=== PATIENT | female | born 1965 | race Two or more races ===

== ENCOUNTER 2020-07-10 08:11 | Outpatient (REF) | payer BC, SELFPAY | END 2020-07-10 08:12 | disposition home or self-care (01) | LOC: HO.HMGCLDS 08:11 | PROVIDERS: PCP Family Medicine; Visit Provider Internal Medicine | DX: Z20.828 Contact with and (suspected) exposure to other viral communicable diseases (principal) | CPT/HCPCS: C9803; U0003 ==

== ENCOUNTER → 2020-07-18 08:35 | Outpatient (BNVA) | payer BC, SELFPAY | PROVIDERS: PCP Internal Medicine; Referring Provider Internal Medicine; Visit Provider Advanced Practice Midwife | DX: Z76.89 Persons encountering health services in other specified circumstances (principal) ==

== ENCOUNTER 2020-12-15 09:21 | Outpatient (REF) | payer BC, SELFPAY ==
[2020-12-15 10:29] LABS: Cholesterol 198 mg/dL; HDL Cholesterol 84 mg/dL; LDL Cholesterol Calculated 102 mg/dl; Triglycerides 63 mg/dL
== END 2020-12-15 09:22 | disposition home or self-care (01) ==
LOC: HO.LAB 09:21
PROVIDERS: PCP Family Medicine; Visit Provider Family Medicine
DX: E78.5 Hyperlipidemia, unspecified (principal)
CPT/HCPCS: 36415; 80061

== ENCOUNTER 2021-02-14 13:01 | Outpatient (REF) | payer BC, SELFPAY ==
--- NOTE | ~2021-02-14 | MR_ITS ---
EXAMINATION: MR KNEE WITHOUT CONTRAST, RIGHT CLINICAL INFORMATION: Pain COMPARISON: X-ray of the right knee April 2020 TECHNIQUE: MRI of the knee without contrast was performed using routine sequences on a high-field scanner. FINDINGS: MENISCI: Medial Meniscus: Intact Lateral Meniscus: There is globular-appearing increased signal within the anterior body of the meniscus not clearly extending to the articular surface. LIGAMENTS: Cruciate: Intact Collateral: Intact EXTENSOR MECHANISM: Intact ARTICULAR CARTILAGE/BONE: Patellofemoral Compartment: Normal Medial Compartment: Normal Lateral Compartment: Normal JOINT FLUID AND BURSAE: Trace Fernandez's cyst. MR/MR knee RT wo con IMPRESSION: Findings in the lateral meniscus of uncertain significance. This may simply reflect prominent grade 2 signal. However, given the prominence, findings raise the question of a subtle inconspicuous tear. Trace Fernandez's cyst.
== END 2021-02-14 13:02 | disposition home or self-care (01) ==
LOC: HO.MRI 13:01
PROVIDERS: PCP Family Medicine; Visit Provider Family Medicine
DX: M25.561 Pain in right knee (principal)
CPT/HCPCS: 73721

== ENCOUNTER 2021-03-16 07:11 | Outpatient (REF) | payer BC, SELFPAY ==
[2021-03-16 07:28] LABS: MANUAL DIFF FLAG NO
[2021-03-16 07:30] LABS: Basophils Absolute Auto 0.1 X10*3/uL (0.0-0.2); Basophils Percent Auto 1.9 % (0-2); Eosinophils Absolute Auto 0.1 X10*3/uL (0.0-0.4); Eosinophils Percent Auto 2.5 % (0-4); Hematocrit 40.9 % (37-47); Hemoglobin 13.5 g/dl (12.0-16.0); Imm Gran Abs Auto 0.02 X10*3/uL (0.00-0.03); Imm Gran Pct Auto 0.4 % (0.0-0.4); Lymphocytes Absolute Auto 2.1 X10*3/uL (1.2-4.9); Lymphocytes Percent Auto 39.8 % (20-40); Mean Corpuscular Hemoglobin 29.2 pg (27.0-33.0); Mean Corpuscular Volume 88.5 fL (80-98); Mean Platelet Volume 9.7 fL (9.4-12.3); Monocytes Absolute Auto 0.4 X10*3/uL (0.1-1.2); Monocytes Percent Auto 7.5 % (2-11); Neutrophils Absolute Auto 2.5 X10*3/uL (2.0-8.3); Neutrophils Percent Auto 47.9 % (45-73); Platelet Count 238 X10*3/uL (160-400); Red Blood Count 4.62 X10*6/uL (4.20-5.50); Red Cell Distribution Width 13.4 % (11.0-16.0); White Blood Count 5.2 X10*3/uL (4.8-10.8)
[2021-03-16 08:00] LABS: Anion Gap 13 (12-20); Blood Urea Nitrogen 12 mg/dL (9-16); Calcium 9.4 mg/dL (8.4-10.2); Carbon Dioxide 26 mmol/L (22-29); Chloride 106 mmol/L (96-108); Estimated Glomerular Filt Rate > 60; Glucose Random 93 mg/dL (60-115); Potassium 4.3 mmol/L (3.3-5.1); Sodium 141 mmol/L (135-145)
[2021-03-16 08:21] LABS: TSH reflex Free T4 0.83 uIU/mL (0.32-4.0)
== END 2021-03-16 07:12 | disposition home or self-care (01) ==
LOC: HO.LAB 07:11
PROVIDERS: PCP Family Medicine; Visit Provider Family Medicine
DX: D12.6 Benign neoplasm of colon, unspecified (principal); E78.5 Hyperlipidemia, unspecified; I10 Essential (primary) hypertension; M25.561 Pain in right knee; Z80.0 Family history of malignant neoplasm of digestive organs; Z83.3 Family history of diabetes mellitus
CPT/HCPCS: 36415; 80048; 83735; 84443; 85025

== ENCOUNTER → 2021-03-19 09:43 | Outpatient (BNVA) | payer BC, SELFPAY | PROVIDERS: PCP Family Medicine; Visit Provider Advanced Practice Midwife ==

== ENCOUNTER 2021-03-25 13:50 | Outpatient (REF) | payer BC, SELFPAY ==
--- NOTE | ~2021-03-25 | MM_ITS ---
EXAMINATION: MM SCREENING DIGITAL BREAST TOMOSYNTHESIS, BILATERAL CLINICAL INFORMATION: Screening. Asymptomatic. The lifetime risk of breast cancer based on the Tyrer-Cuzick Model is 5%. COMPARISON: Mammography: 03/19/2020, 03/14/2019, 03/08/2018 TECHNIQUE: Digital breast tomosynthesis is performed in both the craniocaudal and mediolateral oblique views along with computer-aided detection (CAD). Synthesized 2D images are generated from the tomosynthesis. FINDINGS: The breasts are heterogeneously dense, which may obscure small masses (ACR BI-RADS breast composition Category c). There are no significant masses, abnormal calcifications, or other abnormalities. Parenchymal pattern is similar to prior studies. The axilla and skin contours are unremarkable. No significant changes. MM/MM tomosynthesis screening BI IMPRESSION: No mammographic evidence of malignancy. ASSESSMENT: BI-RADS 1: Negative RECOMMENDATION: Routine annual mammography screening. This patient's information was entered into a reminder system with a target due date for their next mammogram.
== END 2021-03-25 13:51 | disposition home or self-care (01) ==
LOC: HO.MAMMO 13:50
PROVIDERS: Visit Provider Family Medicine
DX: Z12.31 Encounter for screening mammogram for malignant neoplasm of breast (principal)
CPT/HCPCS: 77063; 77067

== ENCOUNTER 2021-04-02 14:34 | Outpatient (REF) | payer BC, SELFPAY ==
--- NOTE | ~2021-04-02 | US_ITS ---
EXAMINATION: US PELVIS CLINICAL INFORMATION: Pelvic pressure COMPARISON: Previous pelvic ultrasound most recent January [address] March 2020 TECHNIQUE: Ultrasound of the pelvis is performed using both transabdominal and transvaginal transducers along with Doppler. Transvaginal imaging is performed due to inadequate visualization transabdominally. FINDINGS: The uterus is anteverted and measures 8.6 x 3.1 x 5.2 cm in addition. Uterine echotexture is heterogeneous. There are multiple small uterine lesions, at least 8, suggestive of small fibroids. The largest measures 1 cm. The endometrium appears slightly thickened for a postmenopausal patient measuring 0.8 cm. There is fluid seen in the endocervical canal. The ovaries are normal-appearing. The right ovary measures 2.4 x 1.3 x 1 cm. The left ovary measures 1.7 x 1.2 x 1.3 cm. There is no fluid in the pelvis. US/US pelvic and transvaginal IMPRESSION: Multiple small uterine fibroids. Slightly thickened endometrium for a postmenopausal patient measuring 0.8 cm.
== END 2021-04-02 14:35 | disposition home or self-care (01) ==
LOC: HO.US 14:34
PROVIDERS: Visit Provider Advanced Practice Midwife
DX: N94.9 Unspecified condition associated with female genital organs and menstrual cycle (principal)
CPT/HCPCS: 76830; 76856

== ENCOUNTER 2021-04-17 17:57 | Emergency (ER) | payer BC, SELFPAY ==
[2021-04-17 18:31] VITALS: BP 148/88; PULSE 80; RESP 18; TEMP 36.9; O2SAT 98; BMI 25.0
--- NOTE | 2021-04-17 18:34 | PC.NURSE ---
pt with no facial droop and equal strength all extremities
[2021-04-17 20:00] VITALS: BP 154/57; PULSE 74; RESP 16; TEMP 36.4; O2SAT 97
--- NOTE | 2021-04-17 20:05 | ED.GENADULT ---
HPI - General Adult General Chief complaint: General Medical Stated complaint: high bp Time Seen by Provider: 04/17/21 20:05 Source: patient Mode of arrival: ambulatory Limitations: no limitations History of Present Illness HPI narrative: Patient's history of borderline hypertension not on any medication diagnosed last month came here because for last few days patient having higher blood pressure ranging to 160/94 earlier today patient had the labs workup done last month, everything was normal blood pressure on arrival was 148/88 now 173/99 with no orthostatics patient little stressed out ,no known family history. Patient requesting to start on blood pressure medication Related Data Home Medications Medication Instructions Recorded Confirmed atorvastatin 20 mg tablet 20 mg PO DAILY 07/18/20 ibuprofen 600 mg tablet 600 mg PO Q8H PRN 07/18/20 gabapentin 300 mg capsule 300 mg PO TID 03/19/21 Previous Rx's Medication Instructions Recorded estradiol (Estrace) 1 g VAGINAL 2XW #42.5 g 01/21/21 lisinopril 10 1 tab PO DAILY #30 tab 04/17/21 mg-hydrochlorothiazide 12.5 mg tablet Allergies Allergy/AdvReac Type Severity Reaction Status Date / Time acetaminophen [From TYLENOL] Allergy Severe THROAT Verified 03/19/21 09:55 CLOSES dichloralphenazone Allergy Severe PANIC Verified 03/19/21 09:55 [From MIDRIN] ATTACK From MIDRIN Allergy Severe PANIC Uncoded 04/26/20 16:04 ATTACK Midrin AdvReac Unknown anxiety Uncoded 04/04/20 00:00 Review of Systems Review of Systems: Yes all other systems are reviewed and are negative PMFSH Past Medical History Medical History High cholesterol Surgical History History of back surgery Hx of section Hx of cholecystectomy Family History Family History Family/Other Colon cancer Other Adopted Social History Social History Alcohol intake: current Alcohol intake frequency: holidays/special occasions only Advance Directives: No Advance Directives Information Provided: Yes Sexual orientation: Straight/Heterosexual Physical Exam Vital Signs: Vital Signs: Last Vital Signs Temp 97.6 F 04/17/21 20:00 Pulse 73 04/17/21 21:21 Resp 16 04/17/21 20:00 BP 173/85 H 04/17/21 21:21 Pulse Ox 97 04/17/21 20:00 Body Mass Index 25.0 Appearance: Alert. Oriented X3. No acute distress. Anxious Eyes: PERRLA, No Nystagmus ENT: Pharynx normal. Oral Mucosa moist Neck: Normal inspection. Neck supple. CVS: Normal heart rate and rhythm. Pulses normal. Respiratory: No respiratory distress. Equal air entry bilateral, no wheezing/rales/rhonchi Abdomen: Soft and nontender. Bowel sounds are present, no mass palpable, no CVA tenderness Skin: Skin warm and dry. Normal skin color. Normal skin turgor. Extremities: No lower extremity edema. No calf tenderness Neuro: Oriented X 3. Discharge Plan Discharge Clinical Impression: Hypertension Qualifiers: Hypertension type: primary hypertension Qualified Code(s): I10 - Essential (primary) hypertension Patient Disposition: Home, Self-Care Instructions: Hypertension (ED) Additional Instructions: Take medication for blood pressure and check blood pressure daily should be less than 140/90 Follow up with PCP Prescriptions: New lisinopril-hydrochlorothiazide 10-12.5 mg tablet 1 tab PO DAILY Qty: 30 RF: 0 No Action estradiol [Estrace] 0.01 % (0.1 mg/gram) cream 1 g vaginal 2XW Qty: 42.5 RF: 1 ibuprofen 600 mg tablet 600 mg PO Q8H PRN (Reason: pain) RF: 0 atorvastatin 20 mg tablet 20 mg PO DAILY RF: 0 gabapentin 300 mg capsule 300 mg PO TID RF: 0 Interventions: ED Discharge Assessment Last Done: 04/17/21 21:17 Discharge Date/Time: 04/17/21 21:22
[2021-04-17 20:16] VITALS: BP 179/89; PULSE 78
[2021-04-17 20:17] VITALS: BP 173/73; BP 173/99; PULSE 75; PULSE 77
[2021-04-17 20:43] VITALS: BP 193/87; PULSE 67
[2021-04-17] MEDS: lisinopriL 10 MG TABLET PO (20:43)
[2021-04-17 21:21] VITALS: BP 173/85; PULSE 73
== END 2021-04-17 21:22 | disposition home or self-care (01) ==
PROVIDERS: Emergency Provider Internal Medicine; PCP Family Medicine
DX: I10 Essential (primary) hypertension (principal); Z79.899 Other long term (current) drug therapy
CPT/HCPCS: 99283; 99284

== ENCOUNTER → 2021-04-23 13:22 | Outpatient (BNVA) | payer BC, SELFPAY | PROVIDERS: PCP Family Medicine; Visit Provider Advanced Practice Midwife ==

== ENCOUNTER 2021-05-04 07:14 | Outpatient (REF) | payer BC, SELFPAY ==
[2021-05-04 07:58] LABS: Anion Gap 13 (12-20); Blood Urea Nitrogen 17 mg/dL (9-16); Calcium 9.7 mg/dL (8.4-10.2); Carbon Dioxide 28 mmol/L (22-29); Chloride 99 mmol/L (96-108); Estimated Glomerular Filt Rate > 60; Glucose Random 122 mg/dL (60-115); Potassium 4.9 mmol/L (3.3-5.1); Sodium 135 mmol/L (135-145)
== END 2021-05-04 07:15 | disposition home or self-care (01) ==
LOC: HO.LAB 07:14
PROVIDERS: PCP Family Medicine; Visit Provider Family Medicine
DX: I10 Essential (primary) hypertension (principal)
CPT/HCPCS: 36415; 80048

== ENCOUNTER → 2021-05-16 14:37 | Outpatient (BNVA) | payer BC, SELFPAY | PROVIDERS: Visit Provider Orthopaedic Surgery ==

== ENCOUNTER → 2021-06-10 13:51 | Outpatient (BNVA) | payer BC, SELFPAY | PROVIDERS: PCP Family Medicine; Visit Provider Internal Medicine ==

== ENCOUNTER → 2021-07-23 12:53 | Outpatient (BNVA) | payer BC, SELFPAY | PROVIDERS: PCP Family Medicine; Visit Provider Advanced Practice Midwife ==

== ENCOUNTER 2022-03-26 14:03 | Outpatient (REF) | payer BC, SELFPAY ==
--- NOTE | ~2022-03-26 | MM_ITS ---
EXAMINATION: MM SCREENING DIGITAL BREAST TOMOSYNTHESIS, BILATERAL CLINICAL INFORMATION: Screening. Asymptomatic. The lifetime risk of breast cancer based on the Tyrer-Cuzick Model is 6%. COMPARISON: Mammography: 03/25/2021, 03/19/2020, 03/14/2019 TECHNIQUE: Digital breast tomosynthesis is performed in both the craniocaudal and mediolateral oblique views along with computer-aided detection (CAD). Synthesized 2D images are generated from the tomosynthesis. FINDINGS: The breasts are heterogeneously dense, which may obscure small masses (ACR BI-RADS breast composition Category c). Parenchymal pattern is similar to prior studies. There is no developing density or architectural abnormality. The axilla and skin contours are unremarkable. No significant changes. There are no significant masses, abnormal calcifications, or other abnormalities. MM/MM tomosynthesis screening BI IMPRESSION: No mammographic evidence of malignancy. ASSESSMENT: BI-RADS 1: Negative RECOMMENDATION: Routine annual mammography screening. This patient's information was entered into a reminder system with a target due date for their next mammogram.
== END 2022-03-26 14:04 | disposition home or self-care (01) ==
LOC: HO.MAMMO 14:03
PROVIDERS: PCP Family Medicine; Visit Provider Family Medicine
DX: Z12.31 Encounter for screening mammogram for malignant neoplasm of breast (principal)
CPT/HCPCS: 77063; 77067

== ENCOUNTER 2022-06-15 18:49 | Emergency (ER) | payer BC, SELFPAY ==
--- NOTE | ~2022-06-15 | CT_ITS ---
EXAMINATION: CT ANGIOGRAM NECK AND HEAD CLINICAL INFORMATION: Severe dizziness COMPARISON: MRI 12/07/2021, CT 12/18/2011 TECHNIQUE: Initial noncontrast head CT was performed. Test bolus sequences followed by intravenous administration 70 mL of Ultravist-370. Helical imaging was performed in the axial plane from the thoracic inlet to the skull vertex. Delayed postcontrast imaging of the head was also performed. The data was processed at the eeg technologist's workstation for generation of MIP sequences. Angled MIPs and volume rendered reformatted images were also generated at an offline 3D workstation. Stenoses are assessed in accordance with NASCET criteria unless otherwise indicated. DOSE LOWERING TECHNIQUES: This CT examination was performed using dose optimization techniques as appropriate, variously including the following: - Automated exposure control - Adjustment of mA and/or kV according to patient size (this includes techniques or standardized protocols for targeted exams were dose is matched to indication/reason for exam; i.e. extremities or head) - Use of iterative reconstruction technique DLP: 2126 mGy-cm FINDINGS: Neck CTA: There is a classic 3 vessel branching pattern of the aortic arch. Normal appearance of the visualized aortic arch and proximal branches. No significant stenosis at the branch origins. Both vertebral arteries are widely patent throughout their extracranial cervical course. Normal appearance of the common and internal carotid arteries without focal stenosis. Brain CTA: Normal appearance of the intradural vertebral arteries. Normal appearance of the basilar and superior cerebellar arteries. Normally opacified posterior cerebral arteries bilaterally. Normal appearance of the intradural internal carotid arteries without focal stenosis. Normal appearance of the anterior cerebral and middle cerebral arteries without focal occlusion or stenosis. Normal anterior communicating artery. Normal arborization of the middle cerebral arteries. CT Head: No intracranial mass, hemorrhage, extra-axial collection, or midline shift. The gentile-white matter differentiation is preserved. 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 No pathologic intra-axial enhancement or regional oligemia. No hydrocephalus. The mastoid air cells and paranasal sinuses remain well aerated. CT Neck: The thyroid gland and remaining cervical soft tissues are normal in appearance. There is right-sided facet arthropathy at C2-C4. Upper Chest: No abnormalities in the visualized lung apices or upper mediastinum. CT/CT angio head neck IMPRESSION: 1. No acute intracranial findings. 2. No hemodynamically significant stenosis in the major arteries of the neck. No large vessel occlusion or significant stenosis in the intracranial circulation.
[2022-06-15 19:42] VITALS: BP 138/81; PULSE 98; RESP 16; TEMP 36.6; O2SAT 98; BMI 25.0
--- NOTE | 2022-06-15 19:46 | ECG_ITS ---
Test Reason : DIZZINESS Blood Pressure : / mmHG Vent. Rate : 088 BPM Atrial Rate : 088 BPM P-R Int : 152 ms QRS Dur : 068 ms QT Int : 330 ms P-R-T Axes : 079 035 064 degrees QTc Int : 399 ms Normal sinus rhythm Low voltage QRS Nonspecific T wave abnormality RSR' or QR pattern in V1 suggests right ventricular conduction delay Possible Left atrial enlargement Abnormal ECG No previous ECGs available Referred By: Generic ED Physician Electronically Signed By:RASHAAD ZAVALA MD
[2022-06-15 20:08] LABS: MANUAL DIFF FLAG NO
[2022-06-15 20:11] LABS: Basophils Percent Auto 0.6 % (0-2); Eosinophils Absolute Auto 0.1 X10*3/uL (0.0-0.4); Eosinophils Percent Auto 1.4 % (0-4); Hematocrit 39.8 % (37.0-47.0); Hemoglobin 13.5 g/dl (12.0-16.0); Imm Gran Abs Auto 0.03 X10*3/uL (0.00-0.03); Imm Gran Pct Auto 0.5 % (0.0-0.4); Lymphocytes Absolute Auto 1.6 X10*3/uL (1.2-4.9); Lymphocytes Percent Auto 23.6 % (20-40); Mean Corpuscular HGB Conc 33.9 g/dl (31.0-35.0); Mean Corpuscular Hemoglobin 29.7 pg (27.0-33.0); Mean Corpuscular Volume 87.5 fL (80.0-98.0); Mean Platelet Volume 9.8 fL (9.4-12.3); Monocytes Absolute Auto 0.5 X10*3/uL (0.1-1.2); Neutrophils Absolute Auto 4.4 x10*3/uL (2.0-8.3); Neutrophils Percent Auto 65.9 % (45-73); Platelet Count 269 X10*3/uL (160-400); Red Blood Count 4.55 X10*6/uL (4.20-5.50); Red Cell Distribution Width 13.2 % (11.0-16.0); White Blood Count 6.6 X10*3/uL (4.8-10.8)
[2022-06-15 20:26] LABS: Anion Gap 17 (12-20); Blood Urea Nitrogen 14 mg/dL (9-16); Calcium 9.4 mg/dL (8.4-10.2); Carbon Dioxide 24 mmol/L (22-29); Chloride 104 mmol/L (96-108); Creatinine Clr Calc Pharmacy 77.4; Estimated Glomerular Filt Rate > 60; Glucose Random 112 mg/dL (60-115); Sodium 141 mmol/L (135-145)
--- OUTSIDE RECORDS SUMMARY | 2022-06-15 21:22 | XMS_ITS | Continuity of Care Document ---
:1965 Author Organization [address], [address] [place] [address]- Care Team Providers Name Role Phone Frances Li MD Primary Care Physician [facility]counter [facility] [id number] Date(s): 04/18/21 - 04/25/[address], [address] [place], [place] [address] Attending Physician: Rajat BREWER, Peyton Kaur Referring Physician: Frances Li MD Allergies, Adverse Reactions, Alerts Substance Reaction Severity Status Tylenol Tightness in throat Active Medications atorvastatin 20 mg oral tablet 1 tablet = 20 mg, By Mouth, Daily, # 30 tablet, 0 Refills, Maintenance, 04/18/21 14:08:00 EDT, Tablet, Partial fill upon patient request if the prescription is for a schedule II opioid drug. Start Date: 04/18/21 Status: OrderedConjugated Estrogens Topical = 1 Gm, Vaginally, Daily before dinner, 0 Refills, Maintenance, 04/07/21 12:36:00 EDT, Partial fill upon patient request if the prescription is for a schedule II opioid drug. Start Date: 04/07/21 Status: Orderedgabapentin (OP) By Mouth, 0 Refills, Maintenance, 2 Start Date: 04/07/21 Status: Orderedhydrochlorothiazide-lisinopril 12.5 mg-10 mg oral tablet 1 tablet, By Mouth, Daily, # 30 tablet, 0 Refills, Maintenance, 04/18/21 14:07:00 EDT, Tablet, Partial fill upon patient request if the prescription is for a schedule II opioid drug. Start Date: 04/18/21 Status: OrderedhydrOXYzine hydrochloride 25 mg oral tablet 1 tablet = 25 mg, By Mouth, 4 times a day, PRN for anxiety, # 40 tablet, 0 Refills, Maintenance, 04/18/21 14:08:00 EDT, Tablet, Partial fill upon patient request if the prescription is for a schedule II opioid drug. Start Date: 04/18/21 Status: Ordered Vital Signs Most recent to oldest [Reference Range]: 1 Height 170 cm (04/18/21 2:01 PM) Weight 69.0 kg (04/18/21 2:01 PM) Body Mass Index [18.5-24.99] 23.88 (04/18/21 2:01 PM)
--- OUTSIDE RECORDS SUMMARY | 2022-06-15 21:22 | XMS_ITS | Continuity of Care Document ---
:1965 Author Organization [address], [address] [place] [address]- Care Team Providers Name Role Phone Frances Li MD Primary Care Physician Encounter [facility] [id number] Date(s): 10/29/21 - 11/28/[address], [address] [place] [address]- Attending Physician: Ariel Munroe Admitting Physician: Ariel Munroe Referring Physician: AdmtrAriel Allergies, Adverse Reactions, Alerts Substance Reaction Severity [...]
--- OUTSIDE RECORDS SUMMARY | 2022-06-15 21:22 | XMS_ITS | Continuity of Care Document ---
:1965 Author Organization [facility] [address] Address [address] [place] [address]- Care Team Providers Name Role Phone Frances Li MD Primary Care Physician [phone] Encounter [facility] Date(s): 04/07/21 - 04/14/21 [facility] [address] [place], [place] [address] Encounter Diagnosis Seasonal allergies (Discharge Diagnosis) - 04/07/21 Elevated blood pressure reading (Discharge Diagnosis) - 04/07/21 Attending Physician: Kym DOTY, Miriam Referring Physician: Frances Li MD Allergies, Adverse Reactions, Alerts Substance Reaction Severity Status Tylenol Tightness in throat Active Medications Conjugated Estrogens Topical = 1 Gm, Vaginally, Daily before dinner, 0 Refills, Maintenance, 04/07/21 12:36:00 EDT, Partial fill upon patient request if the prescription is for a schedule II opioid drug. Start Date: 04/07/21 Status: Orderedgabapentin (OP) By Mouth, 0 Refills, Maintenance, 2 Start Date: 04/07/21 Status: Ordered Problem List Diagnosis Diagnosis Type Effective Dates Health Status Clinical In formant Service Seasonal Discharge 04/07/21 allergies Diagnosis Elevated blood Discharge 04/07/21 pressure reading Diagnosis Vital Signs Most recent to oldest [Reference Range]: 1 Oxygen Saturation [94-100 %] 98 % (04/07/21 12:34 PM) Pulse Rate [55-90 bpm] 82 bpm (04/07/21 12:34 PM) Blood Pressure [90-138/55-84 mm Hg] 154/96 mm Hg *H* (04/07/21 12:34 PM) Respiratory Rate [16-30 br/min] 20 br/min (04/07/21 12:34 PM) Temperature [96.8-100.4 DegF] 97.0 DegF (04/07/21 12:34 PM) Mode of Delivery (Oxygen) Room air (04/07/21 12:34 PM) Blood pressure sites Arm, right (04/07/21 12:34 PM) Temperature Route Temporal (04/07/21 12:34 PM)
--- OUTSIDE RECORDS SUMMARY | 2022-06-15 21:22 | XMS_ITS | Continuity of Care Document ---
:1965 Author Organization [address], [address] [place] [address]- Care Team Providers Name Role Phone Frances Li MD Primary Care Physician Encounter [facility] [id number] Date(s): 10/29/21 - 11/05/[address], [address] [place], [place] [address] Attending Physician: Rajat BREWER, Peyton Kaur Allergies, Adverse Reactions, Alerts Substance Reaction Severity [...] oldest [Reference Range]: 1 Height 170 cm (10/29/21 10:36 AM) Weight 69.0 kg (10/29/21 10:36 AM) Body Mass Index [18.5-24.99] 23.88 (10/29/21 10:36 AM)
--- OUTSIDE RECORDS SUMMARY | 2022-06-15 21:22 | XMS_ITS | Continuity of Care Document ---
:1965 Author Organization [facility] [address] Address [address] [place] [address]- Care Team Providers Name Role Phone Frances Li MD Primary Care Physician [facility] [id number] Date(s): 04/07/21 - 05/07/21 [facility] [address] [place], [place] [address] Attending Physician: Ariel Munroe Admitting Physician: Ariel [...]
--- OUTSIDE RECORDS SUMMARY | 2022-06-15 21:22 | XMS_ITS | Continuity of Care Document ---
:1965 Author Organization [address], [address] [place] [address]- Care Team Providers Name Role Phone Frances Li MD Primary Care Physician [place] [facility] [id number] Date(s): 04/18/21 - 05/18/[address], [address] [place] [address]- Attending Physician: Ariel Munroe Admitting Physician: Ariel [...]
[2022-06-15 22:38] LABS: Appearance Urine Clear; Color Urine Yellow; Glucose Urine UA Negative (Negative); Leukocyte Esterase Urine Negative (Negative); Nitrite Urine Negative (Negative); PH 5.5 (5.0-9.0); Specific Gravity - Urine 1.015 (1.005-1.025); Urine Blood Negative (Negative); Urine Ketones Negative (Negative); Urine Protein Negative (Neg-Trace)
[2022-06-15 23:57] VITALS: BP 161/82; PULSE 101; RESP 18; TEMP 36.7; O2SAT 99
[2022-06-16] MEDS: diazePAM 2 MG TABLET 4 MG PO
[2022-06-16] MEDS: diphenhydrAMINE HCL 50 MG/ML VIAL 25 MG IVPUSH (00:07)
[2022-06-16] MEDS: 0.9 % Sodium Chloride 1,000 ML 999 ML IVCONT (00:07)
[2022-06-16] MEDS: iohexoL 350 MG/ML 100 ML INFUS..BTL 70 ML IV (02:22)
--- NOTE | 2022-06-16 03:27 | PC.NURSE ---
Patient ambulated with a steady gait ,patient had no complaints aware
[2022-06-16 03:29] VITALS: BP 152/83; PULSE 97; RESP 18; TEMP 36.7; O2SAT 100
--- NOTE | 2022-06-16 03:34 | ED_ITS ---
HPI - Dizziness General Chief Complaint: Dizziness Stated Complaint: Dizziness/Blurry vision Time Seen by Provider: 06/15/22 23:22 Source: patient Mode of arrival: ambulatory Limitations: no limitations History of Present Illness HPI Narrative: Patient comes to the emergency room complaining of dizziness with head movement and standing up. Patient states that she feels that the whole room is spinning, feels that her gait is off, needs to hold onto the garcia to walk. Patient states that as long as she is sitting down not moving her head she feels completely normal but once she starts moving and getting up, the whole room starts spinning and patient becomes very nauseous. Patient denies chest pain or shortness of breath. Patient states that she had a mild headache, has not taking any medications. Related Data Home Medications Medication Instructions Recorded Confirmed atorvastatin 20 mg tablet 20 mg PO DAILY 07/18/20 ibuprofen 600 mg tablet 600 mg PO Q8H PRN pain 07/18/20 amlodipine 2.5 mg tablet 2.5 mg PO DAILY 02/05/22 clotrimazole 1 % vaginal cream vaginal BEDTIME PRN 02/05/22 hydralazine 25 mg tablet 25 mg PO BID 02/05/22 Previous Rx's Medication Instructions Recorded lisinopril 10 1 tab PO DAILY #30 tabs 04/17/21 mg-hydrochlorothiazide 12.5 mg tablet diazepam 2 mg tablet 2 mg PO BID PRN vertigo #6 tabs 06/16/22 meclizine 50 mg tablet 50 mg PO BID PRN dizziness #20 tabs 06/16/22 Allergies Allergy/AdvReac Type Severity Reaction Status Date / Time acetaminophen [From TYLENOL] Allergy Severe THROAT Verified 02/05/22 12:24 CLOSES dichloralphenazone Allergy Severe PANIC Verified 02/05/22 12:24 [From MIDRIN] ATTACK From MIDRIN Allergy Severe PANIC Uncoded 02/05/22 12:24 ATTACK Midrin AdvReac Unknown anxiety Uncoded 02/05/22 12:24 Review of Systems Review of Systems: Constitutional : No Weight loss, No Fever, No Chills, No Night Sweats, No Fatigue, No Malaise ENT/Mouth : No Hearing loss, No Ear Pain, No Nasal Congestion, No Sinus Pain, No Hoarseness, No sore throat, No Rhinorrhea, No Swallowing Difficulty Eyes: No Eye Pain, No Swelling, No Redness, No Foreign Body, No Discharge, No Vision Changes Cardiovascular : No Chest Pain, No SOB, No Dyspnea on Exertion, No Orthopnea, No Edema, No Palpitations Respiratory : No Cough, No Sputum, No Wheezing, No Smoke Exposure, No Dyspnea Gastrointestinal : No Nausea, No Vomiting, No Diarrhea, No Constipation, No abdominal Pain, No Hematochezia, No Melena Genitourinary : no irregular bleeding, No Dysuria, No Urinary Frequency, No Hematuria, No Urinary Incontinence, No Urgency, No Flank Pain, No Urinary Flow Changes, No Hesitancy Musculoskeletal : No joint pain, No Myalgias, No Joint Swelling Skin : No Skin Lesions, No rash Neuro : No Weakness, No Numbness, No Paresthesias, No Loss of Consciousness, complaining of severe dizziness with head movement and standing up, room spinning Psych : No Anxiety/Panic, No Depression, No SI/HI/AH/VH, No Social Issues, Heme/Lymph: No Bruising, No Bleeding,No Lymphadenopathy Endocrine : No Polyuria, No Polydipsia, No Temperature Intolerance [facility] Past Medical History Medical History Fibroids High cholesterol Right lumbar radiculitis Surgical History History of back surgery Hx of section Hx of cholecystectomy Family History Family History Family/Other Colon cancer Other Adopted Social History Social History (Updated 02/05/22 @ 12:26 by ELPIDIO Garcia) Household Members: Spouse Housing: House Alcohol intake: current Alcohol intake frequency: a few times a month Patient Tobacco Use Status: Former Tobacco user Smoked in Last 30 Days: No Use of substances other than those prescribed or required for medical reasons: No Advance Directives: No Advance Directives Information Provided: Yes Patient : No service: No Current occupational status: employed 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 Oriented X3. No acute distress. Eyes: Pupils equal, round and reactive to light. Mild horizontal nystagmus bilaterally ENT: Pharynx normal. Neck: Normal inspection. Neck supple. No lymph nodes noted. No crepitus CVS: Normal heart rate and rhythm. Pulses normal. Normal S1 and S2 Respiratory: No respiratory distress. Breath sounds normal. No Wheezing. No rales Abdomen: Soft and nontender. No rigidity. No distention. Skin: Skin warm and dry. Normal skin color. Normal skin turgor. Extremities: No lower extremity edema. No Lacerations. No Rash Neuro: Oriented X 3. No motor deficit. No sensory deficit. Moving all extremities. No slurred speech. CN 2 through 12 grossly intact Psych: calm, cooperative, normal affect Course Course Course Narrative: CTA of head and neck were negative. After treatment with meclizine, diazepam, diphenhydramine and IV fluids, patient states that she feels much better. Patient was able to walk without assistance, states that she feels slightly dizzy but overall she states that she can and feels well enough MDM - Dizziness Lab Data Result diagrams: 06/15/22 19:59 06/15/22 19:59 Labs: Lab Results 06/15/22 06/15/22 06/15/22 Range/Units 19:59 19:59 22:30 WBC 6.6 (4.8-10.8) X10*3/uL RBC 4.55 (4.20-5.50) X10*6/uL Hgb 13.5 (12.0-16.0) g/dl Hct 39.8 (37.0-47.0) % MCV 87.5 (80.0-98.0) fL MCH 29.7 (27.0-33.0) pg MCHC 33.9 (31.0-35.0) g/dl RDW 13.2 (11.0-16.0) % Plt Count 269 (160-400) X10*3/uL MPV 9.8 (9.4-12.3) fL Immature Gran % (Auto) 0.5 H (0.0-0.4) % Neut % (Auto) 65.9 (45-73) % Lymph % (Auto) 23.6 (20-40) % Kidder % (Auto) 8.0 (2-11) % Eos % (Auto) 1.4 (0-4) % Baso % (Auto) 0.6 (0-2) % Lymph # (Auto) 1.6 (1.2-4.9) X10*3/uL [place] # (Auto) 0.5 (0.1-1.2) X10*3/uL Eos # (Auto) 0.1 (0.0-0.4) X10*3/uL Baso # (Auto) 0.0 (0.0-0.2) X10*3/uL Abs Immat Gran (auto) 0.03 (0.00-0.03) X10*3/uL Absolute Neuts (auto) 4.4 (2.0-8.3) x10*3/uL Absolute Nucleated RBC 0.000 (0.0-0.012) X10*3/uL Nucleated RBC % (auto) 0.0 (0.0-0.2) /100WBC Sodium 141 (135-145) mmol/L Potassium 4.0 (3.3-5.1) mmol/L Chloride 104 (96-108) mmol/L Carbon Dioxide 24 (22-29) mmol/L Anion Gap 17 (12-20) BUN 14 (9-16) mg/dL Creatinine 0.77 (0.5-1.4) mg/dL Estim Creat Clear Calc 77.4 Estimated GFR > 60 Random Glucose 112 (60-115) mg/dL Calcium 9.4 (8.4-10.2) mg/dL Urine Color Yellow Urine Appearance Clear Urine pH 5.5 (5.0-9.0) Ur Specific [place] 1.015 (1.005-1.025) Urine Protein Negative (Neg-Trace) mg/dL Urine Glucose (UA) Negative (Negative) mg/dL Urine Ketones Negative (Negative) mg/dL Urine Blood Negative (Negative) Urine Nitrite Negative (Negative) Ur Leukocyte Esterase Negative (Negative) Imaging Data CTA of head and neck: Radiologist's impression: FINDINGS: Neck CTA: There is a classic 3 vessel branching pattern of the aortic arch. Normal appearance of the visualized aortic arch and proximal branches. No significant stenosis at the branch origins. Both vertebral arteries are widely patent throughout their extracranial cervical course. Normal appearance of the common and internal carotid arteries without focal stenosis. Brain CTA: Normal appearance of the intradural vertebral arteries. Normal appearance of the basilar and superior cerebellar arteries. Normally opacified posterior cerebral arteries bilaterally. Normal appearance of the intradural internal carotid arteries without focal stenosis. Normal appearance of the anterior cerebral and middle cerebral arteries without focal occlusion or stenosis. Normal anterior communicating artery. Normal arborization of the middle cerebral arteries. CT Head: No intracranial mass, hemorrhage, extra-axial collection, or midline shift. The gentile-white matter differentiation is preserved. 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 No pathologic intra-axial enhancement or regional oligemia. No hydrocephalus. The mastoid air cells and paranasal sinuses remain well aerated. CT Neck: The thyroid gland and remaining cervical soft tissues are normal in appearance. There is right-sided facet arthropathy at C2-C4. Upper Chest: No abnormalities in the visualized lung apices or upper mediastinum. CT/CT angio head neck IMPRESSION: 1.? No acute intracranial findings. 2.? No hemodynamically significant stenosis in the major arteries of the neck. No large vessel occlusion or significant stenosis in the intracranial circulation. ? Discharge Plan Discharge Clinical Impression: Benign paroxysmal positional vertigo Patient Disposition: Home, Self-Care Instructions: Vertigo (ED) Additional Instructions: Please follow-up with your primary care physician tomorrow. If you have any worsening or new symptoms, please return to the emergency room or call 911 Prescriptions: New meclizine 50 mg tablet 50 mg PO BID PRN (Reason: dizziness) Qty: 20 0RF diazepam 2 mg tablet 2 mg PO BID PRN (Reason: vertigo) Qty: 6 0RF No Action lisinopril-hydrochlorothiazide 10-12.5 mg tablet 1 tab PO DAILY Qty: 30 0RF ibuprofen 600 mg tablet 600 mg PO Q8H PRN (Reason: pain) atorvastatin 20 mg tablet 20 mg PO DAILY clotrimazole 1 % cream vaginal BEDTIME PRN amlodipine 2.5 mg tablet 2.5 mg PO DAILY hydralazine 25 mg tablet 25 mg PO BID
[2022-06-16] MEDS: Meclizine HCl 25 MG TABLET 50 MG PO ×2 (04:02)
--- NOTE | 2022-06-16 04:06 | PC.NURSE ---
Pt a&o, no sob or chest pain. no sign of distress. Reviewed discharge with pt, pt verbalized understanding.
== END 2022-06-16 04:08 | disposition home or self-care (01) ==
PROVIDERS: Emergency Provider Emergency Medicine; PCP Family Medicine
DX: H81.13 Benign paroxysmal vertigo, bilateral (principal); H53.8 Other visual disturbances; Z87.891 Personal history of nicotine dependence; Z79.899 Other long term (current) drug therapy
CPT/HCPCS: 36415; 70496; 70498; 80048; 81003; 85025; 93005; 99285; J1200; Q9967

== ENCOUNTER 2022-06-24 05:58 | Outpatient (REF) | payer BC, SELFPAY ==
[2022-06-24 08:31] LABS: Glucose Random 73 mg/dL (60-115); Thyroid Stimulating Hormone 0.46 uIU/mL (0.32-4.0)
[2022-06-24 08:34] LABS: Vitamin B12 863 pg/mL (200-900)
[2022-06-25 07:04] LABS: Syphilis Screen Nonreactive (Nonreactive)
[2022-06-25 09:11] LABS: Lyme Abs Screen <0.90 index
[2022-06-25 16:26] LABS: Ceruloplasmin 29 mg/dL (18-53)
[2022-06-26 18:32] LABS: Anti Nuclear Antibody Screen POSITIVE (NEGATIVE)
[2022-06-30 15:11] LABS: Transglutaminase Ab IgG <1.0 U/mL
== END 2022-06-24 05:59 | disposition home or self-care (01) ==
LOC: HO.LAB 05:58
PROVIDERS: Internal Medicine; PCP Family Medicine; Visit Provider Psychiatry & Neurology Neurology
DX: R20.0 Anesthesia of skin (principal)
CPT/HCPCS: 36415; 82390; 82607; 82947; 84443; 86038; 86039; 86364; 86617; 86618; 86780

== ENCOUNTER 2022-08-20 13:15 | Outpatient (REF) | payer BC, SELFPAY ==
[2022-08-26 16:29] LABS: HPV mRNA E6/E7 rflx Not Detected (Not Detected)
== END 2022-08-20 13:16 | disposition home or self-care (01) ==
LOC: HO.LNP 13:15
PROVIDERS: PCP Family Medicine; Visit Provider Advanced Practice Midwife
DX: Z01.419 Encounter for gynecological examination (general) (routine) without abnormal findings (principal); Z11.51 Encounter for screening for human papillomavirus (HPV)
CPT/HCPCS: 87624; 88142

== ENCOUNTER 2022-12-13 07:09 | Outpatient (REF) | payer BC, SELFPAY ==
[2022-12-13 07:33] LABS: MANUAL DIFF FLAG NO
[2022-12-13 07:47] LABS: Basophils Absolute Auto 0.1 X10*3/uL (0.0-0.2); Basophils Percent Auto 1.3 % (0-2); Eosinophils Absolute Auto 0.1 X10*3/uL (0.0-0.4); Eosinophils Percent Auto 1.9 % (0-4); Hemoglobin 12.9 g/dl (12.0-16.0); Imm Gran Abs Auto 0.01 X10*3/uL (0.00-0.03); Imm Gran Pct Auto 0.2 % (0.0-0.4); Lymphocytes Absolute Auto 1.9 X10*3/uL (1.2-4.9); Lymphocytes Percent Auto 35.4 % (20-40); Mean Corpuscular HGB Conc 33.1 g/dl (31.0-35.0); Mean Corpuscular Hemoglobin 28.7 pg (27.0-33.0); Mean Corpuscular Volume 86.7 fL (80.0-98.0); Mean Platelet Volume 9.9 fL (9.4-12.3); Monocytes Absolute Auto 0.4 X10*3/uL (0.1-1.2); Monocytes Percent Auto 8.2 % (2-11); Neutrophils Absolute Auto 2.8 x10*3/uL (2.0-8.3); Platelet Count 264 X10*3/uL (160-400); Red Cell Distribution Width 13.8 % (11.0-16.0); White Blood Count 5.2 X10*3/uL (4.8-10.8)
[2022-12-13 08:17] LABS: Alanine Aminotransferase 24 U/L (0-31); Albumin Level 4.2 g/dL (3.5-5.0); Alkaline Phosphatase 77 U/L (39-117); Anion Gap 11 (12-20); Aspartate Amino Transferase 27 U/L (5-31); Bilirubin Direct 0.3 mg/dL (0.0-0.5); Bilirubin Total 1.4 mg/dL (0.0-1.0); Blood Urea Nitrogen 16 mg/dL (9-16); Calcium 9.8 mg/dL (8.4-10.2); Carbon Dioxide 27 mmol/L (22-29); Chloride 107 mmol/L (96-108); Cholesterol 191 mg/dL; Estimated Glomerular Filt Rate > 60; Glucose Random 86 mg/dL (60-115); HDL Cholesterol 72 mg/dL; LDL Cholesterol Calculated 105 mg/dl; Potassium 4.4 mmol/L (3.3-5.1); Sodium 141 mmol/L (135-145); Total Protein 6.8 g/dL (6.5-8.0); Triglycerides 73 mg/dL
[2022-12-13 08:27] LABS: Rheumatoid Factor < 13.0 IU/mL (<15.0)
[2022-12-13 08:43] LABS: Vitamin D 25-OH Total 42.9 ng/mL (>30)
[2022-12-15 04:47] LABS: HIV AB/AG Nonreactive (Nonreactive); HIV Num 1 0.08 S/CO (0.00-0.99)
[2022-12-17 15:24] LABS: Anti Nuclear Antibody Screen POSITIVE (NEGATIVE)
== END 2022-12-13 07:10 | disposition home or self-care (01) ==
LOC: HO.LAB 07:09
PROVIDERS: PCP Family Medicine; Visit Provider Family Medicine
DX: Z11.4 Encounter for screening for human immunodeficiency virus [HIV] (principal); R42 Dizziness and giddiness; Z78.0 Asymptomatic menopausal state; Z78.9 Other specified health status; I10 Essential (primary) hypertension; E78.5 Hyperlipidemia, unspecified
CPT/HCPCS: 36415; 80048; 80061; 80076; 82306; 84443; 85025; 86038; 86039; 86431; 86735; 86765; 87389

== ENCOUNTER 2023-04-09 12:53 | Outpatient (REF) | payer BC, SELFPAY ==
--- NOTE | ~2023-04-09 | XR_ITS ---
EXAMINATION: XR HIP, RIGHT CLINICAL INFORMATION: Pain in the right hip COMPARISON: March 2020. TECHNIQUE: Two views of the right hip. Single view of the pelvis. FINDINGS: No evidence for acute bony fracture or dislocation. Acetabular and pubic margins are intact. Slight narrowing of the superior medial hip joint space. No erosive process. Small bilateral acetabular spurring again observed. Sacrum is grossly intact. XR/XR hip RT w PEL1V IMPRESSION: No acute process. Slight narrowing of the superior medial right hip joint space. Small acetabular spurring.
== END 2023-04-09 12:54 | disposition home or self-care (01) ==
LOC: HO.XRAY 12:53
PROVIDERS: Visit Provider Physical Medicine & Rehabilitation
DX: M25.551 Pain in right hip (principal)
CPT/HCPCS: 73502

== ENCOUNTER 2023-04-15 15:05 | Outpatient (REF) | payer BC, SELFPAY | END 2023-04-15 15:06 | disposition home or self-care (01) | LOC: HO.MAMMO 15:05 | PROVIDERS: PCP Family Medicine; Visit Provider Family Medicine | DX: Z12.31 Encounter for screening mammogram for malignant neoplasm of breast (principal) | CPT/HCPCS: 77063; 77067 ==

== ENCOUNTER → 2023-04-15 15:15 | Outpatient (BNV) | payer BC, SELFPAY | PROVIDERS: PCP Family Medicine; Visit Provider Radiology Diagnostic Radiology | DX: Z12.31 Encounter for screening mammogram for malignant neoplasm of breast (principal) | CPT/HCPCS: 77063; 77067 ==

== ENCOUNTER 2023-04-20 15:11 | Outpatient (REF) | payer BC, SELFPAY ==
[2023-04-20 15:32] LABS: MANUAL DIFF FLAG NO
[2023-04-20 15:43] LABS: Basophils Absolute Auto 0.1 X10*3/uL (0.0-0.2); Basophils Percent Auto 1.2 % (0-2); Eosinophils Absolute Auto 0.1 X10*3/uL (0.0-0.4); Eosinophils Percent Auto 1.5 % (0-4); Hematocrit 37.8 % (37.0-47.0); Hemoglobin 12.2 g/dl (12.0-16.0); Imm Gran Abs Auto 0.01 X10*3/uL (0.00-0.03); Imm Gran Pct Auto 0.2 % (0.0-0.4); Lymphocytes Absolute Auto 2.4 X10*3/uL (1.2-4.9); Lymphocytes Percent Auto 38.9 % (20-40); Mean Corpuscular HGB Conc 32.3 g/dl (31.0-35.0); Mean Corpuscular Hemoglobin 28.1 pg (27.0-33.0); Mean Corpuscular Volume 87.1 fL (80.0-98.0); Monocytes Absolute Auto 0.5 X10*3/uL (0.1-1.2); Monocytes Percent Auto 8.1 % (2-11); Neutrophils Percent Auto 50.1 % (45-73); Platelet Count 257 X10*3/uL (160-400); Red Blood Count 4.34 X10*6/uL (4.20-5.50); Red Cell Distribution Width 13.5 % (11.0-16.0); White Blood Count 6.1 X10*3/uL (4.8-10.8)
[2023-04-20 16:27] LABS: C Reactive Protein < 0.10 mg/dL (< or = 0.50)
[2023-04-20 16:33] LABS: Erythrocyte Sedimentation Rate 7 MM/HR (0-20)
[2023-04-20 16:56] LABS: Creatinine Urine 51.57 mg/dL; Total Protein Urine Random < 7 mg/dL (<12)
[2023-04-22 15:19] LABS: Anti DNA DS Antibody <1 IU/mL; Antibody to SS-A Antigen <1.0 NEG AI (<1.0 NEG); Antibody to SS-B Antigen <1.0 NEG AI (<1.0 NEG); SM/Ribonucleoprotein Ab <1.0 NEG AI (<1.0 NEG); Smith Protein <1.0 NEG AI (<1.0 NEG)
== END 2023-04-20 15:12 | disposition home or self-care (01) ==
LOC: HO.LAB 15:11
PROVIDERS: PCP Family Medicine; Visit Provider Internal Medicine Rheumatology
DX: R76.8 Other specified abnormal immunological findings in serum (principal)
CPT/HCPCS: 36415; 82570; 84156; 85025; 85652; 86140; 86225; 86235

== ENCOUNTER 2023-04-29 08:30 | Outpatient (AMB) | payer BC, SELFPAY ==
--- NOTE | 2023-04-29 08:32 | MHC.OFFVIS ---
Intake Vital Signs 04/29/23 08:33 Height 5 ft 7 in Weight 164 lb 3.91 oz BMI 25.7 BP 140/60 H Blood Pressure Location Lt brachial Position Sitting Pulse 76 Pulse Source Pulse Oximeter Temp 97.4 F Temp Source Skin Pulse Oximetry (%) 98 Oxygen Delivery Method Room Air Intake Visit Reasons: +MAREN Intake Note: New patient here for +MAREN. c/o moon hand and finger pains. Would like to find some answers. Water Tender Required: No Accompanied by: Self / Same As Patient Allergies acetaminophen [From TYLENOL] Allergy (Severe, Verified 04/29/23 08:33) THROAT CLOSES dichloralphenazone [From MIDRIN] Allergy (Severe, Verified 04/29/23 08:33) PANIC ATTACK From MIDRIN Allergy (Severe, Uncoded 04/29/23 08:33) PANIC ATTACK Midrin Adverse Reaction (Unknown, Uncoded 04/29/23 08:33) anxiety Medication List - Last Reconciled 04/29/23 by Pancho Whittaker MD amlodipine 5 mg PO QAM atorvastatin 20 mg PO DAILY clotrimazole 1% vaginal BEDTIME PRN estradiol 0.01%(0.1mg/gram) (Estrace) 0.5 appful vaginal 2XW gabapentin 300 mg PO TID ibuprofen 600 mg PO Q8H PRN lisinopril 10 mg PO DAILY mupirocin 2% 1 appl topical BID-TID HPI HPI Comments History of Present Illness Details The patient presents for evaluation of positive MAREN. Apparently the test was done because complaints of paresthesias in the right hand and the right leg. For about a year and half she has been experiencing some cramping in the hand while working. 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 There are also some intermittent paresthesias in morning and at night in the hand. She did have nerve conduction studies and was told she had mild carpal tunnel syndrome. No surgery was recommended. About 3 years ago she developed some sciatica symptoms and low back pain. Eventually she went for surgery for a herniated disc. That did relieve the pain but she was left with more paresthesias and intermittent numbness over the top of the right thigh radiating to medial aspect of the knee. She has had some injections in the back for this. She is currently having some physical therapy. She does not seem to have any other areas of pain or joint swelling. She has been taking some gabapentin for the right leg numbness but it does not seem to be helping. 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 Negative for hearing change, oral ulcer, nose bleeds and oral dryness. Card Details: Negative chest pain, edema and syncope Resp Details: Negative for SOB, cough and wheezing GI Details: Negative indigestion/heartburn, nausea, abdominal pain, bowel changes, diarrhea, constipation and bloody stool. Details: Negative for dysuria, hematuria, nocturia, decreased force/flow and genital discharge Skin/Breast Details: Negative for itching, rash, hives, Raynaud's symptoms, sun sensitivity, and skin cancer Neuro Details: Negative for epilepsy, palsy, stroke, changes in speech, tingling and weakness Psych Details: Negative for anxiety, depression and stress Endo Details: Negative for polyuria and polydypsia Galen/Lymph Details: Negative for excessive bruising or bleeding. Physical Exam Vital Signs: Last Vital Signs Temp 97.4 F 04/29/23 08:33 Pulse 76 04/29/23 08:33 BP 140/60 H 04/29/23 08:33 Pulse Ox 98 04/29/23 08:33 Oxygen Delivery Method Room Air 04/29/23 08:33 BMI result Body Mass Index 25.7 APPEARANCE: Patient in no acute distress EYES no redness, pupils equal and reactive to light, eyelids normal EARS: External ear normal, canal clear and tympanic membrane normal. NOSE/SINUS: Airflow through both nares, no nasal discharge, no bleeding THROAT: Oral mucosa moist, no ulcerations NECK: No thyromegaly or masses, no adenopathy, trachea midline. HEART: Regulrar rhythm, S1-S2 heard, no murmurs, rubs or gallops. LUNG: Clear to percussion and auscultation ABD: Normal bowel sounds, no organomegaly, masses or tenderness. EXTREMITIES: No edema, no calf tenderness, normal peripheral pulses. NEURO: Oriented and alert x3. No focal weakness. Reflexes symmetric. Gait normal. SKIN: No inflammatory or neoplastic lesions. Normal color and turgor JOINT EXAM:.?? Cervical Spine:.? Full range of motion without pain; no tenderness. Thoracic Spine:.? No scoliosis.? No tenderness on palpation. Lumbar Spine:.? Alignment normal.? Full range of motion without pain, no tenderness. Chest Wall:.? No tenderness, swelling, increased warmth or erythema. Hands:.? Normal pain-free range of motion without tenderness, swelling, increased warmth or erythema. Able to make a full fist and has a good reading tutor strength. Wrists:.? Normal pain-free range of motion without tenderness, swelling, increased warmth or erythema. Elbows:. Normal pain-free range of motion without tenderness, swelling, increased warmth or erythema. Shoulders:.?? Full range of motion without pain. No tenderness, weakness, swelling, increased warmth or erythema. Hips:.? Full range of motion without pain. Hip bursa:.? No tenderness. Knees:.?? Normal pain-free range of motion without tenderness, swelling, increased warmth or erythema.? There is no effusion or crepitation Ankles:.? Normal pain-free range of motion without tenderness, swelling, increased warmth or erythema. Feet:.? Normal pain-free range of motion without tenderness, swelling, increased warmth or erythema. Tender points:.? No tenderness to digital palpation at the occiput, trapezius, second rib, lateral epicondyle, knees, greater trochanter and gluteal area bilaterally. ? 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 IgG Antibody Double Strand DNA Ab 04/20/23 15:31 WBC Hgb ESR Creatinine C-Reactive Protein MAREN Titer MAREN Pattern SS-A/Ro Antibody <1.0 NEG SS-B/La Antibody <1.0 NEG Sm (Russ) Antibody <1.0 NEG SM/FINAL [employer]SEMBLY AND P[employer]ING SUPERVISOR IgG Antibody <1.0 NEG Double Strand DNA Ab <1 Assessment & Plan Assessment & Plan (1) Carpal tunnel syndrome of right wrist: Code(s): G56.01 - Carpal tunnel syndrome, right upper limb (2) Disc degeneration, lumbar: Code(s): M51.36 - Other intervertebral disc degeneration, lumbar region (3) MAREN positive: Code(s): R76.8 - Other specified abnormal immunological findings in serum Plan Patient has a positive MAREN. Current symptoms and exam do not really suggest an autoimmune disease. She has had a number of other antibody tests that were negative. Inflammatory markers and CBC were normal. She has some right hand paresthesias that have been documented as being due to carpal tunnel syndrome although it is felt to be mild. I suggested she use her wrist splints only at night. She has some cramping in the hand likely related to muscle fatigue and gentle stretching a few times a day may be helpful. The right leg paresthesias presumably are due to nerve damage from her previous disc problem and surgery. She is encouraged to continue with physical therapy to maintain functioning in that regard. At this point I do not think she needs further rheumatology follow-up. Coding Level of Care Code New Pt Level 3 (28764) Diagnoses Carpal tunnel syndrome of right wrist G56.01 Disc degeneration, lumbar M51.36 MAREN positive R76.8
[2023-04-29 08:33] VITALS: BP 140/60; PULSE 76; TEMP 36.3; O2SAT 98; BMI 25.7
== END 2023-04-29 09:15 | disposition home or self-care (01) ==
PROVIDERS: PCP Family Medicine; Visit Provider Internal Medicine Rheumatology
DX: G56.01 Carpal tunnel syndrome, right upper limb (principal); M51.36 Other intervertebral disc degeneration, lumbar region; R76.8 Other specified abnormal immunological findings in serum
CPT/HCPCS: 99203

== ENCOUNTER → 2023-04-29 08:30 | Outpatient (BNVA) | payer BC, SELFPAY | PROVIDERS: PCP Family Medicine; Visit Provider Internal Medicine Rheumatology ==

== ENCOUNTER 2023-06-08 12:43 | Outpatient (AMB) | payer BC, SELFPAY ==
[2023-06-08 12:44] VITALS: BMI 25.7
--- NOTE | 2023-06-08 12:44 | MHC.OFFVIS ---
Intake Vital Signs 06/08/23 12:44 Height 5 ft 7 in Weight 164 lb BMI 25.7 Intake Visit Reasons: Newprob-Right hip pain Intake Note: Laura is a 57 year old female who presents today for a new problem visit with complaints of right hip pain. Patient reports that she has had ongoing pain since about January of this year. Her pain is felt on the lateral aspect of the hip as well as groin pain. Increased pain with walking and increased acitivty. Allergies acetaminophen [From TYLENOL] Allergy (Severe, Verified 06/08/23 12:47) THROAT CLOSES dichloralphenazone [From MIDRIN] Allergy (Severe, Verified 06/08/23 12:47) PANIC ATTACK From MIDRIN Allergy (Severe, Uncoded 06/08/23 12:47) PANIC ATTACK Midrin Adverse Reaction (Unknown, Uncoded 06/08/23 12:47) anxiety HPI Newprob-Right hip pain HPI Details Laura is a 57 year old woman who presents with complaints of right hip pain. She complains of pain with daily & WB activity, worse with prolonged walking or standing. She says her pain has been present for ~4-5 months now, and is present in both the groin and lateral aspect of her hip. She says she has done several courses of PT in the past, and is not interested in repeating at this time. She has a hx of lumbar spine surgery, and has seen Pain management for right lumbar radiculitis & right knee pain. 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 Sexual orientation: Straight/Heterosexual Gender identity: Female Female Reproductive History Menstrual Age of Menarche: 10 Review of Systems Const All systems reviewed & are unremarkable except as noted in HPI and below Physical Exam Vital Signs: BMI result Body Mass Index 25.7 Const General: no acute distress, alert and awake Orientation/consciousness: patient oriented x3 HEENT Head: Yes normocephalic and Yes atraumatic Eyes EOM: EOMs intact bilaterally Resp Effort & Inspection: normal respiratory effort and able to speak in complete sentences Cardio Jugular venous distension: no JVD Skin General skin exam: turgor normal Rashes: no rashes Neuro General: patient oriented x3 Extrem Other: full ROM right hip No impingement pain with resisted hip flexion Psych Appearance: grossly normal Affect: normal affect Attitude: cooperative Results Reviewed Results Reviewed: No acute process. Slight narrowing of the superior medial right hip joint space. Small acetabular spurring. Assessment & Plan Assessment & Plan (1) Right hip flexor tightness: Code(s): M24.551 - Contracture, right hip Plan: This is a 57 year old woman with right hip flexor tightness. She has mild OA but her symptoms are not attributable to this. She has pain with daily activity, worse with prolonged standing or ambulation. I discussed her diagnosis and treatment options. I recommend stretching & strengthening exercises, and PT. I demonstrated some exercises she can perform at home, she is not interested in formal PT at this time. She can follow up prn. Plan Scribed for Nestor Downey MD by Jesus Trevino, director biomedical engineering, on 06/08/23 at 1:05 PM, EST. Coding Level of Care Code Est Pt Level 3 (08026) Diagnoses Right hip flexor tightness M24.551
== END 2023-06-08 13:33 | disposition home or self-care (01) ==
PROVIDERS: PCP Family Medicine; Visit Provider Orthopaedic Surgery
DX: M24.551 Contracture, right hip (principal)
CPT/HCPCS: 99213

== ENCOUNTER → 2023-06-08 12:43 | Outpatient (BNVA) | payer BC, SELFPAY | PROVIDERS: PCP Family Medicine; Visit Provider Orthopaedic Surgery ==

== ENCOUNTER 2023-09-16 08:55 | Outpatient (AMB) | payer BC, SELFPAY ==
--- NOTE | 2023-09-16 08:57 | A.OFFVIS_ITS ---
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 She is doing well with no concerns. Attempting to eat a healthy diet with calcium and vitamin D and stays active with exercise. Currently sexually active. Denies any vaginal dryness or irritation. Uses Estrace twice a week for vaginal dryness. Denies any risk factors to continued use. Last pap smear; 2022. Last mammogram; 2022. Patient is adopted. [facility] Medical History Right lumbar radiculitis Fibroids High cholesterol Surgical History Hx of section Hx of cholecystectomy History of back surgery Family History Family/Other Colon cancer Mother Dementia Maternal Grandmother Colon cancer Other Adopted Social History Household Members: Spouse Housing: House Alcohol intake: current Alcohol intake frequency: holidays/special occasions only Patient Tobacco Use Status: Former Tobacco user service: No Current occupational status: employed Current occupation: [employer] Sexual orientation: Straight/Heterosexual Gender identity: Female Female Reproductive History Menstrual Age of Menarche: 10 Total pregnancies: 1 Full term: 1 Number of Living Children: 1 Date of last pap smear: 08/20/22 (neg pap and hpv) Date of Mammogram: 04/15/23 (Birad 1) Review of Systems Const All systems reviewed & are unremarkable except as noted in HPI and below Reports as per HPI Eyes Reports no additional complaints ENT Reports no additional complaints Card Reports no additional complaints Resp Reports no additional complaints GI Reports as per HPI and Reports no additional complaints Reports as per HPI Musc Reports no additional complaints Skin/Breast Reports as per HPI Neuro Reports no additional complaints Psych Reports no additional complaints Endo Reports no additional complaints Galen/Lymph Reports no additional complaints Aller/Immun Reports no additional complaints Physical Exam Vital Signs: Last Vital Signs BP 120/70 09/16/23 08:58 BMI result Body Mass Index 25.5 Const General: cooperative, healthy appearing, no acute distress, well developed and alert Orientation/consciousness: patient oriented x3 HEENT Head: Yes normal to inspection Eyes General: appearance normal, both eyes and all related structures Neck Neck: Yes normal visual inspection Thyroid: Thyroid normal Chest Chest palpation & inspection: normal inspection of the chest and other (no puckering, dimpling, peau de orange, retraction, discharge, masses) Breast/axilla inspection: normal inspection of the breasts Breast/axilla palpation: normal palpation of the breasts Resp Effort & Inspection: normal respiratory effort GI Inspection: Yes normal to inspection Palpation (GI): Soft to palpation Rectal Exam - Female: deferred General: Yes bladder normal to palpation External Female Exam: normal external appearance and normal appearance of the urethra Speculum Exam - Vagina: normal appearance of the vagina, normal palpation and normal vaginal discharge Speculum Exam - Cervix: normal appearance of the cervix and normal palpation Bimanual exam- vagina & uterus: normal bimanual exam, normal palpation, uterine size normal, bladder normal to palpation, normal palpation and non-tender Bimanual Exam- Adnexa, other: no masses Skin General skin exam: no rashes or lesions noted Rashes: no rashes Neuro General: patient oriented x3 Cognition (Neuro): normal cognition Extrem General: Yes normal to inspection Psych Attitude: cooperative Thought process: Normal thought process present Assessment & Plan Assessment & Plan (1) Encounter for well woman exam with routine gynecological exam: Code(s): Z01.419 - Encounter for gynecological examination (general) (routine) without abnormal findings (2) Fibroids: Code(s): D21.9 - Benign neoplasm of connective and other soft tissue, unspecified Plan: Counseled re: Leiomyoma: common pelvic neoplasm. Differential diagnosis-may include leiomyosarcoma which is a rare uterine sarcoma 3-7/100,000, difficult to distinguish from fibroids on ultrasound from uterine sarcoma's. Unlikely any single test will have a highly positive predictive value. Hysterectomy is not recommended for sole purpose of excluding malignant neoplasm. Report any PMB. Pelvic pressure, bloating, or pain. Expectant management follow up for stability. (3) Vaginal atrophy: Code(s): N95.2 - Postmenopausal atrophic vaginitis Plan: Reviewed use of medication and risks, benefits and warnings for use. Plan Discussed: Current recommendations for pap smears per ASCCP guidelines. Breast awareness, periodic self breast exams and yearly mammogram. Maintain a healthy lifestyle, well balanced diet including Calcium 1,200 mg and Vitamin D 600 IU daily, and routine exercise. Continue use of Estrace as directed. Contact the office with any postmenopausal bleeding, or any breast lumps for immediate evaluation. control hormone use warnings: go to ER if and loss of vision, blindness, severe headache, chest pain or difficulty breathing, severe abdominal pain, or any pain or swelling in an extremity. Patient verbalizes understanding and agrees to the plan of care. She was given opportunity to ask questions and all questions were answered to the best of my ability. RTO in 1 year for annual nuclear criticality safety engineer exam. This note is constructed using voice recognition software. While every effort has been made to ensure accuracy, plastic parts fabricator errors may have been included. Orders: Orders US pelvic and transvaginal Today D21.9 - Benign neoplasm of connective and other soft tissue, unspecified Medications: Refilled estradiol 0.01%(0.1mg/gram) (Estrace) use nightly for two weeks, then twice a week 0.5 appful vaginal 2XW 42.5 grams 2RF Coding Level of Care Code Est Pt Prev Care 40-64y(00009) Diagnoses Encounter for well woman exam with routine gynecological exam Z01.419 Fibroids D21.9 Vaginal atrophy N95.2
[2023-09-16 08:58] VITALS: BP 120/70; BMI 25.5
== END 2023-09-16 09:39 | disposition home or self-care (01) ==
PROVIDERS: PCP Family Medicine; Visit Provider Advanced Practice Midwife
DX: Z01.419 Encounter for gynecological examination (general) (routine) without abnormal findings (principal); D21.9 Benign neoplasm of connective and other soft tissue, unspecified; N95.2 Postmenopausal atrophic vaginitis
CPT/HCPCS: 99396

== ENCOUNTER → 2023-09-16 08:55 | Outpatient (BNVA) | payer BC, SELFPAY | PROVIDERS: PCP Family Medicine; Visit Provider Advanced Practice Midwife ==

== ENCOUNTER 2023-09-21 10:58 | Outpatient (REF) | payer BC, SELFPAY ==
--- NOTE | ~2023-09-21 | US_ITS ---
EXAMINATION: US PELVIS CLINICAL INFORMATION: Benign neoplasm of connective and other soft tissue, unspecified Postmenopausal COMPARISON: Pelvic ultrasound 04/03/2021 TECHNIQUE: Ultrasound of the pelvis is performed using both transabdominal and transvaginal transducers along with Doppler. Transvaginal imaging is performed due to inadequate visualization transabdominally. FINDINGS: Uterus: The uterus is anteverted and measures 8.6 x 3.0 x 5.4 cm. There are multiple uterine fibroids includin. 0.6 x 0.5 x 0.6 cm posterior submucosal fibroid, previously measured 0.7 x 0.7 x 0.4 cm. 2. 0.7 x 0.7 x 0.7 cm intramural body, previously measured 0.9 x 0.8 x 0.9 cm. 3. 0.8 x 0.7 x 0.9 cm intramural fundal, previously measured 0.5 x 0.4 x 0.6 cm. 4. 0.7 x 0.6 x 0.7 cm intramural fundal previously measured 0.6 x 0.6 x 0.7 cm. 5. 0.9 x 0.8 x 0.9 cm intramural left fibroid previously measured 0.4 x 0.5 x 0.5 cm. The endometrial thickness is 0.4 mm. There is movement of isoechoic tissue seen in the endometrial cavity. Adnexa: Both ovaries are normal in appearance. There is normal color flow to the adnexa. There is no ovarian torsion. There is no pelvic ascites or fluid collection. Right ovary measures 2.9 x 1.3 x 1.3 cm. Volume 2.6 mL. Left ovary measures 2.6 x 1.3 x 1.2 cm. Volume 2.1 mL. US/US pelvic and transvaginal IMPRESSION: 1. Multiple uterine fibroids. 2. Normal ovaries. 3. Movement of isoechoic tissue seen in the endometrial cavity. 4. Normal endometrial thickness for postmenopausal woman.
== END 2023-09-21 10:59 | disposition home or self-care (01) ==
LOC: HO.US 10:58
PROVIDERS: PCP Family Medicine; Visit Provider Advanced Practice Midwife
DX: D21.9 Benign neoplasm of connective and other soft tissue, unspecified (principal)
CPT/HCPCS: 76830; 76856

== ENCOUNTER 2023-10-20 10:25 | Outpatient (AMB) | payer BC, SELFPAY ==
--- NOTE | 2023-10-20 10:26 | A.OFFVIS_ITS ---
Intake Vital Signs 10/20/23 10:30 Height 5 ft 7 in BP 124/76 Intake Visit Reasons: Ultrasound follow up Cut Off Operator Scorer: Cut Off Operator Scorer Present Allergies acetaminophen [From TYLENOL] Allergy (Severe, Verified 10/20/23 10:31) THROAT CLOSES dichloralphenazone [From MIDRIN] Allergy (Severe, Verified 10/20/23 10:31) PANIC ATTACK From MIDRIN Allergy (Severe, Uncoded 06/08/23 12:47) PANIC ATTACK Midrin Adverse Reaction (Unknown, Uncoded 06/08/23 12:47) anxiety Is last menstrual period known: Yes HPI HPI Comments History of Present Illness Details Patient is here today to discuss her ultrasound findings for a follow- up on her fibroids for stability. She does not report any postmenopausal bleeding, discharge, pelvic pain or any other symptoms of bloating or pressure. 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 Sexual orientation: Straight/Heterosexual Gender identity: Female Female Reproductive History Menstrual Age of Menarche: 10 Review of Systems Const All systems reviewed & are unremarkable except as noted in HPI and below Endo Reports no additional complaints Physical Exam Vital Signs: Last Vital Signs BP 124/76 10/20/23 10:30 Const General: cooperative, healthy appearing and no acute distress Psych Appearance: well kempt Attitude: cooperative Thought process: Normal thought process present Results Reviewed Results Reviewed: [address] [address] Ultrasound Report Signed Patient: Laura Rivas MR#: [id number] : 1965 Acct:[id number] Age/Sex: 57 / F ADM Date: 09/21/23 Loc: HO.US Attending Dr: Olivia Montoya CNM Ordering Physician: Olivia Montoya CNM Date of Service: 09/21/23 Procedure(s): US pelvic and transvaginal Accession Number(s): [id number] cc: Frances Li MD; Olivia Montoya CNM~ EXAMINATION: US PELVIS CLINICAL INFORMATION: Benign neoplasm of connective and other soft tissue, unspecified Postmenopausal COMPARISON: Pelvic ultrasound 04/03/2021 TECHNIQUE: Ultrasound of the pelvis is performed using both transabdominal and transvaginal transducers along with Doppler. Transvaginal imaging is performed due to inadequate visualization transabdominally. FINDINGS: Uterus: The uterus is anteverted and measures 8.6 x 3.0 x 5.4 cm. There are multiple uterine fibroids includin. 0.6 x 0.5 x 0.6 cm posterior submucosal fibroid, previously measured 0.7 x 0.7 x 0.4 cm. 2. 0.7 x 0.7 x 0.7 cm intramural body, previously measured 0.9 x 0.8 x 0.9 cm. 3. 0.8 x 0.7 x 0.9 cm intramural fundal, previously measured 0.5 x 0.4 x 0.6 cm. 4. 0.7 x 0.6 x 0.7 cm intramural fundal previously measured 0.6 x 0.6 x 0.7 cm. 5. 0.9 x 0.8 x 0.9 cm intramural left fibroid previously measured 0.4 x 0.5 x 0.5 cm. The endometrial thickness is 0.4 mm. There is movement of isoechoic tissue seen in the endometrial cavity. Adnexa: Both ovaries are normal in appearance. There is normal color flow to the adnexa. There is no ovarian torsion. There is no pelvic ascites or fluid collection. Right ovary measures 2.9 x 1.3 x 1.3 cm. Volume 2.6 mL. Left ovary measures 2.6 x 1.3 x 1.2 cm. Volume 2.1 mL. US/US pelvic and transvaginal IMPRESSION: 1. Multiple uterine fibroids. 2. Normal ovaries. 3. Movement of isoechoic tissue seen in the endometrial cavity. 4. Normal endometrial thickness for postmenopausal woman. Dictated By: Priscilla Cruz MD Signed By: <Electronically signed by Priscilla Cruz MD in OV> 09/22/23 0921 DD/ 1150 TD/TT: Blueprint Reader: Assessment & Plan Assessment & Plan (1) Fibroids: Code(s): D21.9 - Benign neoplasm of connective and other soft tissue, unspecified Plan Discussed: Counseled re: Leiomyoma: common pelvic neoplasm. Differential diagnosis-may include leiomyosarcoma which is a rare uterine sarcoma 3-7/100,000, difficult to distinguish from fibroids on ultrasound from uterine sarcoma's. Unlikely any single test will have a highly positive predictive value. Hysterectomy is not recommended for sole purpose of excluding malignant neoplasm. Discussed the isoechoic fluid noted in the uterus. She has no prior history of a cervical procedure such as a LEEP. Report any PMB. Pelvic pressure, bloating, or pain. Expectant management follow up yearly for stability. All of her questions and concerns were addressed to the best of my ability and shared decision making. She is agreeable to the plan of care. Next appointments for her annual at that visit we will schedule her fibroid follow-up. Coding Level of Care Code Est Pt Level 3 (49246) Diagnoses Fibroids D21.9
[2023-10-20 10:30] VITALS: BP 124/76
== END 2023-10-20 12:56 | disposition home or self-care (01) ==
PROVIDERS: PCP Family Medicine; Visit Provider Advanced Practice Midwife
DX: D21.9 Benign neoplasm of connective and other soft tissue, unspecified (principal)
CPT/HCPCS: 99213

== ENCOUNTER → 2023-10-20 10:25 | Outpatient (BNVA) | payer BC, SELFPAY | PROVIDERS: PCP Family Medicine; Visit Provider Advanced Practice Midwife ==

== ENCOUNTER 2023-12-22 12:51 | Outpatient (REF) | payer BC, SELFPAY ==
--- NOTE | ~2023-12-22 | XR_ITS ---
EXAMINATION: XR NASAL BONES CLINICAL INFORMATION: Pain of the nose after a fall. COMPARISON: None available. TECHNIQUE: 3 views of the nasal bones were obtained. FINDINGS: No displaced fractures are identified. Nasal septum appears midline. Paranasal sinuses are clear. Orbits are unremarkable. XR/XR nasal bones min 3V IMPRESSION: No displaced fractures are identified.
== END 2023-12-22 12:52 | disposition home or self-care (01) ==
LOC: HO.HHCX 12:51
PROVIDERS: Visit Provider Internal Medicine
DX: J34.89 Other specified disorders of nose and nasal sinuses (principal)
CPT/HCPCS: 70160

== ENCOUNTER 2024-02-29 13:22 | Outpatient (AMB) | payer BC, SELFPAY ==
--- NOTE | 2024-02-29 13:23 | A.OFFVIS_ITS ---
Vital Signs 02/29/24 13:25 Height 5 ft 7 in Weight 163 lb BMI 25.5 Intake Visit Reasons: OV-Right hip/thigh area pain Intake Note: Laura is a 58 year old female who presents today for a for a follow up of her right hip flexor. At her last visit she was given home PT exercises, patient reports that she has been compliant with these exercises. She will be seeing her neurosurgeon for a follow up of her back to discuss her treatment options. She has been seen with [facility], she was told that she had mild OA and Bursitis. Hx of injections, she is unsure if they were for bursitis or OA. The injections were not helpful. She feels pain in the groin, the top of the hip and along the lateral aspect of the hip. She has throbbing, burning pain and numbness radiating down the right leg. Pain is felt all the time, worsening with prolonged standing, sitting and crossing legs. Allergies acetaminophen [From TYLENOL] Allergy (Severe, Verified 02/29/24 13:30) THROAT CLOSES dichloralphenazone [From MIDRIN] Allergy (Severe, Verified 02/29/24 13:30) PANIC ATTACK From MIDRIN Allergy (Severe, Uncoded 02/29/24 13:30) PANIC ATTACK Midrin Adverse Reaction (Unknown, Uncoded 02/29/24 13:30) anxiety HPI HPI OV-Right hip/thigh area pain: Details: Laura continues to have hip pain on the right. PT was not helpful. She describes thigh cramping and pain that extends into groin. She has an injection~6 mo ago that wasn't helpful but she doesn't know where this injection was. 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 4/5 right qaud weakness Results Reviewed Results Reviewed: Mild right hip OA Assessment & Plan Assessment & Plan (1) Right lumbar radiculitis: Code(s): M54.16 - Radiculopathy, lumbar region Category: Medical Plan: Laura is seeing Neurosurgery next week. I can't find any evidence of significant hip joint pathology. We discussed this. She will return if needed but no intervention warranted at this time. Coding Level of Care Code Est Pt Level 4 (98489) Diagnoses Right lumbar radiculitis M54.16
[2024-02-29 13:25] VITALS: BMI 25.5
== END 2024-02-29 15:17 | disposition home or self-care (01) ==
PROVIDERS: PCP Family Medicine; Visit Provider Orthopaedic Surgery
DX: M54.16 Radiculopathy, lumbar region (principal); M25.551 Pain in right hip
CPT/HCPCS: 99212

== ENCOUNTER → 2024-02-29 13:22 | Outpatient (BNVA) | payer BC, SELFPAY | PROVIDERS: PCP Family Medicine; Visit Provider Orthopaedic Surgery ==

== ENCOUNTER 2024-03-26 06:57 | Outpatient (REF) | payer BC, SELFPAY ==
[2024-03-26 07:56] LABS: Cholesterol 231 mg/dL (<200); HDL Cholesterol 99 mg/dL (>40); LDL Cholesterol Calculated 116 mg/dL (<100); Triglycerides 83 mg/dL (<150)
[2024-03-26 08:17] LABS: ~HepC Num1 0.13 S/CO (0.00-0.79); ~Hepatitis C Antibody Nonreactive (Nonreactive)
== END 2024-03-26 06:58 | disposition home or self-care (01) ==
LOC: HO.LAB 06:57
PROVIDERS: PCP Family Medicine; Visit Provider Family Medicine
DX: Z00.00 Encounter for general adult medical examination without abnormal findings (principal); Z11.59 Encounter for screening for other viral diseases
CPT/HCPCS: 36415; 80061; 86803

== ENCOUNTER 2024-04-25 13:46 | Outpatient (REF) | payer BC, SELFPAY ==
--- NOTE | ~2024-04-25 | MM_ITS ---
EXAMINATION: MM SCREENING DIGITAL BREAST TOMOSYNTHESIS, BILATERAL CLINICAL INFORMATION: Screening. Asymptomatic. COMPARISON: Mammography: Comparison is made with available priors TECHNIQUE: Digital breast mammography with tomosynthesis is performed in both the craniocaudal and mediolateral oblique views along with computer-aided detection (CAD). FINDINGS: The breasts are extremely dense, which lowers the sensitivity of mammography (ACR BI-RADS breast composition Category d). There are no significant masses, abnormal calcifications, or other abnormalities. MM/MM tomosynthesis screening BI IMPRESSION: No mammographic evidence of malignancy. ASSESSMENT: BI-RADS BI-RADS 1 - Negative RECOMMENDATION: Routine annual mammography screening. 1 year F/U This examination should not preclude the clinical evaluation of a suspicious palpable abnormality. This patient's information was entered into a reminder system with a target due date for their next mammogram. Electronically signed by: Mela Santoyo DO 05/06/2024 10:43 AM EDT
== END 2024-04-25 13:47 | disposition home or self-care (01) ==
LOC: HO.MAMMO 13:46
PROVIDERS: PCP Family Medicine; Visit Provider Family Medicine
DX: Z12.31 Encounter for screening mammogram for malignant neoplasm of breast (principal)
CPT/HCPCS: 77063; 77067

== ENCOUNTER → 2024-04-25 14:00 | Outpatient (BNV) | payer BC, SELFPAY | PROVIDERS: PCP Family Medicine; Visit Provider Internal Medicine | DX: Z12.31 Encounter for screening mammogram for malignant neoplasm of breast (principal) | CPT/HCPCS: 77063; 77067 ==

== ENCOUNTER 2024-07-30 07:04 | Outpatient (REF) | payer BC, SELFPAY ==
[2024-07-30 08:23] LABS: Alanine Aminotransferase 57 U/L (0-31); Albumin Level 4.3 g/dL (3.5-5.0); Alkaline Phosphatase 87 U/L (39-117); Aspartate Amino Transferase 46 U/L (5-31); Bilirubin Direct 0.4 mg/dL (0.0-0.5); Bilirubin Total 1.2 mg/dL (0.0-1.0); Cholesterol 176 mg/dL (<200); HDL Cholesterol 71 mg/dL (>40); LDL Cholesterol Calculated 89 mg/dL (<100); Total Protein 7.5 g/dL (6.5-8.0); Triglycerides 83 mg/dL (<150)
== END 2024-07-30 07:05 | disposition home or self-care (01) ==
LOC: HO.LAB 07:04
PROVIDERS: PCP Family Medicine; Visit Provider Family Medicine
DX: E78.5 Hyperlipidemia, unspecified (principal)
CPT/HCPCS: 36415; 80061; 80076

== ENCOUNTER 2024-09-02 06:02 | Outpatient (REF) | payer BC, SELFPAY ==
--- OUTSIDE RECORDS SUMMARY | 2024-09-02 06:05 | XMS_ITS | Encounter Summary ---
Author Organization [employer] Address [address] [place] [address] Care Team Providers Care Central Office Installer Name Role Phone Frances Li MD Primary Care Provider [phone]- [phone] Encounter Details Date Type Department Care Team ([facility] st Contact Info) Description 09/01/2024 Orders Only [facility] [address], [place] [phone] Frances Li MD [address] [place], [place] [phone] Elevated LFTs (Primary Dx) Social History Tobacco Use Types Packs/Day Years Used Date Smoking Tobacco: Former Cigarettes 0.3 30 Passive Smoke Exposure: Past Smokeless Tobacco: Never Alcohol Answer Date Recorded How often do you have a drink containing alcohol ? 1 06/08/2024 Average Number of Drinks Not on file 024 Frequency of Binge Drinking Not on file 05/12 Depression Answer Date Recorded Patient Health Questionnaire-9 Score 1 03/09/2024 Patient Health Questionnaire-9 Score 1 03/09/2024 Last PHQ-9: Questionnaire Data Not on file 0 03/09/2024 Housing Stability Answer Date Recorded What is your housing situation today? I have kemal hernandez 02/29/[address] you li ve. Do you have problems with any of the following? None of the above 02/29/2024 Food Insecurity Answer Date Recorded Within the past 12 months, y ou worried that your food would run out before you got money to buy more: Never True 02/29/2024 Within the past 12 months,th e food you bought just didn't last and you didn't have enough money to get more: Never True Transportation Answer Date Recorded In the past 12 months, has l ack of transportation kept you from medical appts, meetings, work or from getting things needed for daily living? No 02/29/2024 Utilities Answer Date Recorded In the past 12 months, has t he electric, gas, oil or water company threatened to shut off services in your home? No 02/29/2024 Depression Answer Date Recorded Patient Health Questionnaire-2 Score 0 03/09/2024 Internet Access Answer Date Recorded Internet Access Q1 Yes 04/11/2024 Internet Access Q2 Not on file 04/11/2024 Comments Unknown Sex and Gender Information Value Date Recorded Sex Assigned at Female 06/09/2022 10:31 AM EDT Legal Sex Female 10:31 AM EDT Gender Identity Choose not to disclose 10:31 AM EDT Sexual Orientation Choose not to disclose 2021 10:31 AM EDT documented as of this encounter Plan of Treatment Scheduled Orders Name Type Priority Associated Diagnoses Orde r Schedule Hepatic Function Panel Lab Routine Elevated LFTs Expected: 09/01/2024 (Approximate), Expires: 09/01/2025 documented as of this encounter Visit Diagnoses Diagnosis Elevated LFTs- Primary Other abnormal blood chemistry documented in this encounter Additional Health Concerns Assessment Noted Time PHQ-9 Depression Total Score: 1 03/09/20 24 3:12 PM EDT documented as of this encounter Care Teams Central Office Installer Relationship Specialty Start Date End Date Frances Li MD [address] [place] [id number] PCP - General Family Medicine 03/07/19 documented as of this encounter
--- OUTSIDE RECORDS SUMMARY | 2024-09-02 06:05 | XMS_ITS | Encounter Summary ---
Author Organization [employer] Address [address] [place] [address] [address] [place] [address] Care Team Providers Care Automatic Brine Mixer Operator Name Role Phone Frances Li MD Primary Care Provider [phone]- [phone] Encounter Details Date Type Department Care Team (Late st Contact Info) Description 01/13/2023 Orders Only [facility] [address] [place], [place] [phone] Frances Li MD [address] [place], [place] [phone] MAREN positive (Primary Dx) Social History Tobacco Use Types Packs/Day Years Used Date Smoking Tobacco: Former Cigarettes 0.3 30 Smokeless Tobacco: Never Depression Answer Date Recorded Patient Health Questionnaire-2 Score 0 12/08/2022 Comments Unknown Sex and Gender Information Value Date Recorded Sex Assigned at Female 06/09/2022 10:31 AM EDT Legal Sex Female 10:31 AM EDT Gender Identity Choose not to disclose 10:31 AM EDT Sexual Orientation Choose not to disclose 2021 10:31 AM EDT documented as of this encounter Plan of Treatment Not on file documented as of this encounter Visit Diagnoses Diagnosis MAREN positive- Primary documented in this encounter Care Teams Automatic Brine Mixer Operator Relationship Specialty Start Date End Date Frances Li MD [address] [place], [place] [phone] PCP - General Family Medicine 03/07/19 documented as of this encounter
--- OUTSIDE RECORDS SUMMARY | 2024-09-02 06:05 | XMS_ITS | Encounter Summary ---
Author Organization [employer] Address [address] [facility] 7t [place] [address] Care Team Providers Care Restaurant Cashier Name Role Phone Frances Li MD Primary Care Provider +1- [phone] Reason for Visit * Reason Onset Date Comments Nurse Triage 09/01/2024 Encounter Details Date Type Department Care Team ([facility] st Contact Info) Description 09/01/[address] [facility] MEDICINE [address] [place], [place] [phone] Frances Li MD [address] [place] [address] Nurse Triage Social History Tobacco Use Types Packs/Day Years [...] AM EDT documented as of this encounter Miscellaneous Notes * Telephone Encounter - Francheska Marroquin RN - 09/01/2024 4:31 PM EST Call placed to pt and advised of below. Pt agrees to go to [facility] main lab tomorrow to complete labs. Pt offered [facility] appt. Pt declines states will wait for a call back with results if they are in by theafternoon. Will set reminder for this manual writer to follow up in the morning with PCP. * Telephone Encounter - Frances Li MD - 09/01/2024 4:27 PM EST Thank you. Please tell Laura to stop her atorvastatin and check her labs tomorrow morning. I sent order. I am in walk in clinic all day tomorrow. The labs may be back by the afternoon if you can pleaseoffer her an apt with me in the latera afternoon. Thank you. * Telephone Encounter - Francheska Marroquin RN - 09/01/2024 3:58 PM EST Images from the original note were not included. Call returned to Laura Rivas to triage below. Reports first noticed yellowing of hands since July. Per pt noticed that face also yellow in color. No yellowing of the eyes. Pt denies any abdominal pain, vomiting or nausea. Patient states was not aware that was supposed to reduce atorvastatin dose from 40mg back to 20mg. Pt has been taking 40mg daily. Pt advised of PCP note from 07/30/24 ----- Message from Frances Li MD sent at 07/30/2024 8:30 AM EST ----- Please let Laura know that repeat cholesterol was great but the liver was just slightly elevated. This is not dangerous but given the cholesterol was only slightly high on atorvastatin 20mg. I would like to return to atorvastatin 20mg to be safe. Again, nothing dangerous at all but the liver was totally fine on 20mg so I would prefer to go back to that. I sent new rx. She can recheck her chol and liver labs in 6 weeks fasting (not urgent) . I sent the lab slip. Please tell her happy holidays. I am off this week but will be back the week after if she has any questions. Thank you. Pt states must have not understood instructions at that time. Pt advised that would forward information to PCP to review hopefully today before end of day. May need to repeat labs sooner than September and PCP determine if pt to hold atorvastatin until labs done. Please advise of plan of care. Tomasz Mendez routed conversation to [facility]11 minutes ago (3:45 PM) Laura Rivas P [facility] Clinical [facility] (supporting Frances Li MD)1 hour ago (2:07 PM) Good afternoon. I have been told by several people and have noticed it myself. My hands have a yellow orange tone. I thought it was my hand lotion but, not the case. I have been told my skin tone of my face is also different. Just a concern. Thank you. Laura documented in this encounter Plan of Treatment Not on file documented as of this encounter Visit Diagnoses Not on filedocumented in this encounter Additional Health Concerns Assessment Noted Time PHQ-9 Depression Total Score: 1 03/09/20 24 3:12 PM EDT documented as of this encounter Care Teams Restaurant Cashier Relationship Specialty Start Date End Date Frances Li MD [address] [place] [address] PCP - General Family Medicine 03/07/19 documented as of this encounter
--- OUTSIDE RECORDS SUMMARY | 2024-09-02 06:05 | XMS_ITS | Patient Health Record ---
Author Organization [facility] Address [address] [place] [address] Care Team Providers Care Electrical Construction Project Manager Name Role Phone Frances Li MD Primary Care Provider Astrid vailable Black, Shena Unavailable [phone] Allergies Allergen (clinical drug ingredient) Drug/Non Drug Allergy documented on EMR Reaction Allergy Type Onset Date Status acetaminophen Tylenol hard time breathing Drug Allergy Active Reason For Referral No Information Medications Medication SIG (Take, Route, Frequency, Duration) Notes Start Date End Date Status Biofreeze 4 % 1 application as needed Externally Three times a day 11/24/2022 Not-Taking amLODIPine Besylate 5 MG Oral for 90 Active Ibuprofen 400 MG 1 tablet with food or milk as needed Orally Three times a day 11/24/2022 Active Gabapentin 300 MG Oral for 30 Active Paxlovid (300/100) 20 x 150 MG & 10 x 100MG Oral for 5 Not-Ta rosendo Physical Therapy . . . 2-3x/week for 3-4 weeks 01/08/2023 Active Lisinopril 10 MG TAKE 1 TABLET BY MOUTH EVERY DAY Oral for 90 I10,Unavailab le Active Atorvastatin Calcium 20 MG Oral for 90 Active Estradiol 0.1 MG/GM as directed Vaginal Active Social History Tobacco Use: Social History Observation Description Date Details (start date - stop date) Former Smoker NA - NA Tobacco Use/Smoking Question Answer Notes Are you a: former smoker Additional Findings: Tobacco Non-User Current no n-smoker Alcohol Screen Question Answer Notes Did you have a drink containing alcohol in the p ast year? No Points 0 Interpretation Negative Tobacco use other than smoking: Question Answer Notes Are you an other tobacco user? No Problems Problem Type SNOMED Code ICD Code Onset Dates Problem Status W/U Status Risk Notes Problem Acquired hammer toe of right foot (8482376231153 105) Hammer toe of right foot (M20.41) Active confirmed Plan Of Treatment No Information Insurance Providers Payer Name Payer Address Payer Phone Subscriber Number Group Number Insured Name Patient Relationship to Insured Coverage Start Date Coverage End Date [facility] All Others [facility] [id number] [place] [address] [id number] Ellis Rivas Spouse - patient is the spouse of the insured Medical (General) History Medical History History ICD Code Anxiety Back,Hip,and Knee pain covid-19 Gall bladder problems Headaches High blood pressure Numbness Chicken pox Surgical History Surgery Date(Month/Year) section 02/14/1984 cholecystectomy 2009 back surgery 05/2020
--- OUTSIDE RECORDS SUMMARY | 2024-09-02 06:05 | XMS_ITS | Encounter Summary ---
Author Organization [employer] Address [address] [place] [address] [address] [place] [address] Care Team Providers Care Tool Hardener Name Role Phone Frances Li MD Primary Care Provider +1- [phone] Encounter Details Date Type Department Care Team ([facility] st Contact Info) Description 09/04/2022 Abstract [facility] MEDICINE [address] [place], [place] [phone] Frances Li MD [address] [place], [place] [phone] Social History Tobacco Use Types Packs/Day Years Used Date Smoking Tobacco: Never Assessed Comments Unknown Sex and Gender Information Value Date Recorded Sex Assigned at Female 06/09/2022 10:31 AM EDT Legal Sex Female 10:31 AM EDT Gender Identity Choose not to disclose 10:31 AM EDT Sexual Orientation Choose not to disclose 2021 10:31 AM EDT documented as of this encounter Miscellaneous Notes * Assessment & Plan Note - Frances Li MD - 09/04/2022 2:47 PM EST Associated Problem(s): Tubular adenoma of colon -hx tubular adenoma 10/02/2014 and 01/20/[address] Fields documented in this encounter Plan of Treatment Not on file documented as of this encounter Procedures Procedure Name Priority Date/Time Associated Diagnosis Comments MAMMOGRAPHY Routine 03/26/2022 COLONOSCOPY Routine 01/20/2020 documented in this encounter Results * Mammography (03/26/2022) HM Mammogram normal Anatomical Region Laterality Modality Other Historical Provider HEALTH MAINTENANCE Final Result * Colonoscopy (01/20/2020) Colonoscopy hx tubular adenoma with Dr. Fields Historical Provider HEALTH MAINTENANCE Final Result documented in this encounter Visit Diagnoses Not on filedocumented in this encounter Care Teams Tool Hardener Relationship Specialty Start Date End Date Frances Li MD [address] [place] [address] PCP - General Family Medicine 03/07/19 documented as of this encounter
--- OUTSIDE RECORDS SUMMARY | 2024-09-02 06:05 | XMS_ITS | Encounter Summary ---
Author Organization [employer] Address [address] [place] [address] 7 [place] [address] Care Team Providers Care Open Hearth Furnace Operator Helper Name Role Phone Frances Li MD Primary Care Provider +1- [phone] Reason for Referral * Consultation (Routine) - Closed Specialty Diagnoses / Procedures Referred By Contac t Referred To Contact Physical Therapy Diagnoses Benign paroxysmal positional vertigo, bilateral Frances Li MD [address] [place] [address] Phone: tel: fax: [facility] [address] [place] [address] Phone: tel: fax: Referral ID Status Reason Start Date Expiration Date V isits Requested Visits Authorized [id number] Closed Specialty Services Required 08/04/2024 08/04/2025 1 1 Encounter Details Date Type Department Care Team (Late st Contact Info) Description 07/30/[address] [facility] MEDICINE [address] [place], [place] [phone] Frances Li MD [address] [place], [place] [phone] Dyslipidemia (Primary Dx); Benign paroxysmal positional vertigo, bilateral Social History Tobacco Use Types Packs/Day Years [...] Type Priority Associated Diagnoses Orde r Schedule Lipid Panel, Standard Lab Routine Dyslipidemia Expected: 07/30/2024 (Approximate), Expires: 07/30/2025 Hepatic Function Panel Lab Routine Dyslipidemia Expected: 07/30/2024 (Approximate), Expires: 07/30/2025 Scheduled Referrals Name Type Priority Associated Diagnoses Orde r Schedule Referral to Physical Therapy Outpatient Referral Routine Benign paroxysmal positional vertigo, bilateral Expected: 08/04/2024 (Approximate), Expires: 08/04/2025 documented as of this encounter Visit Diagnoses Diagnosis Dyslipidemia- Primary Other and unspecified hyperlipidemia Benign paroxysmal positional vertigo, bilateral documented in this encounter Additional Health Concerns Assessment Noted Time PHQ-9 Depression Total Score: 1 03/09/20 24 3:12 PM EDT documented as of this encounter Care Teams Open Hearth Furnace Operator Helper Relationship Specialty Start Date End Date Jen, MD Frances [address] [place] [address] PCP - General Family Medicine 03/07/19 documented as of this encounter
--- OUTSIDE RECORDS SUMMARY | 2024-09-02 06:05 | XMS_ITS | Encounter Summary ---
Author Organization [employer] [facility] Address [address] [place] [address] [address]t [place] [address] Care Team Providers Care Well Service Floorperson Name Role Phone Frances Li MD Primary Care Provider +1- [phone] Encounter Details Date Type Department Care Team (Late st Contact Info) Description 09/01/2022 Orders Only [facility] MEDICINE [address] [place], [place] [phone] Tiffanie Garcia LPN Social History Tobacco Use Types Packs/Day Years [...] on filedocumented in this encounter Care Teams Well Service Floorperson Relationship Specialty Start Date End Date Frances Li MD [address] [place] [address] PCP - General Family Medicine 03/07/19 documented as of this encounter
--- OUTSIDE RECORDS SUMMARY | 2024-09-02 06:05 | XMS_ITS | Encounter Summary ---
Author Organization [employer] Address [address] [facility] 7t [place] [address] Care Team Providers Care Conciliator Name Role Phone Frances Li MD Primary Care Provider +1- [phone] Reason for Visit * Reason Comments Med Refill Encounter Details Date Type Department Care Team ([facility] Contact Info) Description 12/30/2023 Refill [facility] [address] [place] [address] Payal Berry MD [address] [place] [address] Nasal congestion; Pain of nose Social History Tobacco Use Types Packs/Day Years Used Date Smoking Tobacco: Former Cigarettes 0.3 30 Passive Smoke Exposure: Past Smokeless Tobacco: Never Housing Stability Answer Date Recorded What is your housing situation today? I have kemal hernandez 06/04/[address] you li ve. Do you have problems with any of the following? None of the above 06/04/2023 Food Insecurity Answer Date Recorded Within the past 12 months, y ou worried that your food would run out before you got money to buy more: Never True 06/04/2023 Within the past 12 months,th e food you bought just didn't last and you didn't have enough money to get more: Never True Transportation Answer Date Recorded In the past 12 months, has l ack of transportation kept you from medical appts, meetings, work or from getting things needed for daily living? No 06/04/2023 Utilities Answer Date Recorded In the past 12 months, has t he electric, gas, oil or water company threatened to shut off services in your home? No 06/04/2023 Depression Answer Date Recorded Patient Health Questionnaire-2 [...] as of this encounter Visit Diagnoses Diagnosis Nasal congestion Other diseases of nasal cavity and sinuses Pain of nose Other diseases of nasal cavity and sinuses documented in this encounter Care Teams Conciliator Relationship Specialty Start Date End Date Frances Li MD [address] [place] [address] PCP - General Family Medicine 03/07/19 documented as of this encounter
[2024-09-02 07:19] LABS: Alanine Aminotransferase 34 U/L (0-31); Albumin Level 4.4 g/dL (3.5-5.0); Alkaline Phosphatase 95 U/L (39-117); Aspartate Amino Transferase 34 U/L (5-31); Bilirubin Direct 0.4 mg/dL (0.0-0.5); Bilirubin Total 1.3 mg/dL (0.0-1.0); Cholesterol 198 mg/dL (<200); HDL Cholesterol 78 mg/dL (>40); LDL Cholesterol Calculated 106 mg/dL (<100); Total Protein 7.5 g/dL (6.5-8.0); Triglycerides 74 mg/dL (<150)
== END 2024-09-02 06:03 | disposition home or self-care (01) ==
LOC: HO.LAB 06:02
PROVIDERS: PCP Family Medicine; Visit Provider Family Medicine
DX: E78.5 Hyperlipidemia, unspecified (principal); R79.89 Other specified abnormal findings of blood chemistry
CPT/HCPCS: 36415; 80061; 80076

== ENCOUNTER 2024-09-12 13:00 | Outpatient (RCR) | payer BC, SELFPAY ==
[2024-08-18 14:05] VITALS: BP 124/69; PULSE 65
== END 2024-12-13 10:25 | disposition home or self-care (01) ==
LOC: HO.PT 13:00
PROVIDERS: PCP Family Medicine; Visit Provider Family Medicine
DX: H81.13 Benign paroxysmal vertigo, bilateral (principal)
CPT/HCPCS: 95992; 97112; 97161

== ENCOUNTER 2024-09-22 12:49 | Outpatient (AMB) | payer BC, SELFPAY ==
--- OUTSIDE RECORDS SUMMARY | 2024-09-22 12:55 | XMS_ITS | Encounter Summary ---
Author Organization [employer] Address [address] [place] [address] [address] [place] [address] Care Team Providers Care Painter Spring Name Role Phone Frances Li MD Primary Care Provider +1- [phone] Encounter Details Date Type Department Care Team ([facility] st Contact Info) Description 09/04/2022 Abstract [facility] MEDICINE [address] [place], [place] [phone] Frances Li MD [address] [place], [place] [phone] Social History Tobacco Use Types Packs/Day Years [...] on filedocumented in this encounter Care Teams Painter Spring Relationship Specialty Start Date End Date Frances Li MD [address] [place] [address] PCP - General Family Medicine 03/07/19 documented as of this encounter
--- OUTSIDE RECORDS SUMMARY | 2024-09-22 12:55 | XMS_ITS | Patient Health Record ---
Author Organization [facility] Address [address] [place] [address] Care Team Providers Care Petal Cutter Name Role Phone Frances Li MD Primary Care Provider Astrid vailable Black, Shena Unavailable [phone] Allergies Allergen (clinical drug ingredient) Drug/Non Drug [...] Problem Acquired hammer toe of right foot ([id number] 105) Hammer toe of right foot (M20.41) Active confirmed Plan Of Treatment No Information Insurance Providers Payer Name Payer Address Payer Phone Subscriber Number Group Number Insured Name Patient Relationship to Insured Coverage Start Date Coverage End Date [facility] All Others [facility] [id number] [place] [address] [phone] [id number] Ellis Rivas Spouse - patient is the spouse of the insured Medical (General) History Medical History History ICD Code Anxiety Back,Hip,and Knee pain covid-19 Gall bladder problems Headaches High blood pressure Numbness Chicken pox Surgical History Surgery Date(Month/Year) section 02/14/1984 cholecystectomy 2009 back surgery 05/2020
--- OUTSIDE RECORDS SUMMARY | 2024-09-22 12:55 | XMS_ITS | Encounter Summary ---
Author Organization [employer] Address [address] [facility] 7t [place] [address] Care Team Providers Care Vegetable Worker Name Role Phone Frances Li MD Primary Care Provider +1- [phone] Encounter Details Date Type Department Care Team ([facility] st Contact Info) Description 09/02/2024 Orders Only [facility] MEDICINE [address] [place], [place] [phone] Frances Li MD [address] [place], [place] [phone] Dyslipidemia Social History Tobacco Use Types Packs/Day Years [...] as of this encounter Visit Diagnoses Diagnosis Dyslipidemia Other and unspecified hyperlipidemia documented in this encounter Additional Health Concerns Assessment Noted Time PHQ-9 Depression Total Score: 1 03/09/20 24 3:12 PM EDT documented as of this encounter Care Teams Vegetable Worker Relationship Specialty Start Date End Date Frances Li MD [address] [place] [address] PCP - General Family Medicine 03/07/19 documented as of this encounter
--- OUTSIDE RECORDS SUMMARY | 2024-09-22 12:55 | XMS_ITS | Clinical Summary ---
Author Organization [id number] Address [address] [place] [address] [address] [place] [address] Care Team Providers Care Last Ironer Name Role Phone Frances Li MD Primary Care Provider [phone] Allergies Active Allergy Reactions Criticality Noted Date Comments Acetaminophen 11/21/2016 Difficulty breathing Medications valACYclovir (Valtrex) 1 g tablet 022 Active estradiol (Estrace) 0.1 MG/GM vaginal cream INSERT 1/2 APPLICATORFUL VAGINALLY 2 TIMES A WEEK EVERY NIGHT FOR 2 WEEKS 023 Active LORazepam (Ativan) 0.5 MG tablet take 1 tab po daily prn anxiety as needed 4 tablet 023 Active lisinopril 10 MG tabletIndicatio ns:Primary hypertension TAKE 1 TABLET BY MOUTH EVERY DAY 90 tablet 3 024 Active amLODIPine (Norvasc) 5 MG tabletIndicatio ns:Primary hypertension TAKE 1 TABLET BY MOUTH EVERY DAY 90 tablet 3 024 Active Magnesium Glycinate 100 MG capsuleIndicati ons:Leg cramps Take 200 mg by mouth at bedtime. 60 capsule 11 024 Active fluticasone (Flonase Allergy Relief) 50 MCG/ACT nasal spray Administer 1 spray into each nostril Once per day. Shake gently. Before first use, prime pump. After use, clean tip and replace cap. 16 g 12 024 2024 Active Eucrisa 2 % ointment APPLY THIN LAYER TO HANDS NEEDED FOR SYMPTOMS 024 Active atorvastatin (Lipitor) 20 MG tabletIndicatio ns:Dyslipidemia Take 1 tablet (20 mg) by mouth Once per day. 30 tablet 11 025 2025 Active ALPRAZolam (Xanax) 0.5 MG tablet TAKE 1 TABLET BY MOUTH 1 HOUR BEFORE INJECTION 024 2024 Discontinued(M ed list cleanup (will not trigger notification to Pharmacy)) ALPRAZolam (Xanax) 1 MG tablet TAKE 1 TABLET BY MOUTH 1 HOUR BEFORE INJECTION 023 2024 Discontinued(M ed list cleanup (will not trigger notification to Pharmacy)) amoxicillin-cla vulanate (Augmentin) 875-125 MG tablet Take 1 tablet by mouth 2 times daily. 14 tablet 024 2024 Discontinued(M ed list cleanup (will not trigger notification to Pharmacy)) clobetasol (Temovate) 0.05 % cream APPLY TO ECZEMA TWICE DAILY NEEDED FOR UP TO 2 WEEKS/MONTH 2024 Discontinued(M ed list cleanup (will not trigger notification to Pharmacy)) atorvastatin (Lipitor) 20 MG tabletIndicatio ns:Dyslipidemia Take 1 tablet (20 mg) by mouth Once per day. 30 tablet 11 024 2024 Discontinued(R eorder (will not trigger notification to Pharmacy)) Active Problems Problem Noted Date Diagnosed Date Cardiac risk counseling 06/09/2024 Overview (06/09/2024): Calculated 06/09/24 The ASCVD Risk score (Sharon KOVACS, et al., 2019) failed to calculate for the following reasons: Unable to determine if patient is Non- Lab Results Component Value Date LDLCHOLCAL 116 (H) 03/26/2024 LDLCHOLCAL 105 12/13/2022 -Atherosclerotic Cardiovascular Disease (ASCVD) Risk Calculator is intended for a person age 40-79 without ASCVD and with LDL-cholesterol < 190/mg/dl to assesses the chances of developing heart disease over the next 10 years. -ACC/AHA risk categories based on a person's estimated 10-year risk of CVD: ?Low - <5 percent ?Borderline risk - 5 to 7.4 percent ?Intermediate risk- 7.5 to 19.9 percent ?High risk- >=20 percent -Tobacco cessation: not applicable -Statin therapy:N/A -Importance of moderate physical activity and nutrition interventions discussed. Encounter for screening mamm ogram for malignant neoplasm of breast 06/08/2024 Overview (06/08/2024): Completed Mammo on 04/25/24 BI-RADS BI-RADS 1 - Negative, recommended routine annual mammography screening. Assessment & Plan (06/08/2024 10:43 AM EDT): Completed Mammo on 04/25/24 BI-RADS BI-RADS 1 - Negative, recommended routine annual mammography screening. Pap smear for cervical cancer screening 06/08/20 Overview (06/08/2024): LMP: Post menopause Previous PAP test: 2017, WNL Most recent PAP 08/20/22 NILM Next PAP due in 2027 Fibroids 09/23/2023 Overview (09/23/2023): -followed by veneer jointer operator, Dr. Thompson Jo -US 09/21/23 Multiple uterine fibroids. Normal ovaries. Movement of isoechoic tissue seen in the endometrial cavity. Normal endometrial thickness for postmenopausal woman. - Leiomyoma: common pelvic neoplasm. Differential diagnosis-may include leiomyosarcoma which is a rare uterine sarcoma 3-7/100,000, difficult to distinguish from fibroids on ultrasound from uterine sarcoma's. Unlikely any single test will have a highly positive predictive value. Hysterectomy is not recommended for sole purpose of excluding malignant neoplasm. Report any PMB. Pelvic pressure, bloating, or pain. Expectant management follow up for stability. Other specified health status 05/06/2023 Overview (06/08/2024): -next comprehensive annual evaluation due after 06/08/25 -eye care facilitated by brenda crook -dental home is [facility] -health care proxy filed 03/09/24 Assessment & Plan (06/08/2024 10:55 AM EDT): -next comprehensive annual evaluation due after 06/08/25 -eye care facilitated by brenda crook -dental home is [facility] -health care proxy filed 03/09/24 Assessment & Plan (05/06/2023 11:11 AM EDT): -next physical exam due after 05/06/2024 -eye care facilitated by brenda sellers -dental home is [facility] Anxiety 12/08/2022 Overview (12/08/2022): She expresses anxiety concerns. No SI/HI. She is open to acupuncture. She is hesitant to be referred to therapy. She has prescription Zoloft at home that she can start if she chooses, though she is hesitant to add another daily medication. She is advised to do whatever is relaxing to her like playing a phone game or listening to a meditation. Will prescribe hydralazine for her to take PRN. She will follow up with me PRN. Assessment & Plan (12/08/2022 8:58 AM EDT): She expresses anxiety concerns. No SI/HI. She is open to acupuncture. She is hesitant to be referred to therapy. She has prescription Zoloft at home that she can start if she chooses, though she is hesitant to add another daily medication. She is advised to do whatever is relaxing to her like playing a phone game or listening to a meditation. Will prescribe hydralazine for her to take PRN. She will follow up with me PRN. MAREN positive 12/08/2022 Overview (05/06/2023): MAREN 1:320 with negative lyme RPR, TSH, B12, and ceruloplasmin recommending follow up 4months. -Referred to rheumatology 01/13/2023. -Appointment was for 04/29/2023, will request note. Assessment & Plan (05/06/2023 11:14 AM EDT): MAREN 1:320 with negative lyme RPR, TSH, B12, and ceruloplasmin recommending follow up 4months. -Referred to rheumatology 01/13/2023. -Appointment was for 04/29/2023, will request note. Dyslipidemia 12/08/2022 Overview (07/30/2024): Lab Results Component Value Date CHOL 231 (H) 03/26/2024 TRIG 83 03/26/2024 HDL 99 03/26/2024 LDLCHOLCAL 116 (H) 03/26/2024 -continue lifestyle modification -increase Atorvastatin 40 mg 06/08/24 but repeat labs showed bump in LFTs so decreased back down to atorvastatin 20mg on 07/30/24 -ordered LFTs and HFP 07/30/24 Assessment & Plan (06/08/2024 11:01 AM EDT): Lab Results Component Value Date CHOL 231 (H) 03/26/2024 TRIG 83 03/26/2024 HDL 99 03/26/2024 LDLCHOLCAL 116 (H) 03/26/2024 -continue lifestyle modification -increase Atorvastatin 40 mg 06/08/24 -ordered LFTs and HFP 06/08/24 Assessment & Plan (03/09/2024 12:35 PM EDT): Lab Results Component Value Date CHOL 191 12/13/2022 TRIG 73 12/13/2022 HDL 72 12/13/2022 LDLCHOLCAL 105 12/13/2022 -continue lifestyle modification Vertigo 12/08/2022 Overview (05/06/2023): Differential include Meniere disease, autoimmune, or migraine. Re-check MAREN. -Pt with extreme vertigo since 06/14/2022 with associated right sided eye pressure. No fevers, no vision changes. -Seen in ER 06/16/2022, CT and CTA of the head and neck were unremarkable. -Symptoms exacerbated with head turning. -She has contacted her neurologist Dr Patrick 06/19/2022 and he started prednisone. -Seen Dr. Patrick 09/2022 next visit 02/2023. Will call for most recent neurology note. -Pt seen neurologist 10/10/2022, Dx with migraine with auroa no new abnormalities on MRI scan. -Appointment with ENT 01/15/2023. Assessment & Plan (12/08/2022 10:30 AM EDT): Differential include Meniere disease, autoimmune, or migraine. Re-check MAREN. -Pt with extreme vertigo since 06/14/2022 with associated right sided eye pressure. No fevers, no vision changes. -Seen in ER 06/16/2022, CT and CTA of the head and neck were unremarkable. -Symptoms exacerbated with head turning. -She has contacted her neurologist Dr Patrick 06/19/2022 and he started prednisone. -Seen Dr. Patrick 09/2022 next visit 02/2023. Will call for most recent neurology note. -Appointment with ENT 01/15/2023. Essential hypertension 02/04/2022 Overview (06/08/2024): -blood pressure is at goal -continue lifestyle modifications -continue current medication Assessment & Plan (06/08/2024 10:42 AM EDT): -blood pressure is at goal -continue lifestyle modifications -continue current medication Assessment & Plan (03/09/2024 12:36 PM EDT): -blood pressure is at goal -continue lifestyle modifications -continue current medications Assessment & Plan (12/08/2022 8:57 AM EDT): -Blood pressure is at goal -Continue lifestyle modifications -Continue current medications Pain in right knee 02/04/2022 Lumbosacral radiculopathy 02/04/2022 Overview (06/08/2024): -hx lumbar surgery -MRI 2023 right thigh negative -MRI lumbar spine Jul shows slight L4-L5 spondylolisthesis but otherwise very minimal changes -Seen by neurosurgery Dr. Peyton Earl MD, FAANS, FCNS 03/03/24, note reviewed. L spine x rays reviewed. No indication for surgery. -Seen by [facility] 02/29/24 recommending follow up with neurosurgery. No evidence of hip joint pathology. -She has compleated 3 years of physical therapy -On 03/09/24 we discussed possibility of piriformis syndrome. Strengthening discussed. She is going to see chricopractic and acupuncture. We also discussed hypnotherapy. -Has been seeing chiropractor in [place], which she has significant relief from. Has appt. again next week. Assessment & Plan (06/08/2024 11:03 AM EDT): -hx lumbar surgery -MRI 2023 right thigh negative -MRI lumbar spine Jul shows slight L4-L5 spondylolisthesis but otherwise very minimal changes -Seen by neurosurgery Dr. Peyton Earl MD, FAANS, FCNS 03/03/24, note reviewed. L spine x rays reviewed. No indication for surgery. -Seen by [facility] 02/29/24 recommending follow up with neurosurgery. No evidence of hip joint pathology. -She has compleated 3 years of physical therapy -On 03/09/24 we discussed possibility of piriformis syndrome. Strengthening discussed. She is going to see chricopractic and acupuncture. We also discussed hypnotherapy. -Has been seeing chiropractor in [place], which she has significant relief from. Has appt. again next week. Assessment & Plan (03/09/2024 12:37 PM EDT): -hx lumbar surgery -MRI 2023 right thigh negative -MRI lumbar spine Jul shows slight L4-L5 spondylolisthesis but otherwise very minimal changes -Seen by neurosurgery Dr. Peyton Earl MD, FAANS, FCNS 03/03/24, note reviewed. L spine x rays reviewed. No indication for surgery. -Seen by [facility] 02/29/24 recommending follow up with neurosurgery. No evidence of hip joint pathology. -She has compleated 3 years of physical therapy -On 03/09/24 we discussed possibility of piriformis syndrome. Strengthening discussed. She is going to see chricopractic and acupuncture. We also discussed hypnotherapy. Assessment & Plan (05/06/2023 11:12 AM EDT): Pt currently in PT. Tubular adenoma of colon 09/10/2017 Overview (06/08/2024): -hx tubular adenoma 10/02/2014 and 01/20/[address] Fields Due in 2024 Assessment & Plan (06/08/2024 10:44 AM EDT): -hx tubular adenoma 10/02/2014 and 01/20/[address] Fields Due in 2024 Assessment & Plan (09/04/2022 2:48 PM EST): -hx tubular adenoma 10/02/2014 and 01/20/[address] Fields History of cholecystectomy 09/10/2017 Resolved Problems Problem Noted Date Diagnosed Date Resolved Date Spasm 12/08/2022 12/08/2022 Overview (12/08/2022): At a prior visit, PT with several months of bilateral leg and foot cramping with spasm of her fingers and toes. Labs unremarkable. Will hold HCTZ, continue lisinopril 10mg daily and add amlodipine 2.5mg daily if BP > 140/90 on 2 occasions. She requests referral to neurologist Dr. Anibal Patrick, will place referral. I will check in in 1 week by phone. She agrees with the plan. Today on 12/12/2021, Patient has followed up with neurology and has had an MRI. 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 She will follow up with neurology. Assessment & Plan (12/08/2022 8:58 AM EDT): At a prior visit, PT with several months of bilateral leg and foot cramping with spasm of her fingers and toes. Labs unremarkable. Will hold HCTZ, continue lisinopril 10mg daily and add amlodipine 2.5mg daily if BP > 140/90 on 2 occasions. She requests referral to neurologist Dr. Anibal Patrick, will place referral. I will check in in 1 week by phone. She agrees with the plan. Today on 12/12/2021, Patient has followed up with neurology and has had an MRI. 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 She will follow up with neurology. Encounters Date Type Department Care Team Description 09/02/2024 Orders Only [facility] [address] [place] [address] Frances Li MD Dyslipidemia 09/01/2024 Orders Only [facility] [address] [place] [address] Frances Li MD Elevated LFTs (Primary Dx) 09/01/2024 Telephone [facility] [address] [place] [address] Frances Li MD Nurse Triage 07/30/2024 Telephone [facility] [address] [place] [address] Rere Ramos, RN Results 07/30/2024 Orders Only [facility] [address] [place], [place] [id number] Frances Li MD Dyslipidemia (Primary Dx); Benign paroxysmal positional vertigo, bilateral from Last 3 Months Immunizations Name Administration Dates Next Due Hep B, adult 11/06/2023,06/05/2023,05/06/2023 Influenza Injectable Quadriv alant Preservative Free IIV4 MDCK 06/29/2023 Influenza Quadrivalent Adjuvanted 06/03/2021 Influenza injectable quadriv alent preservative free 05/16/2022,06/13/2020 Influenza, High Dose Seasona l, Preservative Free 05/25/2017 Influenza, seasonal, injecta ble, preservative free 06/08/2024 Tdap 09/10/2017 Family History Medical History Relation Name Comments Meniere's disease Sister Relation Name Status Comments Sister Social History Tobacco Use Types Packs/Day Years Used Date Smoking Tobacco: Former Cigarettes 0.3 30 Passive Smoke Exposure: Past Smokeless Tobacco: Never Tobacco Cessation:Counseling Given: Not Answered Alcohol Answer Date Recorded How often do [...] not to disclose 2021 10:31 AM EDT Last Filed Vital Signs Vital Sign Reading Time Taken Comments Blood Pressure 128/72 06/08/2024 10:34 AM EDT Pulse 82 06/08/2024 10:34 AM EDT Temperature 36.1 ??C (96.9 ??F) 06/08/2024 10:34 AM E DT Respiratory Rate 20 06/08/2024 10:34 AM EDT Oxygen Saturation 97% 06/08/2024 10:34 AM EDT Inhaled Oxygen Concentration - - Weight 73.9 kg (163 lb) 06/08/2024 10:34 AM EDT Height 170.2 cm (5' 7 ) 06/08/2024 10:34 AM EDT Body Mass Index 25.53 06/08/2024 10:34 AM EDT Plan of Treatment Health Maintenance Due Date Last Done Comments CT Colonography 1965 FIT DNA/Cologuard 1965 FIT 1965 FOBT 1965 Sigmoidoscopy 1965 Pneumococcal Vaccine: 50+ Years (1 of 1 - PCV) 10/27/2013 Zoster Vaccines (1 of 2) 10/27/2013 Colonoscopy 01/19/2025 01/20/2020 Colorectal Cancer Screening 01/19/2025 SDOH Screening 02/28/2025 02/29/2024 Depression Screening 03/09/2025 03/09/2024, 03/09/20 Alcohol/Substance Use Screening 06/08/2025 06/08/2024 COVID-19 Vaccine ( season) 2025 03/06/2022, 06/26/2021, 09/26/2020, Additional history exists Postponed from 04/10/2024 (Patient Refused) Tobacco Screening 06/08/2025 06/08/2024 Pap Smear 08/20/2025 08/20/2022 Mammogram 04/25/2026 04/25/2024, 09/0 01/2023, 03/26/2022, Additional history exists Cervical Cancer Screening 08/20/2027 HPV/Cotest 08/20/2027 08/20/2022 DTaP/Tdap/Td Vaccines (2 - Td or Tdap) 09/10/2027 09/10/2017 Lipid Panel 09/02/2029 09/02/2024, 12/2 08/2023, 03/26/2024, Additional history exists RSV Patients and Patients Aged 60 years or older (1 - 1-dose 75+ series) 10/27/2038 HIV Screening Completed 12/13/2022, 10/30/2021 Hepatitis B Vaccines Completed 11/06/2023, 06/05/2023, 05/06/2023 Hepatitis C Screening Completed 03/26/2024 Influenza Vaccine Completed 06/08/2024, , 05/16/2022, Additional history exists HIB Vaccines Aged Out No longer eligi ble based on patient's age to complete this topic HPV Vaccines Aged Out No longer eligi ble based on patient's age to complete this topic Hepatitis A Vaccines Aged Out No long er eligible based on patient's age to complete this topic IPV Vaccines Aged Out No longer eligi ble based on patient's age to complete this topic Meningococcal Vaccine Aged Out No raul janie eligible based on patient's age to complete this topic RSV under 20 months Aged Out No longe r eligible based on patient's age to complete this topic Rotavirus Vaccines Aged Out No longer eligible based on patient's age to complete this topic Procedures Procedure Name Priority Date/Time Associated Diagnosis Comments HEPATIC FUNCTION PANEL Routine 6:11 AM EST Elevated LFTs LIPID PANEL, STANDARD Routine 09/02/2024 6:11 AM EST Dyslipidemia HEPATIC FUNCTION PANEL Routine 7:10 AM EST Dyslipidemia LIPID PANEL, STANDARD Routine 07/30/2024 7:10 AM EST Dyslipidemia BI MAMMOGRAM SCREENING TOMOSYNTHESIS BILATERAL Routine 04/25/2024 1:56 PM EDT HEPATITIS C AB W/REFL TO HCV RNA, QN, PCR Routine 03/26/2024 7:12 AM EDT Encounter for hepatitis C screening test for low risk patient HIV ANTIBODY/ANTIGEN ([place] [facility]) Routine 12/13/2022 7:31 AM EDT HPV MRNA E6/E7 REFLEX TO HPV 16, 18/45 Routine 08/20/2022 1:52 PM EST PAP SMEAR Routine 08/20/2022 1:52 PM EST HM COLONOSCOPY Routine 01/20/2020 from Last 3 Months or Most Recently Relevant to Health Maintenance Results * (ABNORMAL) Hepatic Function Panel (09/02/2024 6:11 AM EST) Only the most recent of2 resultswithin the time period is included. Bilirubin, Total 1.3(H) 0.0 - 1.0 mg/dL [facility] Comment:Mild Icterus. Bilirubin, Direct 0.4 0.0 - 0.5 mg/dL [facility] Comment:Mild Icterus. Aspartate Amino Transferase 34(H) 5 - 31 U/L [facility] Alanine Aminotransferase 34(H) 0 - 31 U/L [facility] Total Protein 7.5 6.5 - 8.0 g/dL [facility] Albumin Level 4.4 3.5 - 5.0 g/dL [facility] Alkaline Phosphatase 95 39 - 117 U/L [facility] Blood Venous blood specimen / Unknown 09/02/2024 6:11 AM EST 09/02/2024 6:11 AM EST us Frances Li MD LAB BLOOD ORDERABLES Final Result [facility] [address] [place] [address] [phone] * (ABNORMAL) Lipid Panel, Standard (09/02/2024 6:11 AM EST) Only the most recent of2 resultswithin the time period is included. Triglycerides 74 <150 mg/dL [facility] Comment:Mild Icterus.Interpr et result with caution.Desirable Triglyceride: less than 150 mg/dLBorderline High Triglyceride 150-199 mg/dLHigh Triglyceride: 200-499 mg/dLVery High Triglyceride: greater than or equal to 5OO mg/dL Cholesterol 198 <200 mg/dL [facility] Comment:Mild Icterus.Interpr et result with caution.Desirable Cholesterol: less than 200 mg/dLBorderline High Cholesterol: 200-239 mg/dLHigh Cholesterol: greater than 239 mg/dL LDL Cholesterol Calculated 106(H) <100 mg/dL [facility] Comment:Desirable LDL: less than 100 mg/dLNear Optimal/Above Optimal LDL: 110- 129 mg/dLBorderline High LDL: 130-159 mg/dLHigh LDL: 160-189 mg/dLVery High LDL: greater than or equal to 190 mg/dL HDL Cholesterol 78 >40 mg/dL [facility] Comment:Desirable HDL: great er than 40 mg/dL Note: This HDL assay may give artificially low results in patients with liver disease. Blood Venous blood specimen / Unknown 09/02/2024 6:11 AM EST 09/02/2024 6:11 AM EST us Frances Li MD LAB BLOOD ORDERABLES Final Result [facility] [address] [place] [address] [phone] * BI Mammogram Screening Tomosynthesis Bilateral (04/25/2024 1:56 PM EDT) Anatomical Region Laterality Modality Breast Bilateral Mammography 04/25/2024 1:56 PM EDT Narrative 05/06/2024 10:45 AM EDT ? [facility] ? [address] ?[place] [address] ? Mammography Report ? Signed ? Patient: Henchey,Laura L ?MR#: [id number] ?? 3 ? : 1965 ?Acct:[id number] ? Age/Sex: 58 / F ?ADM Date: 04/25/24 ? Loc: HO.MAMMO ? Attending Dr: Frances Li MD ? Ordering Physician: Jen,Frances MD ?Results: 1N ?? egative ? Date of Service: 04/25/24 ?Follow Up: 1 Year From Orig ?? inal Mammogram ? Procedure(s): MM tomosynthesis screening BI ?? Accession Number(s): [id number] ? cc: Frances Li MD ? EXAMINATION: ?? MM SCREENING DIGITAL BREAST TOMOSYNTHESIS, BILATERAL ? CLINICAL INFORMATION: ? Screening. Asymptomatic. ? COMPARISON: ?? Mammography: Comparison is made with available priors ? TECHNIQUE: ?? Digital breast mammography with tomosynthesis is performed in both the ?? craniocaudal and mediolateral oblique views along with computer-aided ?? detection (CAD). ? FINDINGS: ?? The breasts are extremely dense, which lowers the sensitivity of ?? mammography (ACR BI-RADS breast composition Category d). ? There are no significant masses, abnormal calcifications, or other ?? abnormalities. ? MM/MM tomosynthesis screening BI ?? IMPRESSION: ?? No mammographic evidence of malignancy. ? ASSESSMENT: ? BI-RADS BI-RADS 1 - Negative ? RECOMMENDATION: ?? Routine annual mammography screening. ? 1 year F/U ? This examination should not preclude the clinical evaluation of a ?? suspicious palpable abnormality. ? This patient's information was entered into a reminder system with a ?? target due date for their next mammogram. ? Electronically signed by: ??Mela Santoyo DO ??05/06/2024 10:43 AM EDT ? Dictated By: ?Mela Santoyo DO ? Signed By: ?<Electronically signed by Mela Santoyo, DO in OV> ? 05/06/24 1043 ? DD/ 1356 ? TD/TT: 04/25/24 1406 ? Internal Controls Analyst: ? Procedure Note Lucia Romero - 05/06/2024 [facility] [address] [place] [address] Dr. Nolen, FARZANA [address] Mammography Report Signed Patient: Laura Rivas LMR#: [id number] 3 : 1965Acct:[id number] Age/Sex: 58 / FADM Date: 04/25/24 Loc: HO.MAMMO Attending Dr: Frances Li MD Ordering Physician: Frances Li MDResults: 1N egative Date of Service: 04/25/24Follow Up: 1 Year From Orig inal Mammogram Procedure(s): MM tomosynthesis screening BI Accession Number(s): [id number] cc: Frances Li MD EXAMINATION: MM SCREENING DIGITAL BREAST TOMOSYNTHESIS, BILATERAL CLINICAL INFORMATION: Screening. Asymptomatic. COMPARISON: Mammography: Comparison is made with available priors TECHNIQUE: Digital breast mammography with tomosynthesis is performed in both the craniocaudal and mediolateral oblique views along with computer-aided detection (CAD). FINDINGS: The breasts are extremely dense, which lowers the sensitivity of mammography (ACR BI-RADS breast composition Category d). There are no significant masses, abnormal calcifications, or other abnormalities. MM/MM tomosynthesis screening BI IMPRESSION: No mammographic evidence of malignancy. ASSESSMENT: BI-RADS BI-RADS 1 - Negative RECOMMENDATION: Routine annual mammography screening. 1 year F/U This examination should not preclude the clinical evaluation of a suspicious palpable abnormality. This patient's information was entered into a reminder system with a target due date for their next mammogram. Electronically signed by: Mela Santoyo DO 05/06/2024 10:43 AM EDT Dictated By: Mela Santoyo DO Signed By: <Electronically signed by Mela Santoyo DO in OV> 05/06/24 1043 DD/ 1356 TD/TT: 04/25/24 1406 Internal Controls Analyst: us Frances Li MD IMG BI PROCEDURES Final Re sult * Hepatitis C Antibody with Reflex to HCV, RNA, Quantitative, Real-Time PCR (03/26/2024 7:12 AM EDT) Hepatitis C Antibody Nonreactive Nonreactive [facility] Comment:Antibodies to HCV no t detected; does not exclude early acuteHCV infection. Blood Venous blood specimen / Unknown 03/26/2024 7:12 AM EDT 03/26/2024 7:12 AM EDT Frances Li MD LAB BLOOD ORDERABLES Final Result Performing Organization Address City/[facility] Co de Phone Number [facility] [address] [place] [phone] * HIV Ab/Ag (FARZANA SPAULDING) (12/13/2022 7:31 AM EDT) HIV AB/AG Nonreactive Nonreactive [facility] Comment:HIV-1 p24 Ag and/or HIV-1/HIV-2 Ab not detected.A test result that is nonreactive does not exclude thepossibility of exposure to or infection with HIV-1 and/orHIV-2. Nonreactive results in this assay for individualswith prior exposure to HIV-1 and/or HIV-2 may be due toantigen and antibody levels that are below the limit ofdetection of this assay.[employer] HIV Ag/Ab Combo assay result andsupplemental assay results should be interpreted inconjunction with the patient's clinical presentation,history and other laboratory results. If the results areinconsistent with clinical evidence, additional testing issuggested to confirm the result. 12/13/2022 7:31 AM EDT 12/13/2022 7:31 AM EDT [facility] External Provider LAB BLO OD ORDERABLES Final Result Performing Organization Address [facility] Co de Phone Number [facility] [address] [place] [phone] * HPV mRNA E6/E7 w/Reflex to HPV Genotypes 16, 18/45 (08/20/2022 1:52 PM EST) HPV nRNA E6/E7 Not Detected Not Detected [facility] Comment:Methodology: Transcr iption-Mediated AmplificationThis assay detects E6/E7 viral messenger RNA (mRNA) from 14high-risk HPV types (16,18,31,33,35,39,45,51,52,56,58,59,66,68).Cervical sources are required for HPV testing.If a vaginal source from a patient who has had atotal hysterectomy with removal of cervix wassubmitted, please contact the testing laboratoryfor alternative testing options.For additional information, please refer tohttp://education.[email or web address]/LOZ084y2(This link if provided for information/educational purposes only.)THIS TEST WAS PERFORMED AT:[employer] [address] ([address])[place] [address]RCQTTNELSON TREVINO MD HPV mRNA E6/E7 [facility] HPV 16 RNA TNP [facility] HPV 18/45 RNA [facility] 08/20/2022 1:52 PM EST 08/20/2022 3:00 PM EST [facility] External Provider LAB CYT OLOGY ORDERABLES Final Result Performing Organization Address City/State/[facility] de Phone Number [facility] [address] [place] [phone] * Pap Smear (08/20/2022 1:52 PM EST) 08/20/2022 1:52 PM EST 08/20/2022 3:00 PM EST Narrative [facility] - 08/31/2022 11:51 AM EST ----- ------- Name: Laura Rivas ?Age/Sex: 56/F ? : 1965 Unit#: [id number] ?? Attend Dr: Montoya,Olivia CNM ?Re08/20/22 ?Status: DEP REF ? Location: HO.LNP ?Disch: ? ----- ------- SPEC : [id number] ?RECD: 08/20/22-1499 ? STATUS: ??SOUT ? REQ NUM: [id number] ? RAFAEL: 08/20/22 ? SUBM DR: Olivia Montoya CNM ? ENTERED: ??08/20/22 ?SP TYPE: Pap Smr ?OTHR DR: Frances Li MD ? ORDERED: ??Pap Smear ? Interpretation ?? Satisfactory for evaluation. ?? Negative for intraepithelial lesion or malignancy. ? HPV mRNA E6/E7: ? NOT DETECTED ? This assay detects E6/E7 viral messenger RNA (mRNA) from 14 high-risk HPV types (16, 18, ?? 31, 33, 35, 39, 45, 51, 52, 56, 58, 59, 66, 68) ? HPV testing performed by [employer], [place], [place]. ??See reference laboratory ?? portion of the EMR for entire report. ?Clinical Information LMP: Post menopause Previous PAP test: 2017, WNL ? Material Received ?? ThinPrep-Cervical Copies To: ?? Frances Li MD ?? [address] ?? [place] [address] ? Olivia Montoya CNM ?? [address] [facility] ?? [place] [address] ?? [phone] ----- ------- Signed (signature on file) Lilia Lorenzo Nelida 08/31/22 1151 ? ----- ------- ? END OF REPORT ? [facility] External Provider LAB CYT OLOGY ORDERABLES Final Result [facility] [address] [place] [address] [phone] * Hm Colonoscopy (01/20/2020) Colonoscopy hx tubular adenoma with Dr. Fields us Historical Provider HEALTH MAINTENANCE Final Result from Last 3 Months or Most Recently Relevant to Health Maintenance Insurance BS PPO Advance Directives Documents on File Type Date Recorded Patient Evaluator Transfer Students Expl anation Advance Directives and Living Will 03/10/2024 3:23 PM Health Care Proxy Care Teams Last Ironer Relationship Specialty Start Date End Date Hillman, MD Frances [address] [place] [phone] PCP - General Family Medicine 03/07/19
--- OUTSIDE RECORDS SUMMARY | 2024-09-22 12:55 | XMS_ITS | Encounter Summary ---
Author Organization [employer] [facility] Address [address] [place] [address] 7[address] [place] [address] Care Team Providers Care Animal Humane Agent Supervisor Name Role Phone Frances Li MD Primary Care Provider [phone]- [phone] Encounter Details Date Type Department Care Team (Late st Contact Info) Description 09/01/2022 Orders Only [facility] [address] [place], [place] [phone] Tiffanie Garcia LPN Social History Tobacco Use [...] on filedocumented in this encounter Care Teams Animal Humane Agent Supervisor Relationship Specialty Start Date End Date Frances Li MD [address] [place] [address] PCP - General Family Medicine 03/07/19 documented as of this encounter
--- OUTSIDE RECORDS SUMMARY | 2024-09-22 12:55 | XMS_ITS | Encounter Summary ---
Author Organization [employer] Address [address] [place] [address] [address] [place] [address] Care Team Providers Care Operator Ground Based Air Defence Name Role Phone Frances Li MD Primary Care Provider [phone]- [phone] Encounter Details Date Type Department Care Team (Late st Contact Info) Description 01/13/2023 Orders Only [facility] [address] [place], [place] [phone] Frances Li MD [address] [place], [place] [phone] MAREN positive (Primary Dx) Social History Tobacco [...] Primary documented in this encounter Care Teams Operator Ground Based Air Defence Relationship Specialty Start Date End Date Frances Li MD [address] [place], [place] [phone] PCP - General Family Medicine 03/07/19 documented as of this encounter
--- OUTSIDE RECORDS SUMMARY | 2024-09-22 12:55 | XMS_ITS | Encounter Summary ---
Author Organization [employer] Address [address] [facility] [address]t [place] [address] Care Team Providers Care Contact Lens Flashing Puncher Name Role Phone Frances Li MD Primary Care Provider [phone]- [phone] Reason for Visit * Reason Onset Date Comments Nurse Triage 09/01/2024 Encounter Details Date Type Department Care Team ([facility] st Contact Info) Description 09/01/[address] [facility] [address] [place], [place] [phone] Frances Li MD [address] [place] [address] Nurse Triage Social History Tobacco Use Types [...] encounter Miscellaneous Notes * Telephone Encounter - Félix Valenzuela RN - 09/02/2024 2:55 PM EST TC placed to patient to inform of providers message below. Patient agrees to start the 20mg dose tonight and report if she sees a difference in her skin color. * Telephone Encounter - Félix Valenzuela RN - 09/02/2024 2:04 PM EST Per PCP please let Laura know that her liver did not show a reason that she would be yellow. Although it was slightly elevated and the bili was slightly elevated, this should not cause her skin to turn yellow. The labs are very reassuring and she can hold off on atorvastatin for a month to see if the yellow changes and if not, can restart the medication. Also please ask if she has been having carrots or sweet potatoes as this can cause skin to yellow. Thank you Patient informed of above and reports that she has been taking atorvastatin 40 mg since June. Did not go back to the 20 mg dose. Patient is wondering if she should not take any atorvastin at all or go to the smaller 20 mg dose she was on for years. Patient has not eaten carrots or sweet potatoes. Message sent to PCP for review and advise. * Telephone Encounter - Francheska Marroquin RN - 09/02/2024 9:45 AM EST Chart Reviewed, labs are in Epic. Will send to PCP to review and further advise. See below pt ok with expecting a call back with results and plan of care. * Telephone Encounter - Francheska Marroquin RN - 09/01/2024 4:31 PM EST Call placed to pt and advised of below. Pt agrees to go to [facility] main lab tomorrow to complete labs. Pt offered [facility] appt. Pt declines states will wait for a call back with results if [facility]. Will set reminder for this proposal manager writer to follow up in the morning [...] were not included. Call returned to Laura Lorenzo Rob to triage below. Reports first noticed yellowing [...] 07/30/2024 8:30 AM EST ----- Please let Alura know that repeat cholesterol was great but [...] of care. Tomasz Mendez routed conversation to [place] Triage Nurse11 minutes ago (3:45 PM) Laura Coppola [place] [facility] Clinical Support (supporting Frances Li MD)1 [...] documented as of this encounter Care Teams Contact Lens Flashing Puncher Relationship Specialty Start Date End Date Frances Li MD [address] [place] [phone] PCP - General Family Medicine 03/07/19 documented as of this encounter
--- OUTSIDE RECORDS SUMMARY | 2024-09-22 12:55 | XMS_ITS | Encounter Summary ---
Author Organization [employer] Address [address] [facility] [address] 7[address] [place] [address] Care Team Providers Care Rigging Worker Name Role Phone Frances Li MD Primary Care Provider +1- [phone] Encounter Details Date Type Department Care Team ([facility] st Contact Info) Description 09/01/2024 Orders Only [facility] [address] [place], [place] [phone] Frances Li MD [address] [place], [place] [phone] Elevated LFTs (Primary Dx) Social History Tobacco [...] Associated Diagnosis Comments HEPATIC FUNCTION PANEL Routine 09/02/2024 6:11 AM EST Elevated LFTs documented in this encounter Results * (ABNORMAL) Hepatic Function Panel (09/02/2024 6:11 AM EST) Bilirubin, Total 1.3(H) 0.0 - 1.0 mg/dL [facility] Comment:Mild Icterus. Bilirubin, Direct 0.4 0.0 - 0.5 mg/dL [facility] Comment:Mild Icterus. Aspartate Amino Transferase 34(H) 5 - 31 U/L [facility] Alanine Aminotransferase 34(H) 0 - 31 U/L [facility] Total Protein 7.5 6.5 - 8.0 g/dL [facility] Albumin Level 4.4 3.5 - 5.0 g/dL [facility] Alkaline Phosphatase 95 39 - 117 U/L [facility] Blood Venous blood specimen / Unknown 09/02/2024 6:11 AM EST 09/02/2024 6:11 AM EST Frances Li MD LAB BLOOD ORDERABLES Final Result [facility] [address] [place] [phone] documented in this encounter Visit Diagnoses Diagnosis Elevated LFTs- Primary Other abnormal blood chemistry documented in this encounter Additional Health Concerns Assessment Noted Time PHQ-9 Depression Total Score: 1 03/09/20 24 3:12 PM EDT documented as of this encounter Care Teams Rigging Worker Relationship Specialty Start Date End Date Frances Li MD [address] [place] [phone] PCP - General Family Medicine 03/07/19 documented as of this encounter
--- OUTSIDE RECORDS SUMMARY | 2024-09-22 12:55 | XMS_ITS | Encounter Summary ---
Author Organization [employer] Address [address] [facility] 7[address] [place] [address] Care Team Providers Care Aircraft Structure Mechanic Name Role Phone Frances Li MD Primary Care Provider +1- [phone] Reason for Visit * Reason Comments Med Refill Encounter Details Date Type Department Care Team ([facility] Contact Info) Description 12/30/2023 Refill [facility] [address] [place] [address] Payal Berry MD [address] [place] [address] Nasal congestion; Pain of nose Social History [...] sinuses documented in this encounter Care Teams Aircraft Structure Mechanic Relationship Specialty Start Date End Date Frances Li MD [address] [place] [phone] PCP - General Family Medicine 03/07/19 documented as of this encounter
--- NOTE | 2024-09-22 13:00 | A.OFFVIS_ITS ---
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 She is doing well with no cyanide pot hardener concerns. Currently sexually active. Denies any vaginal dryness or irritation. STI testing offered; she declines. Attempting to eat a healthy diet with calcium and vitamin D and stays active with exercise. Last pap smear; 2022. Last mammogram; 2023. Colonoscopy is UTD. Denies any family history of breast, ovarian or colon cancer. [facility] Medical History Right lumbar radiculitis Fibroids High cholesterol Surgical History Hx of section Hx of cholecystectomy History of back surgery Family History Family/Other Colon cancer Mother Dementia Maternal Grandmother Colon cancer Other Adopted Social History Household Members: Spouse Housing: House Alcohol intake: current Alcohol intake frequency: holidays/special occasions only Patient Tobacco Use Status: Former Tobacco user service: No Current occupational status: employed Current occupation: [employer] Sexual orientation: Straight/Heterosexual Gender identity: Female Female Reproductive History Menstrual Age of Menarche: 10 Total pregnancies: 1 Full term: 1 Date of last pap smear: 08/20/22 (negative pap, negative hpv) Date of Mammogram: 04/25/24 (birad 1) Review of Systems Const All systems reviewed & are unremarkable except as noted in HPI and below Reports as per HPI Eyes Reports no additional complaints ENT Reports no additional complaints Card Reports no additional complaints Resp Reports no additional complaints GI Reports as per [facility] and Reports no additional complaints Reports as per HPI Musc Reports no additional complaints Skin/Breast Reports as per HPI Neuro Reports no additional complaints Psych Reports no additional complaints Endo Reports no additional complaints Galen/Lymph Reports no additional complaints Aller/Immun Reports no additional complaints Physical Exam Const General: cooperative, healthy appearing, no acute distress, well developed and alert Orientation/consciousness: patient oriented x3 HEENT Head: Yes normal to inspection Eyes General: appearance normal, both eyes and all related structures Neck Neck: Yes normal visual inspection Thyroid: Thyroid normal Chest Chest palpation & inspection: normal inspection of the chest and other (no puckering, dimpling, peau de orange, retraction, discharge, masses) Breast/axilla inspection: normal inspection of the breasts Breast/axilla palpation: normal palpation of the breasts Resp Effort & Inspection: normal respiratory effort GI Inspection: Yes normal to inspection Palpation (GI): Soft to palpation Rectal Exam - Female: deferred General: Yes bladder normal to palpation External Female Exam: normal external appearance and normal appearance of the urethra Speculum Exam - Vagina: normal appearance of the vagina, normal palpation, normal vaginal discharge and vagina atrophic Speculum Exam - Cervix: normal appearance of the cervix and normal palpation Bimanual exam- vagina & uterus: normal bimanual exam, normal palpation, uterine size normal, bladder normal to palpation, normal palpation and non-tender Bimanual Exam- Adnexa, other: no masses Skin General skin exam: no rashes or lesions noted Rashes: no rashes Neuro General: patient oriented x3 Cognition (Neuro): normal cognition Extrem General: Yes normal to inspection Psych Attitude: cooperative Thought process: Normal thought process present Assessment & Plan Assessment & Plan (1) Encounter for well woman exam with routine gynecological exam: Code(s): Z01.419 - Encounter for gynecological examination (general) (routine) without abnormal findings Category: Medical Plan Discussed: Current recommendations for pap smears per ASCCP guidelines. Breast awareness, periodic self breast exams and yearly mammogram. Maintain a healthy lifestyle, well balanced diet including Calcium 1,200 mg and Vitamin D 600 IU daily, and routine exercise. Contact the office with any postmenopausal bleeding. Patient verbalizes understanding and agrees to the plan of care. She was given opportunity to ask questions and all questions were answered to the best of my ability. RTO in 1 year for annual cyanide pot hardener exam. This note is constructed using voice recognition software. While every effort has been made to ensure accuracy, assembler engine errors may have been included. Coding Level of Care Code Est Pt Prev Care 40-64y(44839) Diagnoses Encounter for well woman exam with routine gynecological exam Z01.419
[2024-09-22 13:05] VITALS: BP 124/70; BMI 25.5
== END 2024-09-22 13:25 | disposition home or self-care (01) ==
PROVIDERS: PCP Family Medicine; Visit Provider Advanced Practice Midwife
DX: Z01.419 Encounter for gynecological examination (general) (routine) without abnormal findings (principal)
CPT/HCPCS: 99396; 99459

== ENCOUNTER 2024-10-08 06:59 | Outpatient (REF) | payer BC, SELFPAY ==
--- OUTSIDE RECORDS SUMMARY | 2024-10-08 07:02 | XMS_ITS | Clinical Summary ---
Author Organization [employer] Address [address] [place] [address] 7t [place] [address] Care Team Providers Care Wire Coating Operator Metal Name Role Phone Frances Li MD Primary Care Provider +1- [phone] Olivia Montoya Unavailable Allergies Active Allergy Reactions Criticality Noted Date Comments Acetaminophen 11/21/2016 Difficulty breathing Medications valACYclovir (Valtrex) 1 g tablet 07/08/20 22 Active estradiol (Estrace) 0.1 MG/GM vaginal cream INSERT 1/2 APPLICATORFUL VAGINALLY 2 TIMES A WEEK EVERY NIGHT FOR 2 WEEKS 10/12/19 23 Active LORazepam (Ativan) 0.5 MG tablet take 1 tab po daily prn anxiety as needed 4 tablet 12/09/19 23 Active lisinopril 10 MG tabletIndication s:Primary hypertension TAKE 1 TABLET BY MOUTH EVERY DAY 90 tablet 3 10/19/19 24 Active amLODIPine (Norvasc) 5 MG tabletIndication s:Primary hypertension TAKE 1 TABLET BY MOUTH EVERY DAY 90 tablet 3 10/19/19 24 Active Magnesium Glycinate 100 MG capsuleIndicatio ns:Leg cramps Take 200 mg by mouth at bedtime. 60 capsule 11 01/08/20 24 Active fluticasone (Flonase Allergy Relief) 50 MCG/ACT nasal spray Administer 1 spray into each nostril Once per day. Shake gently. Before first use, prime pump. After use, clean tip and replace cap. 16 g 12 04/06/20 24 025 Active Eucrisa 2 % ointment APPLY THIN LAYER TO HANDS NEEDED FOR SYMPTOMS 05/25/20 24 Active atorvastatin (Lipitor) 20 MG tabletIndication s:Dyslipidemia Take 1 tablet (20 mg) by mouth Once per day. 30 tablet 11 09/02/19 25 026 Active Active Problems Problem Noted Date Diagnosed Date [...] 2027 Fibroids 09/23/2023 Overview (09/23/2023): -followed by sign artist, Dr. Thompson Jo -[place] 09/21/23 Multiple uterine [...] due after 06/08/25 -eye care facilitated by [facility] proxy filed 03/09/24 Assessment & Plan (06/08/2024 10:55 AM EDT): -next comprehensive annual evaluation due after 06/08/25 -eye care facilitated by [facility] proxy filed 03/09/24 Assessment & Plan (05/06/2023 11:11 AM EDT): -next physical exam due after 05/06/2024 -eye care facilitated by [facility] is [facility] Anxiety 12/08/2022 Overview (12/08/2022): She expresses anxiety [...] reviewed. No indication for surgery. -Seen by [facility] 02/29/24 recommending follow up with neurosurgery. No evidence of hip joint pathology. -She has compleated 3 years of physical therapy -On 03/09/24 we discussed possibility of piriformis syndrome. Strengthening discussed. She is going to see chricopractic and acupuncture. We also discussed hypnotherapy. -Has been seeing chiropractor in [place], which she has significant relief from. Has appt. again next week. Assessment & Plan (06/08/2024 11:03 AM EDT): -hx lumbar surgery -MRI 2023 right thigh negative -MRI lumbar spine Jul shows slight L4-L5 spondylolisthesis but otherwise very minimal changes -Seen by neurosurgery Dr. Peyton Earl MD, FAANS, FCNS 03/03/24, note reviewed. L spine x rays reviewed. No indication for surgery. -Seen by [facility] 02/29/24 recommending follow up with neurosurgery. No evidence of hip joint pathology. -She has compleated 3 years of physical therapy -On 03/09/24 we discussed possibility of piriformis syndrome. Strengthening discussed. She is going to see chricopractic and acupuncture. We also discussed hypnotherapy. -Has been seeing chiropractor in [place], which she has significant relief from. Has appt. again next week. Assessment & Plan (03/09/2024 12:37 PM EDT): -hx lumbar surgery -MRI 2023 right thigh negative -MRI lumbar spine Jul shows slight L4-L5 spondylolisthesis but otherwise very minimal changes -Seen by neurosurgery Dr. Peyton Earl MD, FAANS, FCNS 03/03/24, note reviewed. L spine x rays reviewed. No indication for surgery. -Seen by [facility] 02/29/24 recommending follow up with neurosurgery. 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 She will follow up with neurology. 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 She will follow up with neurology. Encounters Date Type Department Care Team Description 10/05/2024 Telephone [facility] [address] [place] [address] Frances Li MD 09/02/2024 Orders Only [facility] [address] [place] [address] Frances Li MD Dyslipidemia 09/01/2024 Orders Only [facility] [address] [place] [address] Frances Li MD Elevated LFTs (Primary Dx) 09/01/2024 Telephone [facility] [address] [place] [address] Frances Li MD Nurse Triage 07/30/2024 Telephone [facility] [address] [place] [address] Rere Ramos, RN Results 07/30/2024 Orders Only [facility] [address] [place] [address] Frances Li MD Dyslipidemia (Primary Dx); Benign [...] Pap Smear 08/20/2025 08/20/2022 Mammogram 04/25/2026 04/25/2024, 09/01/2023, 03/26/2022, Additional history exists Cervical Cancer Screening 08/20/2027 HPV/Cotest 08/20/2027 08/20/2022 DTaP/Tdap/Td Vaccines (2 - Td or Tdap) 09/10/2027 09/10/2017 Lipid Panel 09/02/2029 09/02/2024, 1208/2023, 03/26/2024, Additional history exists RSV Patients and [...] Associated Diagnosis Comments HEPATIC FUNCTION PANEL Routine 5 6:11 AM EST Elevated LFTs LIPID PANEL, STANDARD Routine 09/02/2024 6:11 AM EST Dyslipidemia HEPATIC FUNCTION PANEL Routine 4 7:10 AM EST Dyslipidemia LIPID PANEL, STANDARD Routine 07/30/2024 7:10 AM EST Dyslipidemia BI MAMMOGRAM SCREENING TOMOSYNTHESIS BILATERAL Routine 04/25/2024 1:56 PM EDT HEPATITIS C AB W/REFL TO HCV RNA, QN, PCR Routine 03/26/2024 7:12 AM EDT Encounter for hepatitis C screening test for low risk patient HIV ANTIBODY/ANTIGEN (UT DP) Routine 12/13/2022 7:31 AM EDT HPV MRNA [...] Bilirubin, Total 1.3(H) 0.0 - 1.0 mg/dL [facility] Comment:Mild Icterus. Bilirubin, Direct 0.4 0.0 - 0.5 mg/dL [facility] Comment:Mild Icterus. Aspartate Amino Transferase 34(H) 5 - 31 U/L [facility] Alanine Aminotransferase 34(H) 0 - 31 U/L [facility] Total Protein 7.5 6.5 - 8.0 g/dL [facility] Albumin Level 4.4 3.5 - 5.0 g/dL [facility] Alkaline Phosphatase 95 39 - 117 U/L [facility] Blood Venous blood specimen / Unknown 09/02/2024 6:11 AM EST 09/02/2024 6:11 AM EST us Frances Li MD LAB BLOOD ORDERABLES Final Result [facility] [address] [place] [address] [place] [address] [phone] * (ABNORMAL) Lipid Panel, Standard (09/02/2024 6:11 AM EST) Only the most recent of2 resultswithin the time period is included. Triglycerides 74 <150 mg/dL [facility] Comment:Mild Icterus.Interpr et result with caution.Desirable Triglyceride: less than 150 mg/dLBorderline High Triglyceride 150-199 mg/dLHigh Triglyceride: 200-499 mg/dLVery High Triglyceride: greater than or equal to 5OO mg/dL Cholesterol 198 <200 mg/dL [facility] Comment:Mild Icterus.Interpr et result with caution.Desirable Cholesterol: less than 200 mg/dLBorderline High Cholesterol: 200-239 mg/dLHigh Cholesterol: greater than 239 mg/dL LDL Cholesterol Calculated 106(H) <100 mg/dL [facility] Comment:Desirable LDL: less than 100 mg/dLNear Optimal/Above Optimal LDL: 110- 129 mg/dLBorderline High LDL: 130-159 mg/dLHigh LDL: 160-189 mg/dLVery High LDL: greater than or equal to 190 mg/dL HDL Cholesterol 78 >40 mg/dL [facility] Comment:Desirable HDL: great er than 40 mg/dL Note: This HDL assay may give artificially low results in patients with liver disease. Blood Venous blood specimen / Unknown 09/02/2024 6:11 AM EST 09/02/2024 6:11 AM EST Frances Li MD LAB BLOOD ORDERABLES Final Result [facility] [address] [place] [address] [phone] * BI Mammogram Screening Tomosynthesis Bilateral (04/25/2024 1:56 PM EDT) Anatomical Region Laterality Modality Breast Bilateral Mammography 04/25/2024 1:56 PM EDT Narrative 05/06/2024 10:45 AM EDT ? [place] [facility] ? [address] ?[place] [address] ? Mammography Report ? Signed ? Patient: Henchey,Laura L ?MR#: [id number] ?? 3 ? : 1965 ?Acct:[id number] ? Age/Sex: 58 / F ?ADM Date: 04/25/24 ? Loc: HO.MAMMO ? Attending Dr: Frances Li MD ? Ordering Physician: Frances Li MD ?Results: 1N ?? egative ? Date of Service: 04/25/24 ?Follow Up: 1 Year From Orig ?? inal Mammogram ? Procedure(s): MM tomosynthesis screening BI ?? Accession Number(s): [id number] ? cc: Frances Li MD ? EXAMINATION: [...] DD/ 1356 ? TD/TT: 04/25/24 1406 ? Assessment Nurse Practitioner: ? Procedure Note Nick, Image - 05/06/2024 [facility] [address] [place] [address] Mammography Report Signed Patient: Laura Rivas LMR#: [id number] 3 : 1965Acct:[id number] Age/Sex: 58 / FADM Date: 04/25/24 Loc: HO.MAMMO Attending Dr: Frances Li MD Ordering Physician: Frances Li MDResults: 1N egative Date of Service: 04/25/24Follow Up: 1 Year From Orig inal Mammogram Procedure(s): MM tomosynthesis screening BI Accession Number(s): [id number] cc: Frances Li MD EXAMINATION: MM SCREENING [...] Mela Santoyo DO 05/06/2024 10:43 AM EDT RP Dictated By: Mela Santoyo DO Signed By: <Electronically signed by Mela Santoyo DO in OV> 05/06/24 1043 DD/ 1356 TD/TT: 04/25/24 1406 Assessment Nurse Practitioner: Frances Li MD IMG BI PROCEDURES Final Re sult * Hepatitis C Antibody with Reflex to HCV, RNA, Quantitative, Real-Time PCR (03/26/2024 7:12 AM EDT) Hepatitis C Antibody Nonreactive Nonreactive [facility] Comment:Antibodies to HCV no t detected; does not exclude early acuteHCV infection. Blood Venous blood specimen / Unknown 03/26/2024 7:12 AM EDT 03/26/2024 7:12 AM EDT Frances Li MD LAB BLOOD ORDERABLES Final Result [facility] [address] [place] [phone] * HIV Ab/Ag ([facility]) (12/13/2022 7:31 AM EDT) HIV AB/AG Nonreactive Nonreactive [facility] Comment:HIV-1 p24 Ag and/or HIV-1/HIV-2 Ab not detected.A test result that is nonreactive does not exclude thepossibility of exposure to or infection with HIV-1 and/orHIV-2. Nonreactive results in this assay for individualswith prior exposure to HIV-1 and/or HIV-2 may be due toantigen and antibody levels that are below the limit ofdetection of this assay.The [facility] HIV Ag/Ab Combo assay result andsupplemental assay results should be interpreted inconjunction with the patient's clinical presentation,history and other laboratory results. If the results areinconsistent with clinical evidence, additional testing issuggested to confirm the result. 12/13/2022 7:31 AM EDT 12/13/2022 7:31 AM EDT [facility] External Provider LAB BLO OD ORDERABLES Final Result Performing Organization Address [facility] Co de Phone Number [facility] [address] [place] [address] [phone] * HPV mRNA E6/E7 w/Reflex to HPV Genotypes 16, 18/45 (08/20/2022 1:52 PM EST) HPV nRNA E6/E7 Not Detected Not Detected [facility] Comment:Methodology: Transcr iption-Mediated AmplificationThis assay detects E6/E7 viral messenger RNA (mRNA) from 14high-risk HPV types (16,18,31,33,35,39,45,51,52,56,58,59,66,68).Cervical sources are required for HPV testing.If a vaginal source from a patient who has had atotal hysterectomy with removal of cervix wassubmitted, please contact the testing laboratoryfor alternative testing options.For additional information, please refer [email or web address]/faq/YWV306z6(This link if provided for information/educational purposes only.)THIS TEST WAS PERFORMED AT:[employer] [place] [address] ([address] [phone] TREVINO MD HPV mRNA E6/E7 [facility] HPV 16 RNA [facility] HPV 18/45 RNA [facility] 08/20/2022 1:52 PM EST 08/20/2022 3:00 PM EST [facility] External Provider LAB CYT OLOGY ORDERABLES Final Result Performing Organization Address [facility]/State/ZIP Co de Phone Number [facility] [address] [place] [address] [phone] * Pap Smear (08/20/2022 1:52 PM EST) 08/20/2022 1:52 PM EST 08/20/2022 3:00 PM EST Narrative [facility] - 08/31/2022 11:51 AM EST ----- ------- Name: Laura Rivas ?Age/Sex: 56/F ? : 1965 Unit#: [id number] ?? Attend Dr: Olivia Montoya CNM ?Re08/20/22 ?Status: DEP REF ? Location: HO.LNP ?Disch: ? ----- ------- SPEC : [id number] ?RECD: 08/20/22-1500 ? STATUS: ??SOUT ? REQ NUM: [id number] ? RAFAEL: 08/20/222 ? SUBM DR: Olivia Montoya CNM ? [...] 66, 68) ? HPV testing performed by [employer], [place], [place]. ??See reference laboratory ?? portion of the EMR for entire report. ?Clinical Information LMP: Post menopause Previous PAP test: 2017, WNL ? Material Received ?? ThinPrep-Cervical Copies To: ?? Frances Li MD ?? [address] ?? [place] [address] ? Olivia Montoya CNM ?? [address] ?? [place] [address] ?? [phone] ----- ------- Signed (signature on file) Lilia Krause 08/31/22 1151 ? ----- ------- ? END OF REPORT ? [facility] External Provider LAB HALINA BRIAN Final Result Performing Organization Address City/State/[facility] Co de Phone Number [facility] [address] [place] [address] [phone] * Colonoscopy (01/20/2020) Colonoscopy hx tubular adenoma with Dr. Fields Historical Provider HEALTH MAINTENANCE Final Result from Last 3 Months or Most Recently Relevant to Health Maintenance Insurance [facility] PPO Advance Directives Documents on File Type Date Recorded Patient Tax Record Clerk Expl anation Advance Directives and Living Will 03/10/2024 3:23 PM Health Care Proxy Care Teams Wire Coating Operator Metal Relationship Specialty Start Date End Date Frances Li MD [address] [place] [address] PCP - General Family Medicine 03/07/19 Olivia Montoya [address] [place] [address] 09/22/24
--- OUTSIDE RECORDS SUMMARY | 2024-10-08 07:02 | XMS_ITS | Encounter Summary ---
Author Organization [employer] [facility] Address [address] [place] [address] 7t [place] [address] Care Team Providers Care Operations Research Engineer Name Role Phone Frances Li MD Primary Care Provider +1- [phone] Olivia Montoya Unavailable Encounter Details Date Type Department Care Team ([facility] st Contact Info) Description 09/01/2022 Orders Only [facility] [address] [place], [place] [phone] Tiffanie Garcia LPN Social History Tobacco Use [...] on filedocumented in this encounter Care Teams Operations Research Engineer Relationship Specialty Start Date End Date Frances Li MD [address] [place], [place] [phone] PCP - General Family Medicine 03/07/19 Olivia Montoya [address] [address] 09/22/24 documented as of this encounter
--- OUTSIDE RECORDS SUMMARY | 2024-10-08 07:02 | XMS_ITS | Encounter Summary ---
Author Organization [employer] Address [address] [facility] 7t [place] [address] Care Team Providers Care Tour Coordinator Name Role Phone Frances Li MD Primary Care Provider +1- [phone] Olivia Montoya Unavailable Encounter Details Date Type Department Care Team ([facility] st Contact Info) Description 09/02/2024 Orders Only [facility] [address] [place], [place] [phone] Frances Li MD [address] [place] [address] Dyslipidemia Social History Tobacco Use Types Packs/Day [...] documented as of this encounter Care Teams Tour Coordinator Relationship Specialty Start Date End Date Frances Li MD [address] [place] [address] PCP - General Family Medicine 03/07/19 Olivia Montoya [address] [place] [address] 09/22/24 documented as of this encounter
--- OUTSIDE RECORDS SUMMARY | 2024-10-08 07:02 | XMS_ITS | Patient Health Record ---
Author Organization [facility] Address [address] [place] [address] Care Team Providers Care Machine Binder Stripper Name Role Phone Frances Li MD Primary Care Provider Astrid vailable Black, Shena Unavailable [phone] Allergies Allergen (clinical drug ingredient) Drug/Non Drug [...] Problem Acquired hammer toe of right foot (4088053430408 [id number]) Hammer toe of right foot (M20.41) Active confirmed Plan Of Treatment No Information Insurance Providers Payer Name Payer Address Payer Phone Subscriber Number Group Number Insured Name Patient Relationship to Insured Coverage Start Date Coverage End Date [facility] All Others [facility] [id number] [place] [address] [id number] Ellis Rivas Spouse - patient is the spouse of the insured Medical (General) History Medical History History ICD Code Anxiety Back,Hip,and Knee pain covid-19 Gall bladder problems Headaches High blood pressure Numbness Chicken pox Surgical History Surgery Date(Month/Year) section 02/14/1984 cholecystectomy 2009 back surgery 05/2020
--- OUTSIDE RECORDS SUMMARY | 2024-10-08 07:02 | XMS_ITS | Encounter Summary ---
Author Organization [employer] Address [address] [facility] 7t [place] [address] Care Team Providers Care Tacker Elastic Band Name Role Phone Frances Li MD Primary Care Provider +1- [phone] Olivia Montoya Unavailable Encounter Details Date Type Department Care Team ([facility] st Contact Info) Description 10/05/[address] [facility] [address] [place], [place] [phone] Frances Li MD [address] [place] [address] Social History Tobacco Use Types Packs/Day Years [...] r Schedule Hepatic Function Panel Lab Routine Jaundice Expected: 10/05/2024 (Approximate), Expires: 10/05/2025 Vitamin A Lab Routine Jaundice Expected: 10/05/2024 (Approximate), Expires: 10/05/2025 TSH W/Reflex to FT4 Lab Routine Jaundice Expected: 10/05/2024 (Approximate), Expires: 10/05/2025 documented as of this encounter Visit Diagnoses Diagnosis Jaundice- Primary Jaundice, unspecified, not of documented in this encounter Additional Health Concerns Assessment Noted Time PHQ-9 Depression Total Score: 1 03/09/20 24 3:12 PM EDT documented as of this encounter Care Teams Tacker Elastic Band Relationship Specialty Start Date End Date Frances Li MD [address] [place] [address] PCP - General Family Medicine 03/07/19 Olivia Montoya [address] [address] 09/22/24 documented as of this encounter
--- OUTSIDE RECORDS SUMMARY | 2024-10-08 07:02 | XMS_ITS | Encounter Summary ---
Author Organization [employer] Address [address] [facility] 7t [place] [address] Care Team Providers Care Donkey Doctor Name Role Phone Frances Li MD Primary Care Provider +1- [phone] Olivia Montoya Unavailable Reason for Visit * Reason Comments Med Refill Encounter Details Date Type Department Care Team ([facility] st Contact Info) Description 12/30/[address] [facility] [address] [place] [address] Payal Berry MD [address] [place] [address] Nasal congestion; Pain of nose Social History [...] sinuses documented in this encounter Care Teams Donkey Doctor Relationship Specialty Start Date End Date Frances Li MD [address] [place] [address] PCP - General Family Medicine 03/07/19 Olivia Montoya [address] [place] [address] 09/22/24 documented as of this encounter
--- OUTSIDE RECORDS SUMMARY | 2024-10-08 07:02 | XMS_ITS | Encounter Summary ---
Author Organization [employer] Address [address] [place] [address] 7 [place] [address] Care Team Providers Care Orthopaedic Doctor Name Role Phone Frances Li MD Primary Care Provider +1- [phone] Olivia Montoya Unavailable Encounter Details Date Type Department Care Team (Late st Contact Info) Description 09/04/2022 Abstract [facility] MED[facility]INE [address] [place] [address] Frances Li MD [address] [place] [address] Social History Tobacco Use Types Packs/Day Years [...] Procedure Name Priority Date/Time Associated Diagnosis Comments HM MAMMOGRAPHY Routine 03/26/2022 COLONOSCOPY Routine 01/20/2020 documented in this encounter Results * Mammography (03/26/2022) HM Mammogram normal Anatomical Region Laterality Modality Other us Historical Provider HEALTH MAINTENANCE Final Result * Colonoscopy (01/20/2020) Colonoscopy hx tubular adenoma with Dr. Fields Historical Provider HEALTH MAINTENANCE Final Result documented in this encounter Visit Diagnoses Not on filedocumented in this encounter Care Teams Orthopaedic Doctor Relationship Specialty Start Date End Date Frances Li MD [address] [place] [address] PCP - General Family Medicine 03/07/19 Olivia Montoya [address] [place] [address] 09/22/24 documented as of this encounter
--- OUTSIDE RECORDS SUMMARY | 2024-10-08 07:02 | XMS_ITS | Encounter Summary ---
Author Organization [employer] [facility] Address [address] [place] [address] 7t [place] [address] Care Team Providers Care Manager Acquisition Name Role Phone Frances Li MD Primary Care Provider +1- [phone] Olivia Montoya Unavailable Encounter Details Date Type Department Care Team (Late st Contact Info) Description 01/13/2023 Orders Only [facility] MEDICINE [address] [place], [place] [phone] Frances Li MD [address] [place], [place] [phone] MAREN positive (Primary Dx) Social History Tobacco [...] Primary documented in this encounter Care Teams Manager Acquisition Relationship Specialty Start Date End Date Frances Li MD [address] [place], [place] [phone] PCP - General Family Medicine 03/07/19 Olivia Montoya [address] [address] 09/22/24 documented as of this encounter
[2024-10-08 08:12] LABS: Alanine Aminotransferase 53 U/L (0-31); Albumin Level 4.3 g/dL (3.5-5.0); Alkaline Phosphatase 85 U/L (39-117); Aspartate Amino Transferase 52 U/L (5-31); Bilirubin Direct 0.3 mg/dL (0.0-0.5); Total Protein 7.7 g/dL (6.5-8.0)
[2024-10-08 08:34] LABS: TSH reflex Free T4 1.05 uIU/mL (0.32-4.0)
[2024-10-12 10:53] LABS: Vitamin A 41 mcg/dL (38-98)
== END 2024-10-08 07:00 | disposition home or self-care (01) ==
LOC: HO.LAB 06:59
PROVIDERS: PCP Family Medicine; Visit Provider Family Medicine
DX: R17 Unspecified jaundice (principal); Z13.29 Encounter for screening for other suspected endocrine disorder
CPT/HCPCS: 36415; 80076; 84443; 84590

== ENCOUNTER 2024-10-20 14:36 | Outpatient (AMB) | payer BC, SELFPAY ==
--- NOTE | 2024-10-20 14:37 | MHC.OFFVIS ---
Intake Visit Reasons: Left breast lump Intake Note: pt c/o pimple/ingrown hair under left breast Supervisor Home Energy Consultant: Supervisor Home Energy Consultant Present (Margy) Allergies acetaminophen [From TYLENOL] Allergy (Severe, Verified 10/20/24 14:37) THROAT CLOSES dichloralphenazone [From MIDRIN] Allergy (Severe, Verified 10/20/24 14:37) PANIC ATTACK From MIDRIN Allergy (Severe, Uncoded 02/29/24 13:30) PANIC ATTACK Midrin Adverse Reaction (Unknown, Uncoded 02/29/24 13:30) anxiety HPI Comments Details: Patient is is here today with concerns that she found a right breast lump. Hx. of a pimple like bump (never drained) in the same area in August, resolved with a warm compress. 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/ [employer] Sexual orientation: Straight/Heterosexual Gender identity: Female Female Reproductive History Menstrual Age of Menarche: 10 Review of Systems Const All systems reviewed & are unremarkable except as noted in HPI and below Reports no additional complaints Skin/Breast Reports system reviewed and no additional complaints, except as documented and Reports as per HPI Physical Exam Const General: cooperative, healthy appearing and no acute distress Chest Other: Right breast lump around 7 o'clock position, superficial to skin, firm, non tender Breast/axilla inspection: normal inspection of the breasts and normal inspection of the axillae Breast/axilla palpation: normal palpation of the breasts Skin General skin exam: no rashes or lesions noted Assessment & Plan Assessment & Plan (1) Lesion of breast: Code(s): N64.9 - Disorder of breast, unspecified Plan Advised her to have be evaluated further by breast surgeon for potential biopsy. The patient expressed understanding and agreement with the plan of care. All of her questions and concerns were addressed to the best of my ability. Referral placed to breast surgery department. This note is constructed using voice recognition software. While every effort has been made to ensure accuracy, japanese interpreter errors may have been included. Orders: Referrals Breast Surgery Referral N64.9 - Disorder of breast, unspecified Coding Level of Care Code Est Pt Level 3 (08859) Diagnoses Lesion of breast N64.9
--- OUTSIDE RECORDS SUMMARY | 2024-10-20 18:25 | XMS_ITS | Encounter Summary ---
Author Organization [employer] Address [address] [place] [address] 7 [place] [address] Care Team Providers Care Cost Recovery Technician Name Role Phone Frances Li MD Primary Care Provider + [phone] Olivia Montoya Unavailable Nestor Downey MD Unavailable Peyton Earl MD Unavailable Encounter Details Date Type Department Care Team (Late st Contact Info) Description 09/01/2022 Orders Only [facility] [address] [place], [place] [phone] Tiffanie Garcia LPN Social History Tobacco Use [...] on filedocumented in this encounter Care Teams Cost Recovery Technician Relationship Specialty Start Date End Date Frances Li MD [address] [place], [place] [phone] PCP - General Family Medicine 03/07/19 Olivia Montoya [address] [place] [address] [phone] 09/22/24 Nestor Downey MD [address] [place] [address] Orthopaedic Surgery 10/11/24 Peyton Earl MD [address] [place] [address] Drive, [address] [place] [address] Neurosurgery 10/11/24 documented as of this encounter
--- OUTSIDE RECORDS SUMMARY | 2024-10-20 18:25 | XMS_ITS | Continuity of Care Document ---
Author Organization ID - [facility], [facility] Address [address] [place] [address] Care Team Providers Care Software Program Manager Name Role Phone KIMBERLY, LEISA Primary Care Provider Assessment Encounter Date Assessment Date Assessment LastModified by Organization Details LastModified Time 10/06/2024 10/06/2024 58-year-old female presents today for evaluation of vertigo. She has symptoms consistent with BPPV and had recent improvement after she went to physical therapy. Updated audiometric testing shows essentially normal hearing. We reviewed aural hygiene. Follow-up as needed. [email or web address] Not available 10/14/2024 12:55:14 Plan of Treatment Reminders Order Date Submit Date Provider Last Modified By Organization Details Last Modified Time Details Appointments None record ed. Lab None record ed. Referral None record ed. Procedures None record ed. Surgeries None record ed. Imaging None record ed. Medication Orders None record ed. Patient TargetsNo targets recorded. Patient InstructionsNo instructions recorded. Reason for Referral None Reported. Results Created Date Observation Date Name Description Value Unit Range Abnormal Flag Note LastModifiedBy Organization Detail LastModifiedTime 10/15/19 25 audio gram No observ ation record ed. BARCODE Not Available 2024 16:54:47 Result Notes None recorded. Problems Name Problem SNOMED Code Status Onset Date Resolution Date Notes Provider Name and Address Organization Details Recorded Time Benign paroxysma l positiona l vertigo 287214371 Active 2022 Benign paroxysmal vertigo, right ear; Note: Date Diagnosed: 07/24/2023 10:59 AM (H81.11) Not Available [facility] 4 02:57:49 Refractor y migraine 978681644 Active 2022 Other migraine, intractabl e, without status migrainosu s; Note: Date Diagnosed: 01/15/2023 10:18 AM (G43.819) Not Available [facility] 4 02:57:51 Dizziness and giddiness 699549457 Active 2022 Dizziness and giddiness; Note: Date Diagnosed: 01/15/2023 9:44 AM (R42) Not Available [facility] 4 02:57:48 Sensorine ural hearing loss of bilateral ears 071361756 Active 2024 AVERY SAINI [address] [place] [address],[address], [phone] , [facility] 09:19:46 Problem Notes None recorded. Procedures Surgical History Date Name Laterality Status Provider Name and Address Organization Details Recorded Time 10/06/19 Air & Speech Audio with Tymps (37712, 80974 & 25459) completed AVERY SAINI [address] [place] [address],[address], [phone], [facility] 10/06/2024 09:19:04 Cholecystectomy completed ASHA PATEL MD [address] [place] [address], [phone], [facility] 10/06/2024 09:34:22 section completed ASHA PATEL MD [address] [place] [address], [phone], [facility] 10/06/2024 09:34:28 Imaging Results None recorded. Procedure Notes None recorded. Medical Equipment None Reported. Allergies Allergen ID Allergen Name Allergen Category Reaction Reaction Severity Criticality Documentation Date Start Date Code Code System Note Provider Name and Address Organization Details Recorded Time 533507 Tylenol medicatio n other Not available Not available 12/22/2023 3 RxNorm React ion: Unkno wn; Not Available [facility] 4 01:22:15 Medications Name Sig Start Date Stop Date Status Note LastModified by Organization Details LastModified Time atorvasta tin 40 mg tablet 10/06 completed Not Available Not Available Not Available atorvasta tin 20 mg tablet TAKE 1 TABLET BY MOUTH EVERY DAY active Not Available Not Available No t Available alprazola m 1 mg tablet 07/23 completed Medicati on ID: [id number] B rand Name: alprazol am Send Method: E-Prescr ibed Sub s Allowed: subs OK Medic ationGen ericName : alprazol am Not Available Not Available Not Available valacyclo vir 1 gram tablet active Medicati on ID: [id number] B rand Name: valacycl ovir Sen d Method: E-Prescr ibed Sub s Allowed: subs OK Medic ationGen ericName : valacycl ovir Not Available Not Available Not Available prednison e 20 mg tablet 07/23 completed Medicati on ID: [id number] B rand Name: predniso ne Send Method: E-Prescr ibed Sub s Allowed: subs OK Medic ationGen ericName : predniso ne Not Available Not Available Not Available clobetaso l 0.05 % topical cream APPLY TO ECZEMA TWICE DAILY NEEDED FOR UP TO 2 WEEKS/MO NTH active Not Available Not Available No t Available hydralazi ne 25 mg tablet 07/23 completed Medicati on ID: [id number] B rand Name: hydralaz ine Send Method: E-Prescr ibed Sub s Allowed: subs OK Medic ationGen ericName : hydralaz ine Not Available Not Available Not Available amlodipin e 2.5 mg tablet 07/23 completed Medicati on ID: [id number] B rand Name: amlodipi ne Send Method: E-Prescr ibed Sub s Allowed: subs OK Medic ationGen ericName : amlodipi ne Not Available Not Available Not Available amlodipin e 5 mg tablet TAKE 1 TABLET BY MOUTH EVERY DAY active Not Available Not Available No t Available amoxicill in 500 mg tablet 07/23 completed Medicati on ID: [id number] B rand Name: amoxicil ravin Send Method: E-Prescr ibed Sub s Allowed: subs OK Medic ationGen ericName : amoxicil ravin Not Available Not Available Not Available alprazola m 0.5 mg tablet TAKE 1 TABLET BY MOUTH 1 HOUR BEFORE INJECTIO N 10/06 completed Not Available Not Available Not Available lorazepam 0.5 mg tablet 07/23 completed Medicati on ID: [id number] B rand Name: lorazepa m Send Method: E-Prescr ibed Sub s Allowed: subs OK Medic ationGen ericName : lorazepa m Not Available Not Available Not Available meclizine 25 mg tablet 10/06 completed Medicati on ID: [id number] B rand Name: meclizin e Send Method: E-Prescr ibed Sub s Allowed: subs OK Speci al Instruct ion: TAKE 2 TABLETS BY MOUTH TWICE DAILY NEEDED FOR DIZZINES S Medica tionGene ricName: meclizin e Not Available Not Available Not Available diazepam 2 mg tablet 07/23 completed Medicati on ID: [id number] B rand Name: diazepam Send Method: E-Prescr ibed Sub s Allowed: subs OK Medic ationGen ericName : diazepam Not Available Not Available Not Available lisinopri l 10 mg tablet TAKE 1 TABLET BY MOUTH EVERY DAY active Not Available Not Available No t Available gabapenti n 300 mg capsule 10/06 completed Medicati on ID: [id number] B rand Name: gabapent in Send Method: E-Prescr ibed Sub s Allowed: subs OK Medic ationGen ericName : gabapent in Not Available Not Available Not Available mupirocin 2 % topical ointment 10/06 completed Medicati on ID: [id number] B rand Name: mupiroci n Send Method: E-Prescr ibed Sub s Allowed: subs OK Medic ationGen ericName : mupiroci n Not Available Not Available Not Available ibuprofen 600 mg tablet active Medicati on ID: [id number] B rand Name: ibuprofe n Send Method: E-Prescr ibed Sub s Allowed: subs OK Medic ationGen ericName : ibuprofe n Not Available Not Available Not Available estradiol 0.01% (0.1 mg/gram) vaginal cream active Medicati on ID: [id number] B rand Name: estradio l Send Method: E-Prescr ibed Sub s Allowed: subs OK Medic ationGen ericName : estradio l Not Available Not Available Not Available naproxen 500 mg tablet 10/06 completed Not Available Not Available Not Available amoxicill in 875 mg-potass ium clavulana te 125 mg tablet TAKE 1 TABLET BY MOUTH TWICE DAILY 10/06 completed Not Available Not Available Not Available amoxicill in 500 mg-potass ium clavulana te 125 mg tablet 07/23 completed Medicati on ID: [id number] B rand Name: amoxicil ravin-pot clavulan ate Send Method: E-Prescr ibed Sub s Allowed: subs OK Medic ationGen ericName : amoxicil ravin-pot clavulan ate Not Available Not Available Not Available Eucrisa 2 % topical ointment APPLY THIN LAYER TO HANDS NEEDED FOR SYMPTOMS active Not Available Not Available No t Available BinaxNOW COVID-19 Ag Self Test kit 10/06 completed Medicati on ID: [id number] B rand Name: BinaxNOW COVID-19 Ag Self Test Sen d Method: E-Prescr ibed Sub s Allowed: subs OK Medic ationGen ericName : BinaxNOW COVID-19 Ag Self Test Not Available Not Available Not Available Paxlovid 300 mg (150 mg x 2)-100 mg tablets in a dose pack 10/06 completed Medicati on ID: [id number] B rand Name: Paxlovid Send Method: E-Prescr ibed Sub s Allowed: subs OK Medic ationGen ericName : Paxlovid Not Available Not Available Not Available magnesium 100 mg (as glycinate ) capsule TAKE 2 CAPSULES BY MOUTH AT BEDTIME 10/06 completed Not Available Not Available Not Available Vitals Date Recorded Body height Body mass index (BMI) Body weight Provider Name and Address Organization Details Last Updated DateTime 10/06/2024 170.18 cm 24.9 kg/m2 38788.19 g Annalisa Langley [place] - [facility] 10/06/2024 09:25:55 Social History None recorded. Functional Status None recorded. Mental Status None recorded. Family History Nothing Reported. Medical History Condition Response Migraines Y Hyperlipidemia Y Hypertension Y Gynecological HistoryNo gynecological history recorded. Obstetrics History GPAL:G 0 P 0 0 0 0 Past Encounters Encounter ID Performer Location Encounter Start Date Encounter Closed Date Diagnosis/Indication Diagnosis SNOMED-CT Code Diagnosis ICD10 Code Diagnosis Note [id number] ASHA PATEL MD [facility] on [address] [facility] [place], [place] [address] 10/06/2024 09:07:23 10/06/2024 12:09:13 Sensorineural hearing loss of bilateral ears 061427708 H90.3 Audiologic al evaluation results: {{Normal sloping* M ild Modera te Moderat shaun-severe Severe Pr ofound Nor mal auditory thresholds }} to {{mild* mo derate mod erately-se grisel sever e profound with}} {{sensorin eural hearing loss with* cond uctive hearing loss with mixed hearing loss with}} {{excellen t* good fa ir poor no t measurable }} word recognitio n, bilaterall y. Tympanomet ry: Right Ear:{{Type A* Type As Type Ad Type C Type C, shallow & rounded Ty pe B Type B with large volume Cou ld not maintain a hermetic seal}} Left Ear:{{Type A* Type As Type Ad Type C Type C, shallow & rounded Ty pe B Type B with large volume Cou ld not maintain a hermetic seal}} Benign par oxysmal positional vertigo 192487752 H81.10 Health Concerns Section Related Observation LastModified by Organization Detai ls LastModified Time None Recorded Concern Status LastModified by Organization Details LastModified Time None Recorded Payers Encounter Date Sequence Insurance Name Policy Number Policy Pang Covered Member ID Pang Member ID Guarantor Name 10/06/2024 1 [facility]-ID: [facility] (PPO) [id number] Ellis Rivas [id number] Laura Rivas Notes Date Note Type Note Provider Name and Address Organization Details Recorded Time 10/06/2024 text/html Vertigo starting in June/ July. Went to PT, cleared it up. No episodes in 3 weeks. Right ear itchy, started in summer, but constant. Uses Q tip around the edge. Also feels some pressure and crackling when gets vertigo. PV(05/2023): 57 yo F with migraine history presents today for dizziness. Saw Dr. Irene over the summer after acute vertigo lasting days. No tinnitus or hearing changes. Has had one major episode and a few more minor since then, feels she is symptomatic when she moves her head. Gets vision checked regularly. Normal ear exam today. Berkley Hallpike was positive to the right, and I did perform the faizan maneuver which she tolerated well. I did give her a referral for physical therapy. In retrospect she could have had episode of vestibular neuritis over the summer, which can predispose to BPPV. ASHA PATEL MD [address] [place] [address], [phone], [facility] - [facility] 10/14/2024 12:55:27 OBGyn Episode No OBEpisode recorded.
--- OUTSIDE RECORDS SUMMARY | 2024-10-20 18:25 | XMS_ITS | Encounter Summary ---
Author Organization [employer] Address [address] [place] [address] [address] [place] [address] Care Team Providers Care Warp Worker Name Role Phone Frances Li MD Primary Care Provider [phone]- [phone] Olivia Montoya Unavailable Nestor Downey MD Unavailable Peyton Earl MD Unavailable Encounter Details Date Type Department Care Team (Late st Contact Info) Description 01/13/2023 Orders Only [facility] [address] [place], [place] [phone] Frances Li MD [address] [place], [place] [phone] MAREN positive (Primary Dx) Social History Tobacco [...] Primary documented in this encounter Care Teams Warp Worker Relationship Specialty Start Date End Date Frances Li MD [address] [place] [address] [phone] PCP - General Family Medicine 03/07/19 Olivia Montoya [address] [facility] [address] [place] [address] 09/22/24 Nestor Downey MD [address] [place] [address] [address] [place] [address] Orthopaedic Surgery 10/11/24 Peyton Earl MD [address] [place] [address], [address] [place] [address] Neurosurgery 10/11/24 documented as of this encounter
--- OUTSIDE RECORDS SUMMARY | 2024-10-20 18:25 | XMS_ITS | Encounter Summary ---
Author Organization [employer] Address [address] [facility] 7t [place] [address] Care Team Providers Care Hand Candle Molder Name Role Phone Frances Li MD Primary Care Provider [phone]- [phone] Olivia Montoya Unavailable Nestor Downey MD Unavailable Peyton Earl MD Unavailable Reason for Visit * Reason Comments Med Refill Encounter Details Date Type Department Care Team (Late st Contact Info) Description 12/30/2023 Refill [facility] [address] [place] [address] Payal Berry MD [address] [place], [place] [phone] Nasal congestion; Pain of nose Social History [...] sinuses documented in this encounter Care Teams Hand Candle Molder Relationship Specialty Start Date End Date Frances Li MD [address] [place] [address] PCP - General Family Medicine 03/07/19 Olivia Montoya [address] [facility] [address] [place] [address] 09/22/24 Nestor Downey MD [address] [place] [address] [address] [place] [address] Orthopaedic Surgery 10/11/24 Peyton Earl MD [address] [place] [address], [address] [place] [address] Neurosurgery 10/11/24 documented as of this encounter
--- OUTSIDE RECORDS SUMMARY | 2024-10-20 18:25 | XMS_ITS | Encounter Summary ---
Author Organization [employer] Address [address] [facility] 7t [place] [address] Care Team Providers Care Community Development Specialist Name Role Phone Frances Li MD Primary Care Provider [phone]- [phone] Olivia Montoya Unavailable Encounter Details Date Type Department Care Team ([facility] st Contact Info) Description 10/05/2024 Telephone [facility] [address] [place], [place] [phone] Frances Li MD [address] [place] [address] Social History Tobacco Use Types Packs/Day Years [...] Procedure Name Priority Date/Time Associated Diagnosis Comments TSH W/REFLEX TO FT4 Routine 10/08/2024 7 :07 AM EST Jaundice VITAMIN A Routine 10/08/2024 7:07 AM EST Jaundice HEPATIC FUNCTION PANEL Routine 10/08/2024 7:07 AM EST Jaundice documented in this encounter Results * TSH W/Reflex to FT4 (10/08/2024 7:07 AM EST) TSH reflex Free T4 1.05 0.32 - 4.0 uIU/mL [facility] Blood Venous blood specimen / Unknown 10/08/2024 7:07 AM EST 10/08/2024 7:07 AM EST us Frances Li MD LAB BLOOD ORDERABLES Final Result [facility] [address] [place] [address] [phone] * Vitamin A (10/08/2024 7:07 AM EST) Vitamin A (Retinol) 41 38 - 98 mcg/dL [facility] Comment:Vitamin supplementat ion within 24 hours prior toblood draw may affect the accuracy of the results.This test was developed and its analytical performancecharacteristics have been determined by [employer] [place], [place]. It hasnot been cleared or approved by the U.S. Food and DrugAdministration. This assay has been validated pursuantto the CLIA regulations and is used for clinicalpurposes.THIS TEST WAS PERFORMED AT:[facility] [place] [address]RSAHBXGNILAY CLAY MD,PHD Blood Venous blood specimen / Unknown 10/08/2024 7:07 AM EST 10/08/2024 7:07 AM EST Frances Li MD LAB BLOOD ORDERABLES Final Result [facility] [address] [place] [phone] * (ABNORMAL) Hepatic Function Panel (10/08/2024 7:07 AM EST) Bilirubin, Total 1.0 0.0 - 1.0 mg/dL [facility] Comment:Slight Icterus. Bilirubin, Direct 0.3 0.0 - 0.5 mg/dL [facility] Comment:Slight Icterus. Aspartate Amino Transferase 52(H) 5 - 31 U/L [facility] Alanine Aminotransferase 53(H) 0 - 31 U/L [facility] Total Protein 7.7 6.5 - 8.0 g/dL [facility] Albumin Level 4.3 3.5 - 5.0 g/dL [facility] Alkaline Phosphatase 85 39 - 117 U/L [facility] Blood Venous blood specimen / Unknown 10/08/2024 7:07 AM EST 10/08/2024 7:07 AM EST us Frances Li MD LAB BLOOD ORDERABLES Final Result [facility] [address] [place] [phone] [phone] documented in this encounter Visit Diagnoses Diagnosis Jaundice- Primary Jaundice, unspecified, not of documented in this encounter Additional Health Concerns Assessment Noted Time PHQ-9 Depression Total Score: 1 03/09/20 24 3:12 PM EDT documented as of this encounter Care Teams Community Development Specialist Relationship Specialty Start Date End Date Frances Li MD [address] [place] [address] PCP - General Family Medicine 03/07/19 Olivia Montoya [address] [place] [phone] 09/22/24 documented as of this encounter
--- OUTSIDE RECORDS SUMMARY | 2024-10-20 18:25 | XMS_ITS | Clinical Summary ---
Author Organization [employer] Address [address] [place] [address] 7t [place] [address] Care Team Providers Care Deaf And Hard Of Hearing Teacher Name Role Phone Frances Li MD Primary Care Provider +1- [phone] Olivia Montoya Unavailable Nestor Downey MD Unavailable Peyton Earl MD Unavailable Allergies Active Allergy Reactions Criticality Noted Date Comments Acetaminophen 11/21/2016 Difficulty breathing Medications valACYclovir (Valtrex) 1 g tablet 022 Active estradiol (Estrace) 0.1 MG/GM vaginal cream INSERT 1/2 APPLICATORFUL VAGINALLY 2 TIMES A WEEK EVERY NIGHT FOR 2 WEEKS 023 Active LORazepam (Ativan) 0.5 MG tablet take 1 tab po daily prn anxiety as needed 4 tablet 023 Active amLODIPine (Norvasc) 5 MG tabletIndicatio ns:Primary [...] day. 30 tablet 11 025 2025 Active lisinopril 10 MG tabletIndicatio ns:Primary hypertension TAKE 1 TABLET BY MOUTH EVERY DAY 90 tablet 3 025 Active lisinopril 10 MG tabletIndicatio ns:Primary hypertension TAKE 1 TABLET BY MOUTH EVERY DAY 90 tablet 3 024 2024 Discontinued Active Problems Problem Noted Date Diagnosed Date [...] 2027 Fibroids 09/23/2023 Overview (09/23/2023): -followed by animal husbandman, Dr. Thompson Jo -[place] 09/21/23 Multiple uterine [...] due after 06/08/25 -eye care facilitated by [facility] -[facility] -[facility] proxy filed 03/09/24 Assessment & Plan (06/08/2024 10:55 AM EDT): -next comprehensive annual evaluation due after 06/08/25 -eye care facilitated by [facility] -[facility] -[facility] care proxy filed 03/09/24 Assessment & Plan (05/06/2023 11:11 AM EDT): -next physical exam due after 05/06/2024 -eye care facilitated by [facility] is [facility] Anxiety 12/08/2022 Overview (12/08/2022): She expresses anxiety [...] reviewed. No indication for surgery. -Seen by [facility] 02/29/24 recommending follow up with neurosurgery. No evidence of hip joint pathology. -She has compleated 3 years of physical therapy -On 03/09/24 we discussed possibility of piriformis syndrome. Strengthening discussed. She is going to see chricopractic and acupuncture. We also discussed hypnotherapy. -Has been seeing chiropractor in [place], which she has significant relief from. Has appt. again next week. Assessment & Plan (06/08/2024 11:03 AM EDT): -hx lumbar surgery -MRI 2023 right thigh negative -MRI lumbar spine Jul shows slight L4-L5 spondylolisthesis but otherwise very minimal changes -Seen by neurosurgery Dr. Peyton Earl MD, FAANS, FCNS 03/03/24, note reviewed. L spine x rays reviewed. No indication for surgery. -Seen by [facility] 02/29/24 recommending follow up with neurosurgery. No evidence of hip joint pathology. -She has compleated 3 years of physical therapy -On 03/09/24 we discussed possibility of piriformis syndrome. Strengthening discussed. She is going to see chricopractic and acupuncture. We also discussed hypnotherapy. -Has been seeing chiropractor in [place], which she has significant relief from. Has appt. again next week. Assessment & Plan (03/09/2024 12:37 PM EDT): -hx lumbar surgery -MRI 2023 right thigh negative -MRI lumbar spine Jul shows slight L4-L5 spondylolisthesis but otherwise very minimal changes -Seen by neurosurgery Dr. Peyton Earl MD, FAANS, FCNS 03/03/24, note reviewed. L spine x rays reviewed. No indication for surgery. -Seen by [facility] 02/29/24 recommending follow up with neurosurgery. 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 She will follow up with neurology. 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 She will follow up with neurology. Encounters Date Type Department Care Team Description 10/14/2024 Refill [facility] [address] [place] [address] Frances Li MD Primary hypertension 10/13/2024 Orders Only [facility] [address] [place] [address] Frances Li MD Dyslipidemia (Primary Dx) 10/11/2024 Orders Only [facility] [address] [place] [address] Frances Li MD 10/10/2024 Telephone [facility] [address] [place] [address] Frances Li MD Results 10/05/2024 Telephone [facility] [address] [place] [address] Frances Li MD 09/02/2024 Orders Only [address] [address] Frances Li MD Dyslipidemia 09/01/2024 Orders Only [facility] [address] [place] [address] Frances Li MD Elevated LFTs (Primary Dx) 09/01/[address] [address] Frances Li MD Nurse Triage 07/30/[address] [address] Rere Ramos, RN Results 07/30/2024 Orders Only [address] [address] Frances Li MD Dyslipidemia (Primary Dx); Benign [...] preservative free 06/08/2024 Tdap 09/10/2017 Family History * Patient is adopted Medical History Relation Name Comments Meniere's disease [...] Tdap) 09/10/2027 09/10/2017 Lipid Panel 09/02/2029 09/02/2024, 12/08/2023, 03/26/2024, Additional history exists RSV Patients and [...] AM EST Jaundice HEPATIC FUNCTION PANEL Routine 5 7:07 AM EST Jaundice HEPATIC FUNCTION PANEL Routine 5 6:11 AM [...] Recently Relevant to Health Maintenance Results * TSH W/Reflex to FT4 (10/08/2024 7:07 AM EST) TSH reflex Free T4 1.05 0.32 - 4.0 uIU/mL [facility] Blood Venous blood specimen / Unknown 10/08/2024 7:07 AM EST 10/08/2024 7:07 AM EST Frances Li MD LAB BLOOD ORDERABLES Final Result Performing Organization Address [facility]/ZIP Co de Phone Number [facility] [address] [place] [phone] * Vitamin A (10/08/2024 7:07 AM EST) Vitamin A (Retinol) 41 38 - 98 mcg/dL [facility] Comment:Vitamin supplementat ion within 24 hours prior toblood draw may affect the accuracy of the results.This test was developed and its analytical performancecharacteristics have been determined by [employer] [place], [place]. It hasnot been cleared or approved by the U.S. Food and DrugAdministration. This assay has been validated pursuantto the CLIA regulations and is used for clinicalpurposes.THIS TEST WAS PERFORMED AT:[employer]/[facility] [place] [address]YOUXETENILAY CLAY MD,PHD Blood Venous blood specimen / Unknown 10/08/2024 7:07 AM EST 10/08/2024 7:07 AM EST Frances Li MD LAB BLOOD ORDERABLES Final Result Performing Organization Address City/[facility]/ZIP Co de Phone Number [facility] [address] [place] [phone] * (ABNORMAL) Hepatic Function Panel (10/08/2024 7:07 AM EST) Only the most recent of3 resultswithin the time period is included. Bilirubin, Total 1.0 0.0 - 1.0 mg/dL [facility] Comment:Slight Icterus. Bilirubin, Direct 0.3 0.0 - 0.5 mg/dL [facility] Comment:Slight Icterus. Aspartate Amino Transferase 52(H) 5 - 31 U/L [facility] Alanine Aminotransferase 53(H) 0 - 31 U/L [facility] Total Protein 7.7 6.5 - 8.0 g/dL [facility] Albumin Level 4.3 3.5 - 5.0 g/dL [facility] Alkaline Phosphatase 85 39 - 117 U/L [facility] Blood Venous blood specimen / Unknown 10/08/2024 7:07 AM EST 10/08/2024 7:07 AM EST us Frances Li MD LAB BLOOD ORDERABLES Final Result [facility] [address] [place] [phone] * (ABNORMAL) Lipid Panel, Standard (09/02/2024 6:11 AM EST) Only the most recent of2 resultswithin the time period is included. Triglycerides 74 <150 mg/dL [facility] Comment:Mild Icterus.Interpr et result with caution.Desirable Triglyceride: less than 150 mg/dLBorderline High Triglyceride 150-199 mg/dLHigh Triglyceride: 200-499 mg/dLVery High Triglyceride: greater than or equal to 5OO mg/dL Cholesterol 198 <200 mg/dL [facility] Comment:Mild Icterus.Interpr et result with caution.Desirable Cholesterol: less than 200 mg/dLBorderline High Cholesterol: 200-239 mg/dLHigh Cholesterol: greater than 239 mg/dL LDL Cholesterol Calculated 106(H) <100 mg/dL [facility] Comment:Desirable LDL: less than 100 mg/dLNear Optimal/Above Optimal LDL: 110- 129 mg/dLBorderline High LDL: 130-159 mg/dLHigh LDL: 160-189 mg/dLVery High LDL: greater than or equal to 190 mg/dL HDL Cholesterol 78 >40 mg/dL [facility] Comment:Desirable HDL: great er than 40 mg/dL Note: This HDL assay may give artificially low results in patients with liver disease. Blood Venous blood specimen / Unknown 09/02/2024 6:11 AM EST 09/02/2024 6:11 AM EST us Frances Li MD LAB BLOOD ORDERABLES Final Result [facility] [address] [place] [address] [phone] * BI Mammogram Screening Tomosynthesis Bilateral (04/25/2024 1:56 PM EDT) Anatomical Region Laterality Modality Breast Bilateral Mammography 04/25/2024 1:56 PM EDT Narrative 05/06/2024 10:45 AM EDT ? [facility] [place] ? [address] ?[place] [address] ? Mammography Report ? Signed ? Patient: Rob,Laura L ?MR#: [id number] ?? 3 ? : 1965 ?Acct:[id number] ? Age/Sex: 58 / F ?ADM Date: 04/25/ ? Loc: HO.MAMMO ? Attending Dr: Frances Li MD ? Ordering Physician: Frances Li MD ?Results: 1N ?? egative ? Date of Service: 04/25/24 ?Follow Up: 1 Year From Orig ?? inal Mammogram ? Procedure(s): MM tomosynthesis screening BI ?? Accession Number(s): [id number] ? cc: Frances Li MD ? EXAMINATION: [...] ??Mela Santoyo DO ??05/06/2024 10:43 AM EDT ?? RP ? Dictated By: ?Mela Santoyo DO ? Signed By: ?<Electronically signed by Mela Santoyo, DO in OV> ? 05/06/24 1043 ? DD/ 1356 ? TD/TT: 04/25/24 1406 ? Freight Shipping Agent: ? Procedure Note Nick, Lucia - 05/06/2024 Dom [facility] [address] [place] [address] Mammography Report Signed Patient: Laura Rivas LMR#: [id number] 3 : 1965Acct:[id number] Age/Sex: 58 / FADM Date: 04/25/24 Loc: HO.MAMMO Attending Dr: Frances Li MD Ordering Physician: Frances Li MDResults: 1N egative Date of Service: 04/25/24Follow Up: 1 Year From Orig inal Mammogram Procedure(s): MM tomosynthesis screening BI Accession Number(s): [id number] cc: Frances Li MD EXAMINATION: MM SCREENING [...] 05/06/24 1043 DD/ 1356 TD/TT: 04/25/24 1406 Freight Shipping Agent: us Frances Li MD IMG BI PROCEDURES Final Re sult * Hepatitis C Antibody with Reflex to HCV, RNA, Quantitative, Real-Time PCR (03/26/2024 7:12 AM EDT) Hepatitis C Antibody Nonreactive Nonreactive [facility] Comment:Antibodies to HCV no t detected; does not exclude early acuteHCV infection. Blood Venous blood specimen / Unknown 03/26/2024 7:12 AM EDT 03/26/2024 7:12 AM EDT Frances Li MD LAB BLOOD ORDERABLES Final Result Performing Organization Address [facility]/ZIP Co de Phone Number [facility] [address] [place] [phone] * HIV Ab/Ag ([facility]) (12/13/2022 7:31 AM EDT) HIV AB/AG Nonreactive Nonreactive [facility] Comment:HIV-1 p24 Ag and/or HIV-1/HIV-2 Ab not detected.A test result that is nonreactive does not exclude thepossibility of exposure to or infection with HIV-1 and/orHIV-2. Nonreactive results in this assay for individualswith prior exposure to HIV-1 and/or HIV-2 may be due toantigen and antibody levels that are below the limit ofdetection of this assay.The [employer] HIV Ag/Ab Combo assay result andsupplemental assay results should be interpreted inconjunction with the patient's clinical presentation,history and other laboratory results. If the results areinconsistent with clinical evidence, additional testing issuggested to confirm the result. 12/13/2022 7:31 AM EDT 12/13/2022 7:31 AM EDT [facility] External Provider LAB BLO OD ORDERABLES Final Result Performing Organization Address [facility]/ZIP Co de Phone Number [facility] [address] [place] [phone] * HPV mRNA E6/E7 w/Reflex to HPV Genotypes 16, 18/45 (08/20/2022 1:52 PM EST) HPV nRNA E6/E7 Not Detected Not Detected [facility] Comment:Methodology: Transcr iption-Mediated AmplificationThis assay detects E6/E7 viral messenger RNA (mRNA) from 14high-risk HPV types (16,18,31,33,35,39,45,51,52,56,58,59,66,68).Cervical sources are required for HPV testing.If a vaginal source from a patient who has had atotal hysterectomy with removal of cervix wassubmitted, please contact the testing laboratoryfor alternative testing options.For additional information, please refer tohttp://education.[employer]fin/faq/WSC302q2(This link if provided for information/educational purposes only.)THIS TEST WAS PERFORMED AT:[facility] [place] [address] (1)[place] [address]LLCKDNELSON TREVINO MD HPV mRNA E6/E7 [facility] HPV 16 RNA [facility] HPV 18/45 RNA [facility] 08/20/2022 1:52 PM EST 08/20/2022 3:00 PM EST [facility] External Provider LAB CYT OLOGY ORDERABLES Final Result Performing Organization Address City/State/[facility] Co de Phone Number [facility] [address] [place] [phone] * Pap Smear (08/20/2022 1:52 PM EST) 08/20/2022 1:52 PM EST 08/20/2022 3:00 PM EST Narrative [facility] - 08/31/2022 11:51 AM EST ----- ------- Name: Laura Rivas ?Age/Sex: 56/F ? : 1965 Unit#: [id number] ?? Attend Dr: Olivia Montoya CNM ?Re08/20/22 ?Status: DEP REF ? Location: HO.LNP ?Disch: ? ----- ------- SPEC : [id number] ?RECD: 08/20/22-1500 ? STATUS: ??SOUT ? REQ NUM: [id number] ? RAFAEL: 08/20/22-4592 ? SUBM DR: Olivia Montoya CNM ? [...] 66, 68) ? HPV testing performed by [facility], [place], [place]. ??See reference laboratory ?? portion of the EMR for entire report. ?Clinical Information LMP: Post menopause Previous PAP test: 2017, WNL ? Material Received ?? ThinPrep-Cervical Copies To: ?? Frances Li MD ?? [address] ?? [place] [address] ? Olivia Montoya CNM ?? [address] [facility] ?? [place] [address] ?? [phone] ----- ------- Signed (signature on file) Lilia Lorenzo Nelida 08/31/22 1151 ? ----- ------- ? END OF REPORT ? [facility] External Provider LAB CYT OLOGY ORDERABLES Final Result [facility] [address] [place] [phone] [phone] * Colonoscopy (01/20/2020) Colonoscopy hx tubular adenoma with Dr. Fields us Historical Provider HEALTH MAINTENANCE Final Result from Last 3 Months or Most Recently Relevant to Health Maintenance Insurance [facility] PPO Advance Directives Documents on File Type Date Recorded Patient Leak Patcher Expl anation Advance Directives and Living Will 03/10/2024 3:23 PM Health Care Proxy Care Teams Deaf And Hard Of Hearing Teacher Relationship Specialty Start Date End Date [place], MD Frances [address] [place] [address] PCP - General Family Medicine 03/07/19 Olivia Montoya [address] [facility] [address] [place] [address] 09/22/24 Nestor Downey MD [address] [place] [address] [address] [place] [address] Orthopaedic Surgery 10/11/24 Peyton Earl MD [address] [place] [address], [address] [place] [address] Neurosurgery 10/11/24
--- OUTSIDE RECORDS SUMMARY | 2024-10-20 18:25 | XMS_ITS | Encounter Summary ---
Author Organization [employer] Address [address] [facility] 7t [place] [address] Care Team Providers Care Betting Agency Manager Name Role Phone Frances Li MD Primary Care Provider +1- [phone] Olivia Montoya Unavailable Nestor Downey MD Unavailable Peyton Earl MD Unavailable Reason for Visit * Reason Comments Med Refill Encounter Details Date Type Department Care Team (Late st Contact Info) Description 10/14/2024 Refill [facility] [address] [place], [place] [phone] Frances Li MD [address] [place], [place] [phone] Primary hypertension Social History Tobacco Use Types Packs/Day Years [...] the past 12 months, has t he [employer], gas, oil or water [employer] threatened to shut off services in your [...] as of this encounter Visit Diagnoses Diagnosis Primary hypertension Unspecified essential hypertension documented in this encounter Additional Health Concerns Assessment Noted Time PHQ-9 Depression Total Score: 1 03/09/20 24 3:12 PM EDT documented as of this encounter Care Teams Betting Agency Manager Relationship Specialty Start Date End Date Frances Li MD [address] [place] [address] PCP - General Family Medicine 03/07/19 Olivia Montoya [address] [facility] [address] [place] [address] 09/22/24 Nestor Downey MD [address] [facility] [address] [place] [address] Orthopaedic Surgery 10/11/24 Peyton Earl MD [address] [place] [address] Drive, [address] [place] [address] Neurosurgery 10/11/24 documented as of this encounter
--- OUTSIDE RECORDS SUMMARY | 2024-10-20 18:25 | XMS_ITS | Encounter Summary ---
Author Organization [employer] Address [address] [facility] 7t [place] [address] Care Team Providers Care Resident Advisor Name Role Phone Frances Li MD Primary Care Provider +1- [phone] Olivia Montoya Unavailable Nestor Downey MD Unavailable Peyton Earl MD Unavailable Encounter Details Date Type Department Care Team (Late st Contact Info) Description 10/11/[address] [facility] [address] [place], [place] [phone] Frances Li MD [address] [place], [place] [phone] Social History Tobacco Use Types Packs/Day Years [...] documented as of this encounter Care Teams Resident Advisor Relationship Specialty Start Date End Date Frances Li MD [address] [place] [address] PCP - General Family Medicine 03/07/19 Olivia Montoya [address] [facility] [address] [place] [address] 09/22/24 Nestor Downey MD [address] [place] [address] [address] [place] [address] Orthopaedic Surgery 10/11/24 Peyton Earl MD [address] [place] [address], [address] [place] [address] Neurosurgery 10/11/24 documented as of this encounter
--- OUTSIDE RECORDS SUMMARY | 2024-10-20 18:25 | XMS_ITS | Encounter Summary ---
Author Organization [employer] Address [address] [facility] 7t [place] [address] Care Team Providers Care Window Cleaner Name Role Phone Frances Li MD Primary Care Provider +1- [phone] Olivia Montoya Unavailable Nestor Downey MD Unavailable Peyton Earl MD Unavailable Encounter Details Date Type Department Care Team (Late st Contact Info) Description 10/13/2024 Orders Only [facility] [address] [place], [place] [phone] Frances Li MD [address] [place], [place] [phone] Dyslipidemia (Primary Dx) Social History Tobacco Use Types [...] Lipid Panel, Standard Lab Routine Dyslipidemia Expected: 10/13/2024 (Approximate), Expires: 10/13/2025 Hepatic Function Panel Lab Routine Dyslipidemia Expected: 10/13/2024 (Approximate), Expires: 10/13/2025 documented as of this encounter Visit Diagnoses Diagnosis Dyslipidemia- Primary Other and unspecified hyperlipidemia documented in this encounter Additional Health Concerns Assessment Noted Time PHQ-9 Depression Total Score: 1 03/09/20 24 3:12 PM EDT documented as of this encounter Care Teams Window Cleaner Relationship Specialty Start Date End Date Frances Li MD [address] [place] [address] PCP - General Family Medicine 03/07/19 Olivia Montoya [address] [place] [address] 09/22/24 Nestor Downey MD [address] [place] [address] Drive [address] [place] [address] Orthopaedic Surgery 10/11/24 Peyton Earl MD [address] [place] [address] Drive, [address] [place] [address] Neurosurgery 10/11/24 documented as of this encounter
--- OUTSIDE RECORDS SUMMARY | 2024-10-20 18:25 | XMS_ITS | Encounter Summary ---
Author Organization [employer] Address [address] [facility] 7t [place] [address] Care Team Providers Care Carbon Cleaner Name Role Phone Frances Li MD Primary Care Provider +1- [phone] Olivia Montoya Unavailable Nestor Downey MD Unavailable Peyton Earl MD Unavailable Encounter Details Date Type Department Care Team (Late st Contact Info) Description 09/02/2024 Orders Only [facility] [address] [place], [place] [phone] Frances Li MD [address] [place], [place] [phone] Dyslipidemia Social History Tobacco Use Types Packs/Day [...] documented as of this encounter Care Teams Carbon Cleaner Relationship Specialty Start Date End Date Frances Li MD [address] [place] [address] PCP - General Family Medicine 03/07/19 Olivia Montoya [address] [facility] [address] [place] [address] 09/22/24 Nestor Downey MD [address] [place] [address] [address] [place] [address] Orthopaedic Surgery 10/11/24 Peyton Earl MD [address] [place] [address], [address] [place] [address] Neurosurgery 10/11/24 documented as of this encounter
--- OUTSIDE RECORDS SUMMARY | 2024-10-20 18:25 | XMS_ITS | Patient Health Record ---
Author Organization [facility] Address [address] [place] [address] Care Team Providers Care Tool Maintenance Technician Name Role Phone Frances Li MD Primary Care Provider Astrid vailable Black, [place]a Unavailable [phone] Allergies Allergen (clinical drug ingredient) Drug/Non Drug [...] Problem Acquired hammer toe of right foot ([id number]) Hammer toe of right foot (M20.41) Active confirmed Plan Of Treatment No Information Insurance Providers Payer Name Payer Address Payer Phone Subscriber Number Group Number Insured Name Patient Relationship to Insured Coverage Start Date Coverage End Date [facility] All Others [facility] [id number] [place] [address] [id number] Ellis Rivas Spouse - patient is the spouse of the insured Medical (General) History Medical History History ICD Code Anxiety Back,Hip,and Knee pain covid-19 Gall bladder problems Headaches High blood pressure Numbness Chicken pox Surgical History Surgery Date(Month/Year) section 02/14/1984 cholecystectomy 2009 back surgery 05/2020
--- OUTSIDE RECORDS SUMMARY | 2024-10-20 18:25 | XMS_ITS | Data Portability ---
Author Organization [place] - [facility], Allergy Address [address] [place] [id number] Care Team Providers Care Technical Solutions Consultant Name Role Phone KIMBERLYLEISA LOPEZ Primary Care Provider Assessment Encounter Date Assessment [...] Time Benign paroxysma l positiona l vertigo 958062500 Active 2022 Benign paroxysmal vertigo, right ear; Note: Date Diagnosed: 07/24/2023 10:59 AM (H81.11) Not Available [facility] 4 02:57:49 Refractor y migraine 496660481 Active 2022 Other migraine, intractabl e, without status migrainosu s; Note: Date Diagnosed: 01/15/2023 10:18 AM (G43.819) Not Available [facility] 4 02:57:51 Dizziness and giddiness 842633769 Active 2022 Dizziness and giddiness; Note: Date Diagnosed: 01/15/2023 9:44 AM (R42) Not Available [facility] 4 02:57:48 Sensorine ural hearing loss of bilateral ears 341772135 Active 2024 LA MON, AVERY [address] [facility],[address], [address] , [facility] - [facility] 09:19:46 Problem Notes None recorded. Procedures Surgical History Date Name Laterality Status Provider Name and Address Organization Details Recorded Time 10/06/19 25 Air & Speech Audio with Tymps (15188, 91052 & 82065) completed LA MON, AVERY [address] [facility],[address], [address], [facility] - [facility] 10/06/2024 09:19:04 Cholecystectomy completed ASHA PATEL MD [address] [place] [address], [phone], [facility] 10/06/2024 09:34:22 section completed ASHA PATEL MD [address] [place] [address],[address], [address], [facility] 10/06/2024 09:34:28 Imaging Results Imaging Date Name Status LastModified by Organiz ation Details LastModified Time 10/14/2024 audiogram completed BARCODE Information no t available 10/14/2024 16:54:47 Procedure Notes None recorded. Medical Equipment None Reported. Allergies Allergen ID Allergen Name Allergen Category Reaction Reaction Severity Criticality Documentation Date Start Date Code Code System Note Provider Name and Address Organization Details Recorded Time [id number] Tylenol medicatio n other Not available Not available 12/22/2023 3 RxNorm React ion: Unkno wn; Not Available [facility] 4 01:22:15 Medications Name Sig Start Date Stop Date Status Note LastModified by Organization Details LastModified Time atorvasta tin 40 mg tablet 10/06 completed Not Available Not Available Not Available atorvasta tin 20 mg tablet TAKE 1 TABLET BY MOUTH EVERY DAY active Not Available Not Available No t Available alprazola m 1 mg tablet 07/23 completed Medicati on ID: [id number] B rand Name: alprazol am Send Method: E-Prescr ibed Sub s Allowed: subs OK Medic ationGen ericName : alprazol am Not Available Not Available Not Available valacyclo vir 1 gram tablet active Medicati on ID: [id number] B rand Name: valacycl ovir Sen d Method: E-Prescr ibed Sub s Allowed: subs OK Medic ationGen ericName : valacycl ovir Not Available Not Available Not Available prednison e 20 mg tablet 07/23 completed Medicati on ID: [id number] B rand Name: predniso ne Send Method: E-Prescr ibed Sub s Allowed: subs OK Medic ationGen ericName : predniso ne Not Available Not Available Not Available clobetaso l 0.05 % topical cream APPLY TO ECZEMA TWICE DAILY NEEDED FOR UP TO 2 WEEKS/MO NTH active Not Available Not Available No t Available hydralazi ne 25 mg tablet 07/23 completed Medicati on ID: [id number] B rand Name: hydralaz ine Send Method: E-Prescr ibed Sub s Allowed: subs OK Medic ationGen ericName : hydralaz ine Not Available Not Available Not Available amlodipin e 2.5 mg tablet 07/23 completed Medicati on ID: [id number] B rand Name: amlodipi ne Send Method: E-Prescr ibed Sub s Allowed: subs OK Medic ationGen ericName : amlodipi ne Not Available Not Available Not Available amlodipin e 5 mg tablet TAKE 1 TABLET BY MOUTH EVERY DAY active Not Available Not Available No t Available amoxicill in 500 mg tablet 07/23 completed Medicati on ID: [id number] B rand Name: amoxicil ravin Send Method: E-Prescr ibed Sub s Allowed: subs OK Medic ationGen ericName : amoxicil ravin Not Available Not Available Not Available alprazola m 0.5 mg tablet TAKE 1 TABLET BY MOUTH 1 HOUR BEFORE INJECTIO N 10/06 completed Not Available Not Available Not Available lorazepam 0.5 mg tablet 07/23 completed Medicati on ID: [id number] B rand Name: lorazepa m Send Method: E-Prescr ibed Sub s Allowed: subs OK Medic ationGen ericName : lorazepa m Not Available Not Available Not Available meclizine 25 mg tablet 10/06 completed Medicati on ID: [id number] B rand Name: meclizin e Send Method: E-Prescr ibed Sub s Allowed: subs OK Speci al Instruct ion: TAKE 2 TABLETS BY MOUTH TWICE DAILY NEEDED FOR DIZZINES S Medica tionGene ricName: meclizin e Not Available Not Available Not Available diazepam 2 mg tablet 07/23 completed Medicati on ID: [id number] B rand Name: diazepam Send Method: E-Prescr ibed Sub s Allowed: subs OK Medic ationGen ericName : diazepam Not Available Not Available Not Available lisinopri l 10 mg tablet TAKE 1 TABLET BY MOUTH EVERY DAY active Not Available Not Available No t Available gabapenti n 300 mg capsule 10/06 completed Medicati on ID: [id number] B rand Name: gabapent in Send Method: E-Prescr ibed Sub s Allowed: subs OK Medic ationGen ericName : gabapent in Not Available Not Available Not Available mupirocin 2 % topical ointment 10/06 completed Medicati on ID: [id number] B rand Name: mupiroci n Send Method: E-Prescr ibed Sub s Allowed: subs OK Medic ationGen ericName : mupiroci n Not Available Not Available Not Available ibuprofen 600 mg tablet active Medicati on ID: [id number] B rand Name: ibuprofe n Send Method: E-Prescr ibed Sub s Allowed: subs OK Medic ationGen ericName : ibuprofe n Not Available Not Available Not Available estradiol 0.01% (0.1 mg/gram) vaginal cream active Medicati on ID: [id number] B rand Name: estradio l Send Method: [...] mg tablet 07/23 completed Medicati on ID: [id number] B rand Name: amoxicil ravin-pot clavulan ate Send Method: E-Prescr ibed Sub s Allowed: subs OK Medic ationGen ericName : amoxicil ravin-pot clavulan ate Not Available Not Available Not Available Eucrisa 2 % topical ointment APPLY THIN LAYER TO HANDS NEEDED FOR SYMPTOMS active Not Available Not Available No t Available BinaxNOW COVID-19 Ag Self Test kit 10/06 completed Medicati on ID: [id number] B rand Name: BinaxNOW COVID-19 Ag Self Test Sen d Method: E-Prescr ibed Sub s Allowed: subs OK Medic ationGen ericName : BinaxNOW COVID-19 Ag Self Test Not Available Not Available Not Available Paxlovid 300 mg (150 mg x 2)-100 mg tablets in a dose pack 10/06 completed Medicati on ID: [id number] B rand Name: Paxlovid Send Method: E-Prescr [...] Updated DateTime 10/06/2024 170.18 cm 24.9 kg/m2 86959.19 g Annalisa Langley [place] - [facility] 10/06/2024 09:25:55 Social History None recorded. Functional Status None recorded. Mental Status None recorded. Family History Nothing Reported. Medical History Condition Response Hyperlipidemia Y Migraines Y Hypertension Y Gynecological HistoryNo gynecological history recorded. Obstetrics History GPAL:G 0 P 0 0 0 0 Past Encounters Encounter ID Performer Location Encounter Start Date Encounter Closed Date Diagnosis/Indication Diagnosis SNOMED-CT Code Diagnosis ICD10 Code Diagnosis Note [id number] ASHA PATEL MD [facility] on [address] [place] [address] 10/06/2024 09:07:23 10/06/2024 12:09:13 Sensorineural hearing loss of bilateral ears 106801103 H90.3 Audiologic al evaluation results: {{Normal sloping* [...] hermetic seal}} Benign par oxysmal positional vertigo 444496052 H81.10 Health Concerns Section Related Observation LastModified by Organization Detai ls LastModified Time None Recorded Concern Status LastModified by Organization Details LastModified Time None Recorded Advance Directives Directive None Recorded Payers Encounter Date Sequence Insurance Name Policy Number Policy Pang Covered Member ID Pang Member ID Guarantor Name 10/06/2024 1 [facility] ([facility]) [id number] Ellis Rivas [id number] Laura Rivas Notes Date Note Type [...] vision checked regularly. Normal ear exam today. Marco Hallpike was positive to the right, and I did perform the faizan maneuver which she tolerated well. I did give her a referral for physical therapy. In retrospect she could have had episode of vestibular neuritis over the summer, which can predispose to BPPV. ASHA PATEL MD [address] [place] [address], [place], [address], [facility] - [facility] 10/14/2024 12:55:27 OBGyn Episode No OBEpisode recorded.
--- OUTSIDE RECORDS SUMMARY | 2024-10-20 18:25 | XMS_ITS | Encounter Summary ---
Author Organization [employer] Address [address] [facility] [address] [place] [address] Care Team Providers Care Tier Truck Driver Name Role Phone Leisa Harris MD Primary Care Provider [phone]- [phone] Olivia Montoya Unavailable Nestor Downey MD Unavailable Peyton Earl MD Unavailable Reason for Visit * Reason Onset Date Comments Results 10/10/2024 Encounter Details Date Type Department Care Team (Late st Contact Info) Description 10/10/2024 Telephone [facility] MEDICINE [address] [place], [place] [phone] Leisa Harris MD [address] [place], [place] [phone] Results Social History Tobacco Use Types Packs/Day Years [...] as of this encounter Miscellaneous Notes * Addendum Note - Leisa Harris MD - 10/17/2024 12:55 PM EDTAddended by: LEISA HARRIS on: 10/17/2024 12:55 PM Modules accepted: Orders * Addendum Note - Sylvia Russ RN - 10/13/2024 1:05 PM ESTAddended by: SYLVIA RUSS on: 10/13/2024 01:05 PM Modules accepted: Orders * Telephone Encounter - Sylvia Russ RN - 10/13/2024 12:59 PM EST Per PCP request, pended liver and hepatic function panel labs for pt to compete in 6 weeks. * Telephone Encounter - Sylvia Russ RN - 10/10/2024 9:01 AM EST Telephone call to pt to advise of below message per PCP: that liver enzymes still slightly elevatedbut bilirubin normal, thus is would not cause yellowing of skin. Advised that vitamin A results still pending. Plan for now is per PCP to hold atorvastatin, repeat labs in 6 weeks (mid November). Reviewed each cholesterol result with pt. Advised pt will call once vitamin A results in. Pt verbalized understanding, in agreement with plan. * Telephone Encounter - Sylvia Russ RN - 10/10/2024 9:00 AM EST ----- Message from Leisa Harris MD sent at 10/09/2024 6:42 PM EST ----- Please let Laura know liver still slightly elevated. It would not cause yellow of skin due to bilirubin normal. Please advise hold atrovastatin and we can recheck in 6 weeks. We are still waiting on vitamin A results. Thank you. documented in this encounter Plan of Treatment Scheduled Orders Name Type Priority Associated Diagnoses Orde r Schedule Lipid Panel, Standard Lab Routine Jaundice Expected: 10/17/2024 (Approximate), Expires: 10/13/2025 Hepatic Function Panel Lab Routine Jaundice Expected: 10/17/2024 (Approximate), Expires: 10/13/2025 documented as of this encounter Visit Diagnoses Diagnosis Jaundice Jaundice, unspecified, not of documented in this encounter Additional Health Concerns Assessment Noted Time PHQ-9 Depression Total Score: 1 03/09/20 24 3:12 PM EDT documented as of this encounter Care Teams Tier Truck Driver Relationship Specialty Start Date End Date Leisa Harris MD [address] [place] [address] PCP - General Family Medicine 03/07/19 Olivia Montoya [address] [place] [address] [place] [address] 09/22/24 Nestor Downey MD [address] [place] [address] [address] [place] [address] Orthopaedic Surgery 10/11/24 Peyton Earl MD [address] [place] [address], [address] [place] [address] Neurosurgery 10/11/24 documented as of this encounter
--- OUTSIDE RECORDS SUMMARY | 2024-10-20 18:25 | XMS_ITS | Encounter Summary ---
Author Organization [employer] Address [address] [place] [address] 7t [place] [address] Care Team Providers Care Ecologist Technician Name Role Phone Frances Li MD Primary Care Provider [phone]- [phone] Olivia Montoya Unavailable Nestor Downey MD Unavailable Peyton Earl MD Unavailable Encounter Details Date Type Department Care Team (Late st Contact Info) Description 09/04/2022 Abstract [facility] MEDICINE [address] [place], [place] [phone] Frances Li MD [address] [place], [place] [phone] Social History Tobacco Use Types Packs/Day Years [...] in this encounter Results * Mammography (03/26/2022) Mammogram normal Anatomical Region Laterality Modality Other us Historical Provider HEALTH MAINTENANCE Final Result * Colonoscopy (01/20/2020) Colonoscopy hx tubular adenoma with Dr. Fields us Historical Provider HEALTH MAINTENANCE Final Result documented in this encounter Visit Diagnoses Not on filedocumented in this encounter Care Teams Ecologist Technician Relationship Specialty Start Date End Date Jen, MD Frances [address] [place] [address] PCP - General Family Medicine 03/07/19 Olivia Montoya [address] [facility] [address] [place] [address] 09/22/24 Nestor Downey MD [address] [place] [address] [address] [place] [address] Orthopaedic Surgery 10/11/24 Peyton Earl MD [address] [place] [address], [address] [place] [address] Neurosurgery 10/11/24 documented as of this encounter
== END 2024-10-20 15:01 | disposition home or self-care (01) ==
LOC: HO.HWS 14:36
PROVIDERS: PCP Family Medicine; Visit Provider Advanced Practice Midwife
DX: N64.9 Disorder of breast, unspecified (principal)
CPT/HCPCS: 99213

== ENCOUNTER 2024-11-03 13:02 | Outpatient (AMB) | payer BC, SELFPAY ==
--- NOTE | 2024-11-03 13:04 | MHC.OFFVIS ---
Vital Signs 11/03/24 13:17 Height 5 ft 7 in Weight 163 lb BMI 25.5 BP 135/72 Blood Pressure Location Lt brachial Position Sitting Pulse 84 Intake Visit Reasons: Disorder of breast, unspecified Intake Note: Patient is seen in office for evaluation of a right breast lump. Pt c/o: has a lump on the right breast, onset 08/2024, increase/decrease, sometimes red, applied heating pads with relief, denies discharge, sometimes pain and itchy, one child age of 20 yrs old, no to breast feeding, unknown fm hx (adopted) mm:04/25/24 Recording Studio Set Up Worker Required: No Radiotelephone Operator: Radiotelephone Operator Present Accompanied by: Self / Same As Patient Allergies acetaminophen [From TYLENOL] Allergy (Severe, Verified 11/03/24 13:10) THROAT CLOSES dichloralphenazone [From MIDRIN] Allergy (Severe, Verified 11/03/24 13:10) PANIC ATTACK From MIDRIN Allergy (Severe, Uncoded 11/03/24 13:10) PANIC ATTACK Midrin Adverse Reaction (Unknown, Uncoded 11/03/24 13:10) anxiety HPI Comments Details: 59-year-old female presenting with a concern about a recurring lesion on her right breast. Initially discovered in August, the lesion appeared to resolve before recurring in October. The patient reports that the lesion is inflamed but does not drain, and despite reduction with compress intervention, it has not disappeared altogether. Initial breast examinations had not identified the lesion, but subsequent dermatological evaluation suggested a cystic nature. The patient is diligent in monitoring for any breast abnormalities due to concern about her health. Her other pertinent health issue includes chronic sciatic nerve pain linked to past back surgery, which she manages with overnight caregiver. Her most recent mammogram dated 04/25/2024 revealed no mammographic evidence of malignancy (BI-RADS 1). 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 Sexual orientation: Straight/Heterosexual Gender identity: Female Female Reproductive History Menstrual Age of Menarche: 10 Age of menopause: 48 Total pregnancies: 1 Review of Systems Const All systems reviewed & are unremarkable except as noted in HPI and below Physical Exam Vital Signs: Last Vital Signs Pulse 84 11/03/24 13:17 BP 135/72 11/03/24 13:17 BMI result Body Mass Index 25.5 Const General: cooperative and no acute distress Nutritional Appearance: well nourished Orientation/consciousness: patient oriented x3 Limitations: no limitations HEENT Head: Yes normocephalic and Yes atraumatic Ears: hearing grossly normal bilaterally Chest Other: Left breast: No skin change, no nipple retraction, no nipple discharge, no palpable mass, no enlarged lymph nodes. Right breast: 2 superficial skin lesions noted in the lower inner quadrant with no underlying mass suggestive of a mild folliculitis, no nipple retraction, no nipple discharge, no palpable mass, no enlarged lymph nodes Chest/axillae images: 1. Site of folliculitis measuring less than 2 mm in diameter Resp Effort & Inspection: normal respiratory effort, no audible wheezes, no cough and no respiratory distress Cardio Jugular venous distension: no JVD GI Inspection: Yes normal to inspection Skin Other: Warm, dry, no rash Neuro General: patient oriented x3 Extrem General: Yes no clubbing, cyanosis or edema Assessment & Plan Assessment & Plan (1) Cyst of skin of right breast: Code(s): N60.81 - Other benign mammary dysplasias of right breast Category: Medical Plan 59-year-old female patient presenting with a right breast skin lesion initially noted in August returning earlier this month. Her most recent mammogram of 04/25/2024 revealed no mammographic evidence of malignancy in either breast (BI-RADS 1). Examination today reveals dense breast tissue but no suspicious findings in either breast. Two superficial skin findings were identified in the lower inner quadrant suggestive of folliculitis. I recommended applying bacitracin to the area as needed. No surgical intervention is recommended at this time. Should these lesions persist or worsen they could be excised but I suggested observation at this time. The patient expressed understanding and agrees with the plan. Coding Level of Care Code New Pt Level 4 (98033) Diagnoses Cyst of skin of right breast N60.81
[2024-11-03 13:17] VITALS: BP 135/72; PULSE 84; BMI 25.5
--- OUTSIDE RECORDS SUMMARY | 2024-11-03 16:04 | XMS_ITS | Continuity of Care Document ---
Author Organization [place] - [facility], [facility] Address [address] [place] [address] Care Team Providers Care Senior C Software Developer Name Role Phone KIMBERLY, LEISA Primary Care [...] Time Benign paroxysma l positiona l vertigo [id number] Active 2022 Benign paroxysmal vertigo, right ear; Note: Date Diagnosed: 07/24/2023 10:59 AM (H81.11) Not Available [facility] 4 02:57:49 Refractor y migraine 832106365 Active 2022 Other migraine, intractabl e, without status migrainosu s; Note: Date Diagnosed: 01/15/2023 10:18 AM (G43.819) Not Available [facility] 4 02:57:51 Dizziness and giddiness 578972178 Active 2022 Dizziness and giddiness; Note: Date Diagnosed: 01/15/2023 9:44 AM (R42) Not Available [facility] 4 02:57:48 Sensorine ural hearing loss of bilateral ears 264222033 Active 2024 AVERY SAINI [address] [place] [address],[address], [address] , [facility] 09:19:46 Problem Notes None recorded. Procedures Surgical History Date Name Laterality Status Provider Name and Address Organization Details Recorded Time 10/06/19 Air & Speech Audio with Tymps (80803, 04862 & 21927) completed AVERY SAINI [address] [place] [address],[address], [address], [facility] [place] 10/06/2024 09:19:04 Cholecystectomy completed ASHA PATEL MD [address] [place] [address], [address], [facility] [place] 10/06/2024 09:34:22 section completed ASHA PATEL MD [address] [place] [address], [address], [facility] [place] [place] 10/06/2024 09:34:28 Imaging Results None recorded. Procedure Notes None recorded. Medical Equipment None Reported. Allergies Allergen ID Allergen Name Allergen Category Reaction Reaction Severity Criticality Documentation Date Start Date Code Code System Note Provider Name and Address Organization Details Recorded Time 968202 Tylenol medicatio n other Not available Not available 12/22/2023 3 RxNorm React ion: Unkno wn; Not Available [facility] 4 01:22:15 Medications Name Sig Start Date Stop Date Status Note LastModified by Organization Details LastModified Time atorvasta tin 40 mg tablet 10/06 completed Not Available Not Available Not Available atorvasta tin 20 mg tablet TAKE 1 TABLET BY MOUTH EVERY DAY active Not Available Not Available No t Available alprazola m 1 mg tablet 07/23 completed Medicati on ID: [id number] B rand Name: alprazol am Send Method: E-Prescr ibed Sub s Allowed: subs OK Medic ationGen ericName : alprazol am Not Available Not Available Not Available valacyclo vir 1 gram tablet active Medicati on ID: [id number] B rand Name: valacycl ovir Sen d Method: E-Prescr ibed Sub s Allowed: subs OK Medic ationGen ericName : valacycl ovir Not Available Not Available Not Available prednison e 20 mg tablet 07/23 completed Medicati on ID: [id number] B rand Name: predniso ne Send Method: E-Prescr ibed Sub s Allowed: subs OK Medic ationGen ericName : predniso ne Not Available Not Available Not Available clobetaso l 0.05 % topical cream APPLY TO ECZEMA TWICE DAILY NEEDED FOR UP TO 2 WEEKS/MO NTH active Not Available Not Available No t Available hydralazi ne 25 mg tablet 07/23 completed Medicati on ID: [id number] B rand Name: hydralaz ine Send Method: E-Prescr ibed Sub s Allowed: subs OK Medic ationGen ericName : hydralaz ine Not Available Not Available Not Available amlodipin e 2.5 mg tablet 07/23 completed Medicati on ID: [id number] B rand Name: amlodipi ne Send Method: E-Prescr ibed Sub s Allowed: subs OK Medic ationGen ericName : amlodipi ne Not Available Not Available Not Available amlodipin e 5 mg tablet TAKE 1 TABLET BY MOUTH EVERY DAY active Not Available Not Available No t Available amoxicill in 500 mg tablet 07/23 completed Medicati on ID: [id number] B rand Name: amoxicil ravin Send Method: E-Prescr ibed Sub s Allowed: subs OK Medic ationGen ericName : amoxicil ravin Not Available Not Available Not Available alprazola m 0.5 mg tablet TAKE 1 TABLET BY MOUTH 1 HOUR BEFORE INJECTIO N 10/06 completed Not Available Not Available Not Available lorazepam 0.5 mg tablet 07/23 completed Medicati on ID: [id number] B rand Name: lorazepa m Send Method: E-Prescr ibed Sub s Allowed: subs OK Medic ationGen ericName : lorazepa m Not Available Not Available Not Available meclizine 25 mg tablet 10/06 completed Medicati on ID: [id number] B rand Name: meclizin e Send Method: E-Prescr ibed Sub s Allowed: subs OK Speci al Instruct ion: TAKE 2 TABLETS BY MOUTH TWICE DAILY NEEDED FOR DIZZINES S Medica tionGene ricName: meclizin e Not Available Not Available Not Available diazepam 2 mg tablet 07/23 completed Medicati on ID: [id number] B rand Name: diazepam Send Method: E-Prescr ibed Sub s Allowed: subs OK Medic ationGen ericName : diazepam Not Available Not Available Not Available lisinopri l 10 mg tablet TAKE 1 TABLET BY MOUTH EVERY DAY active Not Available Not Available No t Available gabapenti n 300 mg capsule 10/06 completed Medicati on ID: [id number] B rand Name: gabapent in Send Method: E-Prescr ibed Sub s Allowed: subs OK Medic ationGen ericName : gabapent in Not Available Not Available Not Available mupirocin 2 % topical ointment 10/06 completed Medicati on ID: [id number] B rand Name: mupiroci n Send Method: E-Prescr ibed Sub s Allowed: subs OK Medic ationGen ericName : mupiroci n Not Available Not Available Not Available ibuprofen 600 mg tablet active Medicati on ID: [id number] B rand Name: ibuprofe n Send Method: E-Prescr ibed Sub s Allowed: subs OK Medic ationGen ericName : ibuprofe n Not Available Not Available Not Available estradiol 0.01% (0.1 mg/gram) vaginal cream active Medicati on ID: [id number] B rand Name: estradio l Send Method: [...] mg tablet 07/23 completed Medicati on ID: [id number] B rand Name: amoxicil ravin-pot clavulan ate Send Method: E-Prescr ibed Sub s Allowed: subs OK Medic ationGen ericName : amoxicil ravin-pot clavulan ate Not Available Not Available Not Available Eucrisa 2 % topical ointment APPLY THIN LAYER TO HANDS NEEDED FOR SYMPTOMS active Not Available Not Available No t Available BinaxNOW COVID-19 Ag Self Test kit 10/06 completed Medicati on ID: [id number] B rand Name: BinaxNOW COVID-19 Ag Self Test Sen d Method: E-Prescr ibed Sub s Allowed: subs OK Medic ationGen ericName : BinaxNOW COVID-19 Ag Self Test Not Available Not Available Not Available Paxlovid 300 mg (150 mg x 2)-100 mg tablets in a dose pack 10/06 completed Medicati on ID: [id number] B rand Name: Paxlovid Send Method: E-Prescr [...] Updated DateTime 10/06/2024 170.18 cm 24.9 kg/m2 44358.19 g Annalisa Langley [place] - [facility] 10/06/2024 09:25:55 Social History None recorded. [...] SNOMED-CT Code Diagnosis ICD10 Code Diagnosis Note [id number] ASHA PATEL MD [facility] on [address] [facility] [place], [place] [address] 10/06/2024 09:07:23 10/06/2024 12:09:13 Sensorineural hearing loss of bilateral ears 387441921 H90.3 Audiologic al evaluation results: {{Normal sloping* [...] hermetic seal}} Benign par oxysmal positional vertigo [id number] H81.10 Health Concerns Section Related Observation LastModified by Organization Detai ls LastModified Time None Recorded Concern Status LastModified by Organization Details LastModified Time None Recorded Payers Encounter Date Sequence Insurance Name Policy Number Policy Pang Covered Member ID Pang Member ID Guarantor Name 10/06/2024 1 [employer] [employer] [place] [id number] Ellis Rivas [id number] Laura Rivas Notes Date Note Type [...] vision checked regularly. Normal ear exam today. [place] Hallpike was positive to the right, and I did perform the faizan maneuver which she tolerated well. I did give her a referral for physical therapy. In retrospect she could have had episode of vestibular neuritis over the summer, which can predispose to BPPV. ASHA PATEL MD [address] [place] [address], [address], [facility] - [facility] 10/14/2024 12:55:27 OBGyn Episode No OBEpisode recorded.
--- OUTSIDE RECORDS SUMMARY | 2024-11-03 16:05 | XMS_ITS | Patient Health Record ---
Author Organization [facility] Address [address] [place] [address] Care Team Providers Care Transportation Engineering Technician Name Role Phone Frances Li MD Primary Care Provider Astrid vailable Black, Shena Unavailable [phone] Allergies Allergen (clinical drug ingredient) Drug/Non Drug [...] Problem Acquired hammer toe of right foot ([id number] 105) Hammer toe of right foot (M20.41) Active confirmed Plan Of Treatment No Information Insurance Providers Payer Name Payer Address Payer Phone Subscriber Number Group Number Insured Name Patient Relationship to Insured Coverage Start Date Coverage End Date [facility] All Others [facility] [id number] [place] [address] [id number] Ellis Rivas Spouse - patient is the spouse of the insured Medical (General) History Medical History History ICD Code Anxiety Back,Hip,and Knee pain covid-19 Gall bladder problems Headaches High blood pressure Numbness Chicken pox Surgical History Surgery Date(Month/Year) section 02/14/1984 cholecystectomy 2009 back surgery 05/2020
--- OUTSIDE RECORDS SUMMARY | 2024-11-03 16:05 | XMS_ITS | Encounter Summary ---
Author Organization [employer] Address [address] [place] [address] 7 [place] [address] Care Team Providers Care Ecology Teacher Name Role Phone Frances Li MD Primary Care Provider + [phone] Olivia Montoya Unavailable Nestor Downey MD Unavailable Peyton Earl MD Unavailable Encounter Details Date Type Department Care Team (Late st Contact Info) Description 09/01/2022 Orders Only [facility] MED[facility] [address] [place], [place] [phone] Tiffanie Garcia LPN Social History Tobacco Use [...] on filedocumented in this encounter Care Teams Ecology Teacher Relationship Specialty Start Date End Date Frances Li MD [address] [place], [place] [phone] PCP - General Family Medicine 03/07/19 Olivia Montoya [address] [place] [phone] 09/22/24 Nestor Downey MD [address] [place] [address] Orthopaedic Surgery 10/11/24 Peyton Earl MD [address] [place] [address] Drive, [address] [place] [address] Neurosurgery 10/11/24 documented as of this encounter
--- OUTSIDE RECORDS SUMMARY | 2024-11-03 16:05 | XMS_ITS | Data Portability ---
Author Organization [place] - [facility], Allergy Address [address] [place] [address] Care Team Providers Care Child Adolescent Psychiatrist Name Role Phone KIMBERLYLEISA LOPEZ Primary Care [...] Time Benign paroxysma l positiona l vertigo 849031786 Active 2022 Benign paroxysmal vertigo, right ear; Note: Date Diagnosed: 07/24/2023 10:59 AM (H81.11) Not Available [facility] 4 02:57:49 Refractor y migraine 691838526 Active 2022 Other migraine, intractabl e, without status migrainosu s; Note: Date Diagnosed: 01/15/2023 10:18 AM (G43.819) Not Available [facility] 4 02:57:51 Dizziness and giddiness 499701997 Active 2022 Dizziness and giddiness; Note: Date Diagnosed: 01/15/2023 9:44 AM (R42) Not Available [facility] 4 02:57:48 Sensorine ural hearing loss of bilateral ears 754614805 Active 2024 LA MON, AVERY [address] [facility],[address], [address] , [facility] - [facility] 09:19:46 Problem Notes None recorded. Procedures Surgical History Date Name Laterality Status Provider Name and Address Organization Details Recorded Time 10/06/19 25 Air & Speech Audio with Tymps (89426, 59592 & 46851) completed LA MON, AVERY 100 [facility],[address], [address], [facility] - [facility] [place] 10/06/2024 09:19:04 Cholecystectomy completed ASHA PATEL MD [address] [place] [address], [address], [facility] 10/06/2024 09:34:22 section completed ASHA PATEL MD [address] [place] [address],[address], [address], [facility] 10/06/2024 09:34:28 Imaging Results Imaging Date Name Status LastModified by Organiz ation Details LastModified Time 10/14/2024 audiogram completed [facility] Information no t available 10/14/2024 16:54:47 Procedure Notes None recorded. Medical Equipment None Reported. Allergies Allergen ID Allergen Name Allergen Category Reaction Reaction Severity Criticality Documentation Date Start Date Code Code System Note Provider Name and Address Organization Details Recorded Time 729653 Tylenol medicatio n other Not available Not available 12/22/2023 3 RxNorm React ion: Unkno wn; Not Available [facility] 4 01:22:15 Medications Name Sig Start Date Stop Date Status Note LastModified by Organization Details LastModified Time atorvasta tin 40 mg tablet 10/06 completed Not Available Not Available Not Available atorvasta tin 20 mg tablet TAKE 1 TABLET BY MOUTH EVERY DAY active Not Available Not Available No t Available alprazola m 1 mg tablet 07/23 completed Medicati on ID: [id number] B rand Name: alprazol am Send Method: E-Prescr ibed Sub s Allowed: subs OK Medic ationGen ericName : alprazol am Not Available Not Available Not Available valacyclo vir 1 gram tablet active Medicati on ID: [id number] B rand Name: valacycl ovir Sen d Method: E-Prescr ibed Sub s Allowed: subs OK Medic ationGen ericName : valacycl ovir Not Available Not Available Not Available prednison e 20 mg tablet 07/23 completed Medicati on ID: [id number] B rand Name: predniso ne Send Method: E-Prescr ibed Sub s Allowed: subs OK Medic ationGen ericName : predniso ne Not Available Not Available Not Available clobetaso l 0.05 % topical cream APPLY TO ECZEMA TWICE DAILY NEEDED FOR UP TO 2 WEEKS/MO NTH active Not Available Not Available No t Available hydralazi ne 25 mg tablet 07/23 completed Medicati on ID: [id number] B rand Name: hydralaz ine Send Method: E-Prescr ibed Sub s Allowed: subs OK Medic ationGen ericName : hydralaz ine Not Available Not Available Not Available amlodipin e 2.5 mg tablet 07/23 completed Medicati on ID: [id number] B rand Name: amlodipi ne Send Method: E-Prescr ibed Sub s Allowed: subs OK Medic ationGen ericName : amlodipi ne Not Available Not Available Not Available amlodipin e 5 mg tablet TAKE 1 TABLET BY MOUTH EVERY DAY active Not Available Not Available No t Available amoxicill in 500 mg tablet 07/23 completed Medicati on ID: [id number] B rand Name: amoxicil ravin Send Method: E-Prescr ibed Sub s Allowed: subs OK Medic ationGen ericName : amoxicil ravin Not Available Not Available Not Available alprazola m 0.5 mg tablet TAKE 1 TABLET BY MOUTH 1 HOUR BEFORE INJECTIO N 10/06 completed Not Available Not Available Not Available lorazepam 0.5 mg tablet 07/23 completed Medicati on ID: [id number] B rand Name: lorazepa m Send Method: E-Prescr ibed Sub s Allowed: subs OK Medic ationGen ericName : lorazepa m Not Available Not Available Not Available meclizine 25 mg tablet 10/06 completed Medicati on ID: [id number] B rand Name: meclizin e Send Method: E-Prescr ibed Sub s Allowed: subs OK Speci al Instruct ion: TAKE 2 TABLETS BY MOUTH TWICE DAILY NEEDED FOR DIZZINES S Medica tionGene ricName: meclizin e Not Available Not Available Not Available diazepam 2 mg tablet 07/23 completed Medicati on ID: [id number] B rand Name: diazepam Send Method: E-Prescr ibed Sub s Allowed: subs OK Medic ationGen ericName : diazepam Not Available Not Available Not Available lisinopri l 10 mg tablet TAKE 1 TABLET BY MOUTH EVERY DAY active Not Available Not Available No t Available gabapenti n 300 mg capsule 10/06 completed Medicati on ID: [id number] B rand Name: gabapent in Send Method: E-Prescr ibed Sub s Allowed: subs OK Medic ationGen ericName : gabapent in Not Available Not Available Not Available mupirocin 2 % topical ointment 10/06 completed Medicati on ID: [id number] B rand Name: mupiroci n Send Method: E-Prescr ibed Sub s Allowed: subs OK Medic ationGen ericName : mupiroci n Not Available Not Available Not Available ibuprofen 600 mg tablet active Medicati on ID: [id number] B rand Name: ibuprofe n Send Method: E-Prescr ibed Sub s Allowed: subs OK Medic ationGen ericName : ibuprofe n Not Available Not Available Not Available estradiol 0.01% (0.1 mg/gram) vaginal cream active Medicati on ID: [id number] B rand Name: estradio l Send Method: [...] mg tablet 07/23 completed Medicati on ID: [id number] B rand Name: amoxicil ravin-pot clavulan ate Send Method: E-Prescr ibed Sub s Allowed: subs OK Medic ationGen ericName : amoxicil ravin-pot clavulan ate Not Available Not Available Not Available Eucrisa 2 % topical ointment APPLY THIN LAYER TO HANDS NEEDED FOR SYMPTOMS active Not Available Not Available No t Available BinaxNOW COVID-19 Ag Self Test kit 10/06 completed Medicati on ID: [id number] B rand Name: BinaxNOW COVID-19 Ag Self Test Sen d Method: E-Prescr ibed Sub s Allowed: subs OK Medic ationGen ericName : BinaxNOW COVID-19 Ag Self Test Not Available Not Available Not Available Paxlovid 300 mg (150 mg x 2)-100 mg tablets in a dose pack 10/06 completed Medicati on ID: [id number] B rand Name: Paxlovid Send Method: E-Prescr [...] Updated DateTime 10/06/2024 170.18 cm 24.9 kg/m2 95988.19 g Annalisa Langley [place] - [facility] 10/06/2024 09:25:55 Social History None recorded. Functional Status None recorded. Mental Status None recorded. Family History Nothing Reported. Medical History Condition Response Hyperlipidemia Y Migraines Y Hypertension Y Gynecological HistoryNo gynecological history recorded. Obstetrics History GPAL:G 0 P 0 0 0 0 Past Encounters Encounter ID Performer Location Encounter Start Date Encounter Closed Date Diagnosis/Indication Diagnosis SNOMED-CT Code Diagnosis ICD10 Code Diagnosis Note [id number] ASHA PATEL MD [facility] on [address] [place] [address] 10/06/2024 09:07:23 10/06/2024 12:09:13 Sensorineural hearing loss of bilateral ears 123828556 H90.3 Audiologic al evaluation results: {{Normal sloping* [...] hermetic seal}} Benign par oxysmal positional vertigo 249662242 H81.10 Health Concerns Section Related Observation LastModified by Organization Detai ls LastModified Time None Recorded Concern Status LastModified by Organization Details LastModified Time None Recorded Advance Directives Directive None Recorded Payers Encounter Date Sequence Insurance Name Policy Number Policy Pang Covered Member ID Pang Member ID Guarantor Name 10/06/2024 1 [facility] [id number] Ellis Rivas [id number] Laura Rivas Notes Date Note Type [...] can predispose to BPPV. ASHA PATEL MD [address] [place] [address], [place], [address], [facility] - [facility] 10/14/2024 12:55:27 OBGyn Episode No OBEpisode recorded.
--- OUTSIDE RECORDS SUMMARY | 2024-11-03 16:05 | XMS_ITS | Encounter Summary ---
Author Organization [employer] Address [address] [facility] 7t [place] [address] Care Team Providers Care Telephone Station Installer Name Role Phone Frances Li MD Primary Care Provider +1- [phone] Olivia Montoya Unavailable Nestor Downey MD Unavailable Peyton Earl MD Unavailable Encounter Details Date Type Department Care Team (Late st Contact Info) Description 10/11/2024 Orders Only [facility] [address] [place], [place] [phone] Frances Li MD [address] [place], [place] [phone] Social History Tobacco Use Types Packs/Day Years [...] documented as of this encounter Care Teams Telephone Station Installer Relationship Specialty Start Date End Date Frances Li MD [address] [place] [address] PCP - General Family Medicine 03/07/19 Olivia Montoya [address] [facility] [address] [place] [address] 09/22/24 Nestor Downey MD [address] [place] [address] [address] [place] [address] Orthopaedic Surgery 10/11/24 Peyton Earl MD [address] [place] [address], [address] [place] [address] Neurosurgery 10/11/24 documented as of this encounter
--- OUTSIDE RECORDS SUMMARY | 2024-11-03 16:05 | XMS_ITS | Encounter Summary ---
Author Organization [employer] Address [address] [facility] 7t [place] [address] Care Team Providers Care Clearance Coordinator Name Role Phone Leisa Harris MD Primary Care Provider +1- [phone] Olivia Montoya Unavailable Nestor Downey MD Unavailable Peyton Earl MD Unavailable Reason for Visit * Reason Onset Date Comments Results 10/10/2024 Encounter Details Date Type Department Care Team (Late st Contact Info) Description 10/10/[address] [facility] MEDICINE [address] [place], [place] [phone] Leisa Harris MD [address] [place], [place] [phone] Results Social History Tobacco Use Types Packs/Day [...] accepted: Orders * Addendum Note - Sylvia Garnica RN - 10/13/2024 1:05 PM ESTAddended by: SYLVIA LA on: 10/13/2024 01:05 PM Modules accepted: Orders * Telephone Encounter - Sylvia Garnica RN - 10/13/2024 12:59 PM EST Per PCP request, pended liver and hepatic function panel labs for pt to compete in 6 weeks. * Telephone Encounter - Sylvia Garnica RN - 10/10/2024 9:01 AM EST Telephone [...] with plan. * Telephone Encounter - Sylvia Garnica RN - 10/10/2024 9:00 AM EST ----- [...] documented as of this encounter Care Teams Clearance Coordinator Relationship Specialty Start Date End Date Leisa Harris MD [address] [place] [address] PCP - General Family Medicine 03/07/19 Olivia Montoya [address] [facility] [address] [place] [address] 09/22/24 Nestor Downey MD [address] [place] [address] [address] [place] [address] Orthopaedic Surgery 10/11/24 Peyton Earl MD [address] [place] [address], [address] [place] [address] Neurosurgery 10/11/24 documented as of this encounter
--- OUTSIDE RECORDS SUMMARY | 2024-11-03 16:05 | XMS_ITS | Encounter Summary ---
Author Organization [employer] Address [address] [facility] 7t [place] [address] Care Team Providers Care Director Biostatistics Name Role Phone Frances Li MD Primary Care Provider [phone]- [phone] Olivia Montoya Unavailable Nestor Downey MD Unavailable Peyton Earl MD Unavailable Reason for Visit * Reason Comments Med Refill Encounter Details Date Type Department Care Team (Late st Contact Info) Description 12/30/[address] [facility] [address] [place] [address] Payal Berry MD [address] [place], [place] [phone] Nasal congestion; Pain of nose Social History [...] sinuses documented in this encounter Care Teams Director Biostatistics Relationship Specialty Start Date End Date Frances Li MD [address] [place] [address] PCP - General Family Medicine 03/07/19 Olivia Montyoa [address] [facility] [address] [place] [address] 09/22/24 Nestor Downey MD [address] [place] [address] [address] [place] [address] Orthopaedic Surgery 10/11/24 Peyton Earl MD [address] [place] [address], [address] [place] [address] Neurosurgery 10/11/24 documented as of this encounter
--- OUTSIDE RECORDS SUMMARY | 2024-11-03 16:05 | XMS_ITS | Encounter Summary ---
Author Organization [employer] Address [address] [facility] 7t [place] [address] Care Team Providers Care Marine Erector Name Role Phone Frances Li MD Primary Care Provider +1- [phone] Olivia Montoya Unavailable Nestor Downey MD Unavailable Peyton Earl MD Unavailable Reason for Visit * Reason Comments Med Refill Encounter Details Date Type Department Care Team (Late st Contact Info) Description 10/14/2024 Refill [facility] 230 [place], [place] [phone] Frances Li MD 230 [place], [place] [phone] Primary hypertension Social History Tobacco Use Types [...] the past 12 months, has t he [place] [employer], gas, oil or water Insticator threatened to shut off services in your [...] documented as of this encounter Care Teams Marine Erector Relationship Specialty Start Date End Date Frances Li MD 230 [place] [address] PCP - General Family Medicine 03/07/19 Olivia Montoya [address] [facility] [address] [place] [address] 09/22/24 Nestor Downey MD [address] [facility] [address] [place] [address] Orthopaedic Surgery 10/11/24 Peyton Earl MD [address] [place] [address] Drive, [address] [place] [address] Neurosurgery 10/11/24 documented as of this encounter
--- OUTSIDE RECORDS SUMMARY | 2024-11-03 16:05 | XMS_ITS | Encounter Summary ---
Author Organization [employer] Address [address] [place] [address] 7t [place] [address] Care Team Providers Care Relay Mechanic Name Role Phone Frances Li MD Primary Care Provider +1- [phone] Olivia Montoya Unavailable Nestor Downey MD Unavailable Peyton Earl MD Unavailable Encounter Details Date Type Department Care Team (Late st Contact Info) Description 01/13/2023 Orders Only [facility]INE 230 [place], [place] [phone] Frances Li MD 230 [place], [place] [phone] MAREN positive (Primary Dx) Social History Tobacco [...] Primary documented in this encounter Care Teams Relay Mechanic Relationship Specialty Start Date End Date Frances Li MD [address] [place] [address] [phone] PCP - General Family Medicine 03/07/19 Olivia Montoya [address] [facility] [address] [place] [address] 09/22/24 Nestor Downey MD [address] [place] [address] [address] [place] [address] Orthopaedic Surgery 10/11/24 Peyton Earl MD [address] [place] [address], [address] [place] [address] Neurosurgery 10/11/24 documented as of this encounter
--- OUTSIDE RECORDS SUMMARY | 2024-11-03 16:05 | XMS_ITS | Encounter Summary ---
Author Organization [employer] Address [address] [facility] 7t [place] [address] Care Team Providers Care Warp Tension Tester Name Role Phone Frances Li MD Primary Care Provider +1- [phone] Olivia Montoya Unavailable Nestor Downey MD Unavailable Peyton Earl MD Unavailable Encounter Details Date Type Department Care Team (Late st Contact Info) Description 09/02/2024 Orders Only [facility] 230 [place], [place] [phone] Frances Li MD 230 [place], [place] [phone] Dyslipidemia Social History Tobacco Use Types Packs/Day [...] documented as of this encounter Care Teams Warp Tension Tester Relationship Specialty Start Date End Date Frances Li MD 230 [place] [address] PCP - General Family Medicine 03/07/19 Olivia Montoya [address] [facility] [address] [place] [address] 09/22/24 Nestor Downey MD [address] [place] [address] [address] [place] [address] Orthopaedic Surgery 10/11/24 Peyton Earl MD [address] [place] [address], [address] [place] [address] Neurosurgery 10/11/24 documented as of this encounter
--- OUTSIDE RECORDS SUMMARY | 2024-11-03 16:05 | XMS_ITS | Encounter Summary ---
Author Organization [employer] Address 75 [facility] 7t [place] [address] Care Team Providers Care Brass Sorter Name Role Phone Frances Li MD Primary Care Provider +1- [phone] Olivia Montoya Unavailable Nestor Downey MD Unavailable Peyton Earl MD Unavailable Encounter Details Date Type Department Care Team (Late st Contact Info) Description 10/13/2024 Orders Only [facility] 230 [place], [place] [phone] Frances Li MD 230 [place], [place] [phone] Dyslipidemia (Primary Dx) Social History Tobacco Use [...] documented as of this encounter Care Teams Brass Sorter Relationship Specialty Start Date End Date Frances Li MD 230 [place] [address] PCP - General Family Medicine 03/07/19 Olivia Montoya [address] [place] [address] 09/22/24 Nestor Downey MD [address] [place] [address] Drive [address] [place] [address] Orthopaedic Surgery 10/11/24 Peyton Earl MD [address] [place] [address] Drive, [address] [place] [address] Neurosurgery 10/11/24 documented as of this encounter
--- OUTSIDE RECORDS SUMMARY | 2024-11-03 16:05 | XMS_ITS | Encounter Summary ---
Author Organization [employer] Address [address] [place] [address] 7t [place] [address] Care Team Providers Care Jet Man Name Role Phone Frances Li MD Primary Care Provider +1- [phone] Olivia Montoya Unavailable Nestor Downey MD Unavailable Peyton Earl MD Unavailable Encounter Details Date Type Department Care Team (Late st Contact Info) Description 09/04/2022 Abstract [facility] MEDICINE 230 [place], [place] [phone] Frances Li MD 230 [place], [place] [phone] Social History Tobacco Use Types Packs/Day Years [...] on filedocumented in this encounter Care Teams Jet Man Relationship Specialty Start Date End Date Jen, MD Frances 230 [place] [address] PCP - General Family Medicine 03/07/19 Olivia Montoya [address] [facility] [address] [place] [address] 09/22/24 Nestor Downey MD [address] [place] [address] [address] [place] [address] Orthopaedic Surgery 10/11/24 Peyton Earl MD [address] [place] [address], [address] [place] [address] Neurosurgery 10/11/24 documented as of this encounter
--- OUTSIDE RECORDS SUMMARY | 2024-11-03 16:05 | XMS_ITS | Encounter Summary ---
Author Organization [employer] Address 75 [facility] 7t [place] [address] Care Team Providers Care Animal Husbandry Worker Name Role Phone Frances Li MD Primary Care Provider +1- [phone] Olivia Montoya Unavailable Encounter Details Date Type Department Care Team ([facility] st Contact Info) Description 10/05/2024 Telephone [facility] MED[facility] 230 [place], [place] [phone] Frances Li MD 230 [place] [address] Social History Tobacco Use Types Packs/Day Years [...] Free T4 1.05 0.32 - 4.0 uIU/mL [facility] Blood Venous blood specimen / Unknown 10/08/2024 7:07 AM EST 10/08/2024 7:07 AM EST us Frances Li MD LAB BLOOD ORDERABLES Final Result [facility] [address] [place] [address] [phone] * Vitamin A (10/08/2024 7:07 AM EST) Vitamin A (Retinol) 41 38 - 98 mcg/dL [facility] Comment:Vitamin supplementat ion within 24 hours prior toblood draw may affect the accuracy of the results.This test was developed and its analytical performancecharacteristics have been determined by [employer] [place], [place]. It hasnot been cleared or approved by the U.S. Food and DrugAdministration. This assay has been validated pursuantto the CLIA regulations and is used for clinicalpurposes.THIS TEST WAS PERFORMED AT:[employer] [place] [address]AHEFHPHNILAY CLAY MD,PHD Blood Venous blood specimen / Unknown 10/08/2024 7:07 AM EST 10/08/2024 7:07 AM EST Frances Li MD LAB BLOOD ORDERABLES Final Result [facility] [address] [place] [phone] * (ABNORMAL) Hepatic Function Panel (10/08/2024 7:07 AM EST) Bilirubin, Total 1.0 0.0 - 1.0 mg/dL [facility] Comment:Slight Icterus. Bilirubin, Direct 0.3 0.0 - 0.5 mg/dL [facility] Comment:Slight Icterus. Aspartate Amino Transferase 52(H) 5 - 31 U/L [facility] Alanine Aminotransferase 53(H) 0 - 31 U/L [facility] Total Protein 7.7 6.5 - 8.0 g/dL [facility] Albumin Level 4.3 3.5 - 5.0 g/dL [facility] Alkaline Phosphatase 85 39 - 117 U/L [facility] Blood Venous blood specimen / Unknown 10/08/2024 7:07 AM EST 10/08/2024 7:07 AM EST us Frances Li MD LAB BLOOD ORDERABLES Final Result [facility] [address] [place] [phone] [phone] documented in this encounter Visit Diagnoses Diagnosis Jaundice- Primary Jaundice, unspecified, not of documented in this encounter Additional Health Concerns Assessment Noted Time PHQ-9 Depression Total Score: 1 03/09/20 24 3:12 PM EDT documented as of this encounter Care Teams Animal Husbandry Worker Relationship Specialty Start Date End Date Frances Li MD [address] [place] [address] PCP - General Family Medicine 03/07/19 Olivia Montoya [address] [place] [address] 09/22/24 documented as of this encounter
--- OUTSIDE RECORDS SUMMARY | 2024-11-03 16:05 | XMS_ITS | Clinical Summary ---
Author Organization [employer] Address [address] [place] [address] 7t [place] [address] Care Team Providers Care Iron Assorter Name Role Phone Frances Li MD Primary Care Provider +1- [phone] Olivia Montoya Unavailable Nestor Downey MD Unavailable [...] 2027 Fibroids 09/23/2023 Overview (09/23/2023): -followed by oil well directional surveyor, Dr. Thompson Jo -[place] 09/21/23 Multiple uterine [...] due after 06/08/25 -eye care [facility] -[facility] -[facility] proxy filed 03/09/24 Assessment & Plan (06/08/2024 10:55 AM EDT): -next comprehensive annual evaluation due after 06/08/25 -eye care facilitated by [facility] -[facility] [place] [facility] -[facility] care proxy filed 03/09/24 Assessment & Plan (05/06/2023 11:11 AM EDT): -next physical exam due after 05/06/2024 -eye care facilitated by [facility] is [facility] Anxiety 12/08/2022 Overview (12/08/2022): She expresses anxiety [...] reviewed. No indication for surgery. -Seen by [facility] 02/29/24 recommending follow up with neurosurgery. No evidence of hip joint pathology. -She has compleated 3 years of physical therapy -On 03/09/24 we discussed possibility of piriformis syndrome. Strengthening discussed. She is going to see chricopractic and acupuncture. We also discussed hypnotherapy. -Has been seeing chiropractor in [place], which she has significant relief from. Has appt. again next week. Assessment & Plan (06/08/2024 11:03 AM EDT): -hx lumbar surgery -MRI 2023 right thigh negative -MRI lumbar spine Jul shows slight L4-L5 spondylolisthesis but otherwise very minimal changes -Seen by neurosurgery Dr. Peyton Earl MD, FAANS, FCNS 03/03/24, note reviewed. L spine x rays reviewed. No indication for surgery. -Seen by [facility] 02/29/24 recommending follow up with neurosurgery. No evidence of hip joint pathology. -She has compleated 3 years of physical therapy -On 03/09/24 we discussed possibility of piriformis syndrome. Strengthening discussed. She is going to see chricopractic and acupuncture. We also discussed hypnotherapy. -Has been seeing chiropractor in [place], which she has significant relief from. Has appt. again next week. Assessment & Plan (03/09/2024 12:37 PM EDT): -hx lumbar surgery -MRI 2023 right thigh negative -MRI lumbar spine Jul shows slight L4-L5 spondylolisthesis but otherwise very minimal changes -Seen by neurosurgery Dr. Peyton Earl MD, FAANS, FCNS 03/03/24, note reviewed. L spine x rays reviewed. No indication for surgery. -Seen by [facility] 02/29/24 recommending follow up with neurosurgery. 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 She will follow up with neurology. 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 She will follow up with neurology. Encounters Date Type Department Care Team Description 10/14/2024 Refill [facility] [address] [place] [address] Frances Li MD Primary hypertension 10/13/2024 Orders Only [facility] [address] [place] [address] Frances Li MD Dyslipidemia (Primary Dx) 10/11/2024 Orders Only [facility] [address] [place] [address] Frances Li MD 10/10/2024 Telephone [facility] [address] [place] [address] Frances Li MD Results 10/05/2024 Telephone [facility] [address] [place] [address] Frances Li MD 09/02/2024 Orders Only [facility] [address] [place] [address] Frances Li MD Dyslipidemia 09/01/2024 Orders Only [facility] [address] [place], [place] [phone] Frances Li MD Elevated LFTs (Primary Dx) 09/01/2024 Telephone [facility] [address] [place] [address] Frances Li MD Nurse Triage from Last 3 Months Immunizations Name Administration [...] the past 12 months, has t he [employer], gas, oil or water company threatened to [...] AM EST Jaundice HEPATIC FUNCTION PANEL Routine 7:07 AM EST Jaundice HEPATIC FUNCTION PANEL Routine 6:11 AM EST Elevated LFTs LIPID PANEL, STANDARD Routine 09/02/2024 6:11 AM EST Dyslipidemia BI MAMMOGRAM SCREENING TOMOSYNTHESIS [...] Free T4 1.05 0.32 - 4.0 uIU/mL [facility] Blood Venous blood specimen / Unknown 10/08/2024 7:07 AM EST 10/08/2024 7:07 AM EST Frances Li MD LAB BLOOD ORDERABLES Final Result Performing Organization Address [facility]/ZIP Co de Phone Number [facility] [address] [place] [address] [phone] * Vitamin A (10/08/2024 7:07 AM EST) [facility] Vitamin A (Retinol) 41 38 - 98 mcg/dL [facility] Comment:Vitamin supplementat ion within 24 hours prior toblood draw may affect the accuracy of the results.This test was developed and its analytical performancecharacteristics have been determined by [employer] [place], [place]. It hasnot been cleared or approved by the U.S. Food and DrugAdministration. This assay has been validated pursuantto the CLIA regulations and is used for clinicalpurposes.THIS TEST WAS PERFORMED AT:[employer]/[facility] [place] [address]WFCNCNENILAY CLAY MD,PHD Blood Venous blood specimen / Unknown 10/08/2024 7:07 AM EST 10/08/2024 7:07 AM EST Frances Li MD LAB BLOOD ORDERABLES Final Result Performing Organization Address [facility] Co de Phone Number [facility] [address] [place] [phone] * (ABNORMAL) Hepatic Function Panel (10/08/2024 7:07 AM EST) Only the most recent of2 resultswithin the time period is included. [facility] Bilirubin, Total 1.0 0.0 - 1.0 mg/dL [facility] Comment:Slight Icterus. Bilirubin, Direct 0.3 0.0 - 0.5 mg/dL [facility] Comment:Slight Icterus. Aspartate Amino Transferase 52(H) 5 - 31 U/L [facility] Alanine Aminotransferase 53(H) 0 - 31 U/L [facility] Total Protein 7.7 6.5 - 8.0 g/dL [facility] Albumin Level 4.3 3.5 - 5.0 g/dL [facility] Alkaline Phosphatase 85 39 - 117 U/L [facility] Blood Venous blood specimen / Unknown 10/08/2024 7:07 AM EST 10/08/2024 7:07 AM EST Frances Li MD LAB BLOOD ORDERABLES Final Result Performing Organization Address City/[facility]/ZIP Co de Phone Number [facility] [address] [place] [phone] * (ABNORMAL) Lipid Panel, Standard (09/02/2024 6:11 AM EST) Triglycerides 74 <150 mg/dL [facility] Comment:Mild Icterus.Interpr et result with caution.Desirable Triglyceride: less than 150 mg/dLBorderline High Triglyceride 150-199 mg/dLHigh Triglyceride: 200-499 mg/dLVery High Triglyceride: greater than or equal to 5OO mg/dL Cholesterol 198 <200 mg/dL [facility] Comment:Mild Icterus.Interpr et result with caution.Desirable Cholesterol: less than 200 mg/dLBorderline High Cholesterol: 200-239 mg/dLHigh Cholesterol: greater than 239 mg/dL LDL Cholesterol Calculated 106(H) <100 mg/dL [facility] Comment:Desirable LDL: less than 100 mg/dLNear Optimal/Above Optimal LDL: 110- 129 mg/dLBorderline High LDL: 130-159 mg/dLHigh LDL: 160-189 mg/dLVery High LDL: greater than or equal to 190 mg/dL HDL Cholesterol 78 >40 mg/dL [facility] Comment:Desirable HDL: great er than 40 mg/dL Note: This HDL assay may give artificially low results in patients with liver disease. Blood Venous blood specimen / Unknown 09/02/2024 6:11 AM EST 09/02/2024 6:11 AM EST Frances Li MD LAB BLOOD ORDERABLES Final Result [facility] [address] [place] [address], [place] [phone] * BI Mammogram Screening Tomosynthesis Bilateral (04/25/2024 1:56 PM EDT) Anatomical Region Laterality Modality Breast Bilateral Mammography 04/25/2024 1:56 PM EDT Narrative 05/06/2024 10:45 AM EDT ? [facility] [place] ? [address] ?[place] [address] ? Mammography Report ? Signed ? Patient: Rob,Laura L ?MR#: [id number] ?? 3 ? : 1965 ?Acct:[id number] ? Age/Sex: 58 / F ?ADM Date: 04/25/24 ? Loc: HO.MAMMO ? Attending Dr: Frances Li MD ? Ordering Physician: Frances Li MD ?Results: 1N ?? egative ? Date of Service: 04/25/24 ?Follow Up: 1 Year From Orig ?? inal Mammogram ? Procedure(s): MM tomosynthesis screening BI ?? Accession Number(s): [id number] ? cc: Frances Li MD ? EXAMINATION: [...] DD/ 1356 ? TD/TT: 04/25/24 1406 ? Furnace Roaster: ? Procedure Note Lucia Romero - 05/06/2024 [facility] [address] [place] [address] Mammography Report Signed Patient: Laura Rivas R#: [id number] 3 : 1965Acct:[id number] Age/Sex: 58 / FADM Date: 04/25/24 Loc: HO.MAMMO Attending Dr: Frances Li MD Ordering Physician: Frances Li MDResults: 1N egative Date of Service: 04/25/24Follow Up: 1 Year From Orig inal Mammogram Procedure(s): MM tomosynthesis screening BI Accession Number(s): [id number] cc: Frances Li MD EXAMINATION: MM SCREENING [...] 05/06/24 1043 DD/ 1356 TD/TT: 04/25/24 1406 Furnace Roaster: Frances Li MD IMG BI PROCEDURES Final Re sult * Hepatitis C Antibody with Reflex to HCV, RNA, Quantitative, Real-Time PCR (03/26/2024 7:12 AM EDT) Pathologist [facility] Hepatitis C Antibody Nonreactive Nonreactive [facility] Comment:Antibodies to HCV no t detected; does not exclude early acuteHCV infection. Blood Venous blood specimen / Unknown 03/26/2024 7:12 AM EDT 03/26/2024 7:12 AM EDT Frances Li MD LAB BLOOD ORDERABLES Final Result [facility] [address] [place] [phone] * HIV Ab/Ag ([facility]) (12/13/2022 7:31 AM EDT) Pathologist [facility] HIV AB/AG Nonreactive Nonreactive [facility] Comment:HIV-1 p24 Ag and/or HIV-1/HIV-2 Ab not detected.A test result that is nonreactive does not exclude thepossibility of exposure to or infection with HIV-1 and/orHIV-2. Nonreactive results in this assay for individualswith prior exposure to HIV-1 and/or HIV-2 may be due toantigen and antibody levels that are below the limit ofdetection of this assay.The [employer] HIV Ag/Ab Combo assay result andsupplemental assay results should be interpreted inconjunction with the patient's clinical presentation,history and other laboratory results. If the results areinconsistent with clinical evidence, additional testing issuggested to confirm the result. 12/13/2022 7:31 AM EDT 12/13/2022 7:31 AM EDT us [facility] External Provider LAB BLO OD ORDERABLES Final Result [facility] [address] [place] [phone] * HPV mRNA E6/E7 w/Reflex to HPV Genotypes 16, 18/45 (08/20/2022 1:52 PM EST) HPV nRNA E6/E7 Not Detected Not Detected [facility] Comment:Methodology: Transcr iption-Mediated AmplificationThis assay detects E6/E7 viral messenger RNA (mRNA) from 14high-risk HPV types (16,18,31,33,35,39,45,51,52,56,58,59,66,68).Cervical sources are required for HPV testing.If a vaginal source from a patient who has had atotal hysterectomy with removal of cervix wassubmitted, please contact the testing laboratoryfor alternative testing options.For additional information, please refer tohttp://education.[employer]/faq/NZE214v9(This link if provided for information/educational purposes only.)THIS TEST WAS PERFORMED AT:[employer] [place] [address] ([facility])[place] [address]ZTFYMNELSON TREVINO MD HPV mRNA E6/E7 TNP [facility] HPV 16 RNA TNP [facility] HPV 18/45 RNA TNP [facility] 08/20/2022 1:52 PM EST 08/20/2022 3:00 PM EST us [facility] External Provider LAB CYT OLOGY ORDERABLES Final Result [facility] [address] [place] [phone] * Pap Smear (08/20/2022 1:52 PM EST) 08/20/2022 1:52 PM EST 08/20/2022 3:00 PM EST Narrative [facility] - 08/31/2022 11:51 AM EST ----- ------- Name: Laura Rivas ?Age/Sex: 56/F ? : 1965 Unit#: [id number] ?? Attend Dr: Olivia Montoya CNM ?Re08/20/22 ?Status: DEP REF ? Location: HO.LNP ?Disch: ? ----- ------- SPEC : [id number] ?RECD: 08/20/22-1500 ? STATUS: ??SOUT ? REQ NUM: [id number] ? RAFAEL: 08/20/22 ? SUBM DR: Olivia [...] 66, 68) ? HPV testing performed by [email or web address], [place], [place]. ??See reference laboratory ?? portion of the EMR for entire report. ?Clinical Information LMP: Post menopause Previous PAP test: 2017, WNL ? Material Received ?? ThinPrep-Cervical Copies To: ?? Frances Li MD ?? [address] ?? [place] [address] ? Olivia Montoya ?? [address] ?? [place] [address] ?? [phone] ----- ------- Signed (signature on file) Lilia Lorenzo Nelida 08/31/22 1151 ? ----- ------- ? END OF REPORT ? [facility] External Provider LAB [facility] DE ORDERABLES Final Result [facility] [address] [place] [address] [phone] * Hm Colonoscopy (01/20/2020) Colonoscopy hx tubular adenoma with Dr. Fields Historical Provider MD HEALTH MAINTENANCE Final Result from Last 3 Months or Most Recently Relevant to Health Maintenance Insurance [facility] PPO Advance Directives Documents on File Type Date Recorded Patient Cementer Expl anation Advance Directives and Living Will 03/10/2024 3:23 PM Health Care Proxy Care Teams Iron Assorter Relationship Specialty Start Date End Date [place], MD Frances [address] [place] [address] PCP - General Family Medicine 03/07/19 Olivia Montoya [address] [facility] [address] [place] [address] 09/22/24 Nestor Downey MD [address] [place] [address] [address] [place] [address] Orthopaedic Surgery 10/11/24 Peyton Earl MD [address] [place] [address], [address] [place] [address] Neurosurgery 10/11/24
== END 2024-11-03 13:28 | disposition home or self-care (01) ==
LOC: HO.HGS 13:03
PROVIDERS: PCP Family Medicine; Visit Provider Surgery
DX: N60.81 Other benign mammary dysplasias of right breast (principal)
CPT/HCPCS: 99204

== ENCOUNTER → 2024-11-03 13:02 | Outpatient (BNVA) | payer BC, SELFPAY | PROVIDERS: PCP Family Medicine; Visit Provider Surgery ==

== ENCOUNTER 2024-12-10 07:00 | Outpatient (REF) | payer BC, SELFPAY ==
--- OUTSIDE RECORDS SUMMARY | 2024-12-10 07:02 | XMS_ITS | Encounter Summary ---
Author Organization [employer] Address [address] [facility] 7t [place] [address] Care Team Providers Care Newspaper Editor Managing Name Role Phone Frances Li MD Primary Care Provider [phone] Olivia Montoya Unavailable Nestor Downey MD Unavailable Peyton Earl MD Unavailable Anibal Ferrell MD Unavailable [phone] Reason for Visit * Reason Comments Med Refill Encounter Details Date Type Department Care Team (Late st Contact Info) Description 11/15/2024 Refill [facility] MEDICINE 230 [place], [place] [phone] Frances Li MD 230 [place], [place] [phone] Primary hypertension Social History Tobacco Use Types [...] documented as of this encounter Care Teams Newspaper Editor Managing Relationship Specialty Start Date End Date Frances Li MD 230 [place] [address] PCP - General Family Medicine 03/07/19 Olivia Montoya [address] [facility] [address] [place] [address] 09/22/24 Nestor Downey MD [address] [place] [address] Orthopaedic Surgery 10/11/24 Peyton Earl MD [address] [place] [address] Drive, [address] [place] [address] Neurosurgery 10/11/24 Anibal Ferrell MD [address] [place] [address] 3rd [place] [address] General Surgery 11/04/24 documented as of this encounter
--- OUTSIDE RECORDS SUMMARY | 2024-12-10 07:02 | XMS_ITS | Encounter Summary ---
Author Organization [employer] Address [address] [place] [address] 7t [place] [address] Care Team Providers Care Planning Management It Specialist Name Role Phone Frances Li MD Primary Care Provider [phone] Olivia Montoya Unavailable Nestor Downey MD Unavailable Peyton Earl MD Unavailable Anibal Ferrell MD Unavailable [phone] Encounter Details Date Type Department Care Team (Late st Contact Info) Description 09/04/2022 Abstract [facility] MEDICINE 230 [place], [place] [phone] Frances Li MD 230 [place], [place] [phone] Social History Tobacco Use Types Packs/Day Years [...] on filedocumented in this encounter Care Teams Planning Management It Specialist Relationship Specialty Start Date End Date Frances Li MD 230 [place] [address] PCP - General Family Medicine 03/07/19 Olivia Montoya [address] [facility] [address] [place] [address] 09/22/24 Nestor Downey MD [address] [facility] [address] [place] [address] Orthopaedic Surgery 10/11/24 Peyton Earl MD [address] [facility] [address], [address] [place] [address] Neurosurgery 10/11/24 Anibal Ferrell MD 11 [facility] 3rd [place] [address] General Surgery 11/04/24 documented as of this encounter
--- OUTSIDE RECORDS SUMMARY | 2024-12-10 07:02 | XMS_ITS | Patient Health Record ---
Author Organization [facility] Address [address] [place] [address] Care Team Providers Care Loan Adviser Name Role Phone Frances Li MD Primary Care Provider Astrid vailable Black, Shena Unavailable [phone] Allergies Allergen (clinical drug ingredient) Drug/Non Drug [...] Problem Acquired hammer toe of right foot ([id number]) Hammer toe of right foot (M20.41) Active confirmed Plan Of Treatment No Information Insurance Providers Payer Name Payer Address Payer Phone Subscriber Number Group Number Insured Name Patient Relationship to Insured Coverage Start Date Coverage End Date [facility] All Others [facility] [id number] [place] [address] [id number] Ellis Rivas Spouse - patient is the spouse of the insured Medical (General) History Medical History History ICD Code Anxiety Back,Hip,and Knee pain covid-19 Gall bladder problems Headaches High blood pressure Numbness Chicken pox Surgical History Surgery Date(Month/Year) section 02/14/1984 cholecystectomy 2009 back surgery 05/2020
--- OUTSIDE RECORDS SUMMARY | 2024-12-10 07:02 | XMS_ITS | Encounter Summary ---
Author Organization [employer] Address [address] [place] [address] 7t [place] [address] Care Team Providers Care Wax Ball Knock Out Worker Name Role Phone Frances Li MD Primary Care Provider + [phone] Olivia Montoya Unavailable Nestor Downey MD Unavailable Peyton Earl MD Unavailable Anibal Ferrell MD Unavailable [phone] Encounter Details Date Type Department Care Team (Late st Contact Info) Description 09/01/2022 Orders Only [facility] MEDICINE 230 [place], [place] [phone] Tiffanie Garcia LPN Social History Tobacco Use [...] on filedocumented in this encounter Care Teams Wax Ball Knock Out Worker Relationship Specialty Start Date End Date Frances Li MD 230 [place], [place] [phone] PCP - General Family Medicine 03/07/19 Olivia Montoya [address] [place] [address] 09/22/24 Nestor Downey MD [address] [facility] [address] [place] [address] Orthopaedic Surgery 10/11/24 Peyton Earl MD [address] [facility], [address] [place] [address] Neurosurgery 10/11/24 Anibal Ferrell MD [address] 3rd [place] [address] General Surgery 11/04/24 documented as of this encounter
--- OUTSIDE RECORDS SUMMARY | 2024-12-10 07:02 | XMS_ITS | Encounter Summary ---
Author Organization [employer] Address [address] [place] [address] 7t [place] [address] Care Team Providers Care Butcher Supervisor Name Role Phone Frances Li MD Primary Care Provider Olivia Montoya Unavailable Nestor Downey MD Unavailable Peyton Earl MD Unavailable Anibal Ferrell MD Unavailable [phone] Encounter Details Date Type Department Care Team (Late st Contact Info) Description 01/13/[address] [facility] MEDICINE 230 [place], [place] [phone] Frances Li MD 230 [place], [place] [phone] MAREN positive (Primary Dx) Social History Tobacco [...] Primary documented in this encounter Care Teams Butcher Supervisor Relationship Specialty Start Date End Date Frances Li MD 230 [place] [address] PCP - General Family Medicine 03/07/19 Olivia Montoya [address] [facility] [address] [place] [address] 09/22/24 Nestor Downey MD [address] [place] [address] Orthopaedic Surgery 10/11/24 Peyton Earl MD [address], [address] [place] [address] Neurosurgery 10/11/24 Anibal Ferrell MD [address] 3rd [place] [address] General Surgery 11/04/24 documented as of this encounter
--- OUTSIDE RECORDS SUMMARY | 2024-12-10 07:02 | XMS_ITS | Encounter Summary ---
Author Organization [employer] Address [address] [facility] 7t [place] [address] Care Team Providers Care Amusement Or Recreation Card Checker Name Role Phone Frances Li MD Primary Care Provider [phone] Olivia Montoya Unavailable Nestor Downey MD Unavailable Peyton Earl MD Unavailable Anibal Ferrell MD Unavailable [phone] Encounter Details Date Type Department Care Team (Late st Contact Info) Description 09/02/2024 Orders Only [facility] MEDICINE 230 [place], [place] [phone] Frances Li MD 230 [place], [place] [phone] Dyslipidemia Social History Tobacco Use Types Packs/Day [...] documented as of this encounter Care Teams Amusement Or Recreation Card Checker Relationship Specialty Start Date End Date Frances Li MD 230 [place] [address] PCP - General Family Medicine 03/07/19 Olivia Montoya 575 [facility] [address] [place] [address] 09/22/24 Nestor Downey MD [address] [address] [place] [address] Orthopaedic Surgery 10/11/24 Peyton Earl MD [address] [place] [address] Drive, [address] [place] [address] Neurosurgery 10/11/24 Anibal Ferrell MD [address] [place] [address] 3rd [place] [address] General Surgery 11/04/24 documented as of this encounter
--- OUTSIDE RECORDS SUMMARY | 2024-12-10 07:02 | XMS_ITS | Data Portability ---
Author Organization [place] - [facility] Address [address] [place] [address] Care Team Providers Care Supervisor Policy Change Clerks Name Role Phone LEISA HARRIS Primary Care Provider Assessment Encounter Date Assessment [...] Time Benign paroxysma l positiona l vertigo 174140244 Active 2022 Benign paroxysmal vertigo, right ear; Note: Date Diagnosed: 07/24/2023 10:59 AM (H81.11) Not Available [employer] 02:57:49 Refractor y migraine 836096106 Active 2022 Other migraine, intractabl e, without status migrainosu s; Note: Date Diagnosed: 01/15/2023 10:18 AM (G43.819) Not Available [facility] 4 02:57:51 Dizziness and giddiness 644120907 Active 2022 Dizziness and giddiness; Note: Date Diagnosed: 01/15/2023 9:44 AM (R42) Not Available [facility] 4 02:57:48 Sensorine ural hearing loss of bilateral ears 662363954 Active 2024 LA MON, AUD 100 [facility],[address], [address] , [facility] - [facility] 09:19:46 Problem Notes None recorded. Procedures Surgical History Date Name Laterality Status Provider Name and Address Organization Details Recorded Time 10/06/19 25 Air & Speech Audio with Tymps - 64274, 90897 & 12808 completed LA MON, AVERY 100 [facility],[address], [address], [facility] - [facility] 10/06/2024 09:19:04 Cholecystectomy completed ASHA PATEL MD [address] [place] [address], [address], [facility] 10/06/2024 09:34:22 section completed ASHA PATEL MD [address] [place] [address],[address], [address], [facility] - [facility] 10/06/2024 09:34:28 Imaging Results Imaging Date Name Status LastModified by Organiz ation Details LastModified Time 10/14/2024 audiogram completed [facility] Information no t available 10/14/2024 16:54:47 Procedure Notes None recorded. Medical Equipment None Reported. Allergies Allergen ID Allergen Name Allergen Category Reaction Reaction Severity Criticality Documentation Date Start Date Code Code System Note Provider Name and Address Organization Details Recorded Time 367384 Tylenol medicatio n other Not available Not available 12/22/2023 3 RxNorm React ion: Unkno wn; Not Available [facility] 4 01:22:15 Medications Name Sig Start Date Stop Date Status Note LastModified by Organization Details LastModified Time atorvasta tin 40 mg tablet 10/06 completed Not Available Not Available Not Available atorvasta tin 20 mg tablet TAKE 1 TABLET BY MOUTH EVERY DAY active Not Available Not Available No t Available alprazola m 1 mg tablet 07/23 completed Medicati on ID: [id number] B rand Name: alprazol am Send Method: E-Prescr ibed Sub s Allowed: subs OK Medic ationGen ericName : alprazol am Not Available Not Available Not Available valacyclo vir 1 gram tablet active Medicati on ID: [id number] B rand Name: valacycl ovir Sen d Method: E-Prescr ibed Sub s Allowed: subs OK Medic ationGen ericName : valacycl ovir Not Available Not Available Not Available prednison e 20 mg tablet 07/23 completed Medicati on ID: [id number] B rand Name: predniso ne Send Method: E-Prescr ibed Sub s Allowed: subs OK Medic ationGen ericName : predniso ne Not Available Not Available Not Available clobetaso l 0.05 % topical cream APPLY TO ECZEMA TWICE DAILY NEEDED FOR UP TO 2 WEEKS/MO NT active Not Available Not Available No t Available hydralazi ne 25 mg tablet 07/23 completed Medicati on ID: [id number] B rand Name: hydralaz ine Send Method: E-Prescr ibed Sub s Allowed: subs OK Medic ationGen ericName : hydralaz ine Not Available Not Available Not Available amlodipin e 2.5 mg tablet 07/23 completed Medicati on ID: [id number] B rand Name: amlodipi ne Send Method: E-Prescr ibed Sub s Allowed: subs OK Medic ationGen ericName : amlodipi ne Not Available Not Available Not Available amlodipin e 5 mg tablet TAKE 1 TABLET BY MOUTH EVERY DAY active Not Available Not Available No t Available amoxicill in 500 mg tablet 07/23 completed Medicati on ID: [id number] B rand Name: amoxicil ravin Send Method: E-Prescr ibed Sub s Allowed: subs OK Medic ationGen ericName : amoxicil ravin Not Available Not Available Not Available alprazola m 0.5 mg tablet TAKE 1 TABLET BY MOUTH 1 HOUR BEFORE INJECTIO N 10/06 completed Not Available Not Available Not Available lorazepam 0.5 mg tablet 07/23 completed Medicati on ID: [id number] B rand Name: lorazepa m Send Method: E-Prescr ibed Sub s Allowed: subs OK Medic ationGen ericName : lorazepa m Not Available Not Available Not Available meclizine 25 mg tablet 10/06 completed Medicati on ID: [id number] B rand Name: meclizin e Send Method: E-Prescr ibed Sub s Allowed: subs OK Speci al Instruct ion: TAKE 2 TABLETS BY MOUTH TWICE DAILY NEEDED FOR DIZZINES S Medica tionGene ricName: meclizin e Not Available Not Available Not Available diazepam 2 mg tablet 07/23 completed Medicati on ID: [id number] B rand Name: diazepam Send Method: E-Prescr ibed Sub s Allowed: subs OK Medic ationGen ericName : diazepam Not Available Not Available Not Available lisinopri l 10 mg tablet TAKE 1 TABLET BY MOUTH EVERY DAY active Not Available Not Available No t Available gabapenti n 300 mg capsule 10/06 completed Medicati on ID: [id number] B rand Name: gabapent in Send Method: E-Prescr ibed Sub s Allowed: subs OK Medic ationGen ericName : gabapent in Not Available Not Available Not Available mupirocin 2 % topical ointment 10/06 completed Medicati on ID: [id number] B rand Name: mupiroci n Send Method: E-Prescr ibed Sub s Allowed: subs OK Medic ationGen ericName : mupiroci n Not Available Not Available Not Available ibuprofen 600 mg tablet active Medicati on ID: [id number] B rand Name: ibuprofe n Send Method: E-Prescr ibed Sub s Allowed: subs OK Medic ationGen ericName : ibuprofe n Not Available Not Available Not Available estradiol 0.01% (0.1 mg/gram) vaginal cream active Medicati on ID: [id number] B rand Name: estradio l Send Method: [...] mg tablet 07/23 completed Medicati on ID: [id number] B rand Name: amoxicil ravin-pot clavulan ate Send Method: E-Prescr ibed Sub s Allowed: subs OK Medic ationGen ericName : amoxicil ravin-pot clavulan ate Not Available Not Available Not Available Eucrisa 2 % topical ointment APPLY THIN LAYER TO HANDS NEEDED FOR SYMPTOMS active Not Available Not Available No t Available BinaxNOW COVID-19 Ag Self Test kit 10/06 completed Medicati on ID: [id number] B rand Name: BinaxNOFitBark COVID-19 Ag Self Test Sen d Method: E-Prescr ibed Sub s Allowed: subs OK Medic ationGen ericName : BinaxNOW COVID-19 Ag Self Test Not Available Not Available Not Available Paxlovid 300 mg (150 mg x 2)-100 mg tablets in a dose pack 10/06 completed Medicati on ID: [id number] B rand Name: Paxlovid Send Method: E-Prescr [...] Updated DateTime 10/06/2024 170.18 cm 24.9 kg/m2 83380.19 g Annalisa Langley [place] - [facility] 10/06/2024 09:25:55 Social History None recorded. [...] SNOMED-CT Code Diagnosis ICD10 Code Diagnosis Note [id number] ASHA PATEL MD [facility] on [address] [facility] [place] [address] 10/06/2024 09:07:23 10/06/2024 12:09:13 Sensorineural hearing loss of bilateral ears [id number] H90.3 Audiologic al evaluation results: {{Normal sloping* [...] hermetic seal}} Benign par oxysmal positional vertigo 536853137 H81.10 Health Concerns Section Related Observation LastModified by Organization Detai ls LastModified Time None Recorded Concern Status LastModified by Organization Details LastModified Time None Recorded Advance Directives Directive None Recorded Payers Encounter Date Sequence Insurance Name Policy Number Policy Pang Covered Member ID Pang Member ID Guarantor Name 10/06/2024 1 [facility] ([place]) [id number] Ellis Rivas [id number] Laura Rivas Notes Date Note Type [...] vision checked regularly. Normal ear exam today. Macon Hallpike was positive to the right, and I did perform the faizan maneuver which she tolerated well. I did give her a referral for physical therapy. In retrospect she could have had episode of vestibular neuritis over the summer, which can predispose to BPPV. ASHA PATEL MD [address] [place] [address], [address], [facility] - [facility] 10/14/2024 12:55:27 OBGyn Episode No OBEpisode recorded.
--- OUTSIDE RECORDS SUMMARY | 2024-12-10 07:02 | XMS_ITS | Encounter Summary ---
Author Organization [employer] Address [address] [facility] 7t [place] [address] Care Team Providers Care Chair Caner Name Role Phone Frances Li MD Primary Care Provider [phone] Olivia Montoya Unavailable Nestor Downey MD Unavailable Peyton Earl MD Unavailable Anibal Ferrell MD Unavailable [phone] Reason for Visit * Reason Comments Med Refill Encounter Details Date Type Department Care Team (Late st Contact Info) Description 12/30/2023 Refill [facility] [address] [place] [address] Payal Berry MD [address] [place], [place] [phone] Nasal congestion; Pain of nose Social History Tobacco Use Types Packs/Day Years Used Date Smoking Tobacco: Former Cigarettes 0.3 30 Passive Smoke Exposure: Past Smokeless Tobacco: Never Housing Stability Answer Date Recorded What is your housing situation today? I have kemalezekiel hernandez 06/04/[address] you [...] sinuses documented in this encounter Care Teams Chair Caner Relationship Specialty Start Date End Date Frances Li MD [address] [place] [address] PCP - General Family Medicine 03/07/19 Olivia Montoya [address] [facility] [address] [place] [address] 09/22/24 Nestor Downey MD 10 [facility] [address] [place] [address] Orthopaedic Surgery 10/11/24 Peyton Earl MD 2 [facility], [address] [place] [address] Neurosurgery 10/11/24 Anibal Ferrell MD 11 [facility] 3rd [place] [address] General Surgery 11/04/24 documented as of this encounter
[2024-12-10 08:08] LABS: Estimated Average Glucose 111 mg/dL; Hemoglobin A1C 129.1508 umol/L; Hemoglobin A1c % 5.5 % (<6.0); Total Hemoglobin (HGBA1C) 3539.4351 umol/L
[2024-12-10 08:45] LABS: Alanine Aminotransferase 32 U/L (0-31); Albumin Level 4.3 g/dL (3.5-5.0); Alkaline Phosphatase 89 U/L (39-117); Aspartate Amino Transferase 42 U/L (5-31); Bilirubin Direct 0.3 mg/dL (0.0-0.5); Cholesterol 206 mg/dL (<200); HDL Cholesterol 85 mg/dL (>40); LDL Cholesterol Calculated 104 mg/dL (<100); Total Protein 7.2 g/dL (6.5-8.0); Triglycerides 86 mg/dL (<150)
== END 2024-12-10 07:01 | disposition home or self-care (01) ==
LOC: HO.LAB 07:00
PROVIDERS: PCP Family Medicine; Visit Provider Family Medicine
DX: G62.9 Polyneuropathy, unspecified (principal); E78.5 Hyperlipidemia, unspecified; R17 Unspecified jaundice; Z13.1 Encounter for screening for diabetes mellitus
CPT/HCPCS: 36415; 80061; 80076; 83036

== ENCOUNTER 2025-04-29 10:33 | Outpatient (AMB) | payer BC, SELFPAY ==
--- OUTSIDE RECORDS SUMMARY | 2025-04-21 09:20 | XMS_ITS ---
Author Organization [facility] Address [address] [place] [address] Care Team Providers Care Sewer Pipe Layer Helper Name Role Phone Frances Li MD Primary Care Provider Astrid Elvin Lindquist [phone] Allergies Allergen (clinical drug ingredient) Drug/Non Drug Allergy documented on EMR Reaction Allergy Type Onset Date Status acetaminophen Tylenol Unknown Drug Allergy Act jaden REASON FOR VISIT Patient presents today for a screening colon Medications Medication SIG (Take, Route, Frequency, Duration) Notes Start Date End Date Status Dicyclomine HCl 10 MG 1-2 capsules Orall y QID prn abdominal discomfort for 30 day(s) Not-Taking MiraLax - 1 packet mixed with 8 ounces of fluid Orally prn Not-Taking Omeprazole 20 MG 1 capsule 30 minutes before morning meal Orally Once a day for 30 day(s) Not-Taking amLODIPine Besylate 5 MG TAKE 1 TABLET B Y MOUTH EVERY DAY Oral for 90 Days Active Gabapentin 300 MG 1 capsule Orally Twi ce a day Not-Taking Vitamin D 2000 UNIT 1 tablet Orally Once a day for 30 day(s) Active Estradiol 0.1 MG/GM Vaginal for 90 Days Active Multivitamins - as directed Orally once a day Active Lisinopril 10 MG TAKE 1 TABLET BY XAVIER TH EVERY DAY Oral for 90 Days Active Atorvastatin Calcium 40 MG Oral for 90 Days Active Social History Tobacco Use: Social History Observation Description Date Details (start date - stop date) Never Smoker NA - NA Alcohol Screen Question Answer Notes Did you have a drink contain ing alcohol in the past year? Yes Points 2 Interpretation Negative How often did you have 6 or more drinks on one occasion in the past year? Never (0 point) How many drinks did you have on a typical day when you were drinking in the past year? 1 or 2 drinks (0 point) How often did you have a dri nk containing alcohol in the past year? 2 to 4 times a month (2 points) Tobacco Control (Standard) Question Answer Notes Tobacco use: Nonsmoker AUDIT-C (Standard) Question Answer Notes Did you have a drink contain ing alcohol in the past year? Yes How often did you have a dri nk containing alcohol in the past year? Monthly or less (1 point) How many drinks did you have on a typical day when you were drinking in the past year? 1 or 2 drinks (0 point) How often did you have six o r more drinks on one occasion in the past year? Never (0 point) Points 1 Interpretation Negative Section Notes: Nonsmoker x 3; no sig alcoho l Problems Problem Type SNOMED Code ICD Code Onset Dates Problem Status W/U Status Risk Notes Problem Family History of Cancer of Colon (Situation) (798044025) Family history of colon cancer (Z80.0) Active confirmed Vital Signs Temperature 97.1 degrees Fahrenheit 04/21/20 25 Blood pressure systolic 001 mm Hg 04/21/20 25 Blood pressure diastolic 01 mm Hg 025 Height 66.5 in 04/21/2025 Weight 160 lbs 04/21/2025 BMI 25.44 kg/m2 04/21/2025 Procedures Procedure Date Ordered Date Performed Result Body Sit e COLONOSCOPY 04/21/2025 N/A Encounters Encounter Location Date Provider Diagnosis [facility] [address] [place] [address] 04/21/2025 Elvin Fields Hx of adenomatous colonic polyps Z86.010 ; Encounter for screening for malignant neoplasm of colon Z12.11 ; Irritable bowel syndrome with constipation K58.1 and Family history of colon cancer Z80.0 Assessments Encounter Date Diagnosis (ICD Code) Assessment Notes Treatment Notes Treatment Clinical Notes Section Notes 04/21/2025 Hx of adenomatous colonic polyps (ICD-10 - Z86.010) Overall, Laura appears quite well. She is not having any new or worrisome GI complaints. Her previous irritable bowel symptoms seem to be stable and much improved without any specific treatment. I did advise her to continue a healthy diet with plenty of fruits, vegetables and water. We did discuss that she could always resume any fiber supplement such as Metamucil if need be to keep her bowel movements regular. It does not sound like she needs any further prescriptions for antispasmodics at this time. I did recommend a follow-up colonoscopy for further screening given her last colonoscopy being over 5 years ago, her personal history of tubular adenomas of the colon, and her family history of colorectal cancer. We did review the rationale for this in regard to colon cancer prevention. Full consent has been attained for this, including risks of bleeding and perforation. The procedure will be done with monitored anesthesia care. Laura was comfortable with this plan. Thank you again for allowing me to participate in Kimberly's care. I shall continue to keep you advised of her progress. 04/21/2025 Encounter for screening for malignant neoplasm of colon (ICD-10 - Z12.11) Overall, Laura appears quite well. She is not having any new or worrisome GI complaints. Her previous irritable bowel symptoms seem to be stable and much improved without any specific treatment. I did advise her to continue a healthy diet with plenty of fruits, vegetables and water. We did discuss that she could always resume any fiber supplement such as Metamucil if need be to keep her bowel movements regular. It does not sound like she needs any further prescriptions for antispasmodics at this time. I did recommend a follow-up colonoscopy for further screening given her last colonoscopy being over 5 years ago, her personal history of tubular adenomas of the colon, and her family history of colorectal cancer. We did review the rationale for this in regard to colon cancer prevention. Full consent has been attained for this, including risks of bleeding and perforation. The procedure will be done with monitored anesthesia care. Laura was comfortable with this plan. Thank you again for allowing me to participate in Kimberly's care. I shall continue to keep you advised of her progress. 04/21/2025 Irritable bowel syndrome with constipation (ICD-10 - K58.1) Overall, Laura appears quite well. She is not having any new or worrisome GI complaints. Her previous irritable bowel symptoms seem to be stable and much improved without any specific treatment. I did advise her to continue a healthy diet with plenty of fruits, vegetables and water. We did discuss that she could always resume any fiber supplement such as Metamucil if need be to keep her bowel movements regular. It does not sound like she needs any further prescriptions for antispasmodics at this time. I did recommend a follow-up colonoscopy for further screening given her last colonoscopy being over 5 years ago, her personal history of tubular adenomas of the colon, and her family history of colorectal cancer. We did review the rationale for this in regard to colon cancer prevention. Full consent has been attained for this, including risks of bleeding and perforation. The procedure will be done with monitored anesthesia care. Laura was comfortable with this plan. Thank you again for allowing me to participate in Kimberly's care. I shall continue to keep you advised of her progress. 04/21/2025 Family history of colon cancer (ICD-10 - Z80.0) Overall, Laura appears quite well. She is not having any new or worrisome GI complaints. Her previous irritable bowel symptoms seem to be stable and much improved without any specific treatment. I did advise her to continue a healthy diet with plenty of fruits, vegetables and water. We did discuss that she could always resume any fiber supplement such as Metamucil if need be to keep her bowel movements regular. It does not sound like she needs any further prescriptions for antispasmodics at this time. I did recommend a follow-up colonoscopy for further screening given her last colonoscopy being over 5 years ago, her personal history of tubular adenomas of the colon, and her family history of colorectal cancer. We did review the rationale for this in regard to colon cancer prevention. Full consent has been attained for this, including risks of bleeding and perforation. The procedure will be done with monitored anesthesia care. Laura was comfortable with this plan. Thank you again for allowing me to participate in Kimberly's care. I shall continue to keep you advised of her progress. Plan Of Treatment Pending Test Test Name Order Date COLONOSCOPY 04/21/2025 Next Appt Details Provider Name:Elvin Stevenson Donnie , 07/21/2025 08:30:00 AM, [address] [place] [address], [phone], Progress Notes * JASPREET JACKSON:1965 ( 59 yo F)Acc No.[id number]:04/21/2025 Progress Notes Patient: LAURA DONAHUE Provider: Jewell Fields MD :1965 A ge:59 Y S ex:Female Date:04/21/2025 Address:[address] [place] [address] Pcp:Frances Li MD Subjective: * Chief Complaints: * 1 . Patient presents today for a screening colon. * HPI: i ncontinence: I saw Laura in the office today for evaluation of her personal history of tubular adenomas of the colon, family history of colon cancer, need for colorectal cancer screening, and her underlying history of irritable bowel syndrome. I last saw Laura in January 2020, at which time she underwent a follow-up screening colonoscopy with removal of 2 small tubular adenomas. She presently feels well. She reports that her previous issues with irritable bowel syndrome and constipation have improved without any particular treatment. She had previously been on some fiber supplements and an antispasmodic but is no longer needing those by her description. She reports that her bowel movements have been regular and without any signs of bleeding. She describes a good appetite and denies any significant heartburn or dysphagia. She denies any abdominal pains, jaundice, nor unintentional weight loss. She is adopted but did recently find out some family history. She describes a half-brother with colon cancer and a maternal aunt with colon cancer as well. * Medical History: D enies [place],DM,CVA,Lung disease,renal disease, Negative upper GI series in 2011 other than some minimal reflux, Screening Colonoscopy in 09/2014- -1 small tubular adenoma, diverticulosis, internal hemorrhoids, IBS with predominantly constipation, Neg. celiac antibodies in 09/2017, Neg CT of abdomen/pelvis in 06/2017 and U/S of abdomen in 08/2016; normal U/S of the abdomen in 07/2018 and in 05/2019, EGD in 12/2018- small HH, bx neg for celiac disease and Hpylori, no esophagitis, Screening colonoscopy 01/2020 with 2 small tubular adenomas. * Surgical History: C -section , Cholecystectomy-Dr. Almanzar , Umbilical hernia repair- Dr. Almanzar 12/16/2017, Back surgery- lower back for a disc 2019. * Hospitalization/Major Diagno stic Procedure: D enies Past Hospitalization. * Family History: F ather: unknown. M other: . M aternal aunt: alive. A 1/2 brother and an aunt with colon cancer Mother from diabetes. * Social History: T obacco Use: T obacco Control (Standard) T obacco use: N onsmoker. D rugs/Alcohol: A lcohol Screen D id you have a drink containing alcohol in the past year? Y es, H ow often did you have 6 or more drinks on one occasion in the past year? N ever (0 point), H ow many drinks did you have on a typical day when you were drinking in the past year? 1 or 2 drinks (0 point), H ow often did you have a drink containing alcohol in the past year? 2 to 4 times a month (2 points), P oints 2 , I nterpretation N egative. M iscellaneous: M arital status: . 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 D rug/Alcohol: A ALFONZO-C (Standard) D id you have a drink containing alcohol in the past year? Y es,?How often did you have a drink containing alcohol in the past year? M onthly or less (1 point), H ow many drinks did you have on a typical day when you were drinking in the past year? 1 or 2 drinks (0 point), H ow often did you have six or more drinks on one occasion in the past year? N ever (0 point), P oints 1 , I nterpretation N egative. N onsmoker x 3; no sig alcohol. * Medications: T aking Multivitamins - Capsule as directed Orally once a day , Taking Vitamin D 2000 UNIT Tablet 1 tablet Orally Once a day , Taking Estradiol 0.1 MG/GM Cream Vaginal , Taking Lisinopril 10 MG Tablet TAKE 1 TABLET BY MOUTH EVERY DAY Oral , Taking Atorvastatin Calcium 40 MG Tablet Oral , Taking amLODIPine Besylate 5 MG Tablet TAKE 1 TABLET BY MOUTH EVERY DAY Oral , Not-Taking/PRN Gabapentin 300 MG Capsule 1 capsule Orally Twice a day , Not-Taking/PRN MiraLax - Packet 1 packet mixed with 8 ounces of fluid Orally prn , Not-Taking/PRN Omeprazole 20 MG Capsule Delayed Release 1 capsule 30 minutes before morning meal Orally Once a day , Not-Taking/PRN Dicyclomine HCl 10 MG Capsule 1-2 capsules Orally QID prn abdominal discomfort , Medication List reviewed and reconciled with the patient * Allergies: T ylenol. Objective: * Vitals: W t:160lbs, Ht: 66.5 in, BMI:25.44Index, BP:001/01mm Hg, Temp:97.1, Wt-k.58. Assessment: * Assessment: 1. H x of adenomatous colonic polyps - Z86.010 (Primary) 2 . E ncounter for screening for malignant neoplasm of colon - Z12.11 3 . I rritable bowel syndrome with constipation - K58.1 4 . F amily history of colon cancer - Z80.0 ? Overall, Laura appears quite w ell. She is not having any new or worrisome GI complaints. Her previous irritable bowel symptoms seem to be stable and much improved without any specific treatment. I did advise her to continue a healthy diet with plenty of fruits, vegetables and water. We did discuss that she could always resume any fiber supplement such as Metamucil if need be to keep her bowel movements regular. It does not sound like she needs any further prescriptions for antispasmodics at this time. I did recommend a follow-up colonoscopy for further screening given her last colonoscopy being over 5 years ago, her personal history of tubular adenomas of the colon, and her family history of colorectal cancer. We did review the rationale for this in regard to colon cancer prevention. Full consent has been attained for this, including risks of bleeding and perforation. The procedure will be done with monitored anesthesia care. Laura was comfortable with this plan. Thank you again for allowing me to participate in Kimberly's care. I shall continue to keep you advised of her progress. Plan: * Treatment: 2.?Encounter for screening for malignant neoplasm of colon?Procedure: COLONOSCOPY* with MACsched for 07/21/25 a t 8:30 ammiralax 3.?Family history of colon cancer?Procedure: COLONOSCOPY* with MACsched for 07/21/25 a t 8:30 ammiralax * Procedure Codes: 4 5378 DIAGNOSTIC COLONOSCOPY * Preventive Medicine: Counseling: C are goal follow-up plan: Bj escalante Normal BMI Follow-up G iving encouragement to exercise. Urinary Incontinence: U rinary Incontinence A ssessment: A bsent, P arcadio of care documented: N o, reason not specified. Screenings: F all Risk Screening F all Risk Assessment: N o falls in the past year, S creening: N o falls in the past year, P arcadio of Care: N ot documented, no reason specified. * * The named appointment provid er may or may not be the originator of this progress note, and it is not deemed complete until electronically signed by the appointment provider. Sign off status: Pending * Provider: Jewell Fields MD Date: 0 04/21/2025 Generated for Bartolome conrad/Valerie/Arjunitting on: 0 04/29/2025 10:35 AM EDT History and Physical Notes * HPI (History of Present Illness) Category Sub-Category Detail Notes Category Not es incontinence I saw Laura in the office today for evaluation of her personal history of tubular adenomas of the colon, family history of colon cancer, need for colorectal cancer screening, and her underlying history of irritable bowel syndrome. I last saw Laura in January 2020, at which time she underwent a follow-up screening colonoscopy with removal of 2 small tubular adenomas. She presently feels well. She reports that her previous issues with irritable bowel syndrome and constipation have improved without any particular treatment. She had previously been on some fiber supplements and an antispasmodic but is no longer needing those by her description. She reports that her bowel movements have been regular and without any signs of bleeding. She describes a good appetite and denies any significant heartburn or dysphagia. She denies any abdominal pains, jaundice, nor unintentional weight loss. She is adopted but did recently find out some family history. She describes a half-brother with colon cancer and a maternal aunt with colon cancer as well.
--- OUTSIDE RECORDS SUMMARY | 2025-04-29 10:35 | XMS_ITS | Patient Health Record ---
[facility] Organization [facility] Address [address] [place] [address] Care Team Providers Care English Horn Player Name Role Phone Frances Li MD Primary Care Provider Astrid vailable Black, Shena Unavailable [phone] Allergies Allergen (clinical drug ingredient) Drug/Non Drug Allergy documented on EMR Reaction Allergy Type Onset Date Status acetaminophen Tylenol hard time breathing Drug Allergy Active Reason For Referral No Information Medications Medication SIG (Take, Route, Frequency, Duration) Notes Start Date End Date Status Biofreeze 4 % 1 application as needed Externally Three times a day 11/24/2022 Not-Taking amLODIPine Besylate 5 MG Oral; Duration: 90 Active Ibuprofen 400 MG 1 tablet with food or milk as needed Orally Three times a day 11/24/2022 Active Gabapentin 300 MG Oral; Duration: 30 Active Paxlovid (300/100) 20 x 150 MG & 10 x 100MG Oral; Duration: 5 N ot-Taking Physical Therapy . . . 2-3x/week; Duration: 3-4 weeks 01/08/2023 Active Lisinopril 10 MG TAKE 1 TABLET BY MOUTH EVERY DAY Oral; Duration: 90 I10,Unavailab le Active Atorvastatin Calcium 20 MG Oral; Duration: 90 Active Estradiol 0.1 MG/GM as directed [...] Problem Acquired hammer toe of right foot (7596346240531 105) Hammer toe of right foot (M20.41) Active confirmed Plan Of Treatment No Information Insurance Providers Payer Name Payer Address Payer Phone Subscriber Number Group Number Insured Name Patient Relationship to Insured Coverage Start Date Coverage End Date [facility] [address] [place] [address] [id number] Ellis Rivas Spouse - patient is the spouse of the insured Medical (General) History Medical History History ICD Code Anxiety Back,Hip,and Knee pain covid-19 Gall bladder problems Headaches High blood pressure Numbness Chicken pox Surgical History Surgery Date(Month/Year) section 02/14/1984 cholecystectomy 2009 back surgery 05/2020
--- OUTSIDE RECORDS SUMMARY | 2025-04-29 10:35 | XMS_ITS | Patient Health Record ---
Author Organization [facility] Address [address] [place] [address] Care Team Providers Care Set Up Inspector Name Role Phone Frances Li MD Primary Care Provider Astrid Elvin Lindquist Unavailable [phone] Allergies Allergen (clinical drug ingredient) Drug/Non Drug Allergy documented on EMR Reaction Allergy Type Onset Date Status acetaminophen Tylenol Unknown Drug Allergy Act jaden Reason For Referral No Information Medications Medication SIG (Take, Route, Frequency, Duration) Notes Start Date End Date Status Vitamin D 2000 UNIT 1 tablet Orally Once a day for 30 day(s) Active Estradiol 0.1 MG/GM Vaginal for 90 Days Active Multivitamins - as directed Orally once a day Active Dicyclomine HCl 10 MG 1-2 capsules Orall [...] Gabapentin 300 MG 1 capsule Orally Twi a day Not-Taking Lisinopril 10 MG TAKE 1 TABLET BY XAVIER TH EVERY DAY Oral for 90 Days Active Atorvastatin Calcium 40 MG Oral for 90 Days Active Immunizations Vaccine Route Administration Date Status Comme nts Influenza Unknown 06/16/2018 Administered Influenza Unknown 05/10/2019 Administered Social History Tobacco Use: Social History Observation Description Date Details (start date - stop date) Never Smoker NA - NA Tobacco Control (Standard) Question Answer Notes Tobacco [...] Nonsmoker x 3; no sig alcoho l Smoker; no sig alcohol Smoker; no sig alcohol Smoker; no sig alcohol Smoker; no sig alcohol Problems Problem Type SNOMED Code ICD Code Onset Dates Problem Status W/U Status Risk Notes Problem 170862638 Encounter for screening for malignant neoplasm of colon (Z12.11) Active confirmed Problem Family History of Cancer of Colon (Situation) (110082236) Family history of colon cancer (Z80.0) Active confirmed Problem 82547200 Constipation, unspecified constipation type (K59.00) Active confirmed Problem 288740452 Hx of adenomatou s colonic polyps (Z86.010) Active confirmed Problem 68201197 Upper abdominal pain (R10.10) Active confirmed Problem 050646037 Irritable bowel syndrome with constipation (K58.1) Active confirmed Vital Signs Temperature 97.1 degrees Fahrenheit 04/21/2025 Blood pressure diastolic 01 mm Hg 04/21/2025 Height 66.5 in 04/21/2025 Blood pressure systolic 001 mm Hg 04/21/2025 Weight 160 lbs 04/21/2025 BMI 25.44 kg/m2 04/21/2025 Procedures Procedure Date Ordered Date Performed Result Body Sit e COLONOSCOPY 04/21/2025 N/A Encounters Encounter Location Date Provider Diagnosis [facility] [address] [place] [address] 04/21/2025 Elvin Fields Hx of adenomatous colonic polyps Z86.010 ; Encounter for screening for malignant neoplasm of colon Z12.11 ; Irritable bowel syndrome with constipation K58.1 and Family history of colon cancer Z80.0 Assessments Encounter Date Diagnosis (ICD Code) Assessment Notes Treatment Notes Treatment Clinical Notes Section Notes 04/21/2025 Encounter for screening for malignant neoplasm [...] keep you advised of her progress. 04/21/2025 Hx of adenomatous colonic polyps (ICD-10 [...] again for allowing me to participate in Kimbrely's care. I shall continue to keep you advised of her progress. Plan Of Treatment Pending Test Test Name Order Date COLONOSCOPY 04/21/2025 Future Test Test Name Order Date COLONOSCOPY 07/12/2014 UPPER GI ENDOSCOPY 11/16/2018 COLONOSCOPY 07/05/2019 Next Appt Details Provider Name:Elvin Fields , 07/21/2025 08:30:00 AM, [address] [place] [address] , [place], [place], [phone], Insurance Providers Payer Name Payer Address Payer Phone Subscriber Number Group Number Insured Name Patient Relationship to Insured Coverage Start Date Coverage End Date [facility] [address] [place], [place] [id number] LAURA JACKSON Self - patient is the insured Medical (General) History Medical History History ICD Code Denies [place],DM,CVA,Lung disease,renal dise ase Negative upper GI series in 2011 other t mcgrath some minimal reflux Screening Colonoscopy in 09/11 015- -1 small tubular adenoma, diverticulosis, internal hemorrhoids IBS with predominantly constipation Neg. celiac antibodies in 09/[address] of abdomen/pelvis in 06/2017 and U/S of abdomen in 08/2016; normal U/S of the abdomen in 07/2018 and in 05/2019 EGD in 12/2018- small HH, bx neg for celiac disease and Hpylori, no esophagitis Screening colonoscopy 01/2020 with 2 smal l tubular adenomas Surgical History Surgery Date(Month/Year) Back surgery- lower back for a disc 2019 Umbilical hernia repair- Dr. Almanzar 12/16 Cholecystectomy-Dr. Almanzar
--- OUTSIDE RECORDS SUMMARY | 2025-04-29 10:35 | XMS_ITS ---
Author Name Ileana Jeffers Address Unknown Organization [facility] Care Team Providers Care Comic Artist Name Role Phone Unavailable Primary Care Physician Unavailab le History Of Present Illness This is a 59 year old female who is following up for hand dermatitis on the hands. 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 she states the only thing that has changed was the dosage of her atorvastatin from 20 to40mg, then back down to 20. Her hands have looked ???orange?? for 2 months. Asymptomatic. Discussed lab work which she has obtained / is going to be obtaining TSH and liver enzymes. She denies eating foods with significant amount of lycopene such as carrots and tomatoes. Denies using self kal.The patient presents for focused visit and further evaluation and management.The patient followed thetreatment plan as directed.Interval History: She reports the palms has improved, but she has continued issues in the fingers area, especially moon thumbs. Painful only when they crack. She reports they are very calloused. Allergies, Adverse Reactions, Alerts Substance RxNorm Reaction(s) Severity Status Start Da te Tylenol unspecified active Medications Medication Generic Name RxNorm Strength Strength Unit Route Dose Dose Form Frequency Date Started Date Ended Status Indication Sig clobetasol clobetas ol 208552 0.05 % Topica l cream BID 05/20/20 24 active Appl y twic e theron y to ecze ma up to 2 week s/mo nth as need ed. Eucrisa crisabor ole 8017193 2 % Topica l ointm ent prn 05/20/20 24 active Appl y thin laye r to hand s as need ed prn symp toms mupirocin mupiroci n 409992 2 % Topica l ointm ent prn 08/21/19 23 active Appl y to thin laye r BID to nose . amlodipine besylate (bulk) amlodipi ne besylate (bulk) 5mg miscel laneou s 1 Tablet Daily suspend ed alprazolam 450718 0.5 mg Oral 1 table t qd suspend ed amlodipine 000981 5 mg Oral 1 table t qd active blood pressure amoxicillin -pot clavulanate 048502 875-125 mg Oral 1 table t qd suspend ed atorvastati n atorvast atin 20 mg Oral 1 table t qd active cholesterol atorvastati n 193778 20 mg Oral table t suspend ed estrogens-m ethyltestos terone estrogen s-methyl testoste skyler 0.625-1.2 5 mg Oral 1 table t qd active HRT gabapentin gabapent in 300 mg Oral 1 capsu le qd suspend ed pain gabapentin 721168 300 mg Oral capsu le suspend ed lisinopril lisinopr il 214291 10 mg Oral 1 table t qd active blood pressure lisinopril 419541 10 mg Oral table t suspend ed magnesium glycinate 100 mg magnesium Oral 1 capsu le qd suspend ed wellness naproxen 956650 500 mg Oral 1 table t prn suspend ed pain Valtrex valacycl ovir 909009 1 gram Oral 1 table t prn 10/12/19 20 active At firs t sign of ting ling take two tabl ets by mout h and take anot her two tabl ets 12 hour s late r. Valtrex valacycl ovir 987140 1 gram Oral table t Q12 HOURS 07/08/20 22 suspend ed Take two pill s (2 GM) at firs t sign of outb reak , then take two pill s 12 hour s late r. estradiol 156722 0.01 % (0.1 mg/gram) Vagina l cream qd active dryness Azithromyci n NULL 07/24/20 16 active Famciclovir NULL 07/24/20 16 active Mupirocin NULL 07/24/20 16 suspend ed PrednisoLON E NULL 07/24/20 16 active ProAir HFA NULL 07/24/20 16 suspend ed ValACYclovi r HCl NULL 11/24/19 14 suspend ed Valtrex NULL 01/29/20 11 suspend ed Problems Problem Code Type Status Date of Diagnosis Date of Resolution Eczema (disorder) 33002854(SN OMED) Diagnosis active 04/24/2025 Hypercarotinemia (disorder) 55674741(SN OMED) Diagnosis active 10/26/2024 Eczema (disorder) 20562378(SN OMED) Diagnosis active 10/03/2024 Eczema (disorder) 36701383(SN OMED) Diagnosis active 07/01/2024 Eczema (disorder) 74556023(SN OMED) Diagnosis active 05/20/2024 Melanocytic nevus of right upper limb (disorder) 916225515(S NOMED) Diagnosis active 07/08/2022 Herpesviral vesicular dermatitis (disorder) 661555553(S NOMED) Diagnosis active 07/08/2022 Neoplasm of uncertain behavior of skin (disorder) 41539222(SN OMED) Diagnosis active 03/19/2021 Disorder of pigmentation (disorder) 178789462(S NOMED) Diagnosis active 03/19/2021 Melanocytic nevus (disorder) 185226263(S NOMED) Diagnosis active 03/19/2021 Epidermoid cyst of skin (disorder) 985987296(S NOMED) Diagnosis active 03/19/2021 Herpesviral vesicular dermatitis (disorder) 237505147(S NOMED) Diagnosis active 03/19/2021 Melanocytic nevi of scalp and neck D22.4(ICD-1 0) Diagnosis active 09/14/2020 Herpesviral vesicular dermatitis B00.1(ICD-1 0) Diagnosis active 10/13/2019 Increased blood pressure (finding) 60044384(SN OMED) Problem active History of clinical finding in subject (situation) 967941949(S NOMED) Problem active Results No data Encounters Service provided at [facility], [address] [place] [address], [facility], [place], [place] [id number]. Office phonenumber is [phone]. Office fax number is [phone]. Encounter Diagnosis Location Date / Time Type Hand Dermatitis (L30.8) [facility] 04/24/2025 17:20: 00 [facility] [address] Reason For Referral No data Procedures Procedure Date Shave biopsy (procedure) 03/19/2021 12:0 0 am [facility] Documentation of past medical history (p rocedure) Review Of Systems Provider reviewed on Apr 24, 2025.A focused review of systems was performed including Hematologic /Lymphatic, Integumentary, and Psychiatric and was notable for problems with healing and anxiety.No Problems With Scarring (hypertrophic Or Keloid) And No Problems With Bleeding. Assessment 1.Hand Dermatitis, Status: ImprovedCounselingPrescription Medication Management: hand; hand; Plan -:Patient presents today after using Clobetasol. She reports improvement on her palm; however, continues to have itching on her fingers. Pt admits being inconsistent with clobetasol use. Discussed switching to stronger topical steroid Vs. being using consistent with clobetasol use. Pt would like to continue with current regimen. Continue: Clobetasol 0.05% topical cream bid 2 weeks on, 1 week off repeat prn Future conisderations:Photo therapySystematic medications FU in 3 months for reassessment.;. Plan of Care Future visit for 07/17/2025 - Follow up in 3 months for: Focused Visit - 10 minutes. Other Instructions: FU hand dermatitis. Other Instructions: FU hand dermatitis. Code Detail Instructions 622324 clobetasol 0.05 % topical cream Apply twice daily to eczema up to 2 weeks/month as needed. 5779362 Eucrisa 2 % topical ointment Emely ly thin layer to hands as needed prn symptoms 838198 clobetasol 0.05 % topical cream Apply twice daily to eczema up to 2 weeks/month as needed. 167657 mupirocin 2 % topical ointment A pply to thin layer BID to nose. 051709 Valtrex 1 gram tablet Take two p ills (2 GM) at first sign of outbreak, then take two pills 12 hours later. 046242 Valtrex 1 gram tablet At first s ign of tingling take two tablets by mouth and take another two tablets 12 hours later. Instructions * I counseled the patient regarding the following:Skin care: Patient should wash using lukewarm waterwith a mild cleanser and moisturize immediately after. Emollients should be applied at least 2-3 times daily. Avoid scented detergents or fabric softeners. Keep fingernails short. Avoid excessive hand washing.Expectations: The patient is aware that hand dermatitis is chronic in nature and can improve with moisturizers and topical steroids and worsen with stress, scented soaps, detergents, scratching, dry skin, changes in weather and skin infections.Contact office if: Hand dermatitis worsens or fails to improve despite several weeks of treatment; patient develops skin infections (such as: yellow honey colored crusts or cold sores).I recommended the following: CleansersMoisturizersThe following medication counseling was provided:I discussed with the patient that prolonged use of topical steroids can result in the increased appearance of superficial blood vessels (telangiectasias), lightening (hypopigmentation) and thinning of the skin (atrophy). Patient understands to avoid using high potency steroids in skin folds, the groin or the face. The patient verbalized understanding of the pro per use and possible adverse effects of topical steroids. All of the patient's questions and concerns were addressed. Social History Code Activity Start Date End Date 4961219 (SNOMED) Former smoker Sex female Sexual orientation Unspecified Gender identity Unspecified Vital Signs No data
--- NOTE | 2025-04-29 11:11 | MHC.OFFWIV ---
Intake Vital Signs 04/29/25 11:12 Height 5 ft 7 in Weight 161 lb BMI 25.2 BP 124/70 Blood Pressure Location Rt brachial Position Sitting Respiration 16 Pulse 72 Pulse Source Pulse Oximeter Temp 97.9 F Temp Source Oral Intake Visit Reasons: EP-cough Intake Note: Pt is here today c/o cough x3wks Patient Tobacco Use Status: Former Tobacco user Allergies acetaminophen (From TYLENOL) Allergy (Severe, Verified 04/29/25 11:13) THROAT CLOSES dichloralphenazone (From MIDRIN) Allergy (Severe, Verified 04/29/25 11:13) PANIC ATTACK From MIDRIN Allergy (Severe, Uncoded 04/29/25 11:13) PANIC ATTACK Midrin Adverse Reaction (Unknown, Uncoded 04/29/25 11:13) anxiety HPI EP-cough HPI Details Patient is a 59-year-old female comes to the walk-in clinic complaining of cough for 3 weeks. She denies underlying respiratory issues or comorbidities, recent known sick contacts or travel. Reports that she initially had headache, sore throat and malaise at symptom onset the lasted for a few days, and she missed work for 2 days. Since then, she has had a persistent dry cough that is spontaneous and short lived however, as she does not get short of breath and fits. No fever or chills, malaise or myalgias, nausea vomiting or diarrhea, headache or dizziness, shortness of breath or chest pressure or pain, or other significant associated symptoms. 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 Sexual orientation: Straight/Heterosexual Gender identity: Female Female Reproductive History Menstrual Age of Menarche: 10 Review of Systems Const All systems reviewed & are unremarkable except as noted in HPI and below Physical Exam Vital Signs: Last Vital Signs Temp 97.9 F 04/29/25 11:12 Pulse 72 04/29/25 11:12 Resp 16 04/29/25 11:12 BP 124/70 04/29/25 11:12 BMI result Body Mass Index 25.2 Const General: cooperative, healthy appearing, comfortable, no acute distress, alert, awake, Physically active and well groomed; No anxious, diaphoretic, ill appearing, intoxicated appearing, poor hygiene or tired appearing Nutritional Appearance: average body habitus Orientation/consciousness: oriented to person Limitations: no limitations HEENT Head: Yes normal to inspection, Yes normocephalic and Yes atraumatic Ears: hearing grossly normal bilaterally, external ears normal, EAC's normal and TM abnormal (Bilateral) dull and with fluid behind the TM; not perforated and not retracted General nose exam: Normal external nose present, Normal nares present, No nasal polyps present, Normal nasal mucous membranes and turbinates present, Normal septum present and No nasal discharge present Face and sinus: Yes normal facial exam, Yes sinuses nontender and Yes face symmetric Mouth: Normal oral and palatal mucosa present, lip normal and tongue normal Throat: Yes posterior oropharynx normal, Yes uvula midline, Yes abnormal tonsil (mildly erythematous bilaterally), No peritonsillar mass, Yes postnasal drainage, No uvular edema and No cobblestoning Eyes General: appearance normal, both eyes and all related structures Neck Neck: Yes normal visual inspection, Yes trachea midline, Yes supple and No anterior neck swelling Chest Chest palpation & inspection: normal palpation of entire chest wall Resp Effort & Inspection: normal respiratory effort, able to speak in complete sentences, no audible wheezes, no grunting, not labored, no nasal flaring, no retractions and symmetric chest movement Auscultation: clear to auscultation bilaterally, no crackles, no rales, no rhonchi, no wheezes, lung sounds not diminished and No rub present Cardio Palpation: normal PMI Rate: regular rate Rhythm: regular rhythm Heart sounds: S1 normal heart sound present and S2 normal heart sound present Skin Other: Good color, warm and dry Neuro General: oriented to person Psych Appearance: grossly normal Mental Status: mental status grossly normal Speech and movement: Normal speech and movement present Affect: normal affect Attitude: cooperative Thought process: Normal thought process present Insight: Good insight present (Psych) Judgement: Good judgement present (Psych) Assessment & Plan Assessment & Plan (1) Serous otitis media: Code(s): H65.90 - Unspecified nonsuppurative otitis media, unspecified ear Qualifiers: Chronicity: acute Laterality: bilateral Recurrence: non-recurrent Qualified Code(s): H65.03 - Acute serous otitis media, bilateral Plan Patient is a 59-year-old female with no underlying respiratory issues or comorbidities, comes to the walk-in clinic with persistent cough for 3 weeks, after apparent upper respiratory infection. On exam, she has serous otitis, right worse than the left. Pending flu COVID and RSV results. There is No wheezing or chest congestion suggestive of a lower respiratory infection. We will prescribe short course prednisone to help with the drainage from the ears and decrease the coughing, and she can trial benzonatate capsules. She should also start with Flonase, which should help with the Eustachian tube drainage. When the prednisone is completed, she can transition over to ibuprofen at that point. She knows to follow up if symptoms persist or worsen, and she will be looking out for progressive ear infection symptoms, as she was advised that serous otitis can progress to that, for which she would likely need an antibiotic. She knows to go to the emergency department with worrisome symptoms Orders: Orders SARS-CoV2/FLU/RSV Today J06.9 - Acute upper respiratory infection, unspecified Medications: New benzonatate 200 mg PO BID-TID PRN 30 caps 0RF cough prednisone 40 mg (2 x 20 mg) PO DAILY 10 tabs 0RF 5 days Coding Level of Care Code Est Pt Level 4 (23706) Diagnoses Non-recurrent acute serous otitis media of both ears H65.03 Chronicity: acute Laterality: bilateral Recurrence: non-recurrent
[2025-04-29 11:12] VITALS: BP 124/70; PULSE 72; RESP 16; TEMP 36.6; BMI 25.2
== END 2025-04-29 12:32 | disposition home or self-care (01) ==
PROVIDERS: PCP Family Medicine; Visit Provider Physician Assistant Medical
DX: H65.03 Acute serous otitis media, bilateral (principal)

== ENCOUNTER 2025-04-29 10:33 | Outpatient (REF) | payer BC, SELFPAY ==
--- OUTSIDE RECORDS SUMMARY | 2025-04-29 15:11 | XMS_ITS | Encounter Summary ---
Author Organization [employer] Address [address] [facility] 7t [place] [address] Care Team Providers Care Document Scanner Name Role Phone Frances Li MD Primary Care Provider [phone] Olivia Montoya Unavailable Nestor Downey MD Unavailable Peyton Earl MD Unavailable Anibal Ferrell MD Unavailable [phone] Encounter Details Date Type Department Care Team (Late st Contact Info) Description 09/01/[address] [facility] [address] [place] [address] Tiffanie Garcia LPN Social History Tobacco Use [...] as of this encounter Plan of Treatment Upcoming Encounters Date Type Department Care Team (Late st Contact Info) Description 06/21/2025 10:30 AM EST Office Visit [facility] [address] [place], [place] [phone] Frances Li MD [address] [place] [address] documented as of this encounter Visit Diagnoses Not on filedocumented in this encounter Care Teams Document Scanner Relationship Specialty Start Date End Date Bibb, MD Frances [address] [place] [address] PCP - General Family Medicine 03/07/19 Olivia Montoya [address] [facility] [address] [place] [address] 09/22/24 Nestor Downey MD [address] [place] [address] Orthopaedic Surgery 10/11/24 Peyton Earl MD [address] [place] [address], [address] [place] [address] Neurosurgery 10/11/24 Anibal Ferrell MD [address] [facility] 3rd [place] [address] General Surgery 11/04/24 documented as of this encounter
--- OUTSIDE RECORDS SUMMARY | 2025-04-29 15:11 | XMS_ITS | Encounter Summary ---
Author Organization [employer] Address [address] 7t [place] [address] Care Team Providers Care Instructional Support Services Director Name Role Phone Frances Li MD Primary Care Provider Olivia Montoya Unavailable Nestor Downey MD Unavailable Peyton Earl MD Unavailable Anibal Ferrell MD Unavailable [phone] Reason for Visit * Reason Comments Med Refill Encounter Details Date Type Department Care Team (Late st Contact Info) Description 12/30/2023 Refill [facility] [address] [place] [address] Payal Berry MD [address] [place], [place] [phone] Nasal congestion; Pain of nose Social History [...] Description 06/21/2025 10:30 AM EST Office Visit [facility] [address] [place] [address] Frances Li MD [address] [place] [address] documented as of this encounter Visit Diagnoses Diagnosis Nasal congestion Other diseases of nasal cavity and sinuses Pain of nose Other diseases of nasal cavity and sinuses documented in this encounter Care Teams Instructional Support Services Director Relationship Specialty Start Date End Date Frances Li MD [address] [place] [address] PCP - General Family Medicine 03/07/19 Olivia Montoya [address] [facility] [address] [place] [address] 09/22/24 Nestor Downey MD [address] [place] [address] Orthopaedic Surgery 10/11/24 Peyton Earl MD [address] [place] [address], [address] [place] [address] Neurosurgery 10/11/24 Anibal Ferrell MD [address] [place] [address] Drive 3rd [place] [address] General Surgery 11/04/24 documented as of this encounter
--- OUTSIDE RECORDS SUMMARY | 2025-04-29 15:11 | XMS_ITS | Encounter Summary ---
Author Organization [employer] Address [address] [facility] 7t [place] [address] Care Team Providers Care Transit Vehicle Inspector Name Role Phone Frances Li MD Primary Care Provider [phone] Olivia Montoya Unavailable Nestor Downey MD Unavailable Peyton Earl MD Unavailable Anibal Ferrell MD Unavailable [phone] Encounter Details Date Type Department Care Team (Late st Contact Info) Description 09/04/2022 Abstract [facility] [address] [place], [place] [phone] Frances Li MD [address] [place], [place] [phone] Social History Tobacco Use Types Packs/Day Years [...] documented in this encounter Plan of Treatment Upcoming Encounters Date Type Department Care Team (Late st Contact Info) Description 06/21/2025 10:30 AM EST Office Visit [facility] [address] [place] [address] Frances Li MD [address] [place] [address] documented as of this encounter Procedures Procedure [...] on filedocumented in this encounter Care Teams Transit Vehicle Inspector Relationship Specialty Start Date End Date Frances Li MD [address] [place] [address] PCP - General Family Medicine 03/07/19 Olivia Montoya [address] [place] [address] [address] [place] [address] 09/22/24 Nestor Downey MD [address] [facility] [address] [place] [address] Orthopaedic Surgery 10/11/24 Peyton Earl MD [address] [facility], [address] [place] [address] Neurosurgery 10/11/24 Anibal Ferrell MD [address] [place] [address] 3rd [place] [address] General Surgery 11/04/24 documented as of this encounter
--- OUTSIDE RECORDS SUMMARY | 2025-04-29 15:11 | XMS_ITS | Encounter Summary ---
Author Organization [employer] Address [address] [facility] [address] 7t [place] [address] Care Team Providers Care Ruffling Machine Operator Name Role Phone Frances Li MD Primary Care Provider [phone] Olivia Montoya Unavailable Nestor Downey MD Unavailable Peyton Earl MD Unavailable Anibal Ferrell MD Unavailable [phone] Encounter Details Date Type Department Care Team (Late st Contact Info) Description 09/02/2024 Orders Only [facility] [address] [place], [place] [phone] Frances Li MD [address] [place], [place] [phone] Dyslipidemia Social History Tobacco Use Types Packs/Day [...] Description 06/21/2025 10:30 AM EST Office Visit [facility] [address] [place] [id number] Frances Li MD [address] [place] [address] documented as of this encounter Visit Diagnoses Diagnosis Dyslipidemia Other and unspecified hyperlipidemia documented in this encounter Additional Health Concerns Assessment Noted Time PHQ-9 Depression Total Score: 1 03/09/20 24 3:12 PM EDT documented as of this encounter Care Teams Ruffling Machine Operator Relationship Specialty Start Date End Date Frances Li MD [address] [place] [address] PCP - General Family Medicine 03/07/19 Olivia Montoya [address] [place] [address] [address] [place] [address] 09/22/24 Nestor Downey MD [address] [place] [address] Orthopaedic Surgery 10/11/24 Peyton Earl MD 2 [facility], [address] [place] [address] Neurosurgery 10/11/24 nAibal Ferrell MD [address]rd [place] [address] General Surgery 11/04/24 documented as of this encounter
--- OUTSIDE RECORDS SUMMARY | 2025-04-29 15:11 | XMS_ITS | Encounter Summary ---
Author Organization [employer] Address [address] [facility] 7t [place] [address] Care Team Providers Care Planer Operator / Grader Name Role Phone Frances Li MD Primary Care Provider Olivia Montoya Unavailable Nestor Downey MD Unavailable Peyton Earl MD Unavailable Anibal Ferrell MD Unavailable [phone] Encounter Details Date Type Department Care Team (Late Contact Info) Description 01/13/2023 Orders Only [facility] [address] [place] [address] [phone] Frances Li MD [address] [place] [address] [phone] MAREN positive (Primary Dx) Social History Tobacco [...] Encounters Date Type Department Care Team (Late Contact Info) Description 06/21/2025 10:30 AM EST Office Visit [facility] [address] [place], [place] [phone] Frances Li MD [address] [place] [address] documented as of this encounter Visit Diagnoses Diagnosis MAREN positive- Primary documented in this encounter Care Teams Planer Operator / Grader Relationship Specialty Start Date End Date Frances Li MD [address] [place] [address] PCP - General Family Medicine 03/07/19 Olivia Montoya [address] [facility] [address] [place] [address] 09/22/24 Nestor Downey MD [address] [facility] [address] [place] [address] Orthopaedic Surgery 10/11/24 Peyton Earl MD [address] [place] [address], [address] [place] [address] Neurosurgery 10/11/24 Anibal Ferrell MD [address] [facility] 3rd [place] [address] General Surgery 11/04/24 documented as of this encounter
--- OUTSIDE RECORDS SUMMARY | 2025-04-29 15:11 | XMS_ITS | Encounter Summary ---
Author Organization [employer] Address [address] [facility] [address] [place] [address] Care Team Providers Care Blacksmith Assistant Name Role Phone Frances Li MD Primary Care Provider [phone] Olivia Montoya Unavailable Nestor Downey MD Unavailable Peyton Earl MD Unavailable Anibal Ferrell MD Unavailable [phone] Reason for Visit * Reason Comments Med Refill Encounter Details Date Type Department Care Team (Late st Contact Info) Description 11/15/2024 Refill [facility] MEDICINE [address] [place], [place] [phone] Frances Li MD [address] [place], [place] [phone] Primary hypertension Social History Tobacco Use Types [...] Description 06/21/2025 10:30 AM EST Office Visit [facility] MEDICINE [address] [place] [phone] Frances Li MD [address] [place] [phone] documented as of this encounter Visit Diagnoses Diagnosis Primary hypertension Unspecified essential hypertension documented in this encounter Additional Health Concerns Assessment Noted Time PHQ-9 Depression Total Score: 1 03/09/20 24 3:12 PM EDT documented as of this encounter Care Teams Blacksmith Assistant Relationship Specialty Start Date End Date Frances Li MD [address] [place] [address] PCP - General Family Medicine 03/07/19 Olivia Montoya [address] [facility] [address] [place] [address] 09/22/24 Nestor Downey MD [address] [facility] [address] [place] [address] Orthopaedic Surgery 10/11/24 Peyton Earl MD [address] [facility], [address] [place] [address] Neurosurgery 10/11/24 Anibal Ferrell MD 11 [facility] 3rd [place] [address] General Surgery 11/04/24 documented as of this encounter
--- OUTSIDE RECORDS SUMMARY | 2025-04-29 15:11 | XMS_ITS | Clinical Summary ---
Author Organization [employer] Address [address] [facility] [address] [place] [address] Care Team Providers Care Silo Tender Name Role Phone Frances Li MD Primary Care Provider [phone] Olivia Montoya Unavailable Nestor Downey MD Unavailable Peyton Earl MD Unavailable Anibal Ferrell MD Unavailable [phone] Allergies Active Allergy Reactions Criticality Noted Date Comments Acetaminophen 11/21/2016 Difficulty breathing Medications valACYclovir (Valtrex) 1 g tablet 07/08/20 22 Active estradiol (Estrace) 0.1 MG/GM vaginal cream INSERT 1/2 APPLICATORFUL VAGINALLY 2 TIMES A WEEK EVERY NIGHT FOR 2 WEEKS 10/12/19 23 Active LORazepam (Ativan) 0.5 MG tablet take 1 tab po daily prn anxiety as needed 4 tablet 12/09/19 23 Active Magnesium Glycinate 100 MG capsuleIndicatio ns:Leg cramps Take 200 mg by mouth at bedtime. 60 capsule 11 01/08/20 24 Active fluticasone (Flonase Allergy Relief) 50 MCG/ACT nasal spray Administer 1 spray into each nostril Once per day. Shake gently. Before first use, prime pump. After use, clean tip and replace cap. 16 g 12 04/06/20 24 Active Eucrisa 2 % ointment APPLY THIN LAYER TO HANDS NEEDED FOR SYMPTOMS 05/25/20 24 Active atorvastatin (Lipitor) 20 MG tabletIndication s:Dyslipidemia Take 1 tablet (20 mg) by mouth Once per day. 30 tablet 11 09/02/19 25 09/02/ 026 Active lisinopril 10 MG tabletIndication s:Primary hypertension TAKE 1 TABLET BY MOUTH EVERY DAY 90 tablet 3 10/15/19 25 Active amLODIPine (Norvasc) 5 MG tabletIndication s:Primary hypertension TAKE 1 TABLET BY MOUTH EVERY DAY 90 tablet 3 11/17/19 25 Active Active Problems Problem Noted Date Diagnosed Date Breast lump 11/04/2024 Overview (11/04/2024): Seen by Dr. Anibal Stratton Cardiac risk counseling 06/09/2024 Overview (06/09/2024): Calculated [...] 2027 Fibroids 09/23/2023 Overview (09/23/2023): -followed by railroad car repairman, Dr. Thompson Jo -[place] 09/21/23 Multiple uterine [...] due after 06/08/25 -eye care facilitated by [facility] -[facility] care proxy filed 03/09/24 Assessment & Plan (06/08/2024 10:55 AM EDT): -next comprehensive annual evaluation due after 06/08/25 -eye care facilitated by [facility] -d[facility] home [facility] care proxy filed 03/09/24 Assessment & Plan (05/06/2023 11:11 AM EDT): -next physical exam due after 05/06/2024 -eye care facilitated by [facility] -dental home [facility] Anxiety 12/08/2022 Overview (12/08/2022): She [...] right knee 02/04/2022 Lumbosacral radiculopathy 02/04/2022 Overview (04/13/2025): -hx lumbar surgery -MRI 2023 right thigh negative -MRI lumbar spine Jul shows slight L4-L5 spondylolisthesis but otherwise very minimal changes -Seen by neurosurgery Dr. Peyton Earl MD, FAANS, FCNS 03/03/24, note reviewed. L spine x rays reviewed. No indication for surgery. -Seen by [facility] 02/29/24 recommending follow up with neurosurgery. No evidence of hip joint pathology. -She has compleated 3 years of physical therapy -On 03/09/24 we discussed possibility of piriformis syndrome. Strengthening discussed. She is going to see chricopractic and acupuncture. We also discussed hypnotherapy. -Has been seeing chiropractor in [place], which she has significant relief from. -seen by Dr Earl 02/21/25, given symptoms of bussing in legs, MRI ordered -seen by Dr. Peyton Earl 04/12/25 , MRI shows spondylotisthesis with stenosis in the lateral recess at 4-5 so possible TLIF is an option. Nothing to obligate surgical intervention. Flexion extension films and then if she wants to pursue surgery she will be referred out. Assessment & Plan (06/08/2024 11:03 AM EDT): -hx lumbar surgery -MRI 2023 right thigh negative -MRI lumbar spine Jul shows slight L4-L5 spondylolisthesis but otherwise very minimal changes -Seen by neurosurgery Dr. Peyton Earl MD, FAANS, FCNS 03/03/24, note reviewed. L spine x rays reviewed. No indication for surgery. -Seen by [facility] 02/29/24 recommending follow up with neurosurgery. No evidence of hip joint pathology. -She has compleated 3 years of physical therapy -On 03/09/24 we discussed possibility of piriformis syndrome. Strengthening discussed. She is going to see chricopractic and acupuncture. We also discussed hypnotherapy. -Has been seeing chiropractor in [place], which she has significant relief from. Has appt. again next week. Assessment & Plan (03/09/2024 12:37 PM EDT): -hx lumbar surgery -MRI 2023 right thigh negative -MRI lumbar spine Jul shows slight L4-L5 spondylolisthesis but otherwise very minimal changes -Seen by neurosurgery Dr. Peyton Earl MD, FAANS, FCNS 03/03/24, note reviewed. L spine x rays reviewed. No indication for surgery. -Seen by [facility] 02/29/24 recommending follow up with neurosurgery. [...] tubular adenoma 10/02/2014 and 01/20/[address] 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 She will follow up with neurology. 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 She will follow up with neurology. Encounters Date Type Department Care Team Description 04/13/2025 Telephone [facility] MEDICINE [address] [place] [address] Frances Li MD June Recalls 04/13/2025 Travel 03/14/2025 Telephone [facility] MEDICINE [address] [place] [address] Frances Li MD May Recalls from Last 3 Months Immunizations Immunization Administration Dates Next Due Hep B, adult [...] 82 06/08/2024 10:34 AM EDT Temperature 36.1 C (96.9 F) 06/08/2024 10:34 AM EDT Respiratory Rate 20 06/08/2024 10:34 AM EDT Oxygen Saturation 97% 06/08/2024 10:34 AM EDT Inhaled Oxygen Concentration - - Weight 73.9 kg (163 lb) 06/08/2024 10:34 AM EDT Height 170.2 cm (5' 7 ) 06/08/2024 10:34 AM EDT Body Mass Index 25.53 06/08/2024 10:34 AM EDT Plan of Treatment Upcoming Encounters Date Type Department Care Team (Late st Contact Info) Description 06/21/2025 10:30 AM EST Office Visit [facility] MEDICINE [address] [place] [phone] Frances Li MD [address] [place] [address] Health Maintenance Due Date Last Done Comments CT Colonography 1965 FIT DNA/Cologuard 1965 FIT 1965 FOBT 1965 Sigmoidoscopy 1965 Disability Screening 1965 Pneumococcal Vaccine: 50+ Years (1 of 1 - PCV) 10/27/2013 Zoster Vaccines (1 of 2) 10/27/2013 Colonoscopy 01/19/2025 01/20/2020 Colorectal Cancer Screening 01/19/2025 SDOH Screening 02/28/2025 02/29/2024 Depression Screening 03/09/2025 03/09/2024, 03/09/20 24 COVID-19 Vaccine ( season) 2025 03/06/2022, 06/26/2021, 09/26/2020, Additional history exists Influenza Vaccine (#1) 2025 , 06/29/2023, 05/16/2022, Additional history exists Alcohol/Substance Use Screening 06/08/2025 06/08/2024 Tobacco Screening 06/08/2025 06/08/2024 Pap Smear 08/20/2025 08/20/2022 Mammogram 04/25/2026 04/25/2024, 01/2023, 03/26/2022, Additional history exists Cervical Cancer Screening 08/20/2027 HPV/Cotest 08/20/2027 08/20/2022 DTaP/Tdap/Td Vaccines (2 - Td or Tdap) 09/10/2027 09/10/2017 Lipid Panel 12/10/2029 12/10/2024, 08/11, 07/30/2024, Additional history exists RSV Patients and Patients Aged 60 years or older (1 - 1-dose 75+ series) 10/27/2038 HIV Screening Completed 12/13/2022, 10/30/2021 Hepatitis B Vaccines Completed 11/06/2023, 06/05/2023, 05/06/2023 Hepatitis C Screening Completed 03/26/2024 HIB Vaccines Aged Out No longer eligi [...] patient's age to complete this topic Meningococcal B Vaccine Aged Out No l onger eligible based on patient's age to complete [...] Procedure Name Priority Date/Time Associated Diagnosis Comments LIPID PANEL, STANDARD Routine 12/10/2024 7:10 AM EDT Dyslipidemia BI MAMMOGRAM SCREENING TOMOSYNTHESIS BILATERAL Routine [...] Relevant to Health Maintenance Results * (ABNORMAL) Lipid Panel, Standard (12/10/2024 7:10 AM EDT) Triglycerides 86 <150 mg/dL [facility] Comment:Desirable Triglyceri de: less than 150 mg/dLBorderline High Triglyceride 150-199 mg/dLHigh Triglyceride: 200-499 mg/dLVery High Triglyceride: greater than or equal to 5OO mg/dL Cholesterol 206(H) <200 mg/dL [facility] Comment:Desirable Cholestero l: less than 200 mg/dLBorderline High Cholesterol: 200-239 mg/dLHigh Cholesterol: greater than 239 mg/dL LDL Cholesterol Calculated 104(H) <100 mg/dL [facility] Comment:Desirable LDL: less than 100 mg/dLNear Optimal/Above Optimal LDL: 110- 129 mg/dLBorderline High LDL: 130-159 mg/dLHigh LDL: 160-189 mg/dLVery High LDL: greater than or equal to 190 mg/dL HDL Cholesterol 85 >40 mg/dL [facility] Comment:Desirable HDL: great er than 40 mg/dL Note: This HDL assay may give artificially low results in patients with liver disease. Blood Venous blood specimen / Unknown 12/10/2024 7:10 AM EDT 12/10/2024 7:10 AM EDT Frances Li MD LAB BLOOD ORDERABLES Final Result [facility] [address] [place] [address] [phone] * BI Mammogram Screening Tomosynthesis Bilateral (04/25/2024 1:56 PM EDT) Anatomical Region Laterality Modality Breast Bilateral Mammography 04/25/2024 1:56 PM EDT Narrative 05/06/2024 10:45 AM EDT [address] [place] [address] Mammography Report Signed Patient: Laura Rivas MR#: [id number] 3 : 1965 Acct:[id number] Age/Sex: 58 / F ADM Date: 04/25/24 Loc: HO.MAMMO Attending Dr: Frances Li MD Ordering Physician: Frances Li MD Results: 1N egative Date of Service: 04/25/24 Follow Up: 1 Year From Orig ina Mammogram Procedure(s): MM tomosynthesis screening BI Accession Number(s): [id number] cc: Frances Li MD EXAMINATION: MM SCREENING [...] 05/06/24 1043 DD/ 1356 TD/TT: 04/25/24 1406 Senior Copywriter: Procedure Note Donotuseinterpreter, Image - 05/06/2024 [facility] [address] [place] [address] Mammography Report Signed Patient: Laura Rivas LMR#: [id number] 3 : 1965Acct:[id number] Age/Sex: 58 / FADM Date: 04/25/24 Loc: HO.MAMMO Attending Dr: Frances Li MD Ordering Physician: Frances Li MDResults: 1N egative Date of Service: 04/25/24Follow Up: 1 Year From Orig inal Mammogram Procedure(s): MM tomosynthesis screening BI Accession Number(s): [id number] cc: Frances Li MD EXAMINATION: MM SCREENING [...] 05/06/24 1043 DD/ 1356 TD/TT: 04/25/24 1406 Senior Copywriter: Frances Li MD IMG BI PROCEDURES Final Re sult * Hepatitis C Antibody with Reflex to HCV, RNA, Quantitative, Real-Time PCR (03/26/2024 7:12 AM EDT) Hepatitis C Antibody Nonreactive Nonreactive [facility] Comment:Antibodies to HCV no t detected; does not exclude early acuteHCV infection. Blood Venous blood specimen / Unknown 03/26/2024 7:12 AM EDT 03/26/2024 7:12 AM EDT Frances Li MD LAB BLOOD ORDERABLES Final Result [facility] [address] [place] [phone] * HIV Ab/Ag ([facility]) (12/13/2022 7:31 AM EDT) HIV AB/AG [...] the limit ofdetection of this assay.[employer] Host/Hostess HIV Ag/Ab Combo assay result andsupplemental assay results should be interpreted inconjunction with the patient's clinical presentation,history and other laboratory results. If the results areinconsistent with clinical evidence, additional testing issuggested to confirm the result. 12/13/2022 7:31 AM EDT 12/13/2022 7:31 AM EDT [facility] External Provider LAB BLO OD ORDERABLES Final Result Performing Organization Address [facility] Co de Phone Number [facility] [address] [place] [address] [phone] * HPV mRNA E6/E7 w/Reflex to HPV Genotypes 16, 18/45 (08/20/2022 1:52 PM EST) HPV nRNA E6/E7 Not Detected Not Detected [facility] Comment:Methodology: Transcr iption-Mediated AmplificationThis assay detects E6/E7 viral messenger RNA (mRNA) from 14high-risk HPV types (16,18,31,33,35,39,45,51,52,56,58,59,66,68).Cervical sources are required for HPV testing.If a vaginal source from a patient who has had atotal hysterectomy with removal of cervix wassubmitted, please contact the testing laboratoryfor alternative testing options.For additional information, please refer [email or web address]/faq/DDE095i5(This link if provided for information/educational purposes only.)THIS TEST WAS PERFORMED AT:[facility] [place] [address] ([address] [phone] TREVINO MD HPV mRNA E6/E7 [facility] HPV 16 RNA [facility] HPV 18/45 RNA [facility] 08/20/2022 1:52 PM EST 08/20/2022 3:00 PM EST [facility] External Provider LAB CYT OLOGY ORDERABLES Final Result Performing Organization Address City/[facility]/ZIP Co de Phone Number [facility] [address] [place] [phone] * Pap Smear (08/20/2022 1:52 PM EST) 08/20/2022 1:52 PM EST 08/20/2022 3:00 PM EST [facility] - 08/31/2022 11:51 AM EST ----- ------- Name: Laura Rivas Age/Sex: 56/F : 1965 Unit#: [id number] Attend Dr: Olivia Montoya CNM Re08/20/22 Status: DEP REF Location: [facility] Disch: ----- ------- SPEC : [id number] RECD: 08/20/22 STATUS: LUCIANA PARVIN NUM: [id number] RAFAEL: 08/20/22-[address] [facility] [address]: Olivia Montoya CNM ENTERED: 08/20/22 SP TYPE: Pap Smr OTHR DR: Frances Li MD ORDERED: Pap Smear Interpretation Satisfactory for evaluation. Negative for intraepithelial lesion or malignancy. HPV mRNA E6/E7: NOT DETECTED This assay detects E6/E7 viral messenger RNA (mRNA) from 14 high-risk HPV types (16, 18, 31, 33, 35, 39, 45, 51, 52, 56, 58, 59, 66, 68) HPV testing performed by [employer], [place], [place]. See reference laboratory portion of the EMR for entire report. Clinical Information LMP: Post menopause Previous PAP test: 2017, WN Material Received ThinPrep-Cervical Copies To: Frances Li MD [address] [place] [address] [facility] [address] [place] [address] ----- ------- Signed (signature on file) Lilia Lorenzo Nelida 08/31/22 1151 ----- ------- END OF REPORT [facility] External Provider ANTONIA BRIAN Final Result [facility] [address] [place] [address] [phone] * Colonoscopy (01/20/2020) Colonoscopy hx tubular adenoma with Dr. Fields Historical Provider HEALTH MAINTENANCE Final Result from Last 3 Months or Most Recently Relevant to Health Maintenance Insurance BS PPO Advance Directives Documents on File Type Date Recorded Patient Human Resources Intern Expl anation Advance Directives and Living Will 03/10/2024 3:23 PM Health Care Proxy Care Teams Silo Tender Relationship Specialty Start Date End Date [place], MD Frances [address] [place] [address] PCP - General Family Medicine 03/07/19 Olivia Montoya [address] [facility] [address] [place] [address] 09/22/24 Nestor Downey MD [address] [place] [address] [address] [place] [address] Orthopaedic Surgery 10/11/24 Peyton Earl MD [address] [place] [address], [address] [place] [address] Neurosurgery 10/11/24 Anibal Ferrell MD [address] [place] [address] 3rd [place] [address] General Surgery 11/04/24
[2025-04-29 15:48] LABS: Resp Syncy Virus RNA Qual PCR NEGATIVE (Negative); SARS COV2 PCR INHOUSE POSITIVE (Negative)
== END 2025-04-29 10:34 | disposition home or self-care (01) ==
LOC: HO.LNP 10:33
PROVIDERS: PCP Family Medicine; Visit Provider Physician Assistant Medical
DX: H65.03 Acute serous otitis media, bilateral (principal); R05.3 Chronic cough; Z87.891 Personal history of nicotine dependence
CPT/HCPCS: 87637

== ENCOUNTER 2025-05-01 13:47 | Outpatient (REF) | payer BC, SELFPAY ==
--- NOTE | ~2025-05-01 | MM_ITS ---
EXAMINATION: MM SCREENING DIGITAL BREAST TOMOSYNTHESIS, BILATERAL CLINICAL INFORMATION: Screening. Asymptomatic. COMPARISON: Comparison made to multiple prior, most recent April 25, 2024, and most remote March 19, 2020. TECHNIQUE: Digital breast tomosynthesis is performed in mediolateral oblique and craniocaudal views along with computer-aided detection (CAD). Synthesized 2D images are generated from the tomosynthesis. FINDINGS: BREAST COMPOSITION: The breasts are extremely dense, which lowers the sensitivity of mammography. BILATERAL BREASTS: No significant masses, suspicious calcifications or other abnormalities are seen in either breast. MM/MM tomosynthesis screening BI IMPRESSION: BILATERAL BREASTS: Negative, no mammographic evidence of malignancy. Normal interval follow-up is recommended in 12 months. ASSESSMENT: BI-RADS: Category 1: Negative RECOMMENDATION: Routine annual mammography screening. FOLLOW-UP: 1 year F/U This examination should not preclude the clinical evaluation of a suspicious palpable abnormality. This patient's information was entered into a reminder system with a target due date for their next mammogram. Electronically signed by: Jose Freeman MD 05/02/2025 07:03 PM EDT
--- OUTSIDE RECORDS SUMMARY | 2025-05-01 16:17 | XMS_ITS ---
Encounter Summary Created on: May 01, 2025 Laura Rivas : 1965
== END 2025-05-01 13:48 | disposition home or self-care (01) ==
LOC: HO.MAMMO 13:47
PROVIDERS: PCP Family Medicine; Visit Provider Family Medicine
DX: Z12.31 Encounter for screening mammogram for malignant neoplasm of breast (principal)
CPT/HCPCS: 77063; 77067

== ENCOUNTER → 2025-05-01 14:00 | Outpatient (BNV) | payer BC, SELFPAY | PROVIDERS: PCP Family Medicine; Visit Provider Radiology Body Imaging | DX: Z12.31 Encounter for screening mammogram for malignant neoplasm of breast (principal) | CPT/HCPCS: 77063; 77067 ==

== ENCOUNTER 2025-05-09 15:19 | Outpatient (REF) | payer BC, SELFPAY ==
--- NOTE | ~2025-05-09 | XR_ITS ---
EXAMINATION: XR CHEST CLINICAL INFORMATION: couch since URI end of March. COMPARISON: 08/05/2014 TECHNIQUE: 2 views of the chest were obtained. FINDINGS: No significant abnormality is noted involving the heart, lungs, mediastinum, bony thorax or soft tissues. XR/XR chest 2V IMPRESSION: No acute disease Electronically signed by: Franklin Rodriguez MD 05/09/2025 03:33 PM EDT RP
--- OUTSIDE RECORDS SUMMARY | 2025-05-09 15:00 | XMS_ITS | Encounter Summary ---
Author Organization [employer] Address [address] 7[address] [place] [address] Care Team Providers Care Global Account Manager Name Role Phone Frances Li MD Primary Care Provider [phone] Olivia Montoya Unavailable Nestor Downey MD Unavailable Peyton Earl MD Unavailable Anibal Ferrell MD Unavailable [phone] Encounter Details Date Type Department Care Team (Late st Contact Info) Description 05/09/2025 3:00 PM EDT Office Visit [facility] [address] [place], [place] [phone] Frances Li MD [address] [place], [place] [id number] Cough, unspecified type (Primary Dx) Social History Tobacco Use Types [...] AM EDT documented as of this encounter Last Filed Vital Signs Vital Sign Reading Time Taken Comments Blood Pressure 130/60 05/09/2025 2:37 PM EDT Pulse 92 05/09/2025 2:37 PM EDT Temperature 36.2 C (97.2 F) 05/09/2025 2:37 PM EDT Respiratory Rate 20 05/09/2025 2:37 PM EDT Oxygen Saturation 97% 05/09/2025 2:37 PM EDT Inhaled Oxygen Concentration - - Weight 73.5 kg (162 lb) 05/09/2025 2:37 PM EDT Height 170.2 cm (5' 7 ) 05/09/2025 2:37 PM EDT Body Mass Index 25.37 05/09/2025 2:37 PM EDT documented in this encounter Progress Notes * Frances Li MD - 05/09/2025 3:00 PM EDT Subjective History was provided by the patient. Laura Rivas is a 59 y.o. woman who presents for evaluation of cough. She had a URI end of March.The cough persisted and so she went to urgent care 04/29/25 diagnosed with Covid. She was put on a steroid for 5 days. Benzonatate pills for her cough. Still has a lingering cough in her throat. Sometimes pt. Feels chest tightness and throat tightness in her lungs when she has coughing fits. No chest congestion, No fever. Pt. Did not have a chest x-ray at last visit and also has some SOB with cough. Pt. States her throat feels a tickle and then she goes into coughing fits. Seen in walk in 04/29/25 for cough. Symptoms include cough. unchanged since that time. Associated negative symptoms includefever, vomiting, and diarrhea. Objective There were no vitals filed for this visit. Physical Exam Constitutional: Appearance: Normal appearance. Cardiovascular: Rate and Rhythm: Normal rate and regular rhythm. Heart sounds: Normal heart sounds. Pulmonary: Effort: Pulmonary effort is normal. Breath sounds: Normal breath sounds. Comments: Episodes of dry, hacking cough. Abdominal: General: Abdomen is flat. Palpations: Abdomen is soft. Tenderness: There is no abdominal tenderness. Musculoskeletal: Cervical back: Normal range of motion and neck supple. Lymphadenopathy: Cervical: No cervical adenopathy. Skin: General: Skin is warm and dry. Neurological: Mental Status: Mental status is at baseline. Psychiatric: Behavior: Behavior normal. No visits with results within 2 Day(s) from this visit. Latest known visit with results is: Orders Only on 04/29/2025 Component Date Value Ref Range Status Influenza A PCR 04/29/2025 NEGATIVE Negative Final Influenza B PCR 04/29/2025 NEGATIVE Negative Final Resp Syncy Virus RNA Qual PCR 04/29/2025 NEGATIVE Negative Final SARS COV2 PCR 04/29/2025 POSITIVE (A) Negative Final All test results must be correlated with clinical findings.Negative results do not preclude SARS-CoV2, influenza Avirus, influenza B virus and/or RSV infectionand should not be used as the sole basisfor treatment orother patient management decisions. Negative results must becombined with clinical o bservations, patient history, andepidemiological information.This test has not been evaluated for monitoring treatment ofinfection.This test has been authorized by the FDA under an EmergencyUse Authorization (EUA) for use by authorized laboratories.Testing performed on the [email or web address] GeneXpert utilizin greal-time RT-PCR.All SARS CoV2 and positive influenza A/B results arereported to [facility]. Assessment & Plan Cough, unspecified type -likely due to recent COVID infection, will check chest x-ray and treat presumptively for pertussisgiven cough > 2 weeks. -No evidence of respiratory distress. -advise cough drops and hydration. I offered guaifed with codeine but she reports it is not so bothersome when sleeping. - In several studies, many patients experienced persistent cough at two to three weeks following initial symptoms. Cough resolved in the majority of patients by 3 months and rarely persisted by 12 months. -Fatigue, weakness, and poor endurance - Fatigue is by far the most common symptom experienced by patients regardless of the need for hospitalization. Although the fatigue resolves in most patients, it can be profound and may last for three months or longer, particularly among ICU survivors. Orders: XR Chest 2 Views; Future azithromycin (Zithromax) 250 MG tablet; Take 2 tablets (500 mg) by mouth Once per day for 1 day, THEN 1 tablet (250 mg) Once per day for 4 days. documented in this encounter Plan of Treatment Upcoming Encounters Date Type Department Care Team (Late st Contact Info) Description 06/21/2025 10:30 AM EST Office Visit [facility] [address] [place] [address] Frances Li MD [address] [place] [address] documented as of this encounter Procedures Procedure Name Priority Date/Time Associated Diagnosis Comments XR CHEST 2 VIEWS Routine 05/09/2025 3:40 PM EDT Cough, unspecified type documented in this encounter Results * XR Chest 2 Views (05/09/2025 3:40 PM EDT) Anatomical Region Laterality Modality Chest Radiographic Torrie ging 05/09/2025 3:40 PM EDT Narrative 05/09/2025 3:36 PM EDT [address] [address] XRay Report Signed Patient: Laura Rivas MR#: [id number] 3 : 1965 Acct:[id number] Age/Sex: 59 / F ADM Date: 05/09/25 Loc: [facility] Attending Dr: Frances Li MD Ordering Physician: Frances Li MD Date of Service: 05/09/25 Procedure(s): XR chest 2V Accession Number(s): [id number] cc: Frances Li MD Reason for Exam: couch since URI end of March. EXAMINATION: XR CHEST CLINICAL INFORMATION: couch since URI end march. COMPARISON: 08/05/2014 TECHNIQUE: 2 views of the chest were obtained. FINDINGS: No significant abnormality is noted involving the heart, lungs, mediastinum, bony thorax or soft tissues. XR/XR chest 2V IMPRESSION: No acute disease Electronically signed by: Franklin Rodriguez MD 05/09/2025 03:33 PM EDT Dictated By: Franklin Rodriguez MD Signed By: <Electronically signed by Franklin Rodriguez MD in OV> 05/09/25 1533 DD/ 1540 TD/TT: 05/09/25 1531 Directional Bore Operator: Procedure Note Donotuseinterpreter, Image - 05/09/[address] [address] XRay Report Signed Patient: Larua Rivas LMR#: [id number] 3 : 1965Acct:[id number] Age/Sex: 59 / FADM Date: 05/09/25 Loc: [facility] Attending Dr: Frances Li MD Ordering Physician: Frances Li MD Date of Service: 05/09/25 Procedure(s): XR chest 2V Accession Number(s): [id number] cc: Frances Li MD Reason for Exam: couch since URI end of March. EXAMINATION: XR CHEST CLINICAL INFORMATION: couch since URI end of March. COMPARISON: 08/05/2014 TECHNIQUE: 2 views of the chest were obtained. FINDINGS: No significant abnormality is noted involving the heart, lungs, mediastinum, bony thorax or soft tissues. XR/XR chest 2V IMPRESSION: No acute disease Electronically signed by: Franklin Rodriguez MD 05/09/2025 03:33 PM EDT RP Dictated By: Franklin Rodriguez MD Signed By: <Electronically signed by Franklin Rodriguez MD in OV> 05/09/25 1533 DD/ 1540 TD/TT: 05/09/25 1531 Directional Bore Operator: Frances Li MD IMG XR PROCEDURES Final Re sult documented in this encounter Visit Diagnoses Diagnosis Cough, unspecified type- Primary documented in this encounter Additional Health Concerns Assessment Noted Time PHQ-9 Depression Total Score: 1 03/09/20 24 3:12 PM EDT documented as of this encounter Care Teams Global Account Manager Relationship Specialty Start Date End Date Frances Li MD [address] [place] [address] PCP - General Family Medicine 03/07/19 Olivia Montoya [address] [facility] [address] [place] [address] 09/22/24 Nestor Downey MD [address] [facility] [address] [place] [address] Orthopaedic Surgery 10/11/24 Peyton Earl MD [address] [facility], [address] [place] [address] Neurosurgery 10/11/24 Anibal Ferrell MD [address] [facility] 3rd [place] [address] General Surgery 11/04/24 documented as of this encounter
--- OUTSIDE RECORDS SUMMARY | 2025-05-09 16:37 | XMS_ITS | Data Portability ---
Author Organization [place] - [facility], Allergy Address [address] [address] Care Team Providers Care Heavy Equipment Diesel Mechanic Name Role Phone KIMBERLYLEISA LOPEZ Primary Care [...] Name and Address Organization Details Recorded Time Refractor y migraine 459290153 Active 2022 Other migraine, intractabl e, without status migrainosu s; Note: Date Diagnosed: 01/15/2023 10:18 AM (G43.819) Not Available [employer] 4 02:57:51 Dizziness and giddiness 686252660 Active 2022 Dizziness and giddiness; Note: Date Diagnosed: 01/15/2023 9:44 AM (R42) Not Available [facility] 4 02:57:48 Benign paroxysma l positiona l vertigo 635365024 Active 2022 Benign paroxysmal vertigo, right ear; Note: Date Diagnosed: 07/24/2023 10:59 AM (H81.11) Not Available [facility] 4 02:57:49 Sensorine ural hearing loss of bilateral ears 712429717 Active 2024 [place], AUD 100 [facility],[address], [address] , [facility] - [facility] 5 09:19:46 Problem Notes None recorded. Procedures Surgical History Date Name Laterality Status Provider Name and Address Organization Details Recorded Time 10/06/19 25 Air & Speech Audio with Tymps - 70221, 70998 & 69886 completed LA MON, AUD 100 [facility],[address], [address], [facility] - [facility] 10/06/2024 09:19:04 Cholecystectomy completed ASHA PATEL MD [address] [place] [address],[address], [address], [facility] 10/06/2024 09:34:22 section completed SAHA PATEL MD [address] [place] [address],[address], [address], [facility] 10/06/2024 09:34:28 Imaging Results None recorded. Procedure Notes None recorded. Medical Equipment None Reported. Allergies Allergen ID Allergen Name Allergen Category Reaction Reaction Severity Criticality Documentation Date Start Date Code Code System Note Provider Name and Address Organization Details Recorded Time 425346 Tylenol medicatio n other Not available Not available 12/22/2023 3 RxNorm React ion: Unkno wn; Not Available [facility] 4 01:22:15 Medications Name Sig Start Date Stop Date Status Note LastModified by Organization Details LastModified Time atorvasta tin 40 mg tablet 10/06 completed Not Available Not Available Not Available atorvasta tin 20 mg tablet TAKE 1 TABLET BY MOUTH EVERY DAY active Not Available Not Available No t Available alprazola m 1 mg tablet 07/23 completed Medicati on ID: [id number] B rand Name: alprazol am Send Method: E-Prescr ibed Sub s Allowed: subs OK Medic ationGen ericName : alprazol am Not Available Not Available Not Available valacyclo vir 1 gram tablet active Medicati on ID: [id number] B rand Name: valacycl ovir Sen d Method: E-Prescr ibed Sub s Allowed: subs OK Medic ationGen ericName : valacycl ovir Not Available Not Available Not Available prednison e 20 mg tablet 07/23 completed Medicati on ID: [id number] B rand Name: predniso ne Send Method: E-Prescr ibed Sub s Allowed: subs OK Medic ationGen ericName : predniso ne Not Available Not Available Not Available clobetaso l 0.05 % topical cream APPLY TO ECZEMA TWICE DAILY NEEDED FOR UP TO 2 WEEKS/MO NT active Not Available Not Available No t Available hydralazi ne 25 mg tablet 07/23 completed Medicati on ID: [id number] B rand Name: hydralaz ine Send Method: E-Prescr ibed Sub s Allowed: subs OK Medic ationGen ericName : hydralaz ine Not Available Not Available Not Available amlodipin e 2.5 mg tablet 07/23 completed Medicati on ID: [id number] B rand Name: amlodipi ne Send Method: E-Prescr ibed Sub s Allowed: subs OK Medic ationGen ericName : amlodipi ne Not Available Not Available Not Available amlodipin e 5 mg tablet TAKE 1 TABLET BY MOUTH EVERY DAY active Not Available Not Available No t Available amoxicill in 500 mg tablet 07/23 completed Medicati on ID: [id number] B rand Name: amoxicil ravin Send Method: E-Prescr ibed Sub s Allowed: subs OK Medic ationGen ericName : amoxicil ravin Not Available Not Available Not Available alprazola m 0.5 mg tablet TAKE 1 TABLET BY MOUTH 1 HOUR BEFORE INJECTIO N 10/06 completed Not Available Not Available Not Available lorazepam 0.5 mg tablet 07/23 completed Medicati on ID: [id number] B rand Name: lorazepa m Send Method: E-Prescr ibed Sub s Allowed: subs OK Medic ationGen ericName : lorazepa m Not Available Not Available Not Available meclizine 25 mg tablet 10/06 completed Medicati on ID: [id number] B rand Name: meclizin e Send Method: E-Prescr ibed Sub s Allowed: subs OK Speci al Instruct ion: TAKE 2 TABLETS BY MOUTH TWICE DAILY NEEDED FOR DIZZINES S Medica tionGene ricName: meclizin e Not Available Not Available Not Available diazepam 2 mg tablet 07/23 completed Medicati on ID: [id number] B rand Name: diazepam Send Method: E-Prescr ibed Sub s Allowed: subs OK Medic ationGen ericName : diazepam Not Available Not Available Not Available lisinopri l 10 mg tablet TAKE 1 TABLET BY MOUTH EVERY DAY active Not Available Not Available No t Available gabapenti n 300 mg capsule 10/06 completed Medicati on ID: [id number] B rand Name: gabapent in Send Method: E-Prescr ibed Sub s Allowed: subs OK Medic ationGen ericName : gabapent in Not Available Not Available Not Available mupirocin 2 % topical ointment 10/06 completed Medicati on ID: [id number] B rand Name: mupiroci n Send Method: E-Prescr ibed Sub s Allowed: subs OK Medic ationGen ericName : mupiroci n Not Available Not Available Not Available ibuprofen 600 mg tablet active Medicati on ID: [id number] B rand Name: ibuprofe n Send Method: E-Prescr ibed Sub s Allowed: subs OK Medic ationGen ericName : ibuprofe n Not Available Not Available Not Available estradiol 0.01% (0.1 mg/gram) vaginal cream active Medicati on ID: [id number] B rand Name: estradio l Send Method: [...] mg tablet 07/23 completed Medicati on ID: [id number] B rand Name: amoxicil ravin-pot clavulan ate Send Method: E-Prescr ibed Sub s Allowed: subs OK Medic ationGen ericName : amoxicil ravin-pot clavulan ate Not Available Not Available Not Available Eucrisa 2 % topical ointment APPLY THIN LAYER TO HANDS NEEDED FOR SYMPTOMS active Not Available Not Available No t Available BinaxNOW COVID-19 Ag Self Test kit 10/06 completed Medicati on ID: [id number] B rand Name: BinaxNOW COVID-19 Ag Self Test Sen d Method: E-Prescr ibed Sub s Allowed: subs OK Medic ationGen ericName : BinaxNOW COVID-19 Ag Self Test Not Available Not Available Not Available Paxlovid 300 mg (150 mg x 2)-100 mg tablets in a dose pack 10/06 completed Medicati on ID: [id number] B rand Name: Paxlovid Send Method: E-Prescr [...] Updated DateTime 10/06/2024 170.18 cm 24.9 kg/m2 49358.19 g Annalisa Langley [place] - [facility] 10/06/2024 09:25:55 Social History None recorded. Functional Status None recorded. Mental Status None recorded. Family History Nothing Reported. Medical History Condition Response Hyperlipidemia Y Migraines Y Hypertension Y Gynecological HistoryNo gynecological history recorded. Obstetrics History GPAL:G 0 P 0 0 0 0 Past Encounters Encounter ID Performer Location Encounter Start Date Encounter Closed Date Diagnosis/Indication Diagnosis SNOMED-CT Code Diagnosis ICD10 Code Diagnosis IMO Codes Diagnosis Note [id number] ASHA PATEL MD [facility] on [address] [place] [address] 10/06/2024 09:07:23 10/06/2024 12:09:13 Sensorineural hearing loss of bilateral ears 637184124 H90.3 Audiologic al evaluation results: Normal sloping to mild sensorineu ral hearing loss with excellent word recognitio n, bilaterall y. Tympanomet ry: Right Ear:Type A Left Ear:Type A Benign par oxysmal positional vertigo 363036899 H81.10 Health Concerns Section Related Observation LastModified by Organization Detai ls LastModified Time None Recorded Concern Status LastModified by Organization Details LastModified Time None Recorded Advance Directives Directive None Recorded Payers Insurance Date Sequence Insurance Name Policy Number Policy Pang Covered Member ID Pang Member ID Guarantor Name 10/06/2024 1 ADE (O) Laura Rivas [id number] Laura Rivas 11/22/2024 1 ADE (PPO) [id number] Ellis Rivas [id number] Laura Rivas Notes Date Note Type [...] vision checked regularly. Normal ear exam today. [place] Hallpike was positive to the right, and I did perform the faizan maneuver which she tolerated well. I did give her a referral for physical therapy. In retrospect she could have had episode of vestibular neuritis over the summer, which can predispose to BPPV. ASHA PATEL MD [address] [place] [address], [place], [address], [facility] - [facility] 10/14/2024 12:55:27 OBGyn Episode No OBEpisode recorded.
--- OUTSIDE RECORDS SUMMARY | 2025-05-09 16:37 | XMS_ITS | Encounter Summary ---
Author Organization [employer] Address [address] [facility] 7t [place] [address] Care Team Providers Care Social Worker Assistant Name Role Phone Frances Li MD Primary Care Provider [phone] Olivia Montoya Unavailable Nestor Downey MD Unavailable Peyton Earl MD Unavailable Anibal Ferrell MD Unavailable [phone] Encounter Details Date Type Department Care Team (Late st Contact Info) Description 09/01/2022 Orders Only [facility] [address] [place] [address] Tiffanie Garcia LPN Social History Tobacco [...] Description 06/21/2025 10:30 AM EST Office Visit [facility] [address] [place], [place] [phone] Frances Li MD [address] [place] [address] documented as of this encounter Visit Diagnoses Not on filedocumented in this encounter Care Teams Social Worker Assistant Relationship Specialty Start Date End Date [place], MD Frances [address] [place] [address] PCP - General Family Medicine 03/07/19 Olivia Montoya [address] [facility] [address] [place] [address] 09/22/24 Nestor Downey MD [address] [place] [address] Orthopaedic Surgery 10/11/24 Peyton Earl MD [address] [place] [address], [address] [place] [address] Neurosurgery 10/11/24 Anibal Ferrell MD [address] [facility] 3rd [place] [address] General Surgery 11/04/24 documented as of this encounter
--- OUTSIDE RECORDS SUMMARY | 2025-05-09 16:37 | XMS_ITS | Encounter Summary ---
Author Organization [employer] Address [address] [facility] [address] [place] [address] Care Team Providers Care Instrument Inspector Name Role Phone Frances Li MD Primary Care Provider Olivia Montoya Unavailable Nestor Downey MD Unavailable Peyton Earl MD Unavailable Anibal Ferrell MD Unavailable [phone] Reason for Visit * Reason Comments Med Refill Encounter Details Date Type Department Care Team (Late st Contact Info) Description 12/30/2023 Refill [facility] [address] [place] [address] Payal Berry MD [address] [place], [place] [phone] Nasal congestion; Pain of nose Social History [...] Description 06/21/2025 10:30 AM EST Office Visit [facility] [address] [place] [address] Frances Li MD [address] [place] [address] documented as of this encounter Visit Diagnoses Diagnosis Nasal congestion Other diseases of nasal cavity and sinuses Pain of nose Other diseases of nasal cavity and sinuses documented in this encounter Care Teams Instrument Inspector Relationship Specialty Start Date End Date Frances Li MD [address] [place] [address] PCP - General Family Medicine 03/07/19 Olivia Montoya [address] [facility] [address] [place] [address] 09/22/24 Nestor Downey MD [address] [facility] [address] [place] [address] Orthopaedic Surgery 10/11/24 Peyton Earl MD [address] [place] [address], [address] [place] [address] Neurosurgery 10/11/24 Anibal Ferrell MD [address] [place] [address] Drive 3rd [place] [address] General Surgery 11/04/24 documented as of this encounter
--- OUTSIDE RECORDS SUMMARY | 2025-05-09 16:37 | XMS_ITS | Encounter Summary ---
Author Organization [employer] Address [address] [facility] [address] [place] [address] Care Team Providers Care Cheese Processor Name Role Phone Frances Li MD Primary Care Provider [phone] Olivia Montoya Unavailable Nestor Downey MD Unavailable Peyton Earl MD Unavailable Anibal Ferrell MD Unavailable [phone] Encounter Details Date Type Department Care Team (Late st Contact Info) Description 05/09/2025 Telephone [facility] MEDICINE [address] [place], [place] [phone] Frances Li MD [address] [place], [place] [phone] Social History Tobacco Use Types Packs/Day Years [...] encounter Miscellaneous Notes * Telephone Encounter - Annette Walton RN - 05/09/2025 8:55 AM EDT Morning. I was seen a couple of weeks ago at a walk-in. My concern was for a persistent cough, thatwas lingering from a respiratory illness. Unaware, I was also tested positive with covid. I was prescribed a steroid and something for my cough, which I'm still taking. Unfortunately, the cough is there, with shortness off breathe. At times I feel like I gave a corset on? Have no idea, if this could be back or allergies or??? Is there a cough medicine or over the counter suggestion. I have high blood pressure, so just need a little input. Thanks so much. Laura Called pt. RE: Above incoming pt. Portal message. Pt. States that she was DIAGNOSIS with Covid x a couple weeks ago. Pt. Was put on Steroids and Benzonatate pills for her cough. Pt. Still has a lingering cough in her throat. Sometimes pt. Feels chest tightness and throat tightness in her lungs when she has coughing fits. No chest congestion, No fever. Pt. Did not have a chest x-ray at last visit and also has some SOB with cough. Pt. States her throat feels a tickle and then she goes into coughing fits. Advised that I want pt. To be re-evaluated and lungs listened to. Pt. Denies wheezing but does get SOB quite easily. Advised walk in and willcall pt. Around noon to let her know what the afternoon schedule looks like in [facility] walk in. Also advised can take Coricidin HBP cough syrup or regular Robitussin for cough OTC due to pt. Has Hypertension. Protocol Used: Cough (Adult) Protocol-Based Disposition: See in Office or Video Visit Today Video visit offer not recorded Positive Triage Questions: * Severe coughing spells (e.g., whooping sound after coughing, vomiting after coughing) * Continuous (nonstop) coughing interferes with work or school and no improvement using cough treatment per Care Advice * All higher-acuity triage questions were negative Care Advice Discussed: * Cough Medicines * Coughing Spells * Prevent Dehydration * Avoid Tobacco Smoke * Humidifier documented in this encounter Plan of Treatment Upcoming Encounters Date Type Department Care Team (Late st Contact Info) Description 06/21/2025 10:30 AM EST Office Visit [facility] MEDICINE [address] [place] [id number] Frances Li MD [address] [place] [id number] documented as of this encounter Visit Diagnoses Not on filedocumented in this encounter Additional Health Concerns Assessment Noted Time PHQ-9 Depression Total Score: 1 03/09/20 24 3:12 PM EDT documented as of this encounter Care Teams Cheese Processor Relationship Specialty Start Date End Date Frances Li MD [address] [place] [address] PCP - General Family Medicine 03/07/19 Olivia Montoya [address] [facility] [address] [place] [address] 09/22/24 Nestor Downey MD [address] [facility] [address] [place] [address] Orthopaedic Surgery 10/11/24 Peyton Earl MD [address] [facility] [place] [address] Neurosurgery 10/11/24 Anibal Ferrell MD [address] [facility] 3rd [place] [address] General Surgery 11/04/24 documented as of this encounter
--- OUTSIDE RECORDS SUMMARY | 2025-05-09 16:37 | XMS_ITS | Patient Health Record ---
Author Organization [facility] Address [address] [place] [address] Care Team Providers Care Vacuum Closing Machine Operator Name Role Phone Frances Li MD Primary Care Provider Astrid Elvin Lindquist Unavailable [phone] Allergies Allergen (clinical drug ingredient) Drug/Non Drug [...] point) Points 1 Interpretation Negative Section Notes: Smoker; no sig alcohol Smoker; no sig alcohol Smoker; no sig alcohol Smoker; no sig alcohol Nonsmoker x 3; no sig alcoho l Problems Problem Type SNOMED Code ICD Code Onset Dates Problem Status W/U Status Risk Notes Problem 631693763 Encounter for screening for malignant neoplasm of colon (Z12.11) Active confirmed Problem Family History of Cancer of Colon (Situation) (958088351) Family history of colon cancer (Z80.0) Active confirmed Problem 91550855 Constipation, unspecified constipation type (K59.00) Active confirmed Problem 243704287 Hx of adenomatou s colonic polyps (Z86.010) Active confirmed Problem 80307052 Upper abdominal pain (R10.10) Active confirmed Problem 912519266 Irritable bowel syndrome with constipation (K58.1) Active confirmed Vital Signs Temperature 97.1 degrees Fahrenheit 04/21/2025 Blood pressure diastolic 01 mm Hg 04/21/2025 Height 66.5 in 04/21/2025 Blood pressure systolic 001 mm Hg 04/21/2025 Weight 160 lbs 04/21/2025 BMI 25.44 kg/m2 04/21/2025 Procedures Procedure Date Ordered Date Performed Result Body Sit e COLONOSCOPY 04/21/2025 N/A Encounters Encounter Location Date Provider Diagnosis [facility] [address] [place] [address] 04/21/2025 Elvin Fields Hx of adenomatous colonic polyps Z86.010 ; Irritable bowel syndrome with constipation K58.1 ; Encounter for screening for malignant neoplasm of colon Z12.11 and Family history of colon cancer Z80.0 [...] colon cancer prevention. Full consent has been obtained for this, including risks of bleeding and perforation. The procedure will be done with monitored anesthesia care. Laura was comfortable with this plan. Thank you again for allowing me to participate in Laura's care. I shall continue to keep you [...] colon cancer prevention. Full consent has been obtained for this, including risks of bleeding and perforation. The procedure will be done with monitored anesthesia care. Laura was comfortable with this plan. Thank you again for allowing me to participate in Laura's care. I shall continue to keep you [...] colon cancer prevention. Full consent has been obtained for this, including risks of bleeding and perforation. The procedure will be done with monitored anesthesia care. Laura was comfortable with this plan. Thank you again for allowing me to participate in Laura's care. I shall continue to keep you [...] colon cancer prevention. Full consent has been obtained for this, including risks of bleeding and perforation. The procedure will be done with monitored anesthesia care. Laura was comfortable with this plan. Thank you again for allowing me to participate in Laura's care. I shall continue to keep you advised of her progress. Plan Of Treatment Pending Test Test Name Order Date COLONOSCOPY 04/21/2025 Future Test Test Name Order Date COLONOSCOPY 07/12/2014 UPPER GI ENDOSCOPY 11/16/2018 COLONOSCOPY 07/05/2019 Next Appt Details Provider Name:Elvin Fields , 07/21/2025 08:30:00 AM, [address] [place] [address] , [place], [place], [phone], Insurance Providers Payer Name Payer Address Payer Phone Subscriber Number Group Number Insured Name Patient Relationship to Insured Coverage Start Date Coverage End Date [facility] [address] [place], [place] [id number] LAURA JACKSON Self - patient is the insured Medical (General) History Medical History History ICD Code Denies [place],DM,CVA,Lung disease,renal dise ase Negative upper GI series [...]
--- OUTSIDE RECORDS SUMMARY | 2025-05-09 16:37 | XMS_ITS | Clinical Summary ---
Author Organization [employer] Address [address] 7[address] [place] [address] Care Team Providers Care Concrete Laborer Name Role Phone Frances Li MD Primary Care Provider [phone] Olivia Montoya Unavailable Nestor Downey MD Unavailable Peyton Earl MD Unavailable Anibal Ferrell MD Unavailable [phone] Allergies Active Allergy Reactions Criticality Noted Date Comments Acetaminophen 11/21/2016 Difficulty breathing Medications valACYclovir (Valtrex) 1 g tablet 022 Active estradiol (Estrace) 0.1 MG/GM vaginal cream INSERT 1/2 APPLICATORFUL VAGINALLY 2 TIMES A WEEK EVERY NIGHT FOR 2 WEEKS 023 Active LORazepam (Ativan) 0.5 MG tablet take 1 tab po daily prn anxiety as needed 4 tablet 023 Active fluticasone (Flonase Allergy Relief) 50 MCG/ACT nasal spray Administer 1 spray into each nostril Once per day. Shake gently. Before first use, prime pump. After use, clean tip and replace cap. 16 g 12 024 Active Eucrisa 2 % ointment APPLY THIN LAYER TO HANDS NEEDED FOR SYMPTOMS 024 Active atorvastatin (Lipitor) 20 MG tabletIndicatio ns:Dyslipidemia Take 1 tablet (20 mg) by mouth Once per day. 30 tablet 11 025 2025 Active lisinopril 10 MG tabletIndicatio ns:Primary hypertension TAKE 1 TABLET BY MOUTH EVERY DAY 90 tablet 3 025 Active amLODIPine (Norvasc) 5 MG tabletIndicatio ns:Primary hypertension TAKE 1 TABLET BY MOUTH EVERY DAY 90 tablet 3 025 Active Magnesium Glycinate 100 MG capsuleIndicati ons:Leg cramps TAKE 2 CAPSULES BY MOUTH AT BEDTIME 60 capsule 11 025 Active azithromycin (Zithromax) 250 MG tabletIndicatio ns:Cough, unspecified type Take 2 tablets (500 mg) by mouth Once per day for 1 day, THEN 1 tablet (250 mg) Once per day for 4 days. 6 tablet 025 2024 Active Magnesium Glycinate 100 MG capsuleIndicati ons:Leg cramps Take 200 mg by mouth at bedtime. 60 capsule 11 024 2024 Discontinued(R eorder (will not [...] 2027 Fibroids 09/23/2023 Overview (09/23/2023): -followed by video poker floorman, Dr. Thompson Jo -[place] 09/21/23 Multiple uterine [...] due after 06/08/25 -eye care facilitated by [employer] -dental home [facility] -health care proxy filed 03/09/24 Assessment & Plan (06/08/2024 10:55 AM EDT): -next comprehensive annual evaluation due after 06/08/25 -eye care facilitated by [employer] -dental home [facility] -health care proxy filed 03/09/24 Assessment & Plan (05/06/2023 11:11 AM EDT): -next physical exam due after 05/06/2024 -eye care facilitated by [facility] -d[facility] home is [facility] Anxiety 12/08/2022 Overview (12/08/2022): She expresses anxiety [...] reviewed. No indication for surgery. -Seen by [facility] 02/29/24 recommending follow up with neurosurgery. No evidence of hip joint pathology. -She has compleated 3 years of physical therapy -On 03/09/24 we discussed possibility of piriformis syndrome. Strengthening discussed. She is going to see chricopractic and acupuncture. We also discussed hypnotherapy. -Has been seeing chiropractor in [place], which she has significant relief from. -seen [...] reviewed. No indication for surgery. -Seen by [facility] 02/29/24 recommending follow up with neurosurgery. No evidence of hip joint pathology. -She has compleated 3 years of physical therapy -On 03/09/24 we discussed possibility of piriformis syndrome. Strengthening discussed. She is going to see chricopractic and acupuncture. We also discussed hypnotherapy. -Has been seeing chiropractor in [place], which she has significant relief from. Has appt. again next week. Assessment & Plan (03/09/2024 12:37 PM EDT): -hx lumbar surgery -MRI 2023 right thigh negative -MRI lumbar spine Jul shows slight L4-L5 spondylolisthesis but otherwise very minimal changes -Seen by neurosurgery Dr. Peyton Earl MD, [place], [place] 03/03/24, note reviewed. L spine x rays reviewed. No indication for surgery. -Seen by [facility] 02/29/24 recommending follow up with neurosurgery. 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 Encounters Date Type Department Care Team Description 05/09/2025 3:00 PM EDT Office Visit [facility] [address] [place] [address] Frances Li MD Cough, unspecified type (Primary Dx) 05/09/2025 Results Follow-Up [facility] [address] [place] [address] Frances Li MD XR Chest 2 Views 05/09/2025 Travel 05/09/2025 Telephone [facility] [address] [place] [address] Frances Li MD 05/01/[address] [address] Frances Li MD Leg cramps 04/29/2025 Orders Only GENERIC EXTERNAL DATA DEPARTMENT Provider, Generic External Data 04/13/[address] [address] Frances Li MD June Recalls 04/13/2025 Travel 03/14/[address] [address] Frances Li MD May Recalls from Last [...] Mass Index 25.37 05/09/2025 2:37 PM EDT Plan of Treatment Upcoming Encounters Date Type Department Care Team (Late st Contact Info) Description 06/21/2025 10:30 AM EST Office Visit [facility] [address] [place], [place] [phone] Frances Li MD [address] [place], [place] [phone] Health Maintenance Due Date Last Done Comments [...] 06/08/2025 06/08/2024 Pap Smear 08/20/2025 08/20/2022 Mammogram 05/01/2027 05/01/2025, 04/10, 04/15/2023, Additional history exists Cervical Cancer Screening 08/20/2027 [...] 05/09/2025 3:40 PM EDT Cough, unspecified type BI MAMMOGRAM SCREENING TOMOSYNTHESIS BILATERAL Routine 05/01/2025 1:55 PM EDT SARS COV2/INFLUENZA A/B AND RSV RNA QL NAAT Routine 04/29/2025 10:33 AM EDT LIPID PANEL, STANDARD Routine 12/10/2024 7:10 AM EDT Dyslipidemia HEPATITIS C AB W/REFL TO HCV RNA, [...] Recently Relevant to Health Maintenance Results * XR Chest 2 Views (05/09/2025 3:40 PM EDT) Anatomical Region Laterality Modality Chest Radiographic Torrie ging 05/09/2025 3:40 PM EDT Narrative 05/09/2025 3:36 PM EDT [address] [address] XRay Report Signed Patient: Laura Rivas MR#: [id number] 3 : 1965 Acct:[id number] Age/Sex: 59 / F ADM Date: 05/09/25 Loc: HO.HHCX Attending Dr: Frances Li MD Ordering Physician: Frances Li MD Date of Service: 05/09/25 Procedure(s): XR chest 2V Accession Number(s): [id number] cc: Frances Li MD Reason for Exam: couch since URI end march. EXAMINATION: XR CHEST CLINICAL INFORMATION: couch since [...] 05/09/25 1533 DD/ 1540 TD/TT: 05/09/25 1531 Commodity Analyst: Procedure Note Donotuseinterpreter, Image - 05/09/[address] [place] [address] XRay Report Signed Patient: Laura Rivas LMR#: [id number] 3 : 1965Acct:[id number] Age/Sex: 59 / FADM Date: 05/09/25 Loc: HO.HHCX Attending Dr: Frances Li MD Ordering Physician: Frances Li MD Date of Service: 05/09/25 Procedure(s): XR chest 2V Accession Number(s): [id number] cc: Frances Li MD Reason for Exam: [...] 05/09/25 1533 DD/ 1540 TD/TT: 05/09/25 1531 Commodity Analyst: Frances Li MD IMG XR PROCEDURES Final Re sult * BI Mammogram Screening Tomosynthesis Bilateral (05/01/2025 1:55 PM EDT) Anatomical Region Laterality Modality Breast Bilateral Mammography 05/01/2025 1:55 PM EDT Narrative 05/02/2025 7:06 PM EDT [address] [place] [address] Mammography Report Signed Patient: Laura Rivas MR#: [id number] 3 : 1965 Acct:[id number] Age/Sex: 59 / F ADM Date: 05/01/25 Loc: HO.MAMMO Attending Dr: Frances Li MD Ordering Physician: Frances Li MD Results: 1N egative Date of Service: 05/01/25 Follow Up: 1 Year From Orig inal Mammogram Procedure(s): MM tomosynthesis screening BI Accession Number(s): [id number] cc: Frances Li MD Reason For Exam: SCREENING EXAMINATION: MM SCREENING DIGITAL BREAST TOMOSYNTHESIS, BILATERAL CLINICAL INFORMATION: Screening. Asymptomatic. COMPARISON: Comparison made to multiple prior, most recent April 25, 2024, and most remote March 19, 2020. TECHNIQUE: Digital breast tomosynthesis is performed in mediolateral oblique and craniocaudal views along with computer-aided detection (CAD). Synthesized 2D images are generated from the tomosynthesis. FINDINGS: BREAST COMPOSITION: The breasts are extremely dense, which lowers the sensitivity of mammography. BILATERAL BREASTS: No significant masses, suspicious calcifications or other abnormalities are seen in either breast. MM/MM tomosynthesis screening BI IMPRESSION: BILATERAL BREASTS: Negative, no mammographic evidence of malignancy. Normal interval follow-up is recommended in 12 months. ASSESSMENT: BI-RADS: Category 1: Negative RECOMMENDATION: Routine annual mammography screening. FOLLOW-UP: 1 year F/U This examination should not preclude the clinical evaluation of a suspicious palpable abnormality. This patient's information was entered into a reminder system with a target due date for their next mammogram. Electronically signed by: Jose Freeman MD 05/02/2025 07:03 PM EDT Dictated By: Jose Freeman MD Signed By: <Electronically signed by Jose Freeman MD in OV> 05/02/25 1903 DD/ 1355 TD/TT: 05/01/25 1415 Commodity Analyst: Procedure Note Donotuseinterpreter, Image - [facility] [address] [place], [place] [address] Mammography Report Signed Patient: Laura Rivas LMR#: [id number] 3 : 1965Acct:[id number] Age/Sex: 59 / FADM Date: 05/01/25 Loc: HO.MAMMO Attending Dr: Frances Li MD Ordering Physician: Frances Li MDResults: 1N egative Date of Service: 05/01/25Follow Up: 1 Year From Orig inal Mammogram Procedure(s): MM tomosynthesis screening BI Accession Number(s): [id number] cc: Frances Li MD Reason For Exam: SCREENING EXAMINATION: MM SCREENING DIGITAL BREAST TOMOSYNTHESIS, BILATERAL CLINICAL INFORMATION: Screening. Asymptomatic. COMPARISON: Comparison made to multiple prior, most recent April 25, 2024, and most remote March 19, 2020. TECHNIQUE: Digital breast tomosynthesis is performed in mediolateral oblique and craniocaudal views along with computer-aided detection (CAD). Synthesized 2D images are generated from the tomosynthesis. FINDINGS: BREAST COMPOSITION: The breasts are extremely dense, which lowers the sensitivity of mammography. BILATERAL BREASTS: No significant masses, suspicious calcifications or other abnormalities are seen in either breast. MM/MM tomosynthesis screening BI IMPRESSION: BILATERAL BREASTS: Negative, no mammographic evidence of malignancy. Normal interval follow-up is recommended in 12 months. ASSESSMENT: BI-RADS: Category 1: Negative RECOMMENDATION: Routine annual mammography screening. FOLLOW-UP: 1 year F/U This examination should not preclude the clinical evaluation of a suspicious palpable abnormality. This patient's information was entered into a reminder system with a target due date for their next mammogram. Electronically signed by: Jose Freeman MD 05/02/2025 07:03 PM EDT Dictated By: Jose Freeman MD Signed By: <Electronically signed by Jose Freeman MD in OV> 05/02/25 1902 DD/ 1355 TD/TT: 05/01/25 1415 Commodity Analyst: us Frances Li MD IMG BI PROCEDURES Final Re sult * (ABNORMAL) SARS-CoV-2 RNA, Influenza A/B, and RSV RNA, Ql NAAT (04/29/2025 10:33 AM EDT) Influenza A PCR NEGATIVE Negative [facility] Influenza B PCR NEGATIVE Negative [facility] Resp Syncy Virus RNA Qual PCR NEGATIVE Negative [facility] SARS COV2 PCR POSITIVE(A) Negative [facility] Comment:All test results mus t be correlated with clinical findings.Negative results do not preclude SARS-CoV2, influenza Avirus, influenza B virus and/or RSV infectionand should not be used as the sole basis for treatment orother patient management decisions. Negative results must becombined with clinical observations, patient history, andepidemiological information.This test has not been evaluated for monitoring treatment ofinfection.This test has been authorized by the FDA under an EmergencyUse Authorization (EUA) for use by authorized laboratories.Testing performed on the [employer] GeneXpert utilizingreal-time RT-PCR.All SARS CoV2 and positive influenza A/B results arereported to [facility]. 04/29/2025 10:3 3 AM EDT 04/29/2025 3:07 PM EDT us Generic External Data Provider LAB MICROBIOLOGY - GENERAL ORDERABLES Final Result [facility] [address] [place] [phone] * (ABNORMAL) Lipid Panel, Standard (12/10/2024 7:10 AM EDT) Triglycerides 86 <150 mg/dL [facility] Comment:Desirable Triglyceri de: less than 150 mg/dLBorderline High Triglyceride 150-199 mg/dLHigh Triglyceride: 200-499 mg/dLVery High Triglyceride: greater than or equal to 5OO mg/dL Cholesterol 206(H) <200 mg/dL [facility] Comment:Desirable Cholestero l: less than 200 mg/dLBorderline High Cholesterol: 200-239 mg/dLHigh Cholesterol: greater than 239 mg/dL LDL Cholesterol Calculated 104(H) <100 mg/dL [facility] Comment:Desirable LDL: less than 100 mg/dLNear Optimal/Above Optimal LDL: 110- 129 mg/dLBorderline High LDL: 130-159 mg/dLHigh LDL: 160-189 mg/dLVery High LDL: greater than or equal to 190 mg/dL HDL Cholesterol 85 >40 mg/dL [facility] Comment:Desirable HDL: great er than 40 mg/dL Note: This HDL assay may give artificially low results in patients with liver disease. Blood Venous blood specimen / Unknown 12/10/2024 7:10 AM EDT 12/10/2024 7:10 AM EDT Frances Li MD LAB BLOOD ORDERABLES Final Result Performing Organization Address [facility] Co de Phone Number [facility] [address] [place] [phone] * Hepatitis C Antibody with Reflex to HCV, RNA, Quantitative, Real-Time PCR (03/26/2024 7:12 AM EDT) Hepatitis C Antibody Nonreactive Nonreactive [facility] Comment:Antibodies to HCV no t detected; does not exclude early acuteHCV infection. Blood Venous blood specimen / Unknown 03/26/2024 7:12 AM EDT 03/26/2024 7:12 AM EDT Frances Li MD LAB BLOOD ORDERABLES Final Result Performing Organization Address [facility] Co de Phone Number [facility] [address] [place] [phone] * HIV Ab/Ag ([place]) (12/13/2022 7:31 AM EDT) HIV AB/AG Nonreactive Nonreactive [facility] Comment:HIV-1 p24 Ag and/or HIV-1/HIV-2 Ab not detected.A test result that is nonreactive does not exclude thepossibility of exposure to or infection with HIV-1 and/orHIV-2. Nonreactive results in this assay for individualswith prior exposure to HIV-1 and/or HIV-2 may be due toantigen and antibody levels that are below the limit ofdetection of this assay.The [employer] HIV Ag/Ab Combo assay result andsupplemental assay results should be interpreted inconjunction with the patient's clinical presentation,history and other laboratory results. If the results areinconsistent with clinical evidence, additional testing issuggested to confirm the result. 12/13/2022 7:31 AM EDT 12/13/2022 7:31 AM EDT [facility] External Provider LAB BLO OD ORDERABLES Final Result [facility] [address] [place] [phone] * HPV mRNA E6/E7 w/Reflex to HPV Genotypes 16, 18/45 (08/20/2022 1:52 PM EST) HPV nRNA E6/E7 Not Detected Not Detected [facility] Comment:Methodology: Transcr iption-Mediated AmplificationThis assay detects E6/E7 viral messenger RNA (mRNA) from 14high-risk HPV types (16,18,31,33,35,39,45,51,52,56,58,59,66,68).Cervical sources are required for HPV testing.If a vaginal source from a patient who has had atotal hysterectomy with removal of cervix wassubmitted, please contact the testing laboratoryfor alternative testing options.For additional information, please refer tohttp://education.Freespee/faq/YRR480l6(This link if provided for information/educational purposes only.)THIS TEST WAS PERFORMED AT:[employer] [place] [address] (COUNTS INCLUDE 234 BEDS AT THE [facility])[place] [phone] TREVINO MD HPV mRNA E6/E7 [facility] HPV 16 RNA [facility] HPV 18/45 RNA [facility] 08/20/2022 1:52 PM EST 08/20/2022 3:00 PM EST [facility] External Provider LAB CYT OLOGY ORDERABLES Final Result [facility] [address] [place] [phone] * Pap Smear (08/20/2022 1:52 PM EST) 08/20/2022 1:52 PM EST 08/20/2022 3:00 PM EST Narrative [facility] - 08/31/2022 11:51 AM EST ----- ------- Name: RobLaura Age/Sex: 56/F : 1965 Unit#: [id number] Attend Dr: Olivia Montoya CNM Re08/20/22 Status: DEP REF Location: HO.LNP Disch: ----- ------- SPEC : [id number] RECD: 08/20/22 STATUS: LUCIANA MELENDREZ NUM: [id number] RAFAEL: 08/20/22-[address]: Olivia Montoya CNM ENTERED: 08/20/220548 SP TYPE: Pap Smr OTHR DR: Frances Li MD ORDERED: Pap Smear Interpretation Satisfactory for evaluation. Negative for intraepithelial lesion or malignancy. HPV mRNA E6/E7: NOT DETECTED This assay detects E6/E7 viral messenger RNA (mRNA) from 14 high-risk HPV types (16, 18, 31, 33, 35, 39, 45, 51, 52, 56, 58, 59, 66, 68) HPV testing performed by [employer], [place], [place]. See reference laboratory portion of the EMR for entire report. Clinical Information LMP: Post menopause Previous PAP test: 2017, WN Material Received ThinPrep-Cervical Copies To: Frances Li MD [address] [place] [address] Olivia Montoya [address] [place] [address] [place] [phone] ----- ------- Signed (signature on file) Lilia Krause 08/31/22 1151 ----- ------- END OF REPORT [facility] External Provider LAB HALINA KC ORDERABLES Final Result [facility] [address] [place] [phone] * Hm Colonoscopy (01/20/2020) Colonoscopy hx tubular adenoma with Dr. Fields us Historical Provider HEALTH MAINTENANCE Final Result from Last 3 Months or Most Recently Relevant to Health Maintenance Insurance BS PPO Advance Directives Documents on File Type Date Recorded Patient Lube Technician Expl anation Advance Directives and Living Will 03/10/2024 3:23 PM Health Care Proxy Care Teams Concrete Laborer Relationship Specialty Start Date End Date Jen, MD Frances [address] [place] [phone] PCP - General Family Medicine 03/07/19 Olivia Montoya [address] [address] [place] [address] 09/22/24 Nestor Downey MD [address] [facility] [address] [place] [address] Orthopaedic Surgery 10/11/24 Peyton Earl MD [address] [place] [address], [address] [place] [address] Neurosurgery 10/11/24 Anibal Ferrell MD [address] 3rd [place] [address] General Surgery 11/04/24
--- OUTSIDE RECORDS SUMMARY | 2025-05-09 16:37 | XMS_ITS | Encounter Summary ---
Author Organization [employer] Address [address] [place] [address] Care Team Providers Care Petroleum Refinery Worker Name Role Phone Frances Li MD Primary Care Provider [phone] Olivia Montoya Unavailable Nestor Downey MD Unavailable Peyton Earl MD Unavailable Anibal Ferrell MD Unavailable [phone] Encounter Details Date Type Department Care Team (Latest Contact Info) Description 05/09/2025 Travel Social History Tobacco Use Types Packs/Day Years [...] Office Visit [facility] [address] [place] [address] Frances Li MD [address] [place] [address] documented as of this encounter Visit Diagnoses Not on filedocumented in this encounter Additional Health Concerns Assessment Noted Time PHQ-9 Depression Total Score: 1 03/09/20 24 3:12 PM EDT documented as of this encounter Care Teams Petroleum Refinery Worker Relationship Specialty Start Date End Date Frances Li MD [address] [place] [address] PCP - General Family Medicine 03/07/19 Olivia Montoya [address] [facility] [address] [place] [address] 09/22/24 Nestor Downey MD [address] [place] [address] Orthopaedic Surgery 10/11/24 Peyton Earl MD [address] [place] [address], [address] [place] [address] Neurosurgery 10/11/24 Anibal Ferrell MD [address] [place] [address] 3rd [place] [address] General Surgery 11/04/24 documented as of this encounter
--- OUTSIDE RECORDS SUMMARY | 2025-05-09 16:37 | XMS_ITS | Encounter Summary ---
Author Organization [employer] Address [address] [facility] 7t [place] [address] Care Team Providers Care Chief Engineer Name Role Phone Frances Li MD Primary Care Provider [phone] Olivia Montoya Unavailable Nestor Downey MD Unavailable Peyton Earl MD Unavailable Anibal Ferrell MD Unavailable [phone] Encounter Details Date Type Department Care Team (Late st Contact Info) Description 09/04/2022 Abstract [facility] [address] [place], [place] [phone] Frances Li MD [address] [place], [place] [phone] Social History Tobacco Use Types Packs/Day Years [...] Description 06/21/2025 10:30 AM EST Office Visit [facility] [address] [place] [address] Frances Li MD [address] [place] [address] documented as of this encounter Procedures Procedure [...] on filedocumented in this encounter Care Teams Chief Engineer Relationship Specialty Start Date End Date Frances Li MD [address] [place] [address] PCP - General Family Medicine 03/07/19 Olivia Montoya [address] [place] [address] [address] [place] [address] 09/22/24 Nestor Downey MD [address] [facility] [address] [place] [address] Orthopaedic Surgery 10/11/24 Peyton Earl MD [address] [facility], [address] [place] [address] Neurosurgery 10/11/24 Anibal Ferrell MD [address] [place] [address] 3rd [place] [address] General Surgery 11/04/24 documented as of this encounter
--- OUTSIDE RECORDS SUMMARY | 2025-05-09 16:37 | XMS_ITS | Encounter Summary ---
Author Organization [employer] Address [address] [place] [address] Care Team Providers Care Gas Utility Worker Name Role Phone Frances Li MD Primary Care Provider [phone] Olivia Montoya Unavailable Nestor Downey MD Unavailable Peyton Earl MD Unavailable Anibal Ferrell MD Unavailable [phone] Encounter Details Date Type Department Care Team (Late st Contact Info) Description 09/02/2024 Orders Only [facility] [address] [place], [place] [phone] Frances Li MD [address] [place], [place] [phone] Dyslipidemia Social History Tobacco Use Types Packs/Day [...] Description 06/21/2025 10:30 AM EST Office Visit [facility] [address] [place] [phone] Frances Li MD [address] [place] [address] documented as of this encounter Visit Diagnoses Diagnosis Dyslipidemia Other and unspecified hyperlipidemia documented in this encounter Additional Health Concerns Assessment Noted Time PHQ-9 Depression Total Score: 1 03/09/20 24 3:12 PM EDT documented as of this encounter Care Teams Gas Utility Worker Relationship Specialty Start Date End Date Frances Li MD [address] [place] [address] PCP - General Family Medicine 03/07/19 Olivia Montoya [address] [place] [address] [address] [place] [address] 09/22/24 Nestor Downey MD [address] [facility] [address] [facility] [address] [place] [address] Orthopaedic Surgery 10/11/24 Peyton Earl MD [address] [facility], [address] [place] [address] Neurosurgery 10/11/24 Anibal Ferrell MD [address]rd [place] [address] General Surgery 11/04/24 documented as of this encounter
--- OUTSIDE RECORDS SUMMARY | 2025-05-09 16:37 | XMS_ITS | Encounter Summary ---
Author Organization [employer] Address [address] [facility] [address] [place] [address] Care Team Providers Care Check Processing Clerk Name Role Phone Frances Li MD Primary Care Provider [phone] Olivia Montoya Unavailable Nestor Downey MD Unavailable Peyton Earl MD Unavailable Anibal Ferrell MD Unavailable [phone] Reason for Visit * Reason Comments Med Refill Encounter Details Date Type Department Care Team (Late st Contact Info) Description 11/15/2024 Refill [facility] [address] [place], [place] [phone] Frances Li MD [address] [place], [place] [phone] Primary hypertension Social History Tobacco Use Types [...] Description 06/21/2025 10:30 AM EST Office Visit [facility] MED[facility]INE [address] [place] [phone] Frances Li MD [address] [place] [phone] documented as of this encounter Visit Diagnoses Diagnosis Primary hypertension Unspecified essential hypertension documented in this encounter Additional Health Concerns Assessment Noted Time PHQ-9 Depression Total Score: 1 03/09/20 24 3:12 PM EDT documented as of this encounter Care Teams Check Processing Clerk Relationship Specialty Start Date End Date Frances Li MD [address] [place] [phone] PCP - General Family Medicine 03/07/19 Olivia Montoya [address] [facility] [address] [place] [address] 09/22/24 Nestor Downey MD [address] [facility] [address] [place] [address] Orthopaedic Surgery 10/11/24 Peyton Earl MD 2 [facility], [address] [place] [address] Neurosurgery 10/11/24 Anibal Ferrell MD [address] [facility] 3rd [place] [address] General Surgery 11/04/24 documented as of this encounter
--- OUTSIDE RECORDS SUMMARY | 2025-05-09 16:37 | XMS_ITS | Encounter Summary ---
Author Organization [employer] Address [address] [place] [address] Care Team Providers Care Machine Cementer Name Role Phone Frances Li MD Primary Care Provider Olivia Montoya Unavailable Nestor Downey MD Unavailable Peyton Earl MD Unavailable Anibal Ferrell MD Unavailable [phone] Encounter Details Date Type Department Care Team (Late st Contact Info) Description 05/09/2025 Results Follow-Up [facility] [address] [place], [place] [phone] Frances Li MD [address] [place], [place] [phone] XR Chest 2 Views Social History Tobacco Use Types Packs/Day Years [...] Description 06/21/2025 10:30 AM EST Office Visit [facility] [address] [place] [phone] Frances Li MD [address] [place] [phone] documented as of this encounter Visit Diagnoses Not on filedocumented in this encounter Additional Health Concerns Assessment Noted Time PHQ-9 Depression Total Score: 1 03/09/20 24 3:12 PM EDT documented as of this encounter Care Teams Machine Cementer Relationship Specialty Start Date End Date Frances Li MD [address] [place] [id number] PCP - General Family Medicine 03/07/19 Olivia Montoya [address] [facility] [address] [place] [address] 09/22/24 Nestor Downey MD 10 [facility] [address] [place] [address] Orthopaedic Surgery 10/11/24 Peyton Earl MD 2 [facility], [address] [place] [address] Neurosurgery 10/11/24 Anibal Ferrell MD 11 [facility] 3rd [place] [address] General Surgery 11/04/24 documented as of this encounter
--- OUTSIDE RECORDS SUMMARY | 2025-05-09 16:38 | XMS_ITS | Patient Health Record ---
Author Organization [facility] Address [address] [place] [address] Care Team Providers Care Vending Manager Name Role Phone Frances Li MD Primary Care Provider Astrid vailable Black, Shena Unavailable [phone] Allergies Allergen (clinical drug ingredient) Drug/Non Drug [...] Problem Acquired hammer toe of right foot ([id number]) Hammer toe of right foot (M20.41) Active confirmed Plan Of Treatment No Information Insurance Providers Payer Name Payer Address Payer Phone Subscriber Number Group Number Insured Name Patient Relationship to Insured Coverage Start Date Coverage End Date [facility] [address] [place] [address] [id number] Ellis Rivas Spouse - patient is the spouse of the insured Medical (General) History Medical History History ICD Code Anxiety Back,Hip,and Knee pain covid-19 Gall bladder problems Headaches High blood pressure Numbness Chicken pox Surgical History Surgery Date(Month/Year) section 02/14/1984 cholecystectomy 2009 back surgery 05/2020
--- OUTSIDE RECORDS SUMMARY | 2025-05-09 16:38 | XMS_ITS | Encounter Summary ---
Author Organization [employer] Address [address] [facility] 7t [place] [address] Care Team Providers Care Sample Supervisor Name Role Phone Frances Li MD Primary Care Provider Olivia Montoya Unavailable Nestor Downey MD Unavailable Peyton Earl MD Unavailable Anibal Ferrell MD Unavailable [phone] Encounter Details Date Type Department Care Team (Late Contact Info) Description 01/13/2023 Orders Only [facility] MED[facility]INE [address] [place] [address] [phone] Frances Li MD [address] [place] [address] [phone] MAREN positive (Primary Dx) Social History Tobacco [...] 06/21/2025 10:30 AM EST Office Visit [facility] [address] [place], [place] [phone] Francse Li MD [address] [place] [address] documented as of this encounter Visit Diagnoses Diagnosis MAREN positive- Primary documented in this encounter Care Teams Sample Supervisor Relationship Specialty Start Date End Date Frances Li MD [address] [place] [address] PCP - General Family Medicine 03/07/19 Olivia Montoya [address] [facility] [address] [place] [address] 09/22/24 Nestor Downey MD [address] [facility] [address] [place] [address] Orthopaedic Surgery 10/11/24 Peyton Earl MD [address] [place] [address], [address] [place] [address] Neurosurgery 10/11/24 Anibal Ferrell MD 11 [facility] 3rd [place] [address] General Surgery 11/04/24 documented as of this encounter
== END 2025-05-09 15:20 | disposition home or self-care (01) ==
LOC: HO.HHCX 15:19
PROVIDERS: Visit Provider Family Medicine
DX: R05.9 Cough, unspecified (principal)
CPT/HCPCS: 71046

== ENCOUNTER → 2025-05-09 15:20 | Outpatient (BNV) | payer BC, SELFPAY | PROVIDERS: Visit Provider Radiology Diagnostic Radiology | DX: R05.9 Cough, unspecified (principal) | CPT/HCPCS: 71046 ==

== ENCOUNTER 2025-07-03 11:38 | Outpatient (REF) | payer BC, SELFPAY ==
--- OUTSIDE RECORDS SUMMARY | 2025-07-03 15:28 | XMS_ITS | Encounter Summary ---
Author Organization [employer] Address [address] [facility] 7t [place] [address] Care Team Providers Care Chaplain Name Role Phone Frances Li MD Primary Care Provider [phone]- [phone] Olivia Montoya Unavailable Nestor Downey MD Unavailable Peyton Earl MD Unavailable Anibal Ferrell MD Unavailable [phone] Elvin Fields MD Unavailable Encounter Details Date Type Department Care Team (Late st Contact Info) Description 09/01/2022 Orders Only [facility] MEDICINE 230 [place], [place] [phone] Tiffanie Garcia LPN Social History Tobacco Use [...] on filedocumented in this encounter Care Teams Chaplain Relationship Specialty Start Date End Date Frances Li MD 230 [place], [place] [phone] PCP - General Family Medicine 03/07/19 Olivia Montoya [address] [facility] [address] [place] [address] 09/22/24 Nestor Downey MD [address] [place] [address] Orthopaedic Surgery 10/11/24 Peyton Earl MD 2 [facility], [address] [place] [address] Neurosurgery 10/11/24 Anibal Ferrell MD [address] 3rd [place] [address] General Surgery 11/04/24 Elvin Fields MD [address] [place] [address] Gastroenterology 05/30/25 documented as of this encounter
--- OUTSIDE RECORDS SUMMARY | 2025-07-03 15:28 | XMS_ITS | Encounter Summary ---
Author Organization [employer] Address [address] 7t [place] [address] Care Team Providers Care Slip Operator Name Role Phone Frances Li MD Primary Care Provider [phone] Olivia Montoya Unavailable Nestor Downey MD Unavailable Peyton Earl MD Unavailable Anibal Ferrell MD Unavailable [phone] Elvin Fields MD Unavailable Encounter Details Date Type Department Care Team (Late st Contact Info) Description 09/02/2024 Orders Only [facility] MEDICINE 230 [place], [place] [phone] Frances Li MD 230 [place], [place] [phone] Dyslipidemia Social History Tobacco Use Types Packs/Day [...] documented as of this encounter Care Teams Slip Operator Relationship Specialty Start Date End Date Frances Li MD 230 [place] [address] PCP - General Family Medicine 03/07/19 Olivia Montoya [address] [facility] [address] [place] [address] 09/22/24 Nestor Downey MD [address] [place] [address] Orthopaedic Surgery 10/11/24 Peyton Earl MD [address] [facility], [address] [place] [address] Neurosurgery 10/11/24 Anibal Ferrell MD [address] 3rd [place] [address] General Surgery 11/04/24 Elvin Fields MD [address] [place] [address] Gastroenterology 05/30/25 documented as of this encounter
--- OUTSIDE RECORDS SUMMARY | 2025-07-03 15:28 | XMS_ITS | Encounter Summary ---
Author Organization [employer] Address [address] [facility] 7t [place] [address] Care Team Providers Care Superintendent Horticulture Name Role Phone Frances Li MD Primary Care Provider [phone]- [phone] Olivia Montoya Unavailable Nestor Downey MD Unavailable Peyton Earl MD Unavailable Anibal Ferrell MD Unavailable [phone] Elvin Fields MD Unavailable Encounter Details Date Type Department Care Team (Late st Contact Info) Description 09/04/2022 Abstract [facility] MEDICINE 230 [place], [place] [phone] Frances Li MD 230 [place], [place] [phone] Social History Tobacco Use Types Packs/Day Years [...] on filedocumented in this encounter Care Teams Superintendent Horticulture Relationship Specialty Start Date End Date Frances Li MD 230 [place] [address] PCP - General Family Medicine 03/07/19 Olivia Montoya [address] [facility] [address] [place] [address] 09/22/24 Nestor Downey MD [address] [place] [address] Orthopaedic Surgery 10/11/24 Peyton Earl MD [address] [facility] [address], [address] [place] [address] Neurosurgery 10/11/24 Anibal Ferrell MD [address] 3rd [place] [address] General Surgery 11/04/24 Elvin Fields MD [address] [place] [address] Gastroenterology 05/30/25 documented as of this encounter
--- OUTSIDE RECORDS SUMMARY | 2025-07-03 15:28 | XMS_ITS | Encounter Summary ---
Author Organization [employer] Address [address] [facility] 7t [place] [address] Care Team Providers Care Technology Coach Name Role Phone Frances Li MD Primary Care Provider [phone]- [phone] Olivia Montoya Unavailable Nestor Downey MD Unavailable Peyton Earl MD Unavailable Anibal Ferrell MD Unavailable [phone] Elvin Fields MD Unavailable Encounter Details Date Type Department Care Team (Late st Contact Info) Description 05/09/2025 Results Follow-Up [facility] 230 [place], [place] [phone] Frances Li MD 230 [place], [place] [phone] XR Chest 2 Views Social History Tobacco [...] documented as of this encounter Care Teams Technology Coach Relationship Specialty Start Date End Date Frances Li MD 230 [place] [address] PCP - General Family Medicine 03/07/19 Olivia Montoya [address] [facility] [address] [place] [address] 09/22/24 Nestor Downey MD [address] [place] [address] Orthopaedic Surgery 3/4/25 Peyton Earl MD 2 [facility] [address], [address] [place] [address] Neurosurgery 10/11/24 Anibal Ferrell MD [address] 3rd [place] [address] General Surgery 11/04/24 Elvin Fields MD [address] [place] [address] Gastroenterology 05/30/25 documented as of this encounter
--- OUTSIDE RECORDS SUMMARY | 2025-07-03 15:28 | XMS_ITS | Encounter Summary ---
Author Organization [employer] Address [address] 7t [place] [address] Care Team Providers Care Creative Arts Music Therapist Name Role Phone Jen, Frances BREWER Primary Care Provider + [phone] Olivia Montoya Unavailable Nestor Downey MD Unavailable Peyton Earl MD Unavailable Anibal Ferrell MD Unavailable [phone] Elvin Fields MD Unavailable Reason for Visit * Reason Comments Med Refill Encounter Details Date Type Department Care Team (Late st Contact Info) Description 12/30/2023 Refill [facility] 230 [place] [address] Payal Berry MD [address] [place], [place] [phone] Nasal congestion; Pain of nose Social History [...] sinuses documented in this encounter Care Teams Creative Arts Music Therapist Relationship Specialty Start Date End Date Frances Li MD 230 [place] [address] PCP - General Family Medicine 03/07/19 Olivia Montoya [address] [facility] [address] [place] [address] 09/22/24 Nestor Downey MD [address] [place] [address] Orthopaedic Surgery 10/11/24 Peyton Earl MD [address] [facility] [facility] [address], [address] [place] [address] Neurosurgery 10/11/24 Anibal Ferrell MD [address] 3rd [place] [address] General Surgery 11/04/24 Elvin Fields MD [address] [place] [address] Gastroenterology 05/30/25 documented as of this encounter
--- OUTSIDE RECORDS SUMMARY | 2025-07-03 15:28 | XMS_ITS | Clinical Summary ---
Author Organization [employer] Address [address] [facility] 7t [place] [address] Care Team Providers Care Medical Secretary Receptionist Name Role Phone Frances Li MD Primary Care Provider [phone] Olivia Montoya Unavailable Nestor Downey MD Unavailable Peyton Earl MD Unavailable Anibal Ferrell MD Unavailable [phone] Elvin Fields MD Unavailable Allergies Active Allergy [...] 2027 Fibroids 09/23/2023 Overview (09/23/2023): -followed by [employer] director, Dr. Thompson Jo -[place] 09/21/23 Multiple uterine [...] facilitated by brenda crook -dental home is [facility] care proxy filed 03/09/24 Assessment & Plan (06/21/2025 12:27 PM EST): -next comprehensive annual evaluation due after 06/21/26 -eye care facilitated by brenda crook -dental home is [facility] care proxy filed 03/09/24 Assessment & Plan (06/08/2024 10:55 AM EDT): -next comprehensive annual evaluation due after 06/08/25 -eye care facilitated by brenda crook -dental home is [facility] care proxy filed 03/09/24 Assessment & Plan [...] reviewed. No indication for surgery. -Seen by [facility] 02/29/24 recommending follow up with neurosurgery. No evidence of hip joint pathology. -She has compleated 3 years of physical therapy -On 03/09/24 we discussed possibility of piriformis syndrome. Strengthening discussed. She is going to see chricopractic and acupuncture. We also discussed hypnotherapy. -Has been seeing chiropractor in [place], which she has significant relief from. -seen [...] -[facility] neuro[facility], note reviewed. L spine x rays reviewed. No indication for surgery. -Seen by [facility] 02/29/24 recommending follow up with neurosurgery. No evidence of hip joint pathology. -She has compleated 3 years of physical therapy -On 03/09/24 we discussed possibility of piriformis syndrome. Strengthening discussed. She is going to see chricopractic and acupuncture. We also discussed hypnotherapy. -Has been seeing chiropractor in [place], which she has significant relief from. Has appt. again next week. Assessment & Plan (03/09/2024 12:37 PM EDT): -hx lumbar surgery -MRI 2023 right thigh negative -MRI lumbar spine Jul shows slight L4-L5 spondylolisthesis but otherwise very minimal changes -Seen by neurosurgery Dr. Peyton Earl MD, [facility], [place] 03/03/24, note reviewed. L spine x rays reviewed. No indication for surgery. -Seen by [facility] 02/29/24 recommending follow up with neurosurgery. 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 She will follow up with neurology. 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 She will follow up with neurology. Encounters Date Type Department Care Team Description 06/21/2025 10:30 AM EST Office Visit [facility] [address] [place] [phone] Frances Li MD Dyslipidemia (Primary Dx); Essential hypertension; Encounter for immunization; Tubular adenoma of colon; Elevated LFTs; Dietary counseling; Exercise counseling; Overweight; Other specified health status 06/21/2025 Travel 06/20/2025 Travel 06/20/[address] [address] Frances Li MD chart prep 06/13/[address] [facility] [address] [place] [phone] Frances Li MD Pre-visit Planning (Pre-visit planning - LVM ) 05/10/[address] [facility] [address] [place] [phone] Frances Li MD Xray results 05/09/2025 3:00 PM EDT Office Visit [facility] [address] [place] [phone] Frances Li MD Cough, unspecified type (Primary Dx) 05/09/2025 Results Follow-Up [facility] [address] [place], [place] [address]rocco [facility] [place] [address] Frances Li MD XR Chest 2 Views 05/09/2025 Travel 05/09/[address] [facility] [place] [address] Frances Li MD 05/01/[address] [facility] [address] [facility] [place] [address] Frances Li MD Leg cramps 04/29/2025 Orders Only GENERIC EXTERNAL DATA DEPARTMENT Provider, Generic External Data 04/13/[address] [facility] [address] [facility] [place] [address] Frances Li MD June Recalls 04/13/2025 Travel [...] test for low risk patient HIV ANTIBODY/ANTIGEN ([facility]) Routine 12/13/2022 7:31 AM EDT HPV [...] PM EDT Narrative 05/09/2025 3:36 PM EDT [address] [address] XRay Report Signed Patient: Laura Rivas MR#: [id number] 3 : 1965 Acct:[id number] Age/Sex: 59 / F ADM Date: 05/09/25 Loc: MARKX Attending Dr: Frances Li MD Ordering Physician: Frances Li MD Date of Service: 05/09/25 Procedure(s): XR chest 2V Accession Number(s): [id number] cc: Frances Li MD Reason for Exam: [...] 05/09/25 1533 DD/ 1540 TD/TT: 05/09/25 1531 Information Technology Associate: Procedure Note Donotuseinterpreter, Image - 05/09/[address] [address] XRay Report Signed Patient: Laura Rivas LMR#: [id number] 3 : 1965Acct:[id number] Age/Sex: 59 / FADM Date: 05/09/25 Loc: MARKX Attending Dr: Frances Li MD Ordering Physician: Frances Li MD Date of Service: 05/09/25 Procedure(s): XR chest 2V Accession Number(s): [id number] cc: Frances Li MD Reason for Exam: [...] 05/09/25 1533 DD/ 1540 TD/TT: 05/09/25 1531 Information Technology Associate: Frances Li MD IMG XR PROCEDURES Final Re sult * BI Mammogram Screening Tomosynthesis Bilateral (05/01/2025 1:55 PM EDT) Anatomical Region Laterality Modality Breast Bilateral Mammography 05/01/2025 1:55 PM EDT Narrative 05/02/2025 7:06 PM EDT [facility] [place] [address] Mammography Report Signed Patient: Laura Rivas MR#: [id number] 3 : 1965 Acct:[id number] Age/Sex: 59 / F ADM Date: 05/01/25 Loc: HO.MAMMO Attending Dr: Frances Li MD Ordering Physician: Frances Li MD Results: 1N egative Date of Service: 05/01/25 Follow Up: 1 Year From Orig ina Mammogram Procedure(s): MM tomosynthesis screening BI Accession Number(s): [id number] cc: Frances Li MD Reason For Exam: [...] 05/02/25 1903 DD/ 1355 TD/TT: 05/01/25 1415 Information Technology Associate: Procedure Note Donotuseinterpreter, Image - 05/02/2025 [facility] [address] [place] [address] Mammography Report Signed Patient: Laura Rivas LMR#: [id number] 3 : 1965Acct:[id number] Age/Sex: 59 / FADM Date: 05/01/25 Loc: HO.MAMMO Attending Dr: Frances Li MD Ordering Physician: Frances Li MDResults: 1N egative Date of Service: 05/01/25Follow Up: 1 Year From [facility] Mammogram Procedure(s): MM tomosynthesis screening BI Accession Number(s): [id number] cc: Frances Li MD Reason For Exam: [...] 05/02/25 1903 DD/ 1355 TD/TT: 05/01/25 1415 Information Technology Associate: us Frances Li MD IMG BI PROCEDURES Final Re sult * (ABNORMAL) SARS-CoV-2 RNA, Influenza A/B, and RSV RNA, Ql NAAT (04/29/2025 10:33 AM EDT) Influenza A PCR NEGATIVE Negative [facility] Influenza B PCR NEGATIVE Negative [facility] Resp Syncy Virus RNA Qual PCR NEGATIVE Negative [facility] SARS COV2 PCR POSITIVE(A) Negative [facility] Comment:All test results mus [...] use by authorized laboratories.Testing performed on the [employer] GeneXpert utilizingreal-time RT-PCR.All SARS CoV2 and positive influenza A/B results arereported to [facility]. 04/29/2025 10:3 3 AM EDT 04/29/2025 3:07 PM EDT Generic External Data Provider LAB MICROBIOLOGY - GENERAL ORDERABLES Final Result Performing Organization Address City/[facility]/ZIP Co de Phone Number [facility] [address] [place] [phone] * (ABNORMAL) Lipid Panel, Standard (12/10/2024 7:10 AM EDT) Triglycerides 86 <150 mg/dL [facility] Comment:Desirable Triglyceri de: less than 150 mg/dLBorderline High Triglyceride 150-199 mg/dLHigh Triglyceride: 200-499 mg/dLVery High Triglyceride: greater than or equal to 5OO mg/dL Cholesterol 206(H) <200 mg/dL [facility] Comment:Desirable Cholestero l: less than 200 mg/dLBorderline High Cholesterol: 200-239 mg/dLHigh Cholesterol: greater than 239 mg/dL LDL Cholesterol Calculated 104(H) <100 mg/dL [facility] Comment:Desirable LDL: less than 100 mg/dLNear Optimal/Above Optimal LDL: 110- 129 mg/dLBorderline High LDL: 130-159 mg/dLHigh LDL: 160-189 mg/dLVery High LDL: greater than or equal to 190 mg/dL HDL Cholesterol 85 >40 mg/dL [facility] Comment:Desirable HDL: great er than 40 mg/dL Note: This HDL assay may give artificially low results in patients with liver disease. Blood Venous blood specimen / Unknown 12/10/2024 7:10 AM EDT 12/10/2024 7:10 AM EDT Frances Li MD LAB BLOOD ORDERABLES Final Result Performing Organization Address [facility]/ZIP Co de Phone Number [facility] [address] [place] [phone] * Hepatitis C Antibody with Reflex to HCV, RNA, Quantitative, Real-Time PCR (03/26/2024 7:12 AM EDT) Hepatitis C Antibody Nonreactive Nonreactive [facility] Comment:Antibodies to HCV no t detected; does not exclude early acuteHCV infection. Blood Venous blood specimen / Unknown 03/26/2024 7:12 AM EDT 03/26/2024 7:12 AM EDT Frances Li MD LAB BLOOD ORDERABLES Final Result Performing Organization Address [facility]/ZIP Co de Phone Number [facility] [address] [place] [phone] * HIV Ab/Ag ([facility]) (12/13/2022 7:31 AM EDT) Pathologist [facility] HIV AB/AG Nonreactive Nonreactive [facility] Comment:HIV-1 p24 Ag and/or HIV-1/HIV-2 Ab not detected.A test result that is nonreactive does not exclude thepossibility of exposure to or infection with HIV-1 and/orHIV-2. Nonreactive results in this assay for individualswith prior exposure to HIV-1 and/or HIV-2 may be due toantigen and antibody levels that are below the limit ofdetection of this assay.The [employer]ston [employer] Vice President HIV Ag/Ab Combo assay result andsupplemental assay results should be interpreted inconjunction with the patient's clinical presentation,history and other laboratory results. If the results areinconsistent with clinical evidence, additional testing issuggested to confirm the result. 12/13/2022 7:31 AM EDT 12/13/2022 7:31 AM EDT [facility] External Provider LAB BLO OD ORDERABLES Final Result Performing Organization Address [facility]/ZIP Co de Phone Number [facility] [address] [place] [phone] * HPV mRNA E6/E7 w/Reflex to HPV Genotypes 16, 18/45 (08/20/2022 1:52 PM EST) HPV nRNA E6/E7 Not Detected Not Detected [facility] Comment:Methodology: Transcr iption-Mediated AmplificationThis assay detects E6/E7 viral messenger RNA (mRNA) from 14high-risk HPV types (16,18,31,33,35,39,45,51,52,56,58,59,66,68).Cervical sources are required for HPV testing.If a vaginal source from a patient who has had atotal hysterectomy with removal of cervix wassubmitted, please contact the testing laboratoryfor alternative testing options.For additional information, please refer [email or web address].[employer] Stories/faq/UJZ972q5(This link if provided for information/educational purposes only.)THIS TEST WAS PERFORMED AT:[employer] [place] [address] ([address] [phone] TREVINO MD HPV mRNA E6/E7 [facility] HPV 16 RNA [facility] HPV 18/45 RNA [facility] 08/20/2022 1:52 PM EST 08/20/2022 3:00 PM EST [facility] External Provider LAB CYT OLOGY ORDERABLES Final Result [facility] [address] [place] [phone] * Pap Smear (08/20/2022 1:52 PM EST) 08/20/2022 1:52 PM EST 08/20/2022 3:00 PM EST Narrative [facility] - 08/31/2022 11:51 AM EST ----- ------- Name: Laura Rivas Age/Sex: 56/F : 1965 Unit#: [id number] Attend Dr: Olivia Montoya CNM Re08/20/22 Status: DEP REF Location: [facility] Disch: ----- ------- SPEC : [id number] RECD: 08/20/22-1499 STATUS: LUCIANA MELENDREZ NUM: [id number] RAFAEL: 08/20/22-1352 [facility] DR: Olivia Montoya ENTERED: 08/20/22-1836 SP [...] 59, 66, 68) HPV testing performed by [employer], [place], [place]. See reference laboratory portion of the EMR for entire report. Clinical Information LMP: Post menopause Previous PAP test: 2017, WNL Material Received ThinPrep-Cervical Copies To: Frances Li MD [address] [place] [address] [phone] Olivia Montoya [address] Fairchild [address] [place] [phone] ----- ------- Signed (signature on file) Lilia Krause 08/31/22 1151 ----- ------- END OF REPORT [facility] External Provider LAB CYT DE BRIAN Final Result [facility] [address] [place], [place] [phone] * Colonoscopy (01/20/2020) Colonoscopy hx tubular adenoma with Dr. 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 Advance Directives and Living Will 03/10/2024 3:23 PM Health Care Proxy Care Teams Medical Secretary Receptionist Relationship Specialty Start Date End Date Jen, MD Frances [address] [place] [phone] PCP - General Family Medicine 03/07/19 Olivia Montoya [address] [place] [address] 09/22/24 Nestor Downey MD [address] [place] [address] Orthopaedic Surgery 10/11/24 Peyton Earl MD [address], [address] [place] [address] Neurosurgery 10/11/24 Anibal Ferrell MD [address] 3rd [place] [address] General Surgery 11/04/24 Elvin Fields MD [address] [place] [address] Gastroenterology 05/30/25
--- OUTSIDE RECORDS SUMMARY | 2025-07-03 15:28 | XMS_ITS | Encounter Summary ---
Author Organization [employer] Address [address] 7[address] [place] [address] Care Team Providers Care Physiology Teacher Name Role Phone Frances Li MD Primary Care Provider [phone] Olivia Montoya Unavailable Nestor Downey MD Unavailable Peyton Earl MD Unavailable Anibal Ferrell MD Unavailable [phone] Elvin Fields MD Unavailable Reason for Visit * Reason Comments Med Refill Encounter Details Date Type Department Care Team (Late st Contact Info) Description 11/15/2024 Refill [facility] [address] [place], [place] [phone] Frances Li MD [address] [place], [place] [phone] Primary hypertension Social History Tobacco Use Types [...] documented as of this encounter Care Teams Physiology Teacher Relationship Specialty Start Date End Date Frances Li MD [address] [place] [address] PCP - General Family Medicine 03/07/19 Olivia Montoya [address] [facility] [address] [place] [address] 09/22/24 Nestor Downey MD [address] [place] [address] Orthopaedic Surgery 10/11/24 Peyton Earl MD [address], [address] [place] [address] Neurosurgery 10/11/24 Anibal Ferrell MD [address] 3rd [place] [address] General Surgery 11/04/24 Elvin Fields MD [address] [place] [address] Gastroenterology 05/30/25 documented as of this encounter
--- OUTSIDE RECORDS SUMMARY | 2025-07-03 15:29 | XMS_ITS | Data Portability ---
Author Organization [place] - [facility], Allergy Address [address] [address] Care Team Providers Care Felt Cementer Name Role Phone KIMBRELYLEISA LOPEZ Primary Care Provider Assessment Encounter Date [...] Organization Details Recorded Time Refractor y migraine 891184954 Active 2022 Other migraine, intractabl e, without status migrainosu s; Note: Date Diagnosed: 01/15/2023 10:18 AM (G43.819) Not Available [facility] 4 02:57:51 Dizziness and giddiness 770132670 Active 2022 Dizziness and giddiness; Note: Date Diagnosed: 01/15/2023 9:44 AM (R42) Not Available [facility] 4 02:57:48 Benign paroxysma l positiona l vertigo 311657710 Active 2022 Benign paroxysmal vertigo, right ear; Note: Date Diagnosed: 07/24/2023 10:59 AM (H81.11) Not Available [facility] 4 02:57:49 Sensorine ural hearing loss of bilateral ears 659642058 Active 2024 [place] MON, AUD 100 [facility],[address], [address] , [facility] - [facility] 5 09:19:46 Problem Notes None recorded. Procedures Surgical History Date Name Laterality Status Provider Name and Address Organization Details Recorded Time 10/06/19 25 Air & Speech Audio with Tymps - 85129, 89622 & 22852 completed LA MON, AUD 100 [facility],[address], [address], [facility] - [facility] 10/06/2024 09:19:04 Cholecystectomy completed ASHA PATEL MD [address] [place] [address],[address], [address], [facility] 10/06/2024 09:34:22 section completed ASHA PATEL MD [address] [place] [address],[address], [address], [facility] 10/06/2024 09:34:28 Imaging Results None recorded. Procedure Notes None recorded. Medical Equipment None Reported. Allergies Allergen ID Allergen Name Allergen Category Reaction Reaction Severity Criticality Documentation Date Start Date Code Code System Note Provider Name and Address Organization Details Recorded Time 808992 Tylenol medicatio n other Not available Not available 12/22/2023 3 RxNorm React ion: Unkno wn; Not Available [facility] 4 01:22:15 Medications Name Sig Start Date Stop Date Status Note LastModified by Organization Details LastModified Time atorvasta tin 40 mg tablet 10/06 completed Not Available Not Available Not Available atorvasta tin 20 mg tablet TAKE 1 TABLET BY MOUTH EVERY DAY active Not Available Not Available No t Available alprazola m 1 mg tablet 07/23 completed Medicati on ID: [id number] B rand Name: alprazol am Send Method: E-Prescr ibed Sub s Allowed: subs OK Medic ationGen ericName : alprazol am Not Available Not Available Not Available valacyclo vir 1 gram tablet active Medicati on ID: [id number] B rand Name: valacycl ovir Sen d Method: E-Prescr ibed Sub s Allowed: subs OK Medic ationGen ericName : valacycl ovir Not Available Not Available Not Available prednison e 20 mg tablet 07/23 completed Medicati on ID: [id number] B rand Name: predniso ne Send Method: E-Prescr ibed Sub s Allowed: subs OK Medic ationGen ericName : predniso ne Not Available Not Available Not Available clobetaso l 0.05 % topical cream APPLY TO ECZEMA TWICE DAILY NEEDED FOR UP TO 2 WEEKS/MO NT active Not Available Not Available No t Available hydralazi ne 25 mg tablet 07/23 completed Medicati on ID: [id number] B rand Name: hydralaz ine Send Method: E-Prescr ibed Sub s Allowed: subs OK Medic ationGen ericName : hydralaz ine Not Available Not Available Not Available amlodipin e 2.5 mg tablet 07/23 completed Medicati on ID: [id number] B rand Name: amlodipi ne Send Method: E-Prescr ibed Sub s Allowed: subs OK Medic ationGen ericName : amlodipi ne Not Available Not Available Not Available amlodipin e 5 mg tablet TAKE 1 TABLET BY MOUTH EVERY DAY active Not Available Not Available No t Available amoxicill in 500 mg tablet 07/23 completed Medicati on ID: [id number] B rand Name: amoxicil ravin Send Method: E-Prescr ibed Sub s Allowed: subs OK Medic ationGen ericName : amoxicil ravin Not Available Not Available Not Available alprazola m 0.5 mg tablet TAKE 1 TABLET BY MOUTH 1 HOUR BEFORE INJECTIO N 10/06 completed Not Available Not Available Not Available lorazepam 0.5 mg tablet 07/23 completed Medicati on ID: [id number] B rand Name: lorazepa m Send Method: E-Prescr ibed Sub s Allowed: subs OK Medic ationGen ericName : lorazepa m Not Available Not Available Not Available meclizine 25 mg tablet 10/06 completed Medicati on ID: [id number] B rand Name: meclizin e Send Method: E-Prescr ibed Sub s Allowed: subs OK Speci al Instruct ion: TAKE 2 TABLETS BY MOUTH TWICE DAILY NEEDED FOR DIZZINES S Medica tionGene ricName: meclizin e Not Available Not Available Not Available diazepam 2 mg tablet 07/23 completed Medicati on ID: [id number] B rand Name: diazepam Send Method: E-Prescr ibed Sub s Allowed: subs OK Medic ationGen ericName : diazepam Not Available Not Available Not Available lisinopri l 10 mg tablet TAKE 1 TABLET BY MOUTH EVERY DAY active Not Available Not Available No t Available gabapenti n 300 mg capsule 10/06 completed Medicati on ID: [id number] B rand Name: gabapent in Send Method: E-Prescr ibed Sub s Allowed: subs OK Medic ationGen ericName : gabapent in Not Available Not Available Not Available mupirocin 2 % topical ointment 10/06 completed Medicati on ID: [id number] B rand Name: mupiroci n Send Method: E-Prescr ibed Sub s Allowed: subs OK Medic ationGen ericName : mupiroci n Not Available Not Available Not Available ibuprofen 600 mg tablet active Medicati on ID: [id number] B rand Name: ibuprofe n Send Method: E-Prescr ibed Sub s Allowed: subs OK Medic ationGen ericName : ibuprofe n Not Available Not Available Not Available estradiol 0.01% (0.1 mg/gram) vaginal cream active Medicati on ID: [id number] B rand Name: estradio l Send Method: [...] mg tablet 07/23 completed Medicati on ID: [id number] B rand Name: amoxicil ravin-pot clavulan ate Send Method: E-Prescr ibed Sub s Allowed: subs OK Medic ationGen ericName : amoxicil ravin-pot clavulan ate Not Available Not Available Not Available Eucrisa 2 % topical ointment APPLY THIN LAYER TO HANDS NEEDED FOR SYMPTOMS active Not Available Not Available No t Available BinaxNOW COVID-19 Ag Self Test kit 10/06 completed Medicati on ID: [id number] B rand Name: BinaxNOW COVID-19 Ag Self Test Sen d Method: E-Prescr ibed Sub s Allowed: subs OK Medic ationGen ericName : BinaxNOW COVID-19 Ag Self Test Not Available Not Available Not Available Paxlovid 300 mg (150 mg x 2)-100 mg tablets in a dose pack 10/06 completed Medicati on ID: [id number] B rand Name: Paxlovid Send Method: E-Prescr [...] Updated DateTime 10/06/2024 170.18 cm 24.9 kg/m2 12607.19 g Annalisa Langley [place] - [facility] 10/06/2024 09:25:55 Social History None recorded. [...] ICD10 Code Diagnosis IMO Codes Diagnosis Note [id number] ASHA PATEL MD [facility] include [address] beds at the [facility] on [address] [place] [address] 10/06/2024 09:07:23 10/06/2024 12:09:13 Sensorineural hearing loss of bilateral ears 155809762 H90.3 Audiologic al evaluation results: Normal sloping to mild sensorineu ral hearing loss with excellent word recognitio n, bilaterall y. Tympanomet ry: Right Ear:Type A Left Ear:Type A Benign par oxysmal positional vertigo 798712136 H81.10 Health Concerns Section Related Observation LastModified by Organization Detai ls LastModified Time None Recorded Concern Status LastModified by Organization Details LastModified Time None Recorded Advance Directives Directive None Recorded Payers Insurance Date Sequence Insurance Name Policy Number Policy Pang Covered Member ID Pang Member ID Guarantor Name 10/06/2024 1 ADE (O) Laura Rivas [id number] Laura Rivas 11/22/2024 1 ADE (PPO) [id number] Ellis Rivas [id number] Laura Rivas Notes Date Note Type [...] vision checked regularly. Normal ear exam today. Savannah Hallpike was positive to the right, and I did perform the faizan maneuver which she tolerated well. I did give her a referral for physical therapy. In retrospect she could have had episode of vestibular neuritis over the summer, which can predispose to BPPV. ASHA PATEL MD [address] [place] [address], [place], [address], [facility] - [facility] 10/14/2024 12:55:27 OBGyn Episode No OBEpisode recorded.
--- OUTSIDE RECORDS SUMMARY | 2025-07-03 15:29 | XMS_ITS | Encounter Summary ---
Author Organization [employer] Address [address] [facility] [address] [place] [address] Care Team Providers Care Cannery Worker Name Role Phone Frances Li MD Primary Care Provider [phone] Olivia Montoya Unavailable Nestor Downey MD Unavailable Peyton Earl MD Unavailable Anibal Ferrell MD Unavailable [phone] Elvin Fields MD Unavailable Encounter Details Date Type Department Care Team (Late st Contact Info) Description 01/13/2023 Orders Only [facility] [address] [place], [place] [phone] Frances Li MD [address], [place] [phone] MAREN positive (Primary Dx) Social History Tobacco [...] Primary documented in this encounter Care Teams Cannery Worker Relationship Specialty Start Date End Date Claudio Lihanie, MD [address] [place] [address] PCP - General Family Medicine 03/07/19 Olivia Montoya [address] [address] [place] [address] 09/22/24 Nestor Downey MD [address] [place] [address] Orthopaedic Surgery 10/11/24 Peyton Earl MD [address] [facility], [address] [place] [address] Neurosurgery 10/11/24 Anibal Ferrell MD [address] 3rd [place] [address] General Surgery 11/04/24 Elvin Fields MD [address] [place] [address] Gastroenterology 05/30/25 documented as of this encounter
[2025-07-03 16:23] LABS: Alanine Aminotransferase 18 U/L (0-31); Albumin Level 4.6 g/dL (3.5-5.0); Aspartate Amino Transferase 32 U/L (5-31); Cholesterol 204 mg/dL (<200); HDL Cholesterol 81 mg/dL (>40); Total Protein 7.4 g/dL (6.5-8.0); Triglycerides 160 mg/dL (<150)
[2025-07-03 16:35] LABS: Alkaline Phosphatase 83 U/L (39-117)
== END 2025-07-03 11:39 | disposition home or self-care (01) ==
LOC: HO.HHCL 11:38
PROVIDERS: PCP Family Medicine; Visit Provider Family Medicine
DX: R17 Unspecified jaundice (principal); R79.89 Other specified abnormal findings of blood chemistry
CPT/HCPCS: 36415; 80061; 80076

== ENCOUNTER 2025-07-21 07:21 | Day surgery (SDC) | payer BC, SELFPAY ==
--- OUTSIDE RECORDS SUMMARY | 2025-06-28 08:26 | XMS_ITS | Encounter Summary ---
Author Organization [employer] Address [address] [facility] [address] [facility] [address] [place] [address] Care Team Providers Care Academic Affairs Dean Name Role Phone Frances Li MD Primary Care Provider [phone] Olivia Montoya Unavailable Nestor Downey MD Unavailable Peyton Earl MD Unavailable Anibal Ferrell MD Unavailable [phone] Elvin Fields MD Unavailable Encounter Details Date Type Department Care Team (Late st Contact Info) Description 09/02/2024 Orders Only [facility] MED[facility]INE [address] [place], [place] [phone] Frances Li MD [address] [place], [place] [phone] Dyslipidemia Social History Tobacco Use Types Packs/Day [...] documented as of this encounter Care Teams Academic Affairs Dean Relationship Specialty Start Date End Date Frances Li MD [address] [place] [address] PCP - General Family Medicine 03/07/19 Olivia Montoya [address] [facility] [address] [place] [address] 09/22/24 Nestor Downey MD [address] [place] [address] Orthopaedic Surgery 10/11/24 Peyton Earl MD [address] [facility] [address], [address] [place] [address] Neurosurgery 10/11/24 Anibal Ferrell MD [address] 3rd [place] [address] General Surgery 11/04/24 Elvin Fields MD [address] [place] [address] Gastroenterology 05/30/25 documented as of this encounter
--- OUTSIDE RECORDS SUMMARY | 2025-06-28 08:26 | XMS_ITS | Clinical Summary ---
Author Organization [employer] Address [address] [facility] [address] [place] [address] Care Team Providers Care Piece Work Checker Name Role Phone Frances Li MD Primary Care Provider [phone] Olivia Montoya Unavailable Nestor Downey MD Unavailable Peyton Earl MD Unavailable Anibal Ferrell MD Unavailable Elvin Fields MD Unavailable Allergies Active Allergy Reactions Criticality Noted Date Comments Acetaminophen 11/21/2016 Difficulty breathing Medications valACYclovir (Valtrex) 1 g tablet 022 Active estradiol (Estrace) 0.1 MG/GM vaginal cream INSERT 1/2 APPLICATORFUL VAGINALLY 2 TIMES A WEEK EVERY NIGHT FOR 2 WEEKS 023 Active LORazepam (Ativan) 0.5 MG tablet take 1 tab po daily prn anxiety as needed 4 tablet 023 Active Eucrisa 2 % ointment APPLY THIN [...] AT BEDTIME 60 capsule 11 025 Active fluticasone (Flonase Allergy Relief) 50 MCG/ACT nasal spray Administer 1 spray into each nostril Once per day. Shake gently. Before first use, prime pump. After use, clean tip and replace cap. 16 g 12 024 2024 Discontinued(M ed list cleanup (will not trigger notification to Pharmacy)) Active [...] 2027 Fibroids 09/23/2023 Overview (09/23/2023): -followed by head of cytogenetics, Dr. Thompson Jo -US 09/21/23 Multiple uterine [...] stability. Other specified health status 05/06/2023 Overview (06/21/2025): -next comprehensive annual evaluation due after 06/21/26 -eye care facilitated by brenda crook -dental home is [facility] care proxy filed 03/09/24 Assessment & Plan (06/21/2025 12:27 PM EST): -next comprehensive annual evaluation due after 06/21/26 -eye care facilitated by brenda crook -dental home is [facility] proxy filed 03/09/24 Assessment & Plan (06/08/2024 10:55 AM EDT): -next comprehensive annual evaluation due after 06/08/25 -eye care facilitated by brenda crook -dental home is [facility] care proxy filed 03/09/24 Assessment & [...] 04/29/2023, will request note. Dyslipidemia 12/08/2022 Overview (06/21/2025): Lab Results Component Value Date CHOL 206 (H) 12/10/2024 TRIG 86 12/10/2024 HDL 85 12/10/2024 LDLCHOLCAL 104 (H) 12/10/2024 -continue lifestyle modification -increase Atorvastatin 40 mg 06/08/24 but repeat labs showed bump in LFTs so decreased back down to atorvastatin 20mg on 07/30/24 Assessment & Plan (06/21/2025 12:27 PM EST): Lab Results Component Value Date CHOL 206 (H) 12/10/2024 TRIG 86 12/10/2024 HDL 85 12/10/2024 LDLCHOLCAL 104 (H) 12/10/2024 -continue lifestyle modification -increase Atorvastatin 40 mg 06/08/24 but repeat labs showed bump in LFTs so decreased back down to atorvastatin 20mg on 07/30/24 Assessment & Plan (06/08/2024 11:01 AM [...] modifications -continue current medication Assessment & Plan (06/21/2025 12:27 PM EST): -blood pressure is at goal -continue lifestyle modifications -continue current medications Assessment & Plan (06/08/2024 10:42 AM EDT): [...] reviewed. No indication for surgery. -Seen by [facility] 02/29/24 recommending follow up with neurosurgery. No evidence of hip joint pathology. -She has compleated 3 years of physical therapy -On 03/09/24 we discussed possibility of piriformis syndrome. Strengthening discussed. She is going to see chricopractic and acupuncture. We also discussed hypnotherapy. -Has been seeing chiropractor in [place], which she has significant relief from. -seen [...] -[facility] [place] [facility], note reviewed. L spine x rays reviewed. No indication for surgery. -Seen by [facility] 02/29/24 recommending follow up with neurosurgery. No evidence of hip joint pathology. -She has compleated 3 years of physical therapy -On 03/09/24 we discussed possibility of piriformis syndrome. Strengthening discussed. She is going to see chricopractic and acupuncture. We also discussed hypnotherapy. -Has been seeing chiropractor in [place], which she has significant relief from. Has appt. again next week. Assessment & Plan (03/09/2024 12:37 PM EDT): -hx lumbar surgery -MRI 2023 right thigh negative -MRI lumbar spine Jul shows slight L4-L5 spondylolisthesis but otherwise very minimal changes -Seen by neurosurgery Dr. Peyton Earl MD, [facility], [place] 03/03/24, note reviewed. L spine x rays reviewed. No indication for surgery. -Seen by [facility] 02/29/24 recommending follow up with neurosurgery. No evidence of hip joint pathology. -She has compleated 3 years of physical therapy -On 03/09/24 we discussed possibility of piriformis syndrome. Strengthening discussed. She is going to see chricopractic and acupuncture. We also discussed hypnotherapy. Assessment & Plan (05/06/2023 11:12 AM EDT): Pt currently in PT. Tubular adenoma of colon 09/10/2017 Overview (05/30/2025): -hx tubular adenoma 10/02/2014 and 01/20/[address] 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 She will follow up with neurology. 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 She will follow up with neurology. Encounters Date Type Department Care Team Description 06/21/2025 10:30 AM EST Office Visit [facility] [address] [place] [phone] Frances Li MD Dyslipidemia (Primary Dx); Essential hypertension; Encounter for immunization; Tubular adenoma of colon; Elevated LFTs; Dietary counseling; Exercise counseling; Overweight; Other specified health status 06/21/2025 Travel 06/20/2025 Travel 06/20/[address] [address] Frances Li MD chart prep 06/13/2025 Patient Outreach [facility] [address] [place] [phone] Frances Li MD Pre-visit Planning (Pre-visit planning - LVM ) 05/10/2025 Telephone [facility] [address] [place] [phone] Frances Li MD Xray results 05/09/2025 3:00 PM EDT Office Visit [facility] [address] [place] [phone] Frances Li MD Cough, unspecified type (Primary Dx) 05/09/2025 Results Follow-Up [facility] [address] [place], [place] [address] [place] [address] Frances Li MD XR Chest 2 Views 05/09/2025 Travel 05/09/2025 Telephone [facility] [place] [address] Frances Li MD 05/01/2025 Refill [facility] [address] [facility] [place] [address] Frances Li MD Leg cramps 04/29/2025 Orders Only GENERIC EXTERNAL DATA DEPARTMENT Provider, Generic External Data 04/13/2025 Telephone [facility] [address] [facility] [place] [address] Frances Li MD June Recalls 04/13/2025 Travel from Last 3 Months Immunizations Immunization Administration Dates Next Due Hep B, adult 11/06/2023,06/05/2023,05/06/2023 Influenza Injectable Quadriv alant Preservative Free IIV4 MDCK 06/29/2023 Influenza Quadrivalent Adjuvanted 06/03/2021 Influenza injectable quadriv alent preservative free 05/16/2022,06/13/2020 Influenza, High Dose Seasona l, Preservative Free 05/25/2017 Influenza, IIV3, injectable 05/10/2019, 8 Influenza, Injectable, MDCK, preservative free 05/21/2025 Influenza, seasonal, injecta ble, preservative free 05/12/2025,06/08/2024 Pneumococcal Conjugate PCV 20 06/21/2025 Tdap 09/10/2017 Zoster, Recombinant 06/11/2025 Family History * Patient is adopted Medical [...] Answer Date Recorded Patient Health Questionnaire-9 Score 0 06/21/2025 Patient Health Questionnaire-9 Score 0 06/21/2025 Last PHQ-9: Questionnaire Data Not on file 1 08/21/2024 Housing Stability Answer Date Recorded What is your housing situation today? I have kemal hernandez 06/21/[address] you li ve. Do you have problems with any of the following? None of the above 06/21/2025 Food Insecurity Answer Date Recorded Within the past 12 months, y ou worried that your food would run out before you got money to buy more: Never True 06/21/2025 Within the past 12 months,th e food you bought just didn't last and you didn't have enough money to get more: Never True 07/2025 Transportation Answer Date Recorded In the past 12 months, has l ack of transportation kept you from medical appts, meetings, work or from getting things needed for daily living? No 06/21/2025 Utilities Answer Date Recorded In the past 12 months, has t he electric, gas, oil or water company threatened to shut off services in your home? No 06/21/2025 Depression Answer Date Recorded Patient Health Questionnaire-2 Score 0 06/21/2025 Internet Access Answer Date Recorded Internet Access Q1 No 06/21/2025 Internet Access Q2 I do not want or need it 06/10 Comments Unknown Sex and Gender Information Value Date Recorded Sex Assigned at Female 06/09/2022 10:31 AM EDT Legal Sex Female 10:31 AM EDT Gender Identity Choose not to disclose 10:31 AM EDT Sexual Orientation Choose not to disclose 2021 10:31 AM EDT Last Filed Vital Signs Vital Sign Reading Time Taken Comments Blood Pressure 140/82 06/21/2025 10:32 AM EST Pulse 80 06/21/2025 10:32 AM EST Temperature 37.2 C (98.9 F) 06/21/2025 10:32 AM EST Respiratory Rate 20 06/21/2025 10:3 2 AM EST Oxygen Saturation 98% 06/21/2025 10: 32 AM EST Inhaled Oxygen Concentration - - Weight 74.8 kg (164 lb 12.8 oz) 025 10:32 AM EST Height 170.2 cm (5' 7 ) 05/09/2025 2:37 PM EDT Body Mass Index 25.81 05/09/2025 2:37 PM EDT Plan of Treatment Health Maintenance Due Date Last Done Comments CT Colonography 1965 FIT DNA/Cologuard 1965 FIT 1965 FOBT 1965 Sigmoidoscopy 1965 Colonoscopy 01/19/2025 01/20/2020 Colorectal Cancer Screening 01/19/2025 COVID-19 Vaccine ( season) 2025 03/06/2022, 06/26/2021, 09/26/2020, Additional history exists Zoster Vaccines (2 of 2) 08/06/2025 06/11/2025 Pap Smear 08/20/2025 08/20/2022 Alcohol/Substance Use Screening 06/21/2026 06/21/2025 Depression Screening 06/21/2026 06/21/2025, 06/21/20 25 Disability Screening 06/21/2026 06/21/2025 SDOH Screening 06/21/2026 06/21/2025 Tobacco Screening 06/21/2026 06/21/2025 Mammogram 05/01/2027 05/01/2025, 04/10, 04/15/2023, Additional history [...] C Screening Completed 03/26/2024 Influenza Vaccine Completed 05/21/2025, , 06/08/2024, Additional history exists Pneumococcal Vaccine: 50+ Years Completed 06/21/2025 HIB Vaccines Discontinued HPV Vaccines Aged Out No longer eligi ble based on patient's age to complete this topic Hepatitis A Vaccines Aged Out No long er eligible based on patient's age to complete this topic IPV Vaccines Aged Out No longer eligi ble based on patient's age to complete this topic Meningococcal B Vaccine Discontinued Meningococcal Vaccine Discontinued RSV under 20 months Aged Out No [...] test for low risk patient HIV ANTIBODY/ANTIGEN ([facility]) Routine 12/13/2022 7:31 AM EDT HPV MRNA [...] PM EDT Narrative 05/09/2025 3:36 PM EDT [address] [address] XRay Report Signed Patient: Laura Rivas MR#: [id number] 3 : 1965 Acct:[id number] Age/Sex: 59 / F ADM Date: 05/09/25 Loc: [facility] Attending Dr: Frances Li MD Ordering Physician: Frances Li MD Date of Service: 05/09/25 Procedure(s): XR chest 2V Accession Number(s): [id number] cc: Frances Li MD Reason for Exam: [...] 05/09/25 1533 DD/ 1540 TD/TT: 05/09/25 1531 Neurology Stroke Physician: Procedure Note Donotuseinterpreter, Image - 05/09/[address] [address] XRay Report Signed Patient: Laura Rivas LMR#: [id number] 3 : 1965Acct:[id number] Age/Sex: 59 / FADM Date: 05/09/25 Loc: [facility]X Attending Dr: Frances Li MD Ordering Physician: Frances Li MD Date of Service: 05/09/25 Procedure(s): XR chest 2V Accession Number(s): [id number] cc: Frances Li MD Reason for Exam: [...] 05/09/25 1533 DD/ 1540 TD/TT: 05/09/25 1531 Neurology Stroke Physician: Frances Li MD IMG XR PROCEDURES Final Re sult * BI Mammogram Screening Tomosynthesis Bilateral (05/01/2025 1:55 PM EDT) Anatomical Region Laterality Modality Breast Bilateral Mammography 05/01/2025 1:55 PM EDT Narrative 05/02/2025 7:06 PM EDT [facility]'[address] [place] [address] Mammography Report Signed Patient: Laura Rivas MR#: [id number] 3 : 1965 Acct:[id number] Age/Sex: 59 / F ADM Date: 05/01/25 Loc: HO.MAMMO Attending Dr: Frances Li MD Ordering Physician: Frances Li MD Results: 1N egative Date of Service: 05/01/25 Follow Up: 1 Year From Orig ina Mammogram Procedure(s): MM tomosynthesis screening BI Accession Number(s): [id number] cc: Frances Li MD Reason For Exam: [...] Jose Freeman MD 05/02/2025 07:03 PM EDT RP Dictated By: Jose Freeman MD Signed By: <Electronically signed by Jose Freeman MD in OV> 05/02/25 1903 DD/ 1355 TD/TT: 05/01/25 1415 Neurology Stroke Physician: Procedure Note Donotuseinterpreter, Image - [facility]02/[facility] [address] [place] [address] Mammography Report Signed Patient: Laura Rivas LMR#: [id number] 3 : 1965Acct:[id number] Age/Sex: 59 / FADM Date: 05/01/25 Loc: HO.MAMMO Attending Dr: Frances Li MD Ordering Physician: Frances Li MDResults: 1N egative Date of Service: 05/01/25Follow Up: 1 Year From [facility] Mammogram Procedure(s): MM tomosynthesis screening BI Accession Number(s): [id number] cc: Frances Li MD Reason For Exam: [...] 05/02/25 1903 DD/ 1355 TD/TT: 05/01/25 1415 Neurology Stroke Physician: us Frances Li MD IMG BI PROCEDURES Final Re sult * (ABNORMAL) SARS-CoV-2 RNA, Influenza A/B, and RSV RNA, Ql NAAT (04/29/2025 10:33 AM EDT) Influenza A PCR NEGATIVE Negative [facility] Influenza B PCR NEGATIVE Negative [facility] Resp Syncy Virus RNA Qual PCR NEGATIVE Negative [facility] SARS COV2 PCR POSITIVE(A) Negative [facility] Comment:All test results mus t be [...] use by authorized laboratories.Testing performed on the [employer] GeneXpert utilizingreal-time RT-PCR.All SARS CoV2 and positive influenza A/B results arereported to [facility]. 04/29/2025 10:3 3 AM EDT 04/29/2025 3:07 PM EDT Generic External Data Provider LAB MICROBIOLOGY - GENERAL ORDERABLES Final Result Performing Organization Address City/[facility]/ZIP Co de Phone Number [facility] [address] [place] [phone] * (ABNORMAL) Lipid Panel, Standard (12/10/2024 7:10 AM EDT) Triglycerides 86 <150 mg/dL [facility] Comment:Desirable Triglyceri de: less than 150 mg/dLBorderline High Triglyceride 150-199 mg/dLHigh Triglyceride: 200-499 mg/dLVery High Triglyceride: greater than or equal to 5OO mg/dL Cholesterol 206(H) <200 mg/dL [facility] Comment:Desirable Cholestero l: less than 200 mg/dLBorderline High Cholesterol: 200-239 mg/dLHigh Cholesterol: greater than 239 mg/dL LDL Cholesterol Calculated 104(H) <100 mg/dL [facility] Comment:Desirable LDL: less than 100 mg/dLNear Optimal/Above Optimal LDL: 110- 129 mg/dLBorderline High LDL: 130-159 mg/dLHigh LDL: 160-189 mg/dLVery High LDL: greater than or equal to 190 mg/dL HDL Cholesterol 85 >40 mg/dL [facility] Comment:Desirable HDL: great er than 40 mg/dL Note: This HDL assay may give artificially low results in patients with liver disease. Blood Venous blood specimen / Unknown 12/10/2024 7:10 AM EDT 12/10/2024 7:10 AM EDT Frances Li MD LAB BLOOD ORDERABLES Final Result Performing Organization Address [facility]/ZIP Co de Phone Number [facility] [address] [place] [phone] * Hepatitis C Antibody with Reflex to HCV, RNA, Quantitative, Real-Time PCR (03/26/2024 7:12 AM EDT) Hepatitis C Antibody Nonreactive Nonreactive [facility] Comment:Antibodies to HCV no t detected; does not exclude early acuteHCV infection. Blood Venous blood specimen / Unknown 03/26/2024 7:12 AM EDT 03/26/2024 7:12 AM EDT Frances Li MD LAB BLOOD ORDERABLES Final Result Performing Organization Address [facility]/ZIP Co de Phone Number [facility] [address] [place] [phone] * HIV Ab/Ag ([facility]) (12/13/2022 7:31 AM EDT) Pathologist [facility] HIV AB/AG Nonreactive Nonreactive [facility] Comment:HIV-1 p24 Ag and/or HIV-1/HIV-2 Ab not detected.A test result that is nonreactive does not exclude thepossibility of exposure to or infection with HIV-1 and/orHIV-2. Nonreactive results in this assay for individualswith prior exposure to HIV-1 and/or HIV-2 may be due toantigen and antibody levels that are below the limit ofdetection of this assay.The [employer] HIV Ag/Ab Combo assay result andsupplemental assay results should be interpreted inconjunction with the patient's clinical presentation,history and other laboratory results. If the results areinconsistent with clinical evidence, additional testing issuggested to confirm the result. 12/13/2022 7:31 AM EDT 12/13/2022 7:31 AM EDT [facility] External Provider LAB BLO OD ORDERABLES Final Result Performing Organization Address [facility]/ZIP Co de Phone Number [facility] [address] [place] [phone] * HPV mRNA E6/E7 w/Reflex to HPV Genotypes 16, 18/45 (08/20/2022 1:52 PM EST) HPV nRNA E6/E7 Not Detected Not Detected [facility] Comment:Methodology: Transcr iption-Mediated AmplificationThis assay detects E6/E7 viral messenger RNA (mRNA) from 14high-risk HPV types (16,18,31,33,35,39,45,51,52,56,58,59,66,68).Cervical sources are required for HPV testing.If a vaginal source from a patient who has had atotal hysterectomy with removal of cervix wassubmitted, please contact the testing laboratoryfor alternative testing options.For additional information, please refer tohttp://education.[employer]/faq/MPW401o0(This link if provided for information/educational purposes only.)THIS TEST WAS PERFORMED AT:[facility] [place] [address] ([address] [phone] TREVINO MD HPV mRNA E6/E7 [facility] HPV 16 RNA [facility] HPV 18/45 RNA [facility] 08/20/2022 1:52 PM EST 08/20/2022 3:00 PM EST [facility] External Provider LAB CYT OLOGY ORDERABLES Final Result [facility] [address] [place] [phone] * Pap Smear (08/20/2022 1:52 PM EST) 08/20/2022 1:52 PM EST 08/20/2022 3:00 PM EST Narrative [facility] - 08/31/2022 11:51 AM EST ----- ------- Name: Laura Rivas Age/Sex: 56/F : 1965 Unit#: [id number] Attend Dr: Olivia Montoya CNM Re08/20/22 Status: DEP REF Location: [facility] Disch: ----- ------- SPEC : [id number] RECD: 08/20/22-1499 STATUS: LUCIANA MELENDERZ NUM: [id number] RAFAEL: 08/20/22-[address] [facility] [address]: Olivia Montoya ENTERED: 08/20/22-1836 SP TYPE: Pap Smr OTHR DR: Frances Li MD ORDERED: Pap Smear Interpretation Satisfactory for evaluation. Negative for intraepithelial lesion or malignancy. HPV mRNA E6/E7: NOT DETECTED This assay detects E6/E7 viral messenger RNA (mRNA) from 14 high-risk HPV types (16, 18, 31, 33, 35, 39, 45, 51, 52, 56, 58, 59, 66, 68) HPV testing performed by [facility], [place], [place]. See reference laboratory portion of the EMR for entire report. Clinical Information LMP: Post menopause Previous PAP test: 2017, WNL Material Received ThinPrep-Cervical Copies To: Frances Li MD [address] [place] [address] [phone] Olivia Montoya [address] [place] [address] [place] [phone] ----- ------- Signed (signature on file) Lilia Krause 08/31/22 1151 ----- ------- END OF REPORT [facility] External Provider LAB CYT DE BRIAN Final Result [facility] [address], [place] [phone] * Colonoscopy (01/20/2020) Colonoscopy hx tubular adenoma with Dr. 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 Advance Directives and Living Will 03/10/2024 3:23 PM Health Care Proxy Care Teams Piece Work Checker Relationship Specialty Start Date End Date Jen, MD Frances [address] [place] [phone] PCP - General Family Medicine 03/07/19 Olivia Montoya [address] [place] [address] 09/22/24 Nestor Downey MD [address] [place] [address] Orthopaedic Surgery 10/11/24 Peyton Earl MD [address], [address] [place] [address] Neurosurgery 10/11/24 Anibal Ferrell MD [address] 3rd [place] [address] General Surgery 11/04/24 Elvin Fields MD [address] [place] [address] Gastroenterology 05/30/25
--- OUTSIDE RECORDS SUMMARY | 2025-06-28 08:26 | XMS_ITS | Encounter Summary ---
Author Organization [employer] Address [address] [place] [address] Care Team Providers Care Radio Electronics Officer Name Role Phone Jen, Frances BREWER Primary Care Provider [phone] Olivia Montoya Unavailable Nestor Downey MD Unavailable Peyton Earl MD Unavailable Anibal Ferrell MD Unavailable [phone] Elvin Fields MD Unavailable Reason for Visit * Reason Comments Med Refill Encounter Details Date Type Department Care Team (Late st Contact Info) Description 12/30/2023 Refill [facility] [address] [place] [address] Payal Berry MD [address] [place], [place] [phone] Nasal congestion; Pain of nose Social History [...] sinuses documented in this encounter Care Teams Radio Electronics Officer Relationship Specialty Start Date End Date Frances Li MD [address] [place] [address] PCP - General Family Medicine 03/07/19 Olivia Montoya [address] [place] [address] 09/22/24 Nestor Downey MD [address] [place] [address] Orthopaedic Surgery 10/11/24 Peyton Earl MD [address] [place] [address] Neurosurgery 10/11/24 Anibal Ferrell MD [address] 3rd [place] [address] General Surgery 11/04/24 Elvin Fields MD [address] [place] [address] Gastroenterology 05/30/25 documented as of this encounter
--- OUTSIDE RECORDS SUMMARY | 2025-06-28 08:27 | XMS_ITS | Patient Health Record ---
Author Organization [facility] Address [address] [place] [address] Care Team Providers Care Machines Technician Name Role Phone Frances Li MD Primary Care Provider Astrid Elvin Lindquist Unavailable [phone] Allergies Allergen (clinical drug ingredient) Drug/Non Drug Allergy documented on EMR Reaction Allergy Type Onset Date Status acetaminophen Tylenol Unknown Drug Allergy Act jaden Reason For Referral No Information Medications Medication SIG (Take, Route, Frequency, Duration) Notes Start Date End Date Status Vitamin D 2000 UNIT Tablet 1 tablet Orally Once a day; Duration: 30 day(s) Active Estradiol 0.1 MG/GM Cream Vaginal; Duration: 90 Days Active Multivitamins - Capsule as directed Oral ly once a day Active Dicyclomine HCl 10 MG Capsule 1-2 capsules Orally QID prn abdominal discomfort; Duration: 30 day(s) Not-Taking/P RN MiraLax - Packet 1 packet mixed with 8 ounces of fluid Orally prn Not-Taking/PRN Omeprazole 20 MG Capsule Delayed Release 1 capsule 30 minutes before morning meal Orally Once a day; Duration: 30 day(s) Not-Taking/P RN amLODIPine Besylate 5 MG Tablet TAKE 1 TABLET BY MOUTH EVERY DAY Oral; Duration: 90 Days Active Gabapentin 300 MG Capsule 1 capsule Orally Twice a day Not-Taking/PRN Lisinopril 10 MG Tablet TAKE 1 TABLET BY MOUTH EVERY DAY Oral; Duration: 90 Days Active Atorvastatin Calcium 40 MG Tablet Oral; Duration: 90 Days Active Immunizations Vaccine Route Administration Date Status Comme nts Influenza Unknown 06/16/2018 Administered Influenza Unknown 05/10/2019 Administered Social History Tobacco Use: Social History Observation Description Date Details (start date - stop date) Never Smoker NA - NA Social History Drug/Alcohol: Social Info Question Answer Notes AUDIT-C (Standard) Did you have a drink containing alcohol in the past year? Yes How often did you have a drink containing alcohol in the past year? Monthly or less (1 point) How many drinks did you have on a typical day when you were drinking in the past year? 1 or 2 drinks (0 point) How often did you have six or more drinks on one occasion in the past year? 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 [employer] Section Notes: Smoker; no sig alcohol Smoker; no sig alcohol Smoker; no sig alcohol Smoker; no sig alcohol Nonsmoker x 3; no sig alcoho l Problems Problem Type SNOMED Code ICD Code Onset Dates Problem Status W/U Status Risk Notes Problem Screening for malignant neoplasm of colon (483575503) Encounter for screening for malignant neoplasm of colon (Z12.11) Active confirmed Problem Family History of Cancer of Colon (Situation) (924973169) Family history of colon cancer (Z80.0) Active confirmed Problem Constipation (50964184) Constipation, unspecified constipation type (K59.00) Active confirmed Problem History of adenomatous polyp of colon (562407439) Hx of adenomatous colonic polyps (Z86.010) Active confirmed Problem Upper abdominal pain (92067433) Upper abdominal pain (R10.10) Active confirmed Problem Irritable bowel syndrome characterized by constipation (981863367) Irritable bowel syndrome with constipation (K58.1) Active confirmed Vital Signs Temperature 97.1 degrees Fahrenheit 04/21/2025 Blood pressure diastolic 01 mm Hg 04/21/2025 Height 66.5 in 04/21/2025 Blood pressure systolic 001 mm Hg 04/21/2025 Weight 160 lbs 04/21/2025 BMI 25.44 kg/m2 04/21/2025 Procedures Procedure Date Ordered Date Performed Result Body Sit e COLONOSCOPY 04/21/2025 N/A Encounters Encounter Location Date Provider Diagnosis [facility] [address] [place] [id number] 04/21/2025 Elvin Fields Hx of adenomatous colonic [...] Provider Name:Elvin Fields , 07/21/2025 08:30:00 AM, [address] [place] [address] , [place], [place], [id number], Insurance Providers Payer Name Payer Address Payer Phone Subscriber Number Group Number Insured Name Patient Relationship to Insured Coverage Start Date Coverage End Date [facility] [address] [place], [place] [id number] LAURA JACKSON Self - patient is the insured Medical (General) History Medical History History ICD Code Denies NE,DM,CVA,Lung disease,renal dise ase Negative upper GI series [...] l tubular adenomas Surgical History Surgery Date(Month/Year) Cholecystectomy-Dr. Almanzar Umbilical hernia repair- Dr. Almanzar 12/16 Back surgery- lower back for a disc 2019
--- OUTSIDE RECORDS SUMMARY | 2025-06-28 08:28 | XMS_ITS | Encounter Summary ---
Author Organization [employer] Address [address] 7t [place] [address] Care Team Providers Care Portable Canteen Operator Name Role Phone Frances Li MD Primary Care Provider [phone]- [phone] Olivia Montoya Unavailable Nestor Downey MD Unavailable Peyton Earl MD Unavailable Anibal Ferrell MD Unavailable [phone] Elvin Fields MD Unavailable Reason for Visit * Reason Comments Med Refill Encounter Details Date Type Department Care Team (Late st Contact Info) Description 11/15/2024 Refill [facility] MEDICINE 230 [place], [place] [phone] Frances Li MD [address] [place], [place] [phone] Primary hypertension Social History Tobacco Use Types [...] documented as of this encounter Care Teams Portable Canteen Operator Relationship Specialty Start Date End Date Frances Li MD [address] [place] [address] PCP - General Family Medicine 03/07/19 Olivia Montoya [address] [facility] [address] [place] [address] 09/22/24 Nestor Downey MD [address] [place] [address] Orthopaedic Surgery 10/11/24 Peyton Earl MD [address], [address] [place] [address] Neurosurgery 10/11/24 Anibal Ferrell MD [address] 3rd [place] [address] General Surgery 11/04/24 Elvin Fields MD [address] [place] [address] Gastroenterology 05/30/25 documented as of this encounter
--- OUTSIDE RECORDS SUMMARY | 2025-06-28 08:28 | XMS_ITS | Encounter Summary ---
Author Organization [employer] Address [address] [facility] 7t [place] [address] Care Team Providers Care Wall Mirror Department Supervisor Name Role Phone Frances Li MD Primary Care Provider +- [phone] Olivia Montoya Unavailable Nestor Downey MD Unavailable Peyton Earl MD Unavailable Anibal Ferrell MD Unavailable [phone] Elvin Fields MD Unavailable Encounter Details Date Type Department Care Team (Late st Contact Info) Description 09/01/2022 Orders Only [facility] MEDICINE 230 [place], [place] [phone] Tiffanie Garcia LPN Social History Tobacco Use [...] on filedocumented in this encounter Care Teams Wall Mirror Department Supervisor Relationship Specialty Start Date End Date Frances Li MD 230 [place], [place] [phone] PCP - General Family Medicine 03/07/19 Olivia Montoya [address] [facility] [address] [place] [address] 09/22/24 Nestor Downey MD [address] [place] [address] Orthopaedic Surgery 10/11/24 Peyton Earl MD [address] [facility], [address] [place] [address] Neurosurgery 10/11/24 Anibal Ferrell MD [address] 3rd [place] [address] General Surgery 11/04/24 Elvin Fields MD [address] [place] [address] Gastroenterology 05/30/25 documented as of this encounter
--- OUTSIDE RECORDS SUMMARY | 2025-06-28 08:28 | XMS_ITS | Encounter Summary ---
Author Organization [employer] Address [address] [facility] 7t [place] [address] Care Team Providers Care Holistic Nutritionist Name Role Phone Frances Li MD Primary Care Provider [phone]- [phone] Olivia Montoya Unavailable Nestor Downey MD Unavailable Peyton Earl MD Unavailable Anibal Ferrell MD Unavailable [phone] Elvin Fields MD Unavailable Encounter Details Date Type Department Care Team (Late st Contact Info) Description 09/04/2022 Abstract [facility] MEDICINE 230 [place], [place] [phone] Frances Li MD 230 [place], [place] [phone] Social History Tobacco Use Types Packs/Day Years [...] on filedocumented in this encounter Care Teams Holistic Nutritionist Relationship Specialty Start Date End Date Frances Li MD 230 [place] [address] PCP - General Family Medicine 03/07/19 Olivia Montoya [address] [facility] [address] [place] [address] 09/22/24 Nestor Downey MD [address] [place] [address] Orthopaedic Surgery 10/11/24 Peyton Earl MD [address] [address] [facility] [address] [facility] [address], [address] [place] [address] Neurosurgery 10/11/24 Anibal Ferrell MD [address] 3rd [place] [address] General Surgery 11/04/24 Elvin Fields MD [address] [place] [address] Gastroenterology 05/30/25 documented as of this encounter
--- OUTSIDE RECORDS SUMMARY | 2025-06-28 08:28 | XMS_ITS | Encounter Summary ---
Author Organization [employer] Address [address] 7t [place] [address] Care Team Providers Care Breakdown Man Name Role Phone Frances Li MD Primary Care Provider [phone]- [phone] Olivia Montoya Unavailable Nestor Downey MD Unavailable Peyton Earl MD Unavailable Anibal Ferrell MD Unavailable [phone] Elvin Fields MD Unavailable Encounter Details Date Type Department Care Team (Late st Contact Info) Description 05/09/2025 Results Follow-Up [facility] 230 [place], [place] [phone] Frances Li MD 230 [place], [place] [phone] XR Chest 2 Views Social History Tobacco [...] documented as of this encounter Care Teams Breakdown Man Relationship Specialty Start Date End Date Frances Li MD 230 [place] [address] PCP - General Family Medicine 03/07/19 Olivia Montoya [address] [facility] [address] [place] [address] 09/22/24 Nestor Downey MD [address] [place] [address] Orthopaedic Surgery 3/4/25 Peyton Earl MD [address] [facility] [address], [address] [place] [address] Neurosurgery 10/11/24 Anibal Ferrell MD [address] 3rd [place] [address] General Surgery 11/04/24 Elvin Fields MD [address] [place] [address] Gastroenterology 05/30/25 documented as of this encounter
--- OUTSIDE RECORDS SUMMARY | 2025-06-28 08:29 | XMS_ITS | Encounter Summary ---
Author Organization [employer] Address [address] [facility] 7t [place] [address] Care Team Providers Care Parcel Post Weigher Name Role Phone Frances Li MD Primary Care Provider [phone]- [phone] Olivia Montoya Unavailable Nestor Downey MD Unavailable Peyton Earl MD Unavailable Anibal Ferrell MD Unavailable [phone] Elvin Fields MD Unavailable Encounter Details Date Type Department Care Team (Late st Contact Info) Description 01/13/2023 Orders Only [facility] MEDICINE 230 [place], [place] [phone] Frances Li MD 230 [place], [place] [phone] MAREN positive (Primary Dx) Social History Tobacco [...] Primary documented in this encounter Care Teams Parcel Post Weigher Relationship Specialty Start Date End Date Claudio Lihanie, MD 230 [place] [address] PCP - General Family Medicine 03/07/19 Olivia Montoya [address] [facility] [address] [place] [address] 09/22/24 Nestor Downey MD [address] [place] [address] Orthopaedic Surgery 10/11/24 Peyton Earl MD 2 [facility], [address] [place] [address] Neurosurgery 10/11/24 Anibal Ferrell MD [address] 3rd [place] [address] General Surgery 11/04/24 Elvin Fields MD [address] [place] [address] Gastroenterology 05/30/25 documented as of this encounter
--- OUTSIDE RECORDS SUMMARY | 2025-06-28 08:29 | XMS_ITS | Patient Health Record ---
Author Organization [facility] Address [address] [place] [address] Care Team Providers Care Bank Representative Name Role Phone Frances Li MD Primary Care Provider Astrid vailable Black, Shena Unavailable [phone] Allergies Allergen (clinical drug ingredient) Drug/Non Drug Allergy documented on EMR Reaction Allergy Type Onset Date Status acetaminophen Tylenol hard time breathing Drug Allergy Active Results Component Value Reference Range Notes X ray : Foot, right 3V Reviewed date:06/05/2025 04:52:58 PM Interpretation:See Examination above Performing Lab: Notes/Report: See Examination above Reason For Referral No Information Medications Medication SIG (Take, Route, Frequency, Duration) Notes Start Date End Date Status Atorvastatin Calcium 20 MG Oral; Duration: 90 Active Lisinopril 10 MG TAKE 1 TABLET BY MOUTH EVERY DAY Oral; Duration: 90 I10,Unavailab le Active Gabapentin 300 MG Oral; Duration: 30 Not-Taking Estradiol 0.1 MG/GM as directed Vaginal Active Biofreeze 4 % 1 application as needed Externally Three times a day 11/24/2022 Not-Taking Paxlovid (300/100) 20 x 150 MG & 10 x 100MG Oral; Duration: 5 N ot-Taking Physical Therapy . . . 2-3x/week; Duration: 3-4 weeks 01/08/2023 Active Ibuprofen 400 MG 1 tablet with food or milk as needed Orally Three times a day 11/24/2022 Not-Taking amLODIPine Besylate 5 MG Oral; Duration: 90 Active Immunizations Vaccine Route Administration Date Status Comme nts Influenza Unknown 05/12/2025 Administered Social History Tobacco Use: Social History Observation Description Date Details (start date - stop date) Never Smoker NA - NA Tobacco use other than smoking: Question Answer Notes Are you an other tobacco user? No Tobacco Control (Standard) Question Answer Notes Tobacco use: Nonsmoker Additional Findings: Tobacco non-user Current no nsmoker AUDIT-C (Standard) Question Answer Notes Did you [...] Never (0 point) Points 1 Interpretation Negative Problems Problem Type SNOMED Code ICD Code Onset Dates Problem Status W/U Status Risk Notes Problem Acquired hammer toe of right foot (7452270576920 105) Hammer toe of right foot (M20.41) Active confirmed Vital Signs Blood pressure diastolic 65 mm Hg 06/05/2025 Height 5 ft 7 in in 06/05/2025 Blood pressure systolic 128 mm Hg 06/05/2025 Weight 165 lbs 06/05/2025 BMI 25.84 kg/m2 06/05/2025 Encounters Encounter Location Date Provider Diagnosis [facility] [address] [address] 06/05/2025 Shena Black Pain in right foot M79.671 ; Metatarsalgia, right foot M77.41 ; Pain in right ankle and joints of right foot M25.571 ; Bursitis of intermetatarsal bursa of right foot M77.51 and Subungual hematoma of toe of right foot, initial encounter S90.221Q Assessments Encounter Date Diagnosis (ICD Code) Assessment Notes Treatment Notes Treatment Clinical Notes Section Notes 06/05/2025 Metatarsalgia, right foot (ICD-10 - M77.41) 06/05/2025 Pain in right foot (ICD-10 - M79.671) 06/05/2025 Pain in right ankle and joints of right foot (ICD-10 - M25.571) 06/05/2025 Bursitis of intermetatarsal bursa of right foot (ICD-10 - M77.51) 06/05/2025 Subungual hematoma of toe of right foot, initial encounter (ICD-10 - S90.221A) Plan Of Treatment Next Appt Details Provider Name:S[place]a Reyna , 10/02/2025 11:30:00 AM, [address] [place], [address], Insurance Providers Payer Name Payer Address Payer Phone Subscriber Number Group Number Insured Name Patient Relationship to Insured Coverage Start Date Coverage End Date [facility] [address] [place] [address] [phone] [id number] Ellis Rivas Spouse - patient is the spouse of the insured Medical (General) History Medical History History ICD Code Anxiety Back,Hip,and Knee pain covid-19 Gall bladder problems Headaches High blood pressure Numbness Chicken pox Surgical History Surgery Date(Month/Year) section 02/14/1984 cholecystectomy 2009 back surgery 05/2020
--- NOTE | 2025-07-19 09:57 | HO.ANESPROP2 ---
Documented by User: Hyacinth Levy NP 07/19/25 09:57 HPI - Anesthesia Eval Consult details Narrative: 59 yr old female for colonoscopy PMF Active Problems Active Problems: All Active Problems Cyst of skin of right breast (Acute) Encounter for well woman exam with routine gynecological exam (Acute) Right hip flexor tightness (Acute) Disc degeneration, lumbar (Acute) Carpal tunnel syndrome of right wrist (Acute) MAREN positive (Acute) Numbness and tingling in left hand (Acute) Numbness and tingling in right hand (Acute) Right lumbar radiculitis (Acute) History of back surgery (Acute) Right knee pain (Acute) Fibroids (Acute) Vaginal discomfort (Acute) Atrophic vaginitis (Acute) Past Medical History Medical History IBS (irritable bowel syndrome) Right lumbar radiculitis Fibroids High cholesterol Family History Family History Family/Other Colon cancer Mother Dementia Maternal Grandmother Colon cancer Other Adopted Surgical History Surgical History Hx of umbilical hernia repair History of esophagogastroduodenoscopy (EGD) H/O colonoscopy Hx of section Hx of cholecystectomy History of back surgery Social History Social History Household Members: Spouse Housing: House Alcohol intake: current Alcohol intake frequency: holidays/special occasions only Patient Tobacco Use Status: Former Tobacco user Are you DNR?: No Advance Directives: No Advance Directives Information Provided: Yes service: No Current occupational status: employed Current occupation: [employer] Sexual orientation: Straight/Heterosexual Gender identity: Female Meds Allergies Allergy/AdvReac Type Severity Reaction Status Date / Time acetaminophen (From TYLENOL) Allergy Severe THROAT Verified 04/29/25 11:13 CLOSES dichloralphenazone (From Allergy Severe PANIC Verified 04/29/25 11:13 MIDRIN) ATTACK Home Medications ?Medication ?Instructions ?Recorded ?Confirmed ?Last Taken ?Type atorvastatin 20 mg tablet 20 mg PO DAILY 07/18/20 07/21/25 Unknown History ibuprofen 600 mg tablet 600 mg PO Q8H PRN pain 07/18/20 07/21/25 Unknown History lisinopril 10 mg tablet 10 mg PO DAILY 04/28/23 07/21/25 Unknown History amlodipine 2.5 mg tablet 5 mg PO QAM 04/29/23 07/21/25 Unknown History Documented by User: Panchito Sparks MD 07/21/25 09:03 PMF Past Medical History Medical History IBS (irritable bowel syndrome) Right lumbar radiculitis Fibroids High cholesterol Family History Family History Family/Other Colon cancer Mother Dementia Maternal Grandmother Colon cancer Other Adopted Family history of problems with anesthesia: No Surgical History Surgical History Hx of umbilical hernia repair History of esophagogastroduodenoscopy (EGD) H/O colonoscopy Hx of section Hx of cholecystectomy History of back surgery History of Problems with Anesthesia: No Social History Social History Household Members: Spouse Housing: House Alcohol intake: current Alcohol intake frequency: holidays/special occasions only Patient Tobacco Use Status: Former Tobacco user Are you DNR?: No Advance Directives: No Advance Directives Information Provided: Yes service: No Current occupational status: employed Current occupation: [employer] Sexual orientation: Straight/Heterosexual Gender identity: Female Meds Allergies Allergy/AdvReac Type Severity Reaction Status Date / Time acetaminophen (From TYLENOL) Allergy Severe THROAT Verified 04/29/25 11:13 CLOSES dichloralphenazone (From Allergy Severe PANIC Verified 04/29/25 11:13 MIDRIN) ATTACK Home Medications ?Medication ?Instructions ?Recorded ?Confirmed ?Last Taken ?Type atorvastatin 20 mg tablet 20 mg PO DAILY 07/18/20 07/21/25 Unknown History ibuprofen 600 mg tablet 600 mg PO Q8H PRN pain 07/18/20 07/21/25 Unknown History lisinopril 10 mg tablet 10 mg PO DAILY 04/28/23 07/21/25 Unknown History amlodipine 2.5 mg tablet 5 mg PO QAM 04/29/23 07/21/25 Unknown History Exam Exam Date and Time: 07/21/25 Airway Mallampati Class: II TM Dist: >3cm Neck ROM: Full Heart: rrr Lungs: ctab vesicular Assessment and Plan Assessment Anesthesia Assessment: Anesthesia Plan Discussed and Chart Reviewed Final Anesthetic Review Family History of Problems with Anesthesia: No History of Problems with Anesthesia: No NPO: Yes ASA Class: III Final Preanesthetic Review: No Changes in Pt Med Stat, Meds/Allgs Chart Reviewed, Consent Obtained/Reviewed and Anes Risks/Benef Reviewed Patient Risk: Low Procedure Risk: Low Anesthetic Plan Anesthetic Plan: MAC: Disposition: Standard PACU
[2025-07-19 14:04] VITALS: BMI 25.4
[2025-07-21 07:28] VITALS: BMI 24.4
[2025-07-21] MEDS: Lactated Ringers 1,000 ML 100 ML IVCONT (08:05)
[2025-07-21 10:22] VITALS: BP 120/70; PULSE 92; RESP 12; TEMP 36.8; O2SAT 97
--- NOTE | 2025-07-21 10:29 | P.BOP_ITS ---
Brief Operative Note Date of Service: 07/21/25 Pre-op diagnosis: Screening Post-op diagnosis: other (Diverticulosis) Procedure: Colonoscopy to the cecum and TI Surgeon: Elvin Fileds MD Anesthesia: MAC Was an Jewel Oliving Machine Operator used for this Procedure?: No Estimated blood loss (mL): 0 Pathology: none sent Condition: stable Disposition: PACU
[2025-07-21 10:37] VITALS: BP 128/75; PULSE 76; RESP 16; TEMP 36.8; O2SAT 98
--- NOTE | 2025-07-21 11:34 | OP_ITS ---
DATE OF SERVICE: 07/21/2025 SURGEON: Elvin Fields MD INDICATIONS: The patient presents for evaluation of colorectal cancer screening and prior history of tubular adenoma of the colon. Full consent has been obtained from her for this, including risks of bleeding and perforation. PREOPERATIVE DIAGNOSIS: POSTOPERATIVE DIAGNOSIS: PROCEDURE PERFORMED: Colonoscopy to the cecum and terminal ileum. ESTIMATED BLOOD LOSS: COMPLICATIONS: ANESTHESIA: Medications used; monitored anesthesia care. ASSISTANTS: SPECIMENS: PREOPERATIVE DIAGNOSES: Colorectal cancer screening and personal history of tubular adenoma of the colon. POSTOPERATIVE DIAGNOSES: Colorectal cancer screening and personal history of tubular adenoma of the colon, diverticulosis, and internal hemorrhoids. DESCRIPTION OF PROCEDURE: The patient was placed in the left lateral decubitus position. The digital rectal exam revealed no abnormalities. The Olympus video pediatric colonoscope was entered into the rectum and advanced to the cecum with the assistance of abdominal wall pressure. Once in the cecum, I did identify normal-appearing cecal pouch with appendiceal orifice and a normal-appearing ileocecal valve. The terminal ileum was cannulated and appeared normal. The scope was withdrawn back in the colon. The entire cecum and ileocecal valve appeared normal. The scope was slowly withdrawn assessing all mucosal surfaces carefully. Preparation was excellent. I did not visualize any sign of polyps, colitis, nor angiodysplasia. There was a mild amount of sigmoid diverticulosis. In the rectum, scope was retroflexed visualizing internal hemorrhoids, but no other pathology. The rectal mucosa appeared normal. The scope was straightened and withdrawn from the patient. She tolerated the procedure well and was returned to the recovery area in stable condition. IMPRESSION: 1. Diverticulosis. 2. Internal hemorrhoids. PLAN: I would recommend a repeat colonoscopy in 5 years for further surveillance. She will otherwise see me as needed. MD OLIVIER Watts/LIBBYL / [id number]
== END 2025-07-21 11:07 | disposition home or self-care (01) ==
PROVIDERS: PCP Family Medicine; Visit Provider Internal Medicine
PROC: 0DJD8ZZ Inspection of Lower Intestinal Tract, Via Natural or Artificial Opening Endoscopic (ICD-10-PCS; CPT 45378; principal; 2025-07-21 08:30)
DX: Z12.11 Encounter for screening for malignant neoplasm of colon (principal); Z86.0101 Personal history of adenomatous and serrated colon polyps; K57.30 Diverticulosis of large intestine without perforation or abscess without bleeding; K64.8 Other hemorrhoids
CPT/HCPCS: 45378; J2003; J2405; J2704; J3010